=== PATIENT | female | born 1950 | race Caucasian/White ===

== ENCOUNTER 2019-03-23 12:49 | Inpatient (IN) | payer MEDICARE, MEDICAID, SELFPAY ==
[2019-03-23] VITALS (9 sets, daily range): BP systolic 131–179; BP diastolic 74–89; PULSE 67–97; RESP 15–26; TEMP 36.2–36.4; O2SAT 74–98
--- NOTE | 2019-03-23 12:54 | ED_ITS ---
Entered by Devika Marroquin, acting as scribe for Luis Fernando Root DO HPI - Altered Mental Status General: Chief Complaint: Altered Mental Status Stated Complaint: AMS Time Seen by Provider: 03/23/19 13:05 Mode of arrival: EMS History of Present Illness: HPI narrative: 69 yo female presents with altered mental status. EMS states that pt was talking when they brought her in. Pt doesn't answer any questions. Pt is very lethagic. Patient in severe respiratory distress with pending respiratory failure she is tachypneic with shallow rapid respirations at 50/min. She is nonresponsive to painful stimuli. Larue Coma Scale on admission is 4 MD complaint: altered mental status Severity: moderate Context: drug abuse Review of Systems General: Reports: ROS unobtainable due to endotracheal tube and ROS unobtainable due to mental status PFSH ED PFSH: Statuses (acute, chronic, etc) shown below reflect problem list status as previously entered and may not be historically accurate Medical History Gout (Acute) Head injury (Acute) Peptic ulcer (Acute) Sleep apnea (Acute) Thyroid disease (Acute) Surgical History H/O bilateral salpingo-oophorectomy (Acute) H/O knee surgery (Acute) H/O: hysterectomy (Acute) History of appendectomy (Acute) History of cholecystectomy (Acute) History of hip surgery (Acute) Family History Other Family history unobtainable due to patient's condition Social History Smoking and tobacco status: unknown if ever smoked Alcohol intake: unknown Substance/Drug Use: current Physical Exam Const: EXAM LIMITATIONS: altered mental status NUTRITIONAL APPEARANCE: obese Resp: EFFORT & INSPECTION: Yes grunting Cardio: COMMON NORMALS: regular rhythm RATE: tachycardic RHYTHM: regular rhythm GI: COMMON NORMALS: soft to palpation AUSCULTATION: Yes normoactive bowel sounds PALPATION: Yes soft, No tender, No guarding and Yes hepatosplenomegaly Extremity: GENERAL: Yes edema (Moderate lower extremity 1+ pitting) Neuro: HIMA COMA SCALE: document GCS findings Larue coma scale eye opening: None Larue coma scale verbal response: Sounds Hima coma scale motor response: None Hima coma scale total score: 4 Procedures Intubation sedative: Etomidate paralytic: Succinylcholine ET Tube Size: 8 Tube Secured Depth (cm): 22 Tube Secured Location: teeth Tube Placement Confirmation: visualized tube passing through cords, equal breath sounds bilaterally, no breath sounds over epigastrium and confirmation by capnometry Course ED course: Patient sedated on IV propofol. Is doing well labs reviewed discussed with Dr. Lucero he will admit the patient reviewing old records patient previously had severe hypothyroidism want to check a TSH. Dr. Lucero has been down to the ER and has seen the patient emergency room and written orders. Vital Signs: Vital signs: Vital Signs Temperature 98.8 F 03/24/19 05:38 Pulse Rate 78 03/24/19 07:59 Respiratory Rate 15 03/24/19 07:52 Blood Pressure 137/79 03/24/19 07:45 Pulse Oximetry 92 03/24/19 07:49 MDM - Altered Mental Status Lab Data: Labs: Lab Results 03/23/19 03/23/19 03/23/19 Range/Units 13:14 13:14 14:15 WBC (4.0-10.0) 10^3/ uL RBC (4.1-5.3) 10^6/u L Hgb (11.5-15.3) g/dL Hct (37.0-47.0) % MCV (81-99) fL MCH (28.0-34.0) pg MCHC (30.0-36.0) g/dL RDW (12.1-15.1) % Plt Count (130-400) 10^3/c mm MPV (7.4-10.4) fL Neut % (Auto) % Lymph % (Auto) % Routt % (Auto) % Eos % (Auto) % Baso % (Auto) % Neut # (Auto) (1.8-7.7) 10^3/u L Lymph # (Auto) (0.8-4.8) 10^3/u L Routt # (Auto) (0.2-0.9) 10^3/u L Eos # (Auto) (0.0-0.8) 10^3/u L Baso # (Auto) (0.0-0.1) 10^3/u L Nucleated RBC % (a uto) % Nucleated RBCs # /100WBC PT (10.5-13.3) SECO NDS INR (0.8-1.2) APTT (23.9-36.7) SECO NDS Specimen Type Sample Site ABG pH (7.35-7.45) ABG pCO2 (35-45) mmHg ABG pO2 (80.0-100.0) mmH g ABG HCO3 (22-26) mmol/L ABG O2 Saturation ABG Base Excess (-2.0-2.0) mmol/ L Mike Test A-a O2 Gradient (5-10) mmHg Hematocrit (37-47) % Hgb O2 Saturation (95-100) % Carboxyhemoglobin (0.4-20.1) %THgb Methemoglobin (0.4-1.5) % Total Hemoglobin (12-16) g/dL Ionized Calcium (1.1-1.4) mmol/L Respiration Rate % FiO2 % Tidal Volume PEEP cmH20 Homeopathic Doctor ID Sodium (136-145) mmol/L Potassium (3.5-5.1) mmol/L Chloride (98-107) mmol/L Carbon Dioxide (22-29) mmol/L Anion Gap (5-19) BUN (8-23) mg/dL Creatinine (0.5-0.9) mg/dL GFR Calculation (90-130) mL/min Glucose (74-106) mg/dL Calcium (8.8-10.2) mg/Dl Total Bilirubin (0.15-1.2) mg/dL AST (0-32) U/L ALT (0-33) U/L Alkaline Phosphata se (35-105) IU/L Troponin T Baselin e (0-10) ng/mL Total Protein (6.6-8.7) g/dL Albumin (3.5-5.2) g/dL Globulin (1.3-4.6) g/dL TSH (0.27-4.20) uIU/ mL Urine Color Yellow (Yellow) Urine Appearance Sl hazy (CLEAR) Urine pH 5 (5-7) Ur Specific Gravit y 1.020 (1.005-1.030) Urine Protein Neg (Negative) Urine Glucose (UA) Norm (Normal) Urine Ketones Negative (Negative) Urine Occult Blood Neg (Negative) Urine Nitrate Negative (Negative) Urine Bilirubin Neg (NEGATIVE) Urine Urobilinogen 1 H (Negative) mg/dL Ur Leukocyte Britt ase Negative (Negative) Urine RBC None (0-2) /hpf Urine WBC None (0-5) /hpf Ur Squamous Epith Cells 0-4 H (0-5) Urine Bacteria Trace (NONE) Hyaline Casts 0-4 H Urine Mucus 1+ Salicylates (3-10) mg/dL Urine Opiates Scre en Negative (Negative) ng/mL Acetaminophen (10-30) ug/mL Ur Barbiturates Sc reen Negative (Negative) ng/mL Ur Phencyclidine S crn Negative (Negative) ng/mL Ur Amphetamines Sc reen Positive H (Negative) ng/mL U Benzodiazepines Scrn Negative (Negative) ng/mL Urine Cocaine Scre en Negative (Negative) ng/mL U Marijuana (THC) Screen Negative (Negative) ng/mL Influenza Type A A g Negative (Negative) POC Influenza B Ag Negative (Negative) 03/23/19 03/23/19 03/23/19 Range/Units 14:16 14:16 14:16 WBC 9.5 (4.0-10.0) 10^3/ uL RBC 4.06 L (4.1-5.3) 10^6/u L Hgb 12.3 (11.5-15.3) g/dL Hct 41.6 (37.0-47.0) % MCV 102.5 H (81-99) fL MCH 30.3 (28.0-34.0) pg MCHC 29.6 L (30.0-36.0) g/dL RDW 16.0 H (12.1-15.1) % Plt Count 371 (130-400) 10^3/c mm MPV 9.4 (7.4-10.4) fL Neut % (Auto) 61.6 % Lymph % (Auto) 19.7 % Routt % (Auto) 12.8 % Eos % (Auto) 0.7 % Baso % (Auto) 0.9 % Neut # (Auto) 5.9 (1.8-7.7) 10^3/u L Lymph # (Auto) 1.9 (0.8-4.8) 10^3/u L Routt # (Auto) 1.2 H (0.2-0.9) 10^3/u L Eos # (Auto) 0.1 (0.0-0.8) 10^3/u L Baso # (Auto) 0.1 (0.0-0.1) 10^3/u L Nucleated RBC % (a uto) 0.4 % Nucleated RBCs # 0.0 /100WBC PT 13.80 H (10.5-13.3) SECO NDS INR 1.03 (0.8-1.2) APTT 29.7 (23.9-36.7) SECO NDS Specimen Type Sample Site ABG pH (7.35-7.45) ABG pCO2 (35-45) mmHg ABG pO2 (80.0-100.0) mmH g ABG HCO3 (22-26) mmol/L ABG O2 Saturation ABG Base Excess (-2.0-2.0) mmol/ L Mike Test A-a O2 Gradient (5-10) mmHg Hematocrit (37-47) % Hgb O2 Saturation (95-100) % Carboxyhemoglobin (0.4-20.1) %THgb Methemoglobin (0.4-1.5) % Total Hemoglobin (12-16) g/dL Ionized Calcium (1.1-1.4) mmol/L Respiration Rate % FiO2 % Tidal Volume PEEP cmH20 Homeopathic Doctor ID Sodium 138 (136-145) mmol/L Potassium 4.3 (3.5-5.1) mmol/L Chloride 90 L (98-107) mmol/L Carbon Dioxide 34 H (22-29) mmol/L Anion Gap 18.3 (5-19) BUN 13 (8-23) mg/dL Creatinine 0.7 (0.5-0.9) mg/dL GFR Calculation 82.7 L (90-130) mL/min Glucose 112 H (74-106) mg/dL Calcium 8.9 (8.8-10.2) mg/Dl Total Bilirubin 0.5 (0.15-1.2) mg/dL AST 25 (0-32) U/L ALT 16 (0-33) U/L Alkaline Phosphata se 74 (35-105) IU/L Troponin T Baselin e (0-10) ng/mL Total Protein 7.0 (6.6-8.7) g/dL Albumin 4.0 (3.5-5.2) g/dL Globulin 3.0 (1.3-4.6) g/dL TSH (0.27-4.20) uIU/ mL Urine Color (Yellow) Urine Appearance (CLEAR) Urine pH (5-7) Ur Specific Gravit y (1.005-1.030) Urine Protein (Negative) Urine Glucose (UA) (Normal) Urine Ketones (Negative) Urine Occult Blood (Negative) Urine Nitrate (Negative) Urine Bilirubin (NEGATIVE) Urine Urobilinogen (Negative) mg/dL Ur Leukocyte Britt ase (Negative) Urine RBC (0-2) /hpf Urine WBC (0-5) /hpf Ur Squamous Epith Cells (0-5) Urine Bacteria (NONE) Hyaline Casts Urine Mucus Salicylates (3-10) mg/dL Urine Opiates Scre en (Negative) ng/mL Acetaminophen (10-30) ug/mL Ur Barbiturates Sc reen (Negative) ng/mL Ur Phencyclidine S crn (Negative) ng/mL Ur Amphetamines Sc reen (Negative) ng/mL U Benzodiazepines Scrn (Negative) ng/mL Urine Cocaine Scre en (Negative) ng/mL U Marijuana (THC) Screen (Negative) ng/mL Influenza Type A A g (Negative) POC Influenza B Ag (Negative) 03/23/19 03/23/19 03/23/19 Range/Units 14:16 14:36 14:37 WBC (4.0-10.0) 10^3/ uL RBC (4.1-5.3) 10^6/u L Hgb (11.5-15.3) g/dL Hct (37.0-47.0) % MCV (81-99) fL MCH (28.0-34.0) pg MCHC (30.0-36.0) g/dL RDW (12.1-15.1) % Plt Count (130-400) 10^3/c mm MPV (7.4-10.4) fL Neut % (Auto) % Lymph % (Auto) % Routt % (Auto) % Eos % (Auto) % Baso % (Auto) % Neut # (Auto) (1.8-7.7) 10^3/u L Lymph # (Auto) (0.8-4.8) 10^3/u L Routt # (Auto) (0.2-0.9) 10^3/u L Eos # (Auto) (0.0-0.8) 10^3/u L Baso # (Auto) (0.0-0.1) 10^3/u L Nucleated RBC % (a uto) % Nucleated RBCs # /100WBC PT (10.5-13.3) SECO NDS INR (0.8-1.2) APTT (23.9-36.7) SECO NDS Specimen Type Arterial Sample Site Radial, left ABG pH 7.44 (7.35-7.45) ABG pCO2 60.6 H* (35-45) mmHg ABG pO2 139.0 H (80.0-100.0) mmH g ABG HCO3 41.1 H (22-26) mmol/L ABG O2 Saturation 99.8 ABG Base Excess 14.0 H (-2.0-2.0) mmol/ L Mike Test Pos A-a O2 Gradient 209.8 H (5-10) mmHg Hematocrit 41.9 (37-47) % Hgb O2 Saturation 96.6 (95-100) % Carboxyhemoglobin 2.5 (0.4-20.1) %THgb Methemoglobin 0.8 (0.4-1.5) % Total Hemoglobin 13.7 (12-16) g/dL Ionized Calcium 1.1 (1.1-1.4) mmol/L Respiration Rate 16.0 % FiO2 60.0 % Tidal Volume 0.4 PEEP 10.0 cmH20 Homeopathic Doctor ID amh Sodium 140.0 (136-145) mmol/L Potassium 3.7 (3.5-5.1) mmol/L Chloride (98-107) mmol/L Carbon Dioxide (22-29) mmol/L Anion Gap (5-19) BUN (8-23) mg/dL Creatinine (0.5-0.9) mg/dL GFR Calculation (90-130) mL/min Glucose 92.0 (74-106) mg/dL Calcium (8.8-10.2) mg/Dl Total Bilirubin (0.15-1.2) mg/dL AST (0-32) U/L ALT (0-33) U/L Alkaline Phosphata se (35-105) IU/L Troponin T Baselin e 62 H (0-10) ng/mL Total Protein (6.6-8.7) g/dL Albumin (3.5-5.2) g/dL Globulin (1.3-4.6) g/dL TSH 27.51 H (0.27-4.20) uIU/ mL Urine Color (Yellow) Urine Appearance (CLEAR) Urine pH (5-7) Ur Specific Gravit y (1.005-1.030) Urine Protein (Negative) Urine Glucose (UA) (Normal) Urine Ketones (Negative) Urine Occult Blood (Negative) Urine Nitrate (Negative) Urine Bilirubin (NEGATIVE) Urine Urobilinogen (Negative) mg/dL Ur Leukocyte Britt ase (Negative) Urine RBC (0-2) /hpf Urine WBC (0-5) /hpf Ur Squamous Epith Cells (0-5) Urine Bacteria (NONE) Hyaline Casts Urine Mucus Salicylates < 0.3 L (3-10) mg/dL Urine Opiates Scre en (Negative) ng/mL Acetaminophen < 5.0 L (10-30) ug/mL Ur Barbiturates Sc reen (Negative) ng/mL Ur Phencyclidine S crn (Negative) ng/mL Ur Amphetamines Sc reen (Negative) ng/mL U Benzodiazepines Scrn (Negative) ng/mL Urine Cocaine Scre en (Negative) ng/mL U Marijuana (THC) Screen (Negative) ng/mL Influenza Type A A g (Negative) POC Influenza B Ag (Negative) Imaging Data^: CT Head: Radiologist's impression: Patient: Wendy Ozuna Unit #: [id number] : 1950 Age/Sex: 69 / F ADM Date: 03/23/19 Loc: ER Room/Bed: Attending Dr: Ordering Provider/Ordering MD: Luis Fernando Root DO Date of Service: 03/23/19 Procedure(s): CT head wo con* [id number] Accession Number(s): [id number] Report Number: [id number] PROCEDURE INFORMATION: Exam: CT Head Without Contrast Exam date and time: 03/23/2019 1:19 PM Age: 69 years old Clinical indication: Altered mental status/memory loss; Patient HX: AMS. Intubated. No history. TECHNIQUE: Imaging protocol: Computed tomography of the head without contrast. Total DLP: 795.36 mGy-cm Radiation optimization: All CT scans at this facility use at least one of these dose optimization techniques: automated exposure control; mA and/or kV adjustment per patient size (includes targeted exams where dose is matched to clinical indication); or iterative reconstruction. COMPARISON: CT head wo con* [id number] 06/27/2015 1:23 PM FINDINGS: Brain: Normal. No hemorrhage. Unremarkable white matter. No mass effect. Ventricles: Normal. No ventriculomegaly. Bones/joints: Unremarkable. No acute fracture. Sinuses: There is mild ethmoid mucosal thickening. Mastoid air cells: Visualized mastoid air cells are well aerated. Soft tissues: Unremarkable. CT/CT head wo con* [id number] IMPRESSION: No acute intracranial abnormality. Radiation Dose CTDIVOL = (mGy): DLP = 795.36 (mGy-cm) Dictated By: Erica Roldan MD Signed By: Erica Roldan MD Signed Date/Time: 03/23/191411 DD/ 11 Discharge Plan Discharge Patient Disposition: Admitted As Inpatient Admit Provider: Dm Lucero Clinical Impression: Respiratory failure, Thyroid disease, COPD (chronic obstructive pulmonary disease), Drug use, Elevated troponin, COPD exacerbation Condition: Stable Interventions: ED Discharge Assessment Last Done: 03/23/19 18:45 Discharge Date/Time: 03/23/19 19:31 Coding Level of Care Code ED Group Home Supervisor for Chg Fwd The documentation recorded by the Lopez bobby Kialy, accurately reflects the service I personally performed and the decisions made by Dk batista Curtis L, DO Mar 23, 2019 12:49
--- NOTE | 2019-03-23 13:04 | CTR_ITS ---
PROCEDURE INFORMATION: Exam: CT Head Without Contrast Exam date and time: 03/23/2019 1:19 PM Age: 69 years old Clinical indication: Altered mental status/memory loss; Patient HX: AMS. Intubated. No history. TECHNIQUE: Imaging protocol: Computed tomography of the head without contrast. Total DLP: 795.36 mGy-cm Radiation optimization: All CT scans at this facility use at least one of these dose optimization techniques: automated exposure control; mA and/or kV adjustment per patient size (includes targeted exams where dose is matched to clinical indication); or iterative reconstruction. COMPARISON: CT head wo con* [id number] 06/27/2015 1:23 PM FINDINGS: Brain: Normal. No hemorrhage. Unremarkable white matter. No mass effect. Ventricles: Normal. No ventriculomegaly. Bones/joints: Unremarkable. No acute fracture. Sinuses: There is mild ethmoid mucosal thickening. Mastoid air cells: Visualized mastoid air cells are well aerated. Soft tissues: Unremarkable. CT/CT head wo con* [id number] IMPRESSION: No acute intracranial abnormality. Radiation Dose CTDIVOL = (mGy): DLP = 795.36 (mGy-cm)
--- NOTE | 2019-03-23 13:13 | ECG_ITS ---
Measurements Intervals [place] Rate: 80 P: 61 GA: 208 QRS: -67 QRSD: 142 T: 80 QT: 396 QTc: 457 SINUS RHYTHM LEFT AXIS DEVIATION [QRS AXIS < -30] LEFT BUNDLE BRANCH BLOCK [120+ ms QRS DURATION, 80+ ms Q/S IN V1/V2, 85+ ms R IN I/aVL/V5/V6] Compared to ECG 06/27/2015 16:23:50 Left-axis deviation now present Left bundle-branch block now present Sinus bradycardia no longer present First degree AV block no longer present Intraventricular conduction delay no longer present Myocardial infarct finding no longer present Electronically Signed On 03-23-2019 20:12:39 SAMPLE HAND by dArián Freeman M.D. [id number]
[2019-03-23] MEDS: succinylcholine 20 mg/mL SDV 10mL 120 MG IVP (13:15)
[2019-03-23] MEDS: vecuronium 10 mg SDV IV (13:32)
[2019-03-23] MEDS: propofol 1,000 MG/100 ML INJ 3.3 MG IV (13:33)
[2019-03-23 13:48] LABS: Urine Appearance SL Hazy (CLEAR); Urine Color Yellow (Yellow)
[2019-03-23 13:49] LABS: Add Urine Microscopic? YES; Bilirubin Urine Neg (NEGATIVE); Blood Urine Neg (Negative); Glucose Urine UA Norm (Normal); Ketones Urine Negative (Negative); Leukocyte Esterase Urine Negative (Negative); Nitrate Urine Negative (Negative); Protein Urine Neg (Negative); Urobilinogen Urine 1 mg/dL (Negative); pH Urine 5 (5-7)
[2019-03-23 13:50] LABS: Barbiturates Screen Urine Negative (Negative); Benzodiazepines Screen Urine Negative (Negative); Cocaine Screen Urine Negative (Negative); Opiate Screen Urine Negative (Negative); PCP Screen Urine Negative (Negative); THC Screen Urine Negative (Negative)
[2019-03-23 13:51] LABS: Bacteria Urine TRACE; Hyaline Casts Urine 0-4; Mucus Urine 1+; Squamous Epithelial Cell Urine 0-4 (0-5)
--- NOTE | 2019-03-23 14:25 | XRR_ITS ---
PROCEDURE INFORMATION: Exam: XR Chest, 1 View Exam date and time: 03/23/2019 2:48 PM Age: 69 years old Clinical indication: Condition or disease; Other: Post et tube placement; Additional info: Intubated TECHNIQUE: Imaging protocol: XR of the chest Views: 1 view. COMPARISON: CR Chest 1 [place] [id number] 06/27/2015 12:54 PM FINDINGS: Lungs: Unremarkable. No consolidation. Pleural space: Unremarkable. No pleural effusion. No pneumothorax. Heart/Mediastinum: Unremarkable. No cardiomegaly. Bones/joints: Unremarkable. NG tube is in the stomach. Endotracheal tube is 4.8 cm above the vira XR/XR chest 1V portable [id number] IMPRESSION: No acute findings. Endotracheal tube is in place as described. A NG tube is in the stomach
[2019-03-23 14:29] LABS: Basophils # 0.1 10^3/uL (0.0-0.1); Basophils % 0.9 %; Eosinophils # 0.1 10^3/uL (0.0-0.8); Eosinophils % 0.7 %; Hematocrit 41.6 % (37.0-47.0); Hemoglobin 12.3 g/dL (11.5-15.3); Lymphocytes # 1.9 10^3/uL (0.8-4.8); Lymphocytes % 19.7 %; Mean Corpuscular HGB Conc 29.6 g/dL (30.0-36.0); Mean Corpuscular Hemoglobin 30.3 pg (28.0-34.0); Mean Corpuscular Volume 102.5 fL (81-99); Mean Platelet Volume 9.4 fL (7.4-10.4); Monocytes # 1.2 10^3/uL (0.2-0.9); Monocytes % 12.8 %; Neutrophils # 5.9 10^3/uL (1.8-7.7); Neutrophils % 61.6 %; Nucleated Red Blood Cells % 0.4 %; Platelet Count 371 10^3/cmm (130-400); Red Blood Count 4.06 10^6/uL (4.1-5.3); White Blood Count 9.5 10^3/uL (4.0-10.0)
[2019-03-23 14:44] LABS: Amphetamines Screen Urine Positive (Negative)
[2019-03-23 14:48] LABS: ABG PCO2 60.6 mmHg (35-45); ABG PH Result 7.44 (7.35-7.45); Alveolar-Arterial Oxygen Gradi 209.8 mmHg (5-10); Arterial Blood Gas Hematocrit 41.9 % (37-47); Blood Gas Allen Test Pos; Blood Gas Operator Identificat amh; Blood Gas Sample Site Radial, left; Blood Gas Sample Type Arterial; Blood Gas Tidal Volume 0.4; Carboxyhemoglobin 2.5 %THgb (0.4-20.1); HCO3 ABG 41.1 mmol/L (22-26); HGB O2 Sat 96.6 % (95-100); Ionized Calcium Level - ABG 1.1 mmol/L (1.1-1.4); Methemoglobin 0.8 % (0.4-1.5); Oxygen Saturation ABG 99.8; Potassium Level - ABG 3.7 mmol/L (3.5-5.0); Total Hemoglobin 13.7 g/dL (12-16)
[2019-03-23 14:57] LABS: INR 1.03 (0.8-1.2); Partial Thromboplastin Time 29.7 SECONDS (23.9-36.7)
[2019-03-23 15:14] LABS: Slide Review Slide Review Perform
[2019-03-23 15:21] LABS: Troponin(5th) Baseline 62 ng/mL (0-10)
[2019-03-23] MEDS: FUROsemide 10 mg/mL SDV 10mL 60 MG IVP (15:21)
[2019-03-23 15:29] LABS: Alanine Aminotransferase 16 U/L (0-33); Alkaline Phosphatase 74 IU/L (35-105); Anion Gap 18.3 (5-19); Blood Urea Nitrogen 13 mg/dL (8-23); Calcium 8.9 mg/Dl (8.8-10.2); Carbon Dioxide 34 mmol/L (22-29); Chloride 90 mmol/L (98-107); Glomerular Filtration Rate 82.7 mL/min (90-130); Glucose 112 mg/dL (74-106); Potassium 4.3 mmol/L (3.5-5.1); Sodium 138 mmol/L (136-145); Total Bilirubin 0.5 mg/dL (0.15-1.2)
[2019-03-23 15:30] LABS: Influenza A by IFA Negative (Negative); Influenza B by IFA Negative (Negative)
[2019-03-23 15:30] LABS: Aspartate Amino Transferase 25 U/L (0-32)
[2019-03-23 15:48] LABS: Acetaminophen < 5.0 ug/mL (10-30); Salicylate < 0.3 mg/dL (3-10)
--- NOTE | 2019-03-23 15:58 | PM.HP ---
Providers/Chief Complaint Primary Care Provider: Varinder Delgado Chief Complaint: AMS History of Present Illness Wendy Ozuna is a 69 year old female who presented to the emergency department after calling EMS. According to the emergency department personnel here she voiced that she had taken too much methamphetamine. They noticed hypoxia in route, and upon arrival to the emergency department she was somnolent, requiring intubation. From my understanding she was able to talk, when EMS arrived. Review of Systems General: Reports: ROS unobtainable due to endotracheal tube Medications/Allergies Home Medications Medication Instructions Recorded Confirmed Last Taken Type allopurinol 300 mg PO DAILY 03/23/19 03/23/19 Unknown History estradiol 1 mg PO DAILY 03/23/19 03/23/19 Unknown History furosemide [Lasix] 20 mg PO DAILY 03/23/19 03/23/19 Unknown History levothyroxine 200 mcg PO DAILY 03/23/19 03/23/19 Unknown History nitroglycerin [Nitrostat] 0.4 mg SUBLINGUAL Q5M PRN 03/23/19 03/23/19 Unknown History nystatin 5 ml PO QID 03/23/19 03/23/19 Unknown History potassium chloride 10 meq PO DAILY 03/23/19 03/23/19 Unknown History pramipexole 3 mg PO BID 03/23/19 03/23/19 Unknown History Allergies Allergy/AdvReac Type Severity Reaction Status Date / Time gabapentin Allergy Unknown Unknown Verified 03/23/19 13:24 PFSH Acute PFSH: Statuses (acute, chronic, etc) shown below reflect problem list status as previously entered and may not be historically accurate Medical History (Updated 03/23/19 @ 17:13 by Dm Lucero MD) Gout (Acute) Head injury (Acute) Peptic ulcer (Acute) Sleep apnea (Acute) Thyroid disease (Acute) Surgical History H/O bilateral salpingo-oophorectomy (Acute) H/O knee surgery (Acute) H/O: hysterectomy (Acute) History of appendectomy (Acute) History of cholecystectomy (Acute) History of hip surgery (Acute) Family History (Updated 03/23/19 @ 17:04 by Dm Lucero MD) Other Family history unobtainable due to patient's condition Social History (Updated 03/23/19 @ 17:04 by Dm Lucero MD) Smoking and tobacco status: unknown if ever smoked Alcohol intake: unknown Substance/Drug Use: current Vitals/I&O/Wt Last Vital Signs Temp 97.4 F L 03/23/19 12:50 Pulse 79 03/23/19 12:50 Resp 16 03/23/19 13:37 Pulse Ox 74 L 03/23/19 12:50 03/23/19 03/23/19 03/23/19 06:59 14:59 22:59 Intake Total 6.910 / 6.910 Balance 6.910 / 6.910 Physical Exam Narrative: EXAM NARRATIVE: General exam is an intubated and sedated obese white female HEENT: Pupils are equally round. Oropharynx demonstrates endotracheal tube and orogastric tube Neck is supple, no obvious lymphadenopathy or thyromegaly Cardiovascular regular rate and rhythm without murmur. No S3 or S4 Lungs diminished breath sounds bilaterally. No wheezes. Abdomen is soft, obese, positive bowel sounds. No obvious organomegaly demonstrates Pete Extremities no cyanosis clubbing or edema Neurologic: Difficult exam. Recently paralyzed. From my understanding there were no focal deficits prior to this. Urinary Catheter Management^: Pete: Cath Placed During This Visit: no Data : 03/23/19 14:16 03/23/19 14:16 Micro: Microbiology 03/23/19 14:36 Blood Culture - Preliminary Blood SPECIMEN COLLECTED 03/23/19 14:26 Blood Culture - Preliminary Blood SPECIMEN COLLECTED Other data: EKG demonstrated sinus rhythm, left axis deviation, intraventricular conduction delay with left bundle branch block. Flipped T waves are noted in aVL and 1 Chest x-ray demonstrated vascular crowding, poor film A&P Assessment and plan (1) Respiratory failure: Hypercarbic. Likely related to drug use or COPD exacerbation Status: Acute Code(s): J96.90 - Respiratory failure, unspecified, unspecified whether with hypoxia or hypercapnia (2) Drug use: Methamphetamine positive. From ER doctor she self reported methamphetamine use Status: Acute Code(s): F19.90 - Other psychoactive substance use, unspecified, uncomplicated (3) Elevated troponin: Likely type II Status: Acute Code(s): R79.89 - Other specified abnormal findings of blood chemistry (4) COPD exacerbation: IV steroids, pulmonary toilet, IV Levaquin Status: Acute Code(s): J44.1 - Chronic obstructive pulmonary disease with (acute) exacerbation Additional A&P Information History of gout Hypothyroidism with history of myxedema Probable restless leg syndrome on review of her medications Tobacco dependency Past history of [place] which is in question on her last hospital stay Past history of CVA which was in question on her last hospital stay Obesity 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
[2019-03-23 16:25] LABS: Thyroid Stimulating Hormone 27.51 uIU/mL (0.27-4.20)
--- NOTE | 2019-03-23 19:13 | ECG_ITS ---
Measurements Intervals [place] Rate: 71 P: 38 HI: 190 QRS: -64 QRSD: 138 T: 56 QT: 411 QTc: 448 SINUS RHYTHM INTRAVENTRICULAR CONDUCTION DELAY [130+ ms QRS DURATION] POSSIBLE ANTERIOR MYOCARDIAL INFARCTION [30 ms Q WAVE IN V3/V4, OR R < 0.2 mV IN V4], OF INDETERMINATE AGE Compared to ECG 06/27/2015 16:23:50 Sinus bradycardia no longer present First degree AV block no longer present Myocardial infarct finding still present Electronically Signed On 03-23-2019 20:13:47 RESTAURANT BUSSER by Adrián Freeman M.D. [id number]
[2019-03-23] MEDS: ipratropium-albuterol 3 mL Neb INHALATION ×2 (20:11→23:44)
[2019-03-23] MEDS: levofloxacin-dextrose 5 % 750 MG/150 ML PREMIX 150 MG IV (20:30)
[2019-03-23 20:55] LABS: Troponin 5 6HR 74.23 ng/L (0-10)
[2019-03-23 20:57] LABS: Troponin 5 6HR Delta 12.23 ng/L (0-12)
[2019-03-23] MEDS: famotidine 20 mg/2 mL INJ 40 MG IVP (21:31)
[2019-03-23] MEDS: enoxaparin 40 mg/0.4 mL Syringe SUBCUT (21:32)
[2019-03-23] MEDS: propofol 1,000 MG/100 ML INJ 43.2 MG IV (21:33)
[2019-03-23] MEDS: fentaNYL 50 mcg/mL INJ 2mL 25 MCG IVP (23:26)
[2019-03-24] VITALS (49 sets, daily range): BP systolic 86–172; BP diastolic 37–88; PULSE 0–88; RESP 10–72; TEMP 36.8–37.3; O2SAT 83–97; BMI 43.4
[2019-03-24] MEDS: propofol 1,000 MG/100 ML INJ 43.2 MG IV ×4 (00:06→10:44)
[2019-03-24] MEDS: ipratropium-albuterol 3 mL Neb INHALATION ×6 (03:51→23:39)
[2019-03-24 05:01] LABS: Arterial Blood Gas Hematocrit 42.2 % (37-47)
[2019-03-24 05:05] LABS: ABG PCO2 53.3 mmHg (35-45); ABG PH Result 7.55 (7.35-7.45); Base Excess ABG 20.4 mmol/L (-2.0-2.0); HCO3 ABG 46.1 mmol/L (22-26); PO2 ABG 55.1 mmHg (80.0-100.0)
[2019-03-24 05:06] LABS: Oxygen Device VENT
[2019-03-24 05:55] LABS: Basophils # 0.1 10^3/uL (0.0-0.1); Basophils % 0.7 %; Hemoglobin 13.2 g/dL (11.5-15.3); Lymphocytes # 1.4 10^3/uL (0.8-4.8); Lymphocytes % 10.7 %; Mean Corpuscular HGB Conc 30.7 g/dL (30.0-36.0); Mean Corpuscular Hemoglobin 29.2 pg (28.0-34.0); Mean Corpuscular Volume 95.1 fL (81-99); Mean Platelet Volume 9.5 fL (7.4-10.4); Monocytes # 0.3 10^3/uL (0.2-0.9); Monocytes % 2.6 %; Neutrophils # 11.1 10^3/uL (1.8-7.7); Neutrophils % 82.9 %; Nucleated Red Blood Cells % 0.3 %; Platelet Count 412 10^3/cmm (130-400); Red Blood Count 4.52 10^6/uL (4.1-5.3); Red Cell Distribution Width 15.4 % (12.1-15.1); White Blood Count 13.3 10^3/uL (4.0-10.0)
[2019-03-24 06:22] LABS: Alanine Aminotransferase 16 U/L (0-33); Albumin Level 3.9 g/dL (3.5-5.2); Alkaline Phosphatase 82 IU/L (35-105); Anion Gap 14.8 (5-19); Aspartate Amino Transferase 27 U/L (0-32); Blood Urea Nitrogen 15 mg/dL (8-23); Calcium 9.3 mg/Dl (8.8-10.2); Chloride 85 mmol/L (98-107); Globulin 4.1 g/dL (1.3-4.6); Glomerular Filtration Rate 61.9 mL/min (90-130); Glucose 131 mg/dL (74-106); Magnesium 1.2 mg/dL (1.7-2.3); Potassium 3.8 mmol/L (3.5-5.1); Sodium 137 mmol/L (136-145); Total Bilirubin 0.5 mg/dL (0.15-1.2)
[2019-03-24 06:28] LABS: Carbon Dioxide 41 mmol/L (22-29)
--- NOTE | 2019-03-24 07:52 | XR_ITS ---
WS: [id number] Portable AP upright chest, 03/24/2019 Clinical Data: resp failure Comparison: Portable chest 03/23/2019 Findings: The endotracheal tube and nasogastric tube remain in good position. The heart is enlarged. Vascularity is minimally increased. There is opacification in the left lung base which may represent effusion, atelectasis and/or minimal pneumonia.. No nodules, masses or effusions are seen. Monitor le ads are on the chest wall. XR/XR chest 1V portable [id number] Impression: 1. Minimal opacification in left lung base which could represent atelectasis, e ffusion and/or minimal pneumonia. 2. Pulmonary vascular congestion. 3. Satisfactory position of nasogastric and endotracheal tube.
[2019-03-24] MEDS: magnesium sulfate premix 2 GM/50 ML PIGGYBACK IV (08:45)
[2019-03-24] MEDS: FUROsemide 10 mg/mL SDV 4mL 40 MG IVP ×2 (08:45→21:23)
[2019-03-24] MEDS: famotidine 20 mg/2 mL INJ 40 MG IVP ×2 (08:49→21:17)
[2019-03-24] MEDS: levothyroxine 100 mcg Tablet 200 MCG OG-TUBE (09:03)
--- NOTE | 2019-03-24 09:07 | CT_ITS ---
WS: [id number] CT CHEST ANGIOGRAPHY WITH REFORMATS HISTORY: hypoxia, respiratory failure TECHNIQUE: Contiguous axial images are obtained through the chest during arterial injection of intrav enous contrast. Images are reconstructed to evaluate the pulmonary arteries. MIP imaging also reviewe d. All CT scans at [facility] use at least one of these dose optimization techniques: aut omated exposure control; mA and/or kV adjustment per patient size (includes targeted exams where dose is matched to clinical indication); or iterative reconstruction. CONTRAST: Omnipaque 350; 95 mL IV. DLP: 1042.86 mGy.cm COMPARISON: 06/27/2015 Very good opacification of the pulmonary arteries. No filling defect or pulmonary emboli are identifi ed. Mild atherosclerosis aorta. No aneurysm or dissection. Pulmonary artery size is slightly greater then the aorta. Mild enlargement of the cardiac chambers. No pericardial effusion. No significant pleural effusion. Compressive atelectasis at the lung bases, LEFT greater than RIGHT. No pulmonary mass. No mediastinal or hilar adenopathy. Endotracheal tube is in good position and ends just above the vira. Nasogastric tube is also placed with tip extending into the stomach. Prior cholecystectomy. Spleen and liver are normal size. Thoracolumbar scoliosis. CT/CT angio chest PE protcl [id number] IMPRESSION: 1. No pulmonary embolism. 2. Subsegmental atelectasis bilateral lower lobes, LEFT greater than RIGHT. 3. Nasogastric and endotracheal tubes in good position. 4. Mild cardiomegaly.
--- NOTE | 2019-03-24 13:10 | PC.RESP ---
pt. self extubated wants to watch and see how she does
--- NOTE | 2019-03-24 13:18 | PC.NURSE ---
1310 pt self extubated. left ac iv infiltrated with propofol and precedex. pt crying some what hysterical. placed on 15 l hi-mask
--- NOTE | 2019-03-24 14:19 | PM.PN ---
Subjective Subjective: Interval history: Patient was seen earlier this morning and was sedated on the ventilator. Since that time, she self extubated. She was complaining of some left arm pain, and infiltration of propofol n was noted. She has since become calmer, conversant. She denies being short of breath but is requiring a fair amount of oxygen. Medications: Reviewed: Yes Vitals/I&O/Wt Last Vital Signs Temp 99.1 F 03/24/19 09:20 Pulse 70 03/24/19 11:53 Resp 14 03/24/19 11:50 BP 156/69 03/24/19 11:00 Pulse Ox 90 03/24/19 11:50 03/23/19 03/24/19 03/24/19 22:59 06:59 14:59 Intake Total 239.08 / 245.990 300 / 545.990 254 / 254 Output Total 2400 / 2400 600 / 3000 Balance -2160.92 / -2154.010 -300 / -2454.010 254 / 254 Weight last 48 hrs Weight 129.416 kg Physical Exam Narrative: EXAM NARRATIVE: General exam is a white female, mild respiratory distress, currently on Precedex and has self extubated. Cardiovascular regular rate and rhythm without murmur Lungs coarse breath sounds bilaterally but no wheezes Abdomen is soft obese nontender Extremities no cyanosis clubbing or edema Urinary Catheter Management^: Pete: Cath Placed During This Visit: no Data Micro: Micro: Microbiology 03/23/19 13:15 Gram Stain - Final Sputum - Endotrac heal Tube Aspirate 03/23/19 14:36 Blood Culture - Pr eliminary Blood [place] [place] 03/23/19 14:26 Blood Culture - Pr eliminary Blood [place] [place] A&P Assessment and plan (1) Respiratory failure: Hypercarbic. Likely related to drug use or COPD exacerbation. She has self extubated. Currently doing relatively well. We will continue to monitor. May require BiPAP. Status: Acute Qualifiers: Chronicity: acute Respiratory failure complication: hypoxia and hypercapnia Qualified Code(s): J96.01 - Acute respiratory failure with hypoxia; J96.02 - Acute respiratory failure with hypercapnia Code(s): J96.90 - Respiratory failure, unspecified, unspecified whether with hypoxia or hypercapnia (2) Drug use: Methamphetamine positive. From ER doctor she self reported methamphetamine use. At this point patient will only say that somebody gave her something bad. Status: Acute Code(s): F19.90 - Other psychoactive substance use, unspecified, uncomplicated (3) Elevated troponin: Likely type II Status: Acute Code(s): R79.89 - Other specified abnormal findings of blood chemistry (4) COPD exacerbation: Continue IV steroids, pulmonary toilet and IV Levaquin. Decrease IV steroids slightly. Status: Acute Code(s): J44.1 - Chronic obstructive pulmonary disease with (acute) exacerbation Additional A&P Information History of gout Hypothyroidism with history of myxedema. 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 Recently self extubated. Critical Care Time: 39 minutes spent in critical care time reviewing ventilator settings, IV antibiotics, O2 requirements with respiratory failure Coding Level of Care Code Acute Hospice Spiritual Care Coordinator for [facility] Diagnoses Respiratory failure J96.01; J96.02 Chronicity: acute Respiratory failure complication: hypoxia and hypercapnia Drug use F19.90 Elevated troponin R79.89 COPD exacerbation J44.1
--- NOTE | 2019-03-24 14:26 | USCV_ITS ---
Wendy Ozuna Age: 69 Gender: F : 1950 Exam Date: 03/24/2019 15:44 Ordering Phys: Dm Lucero MD Technologist: Katarzyna Matta Exam Location: [facility] – [place] Indication: Elevated troponin BP: 129 / 58 HR: 73 Rhythm: Sinus Technical Quality: Technically difficult study MEASUREMENTS (Male / Female) Normal Values 2D ECHO LV Diastolic Diameter PLAX 3.3 cm 4.2 - 5.9 / 3.9 - 5.3 cm LV Systolic Diameter PLAX 1.9 cm LV Chamber Size 5.1 cm IVS Diastolic Thickness 1.7 cm 0.6 - 1.0 / 0.6 - 0.9 cm IVS Systolic Thickness 1.6 cm LVPW Diastolic Thickness 1.6 cm 0.6 - 1.0 / 0.6 - 0.9 cm LVPW Systolic Thickness 1.6 cm RV Chamber Size 3.0 cm LVOT Diameter 2.0 cm LV Ejection Fraction 2D Teich 73.5 % LA Diameter 3.0 cm LA Width 3.5 cm LA Height 5.6 cm RA Width 2.9 cm RA Height 5.1 cm Aorta at Sinotubular Diameter 2.1 cm M-MODE LV Diastolic Diameter MM 4.8 cm 4.2 - 5.9 / 3.9 - 5.3 cm LV Systolic Diameter MM 3.2 cm LV Ejection Fraction MM Teich 62.4 % IVS Diastolic Thickness MM 1.7 cm 0.6 - 1.0 / 0.6 - 0.9 cm IVS Systolic Thickness MM 2.1 cm LVPW Diastolic Thickness MM 1.3 cm 0.6 - 1.0 / 0.6 - 0.9 cm LVPW Systolic Thickness MM 1.9 cm RV Diastolic Diameter MM 1.3 cm Aortic Annulus Diameter 3.4 cm LA Ao Ratio MM 0.9 MV E Point Septal Separation 0.7 cm DOPPLER AV Peak Velocity 141.0 cm/s LVOT Peak Velocity 94.0 cm/s AV Area Cont Eq vti 2.0 cm squared AV Area Cont Eq pk 2.0 cm squared MV Area PHT 4.0 cm squared Mitral E to A Ratio 1.3 MV E' Velocity 9.0 cm/s Mitral E to MV E' Ratio 8.9 Mitral E to LV E' Lateral Ratio 8.6 Mitral E to LV E' Septal Ratio 9.3 TR Peak Velocity 247.0 cm/s TR Peak Gradient 24.4 mmHg TR Mean Velocity 203.8 cm/s TR Mean Gradient 17.0 mmHg TR Velocity Time Integral 79.8 cm TV Peak E Velocity 77.0 cm/s Right Atrial Pressure 3.0 mmHg Pulmonary Artery Systolic Pressu 27.4 mmHg PV Peak Velocity 116.0 cm/s RV Acceleration Time 0.1 s RV Ejection Time 0.3 s RV AcT/ET 0.2 FINDINGS Left Ventricle Normal left ventricular cavity size. Normal left ventricular systolic function. Left ventricular ejection fraction is estimated at 60 %. This study is inadequate for estimation of regional wall motion abnormality. Abnormal septal motion consistent with conduction abnormality. Normal diastolic function. Right Ventricle Normal right ventricular size and systolic function. Right ventricular systolic pressure 27.4 mmHg. Right Atrium Right atrial pressure estimated at 3 mmHg. Left Atrium Left atrium not well visualized. Mitral Valve Moderate mitral annular calcification. Thickened mitral valve. Mild mitral valve regurgitation. Aortic Valve Mildly thickened probably trileaflet aortic valve. No aortic valve stenosis. Trace to mild aortic valve regurgitation. Tricuspid Valve Tricuspid valve not well visualized. Trace tricuspid valve regurgitation. Pulmonic Valve Pulmonic valve not well visualized. No pulmonary valve stenosis. Pericardium No pericardial effusion. Echo free space anterior to the right ventricle likely represents a fat pad. Aorta Normal size aortic root and proximal ascending aorta. CONCLUSIONS 1. This is a technically very difficult study. 2. Normal left ventricular cavity size and systolic function. Left ventricular ejection fraction is estimated at 60 %. This study is inadequate for estimation of regional wall motion abnormality. Normal diastolic function. 3. Mild mitral valve regurgitation. 4. Trace to mild aortic valve regurgitation. 5. Direct comparison to previous echocardiogram dated 06/30/2015, is not possible given technical differences in study Nyla Tinajero MD (Electronically Signed) Final Date: 24 March 2019 18:47 S
--- NOTE | 2019-03-24 14:28 | PC.CHAP ---
Pastoral Care Encounter/Spiritual Assessment Type of Contact [] Declined clerical car checker visit [] Patient/Family/Request visit [] Outpatient visit [x] Follow-up visit [] Physician referral [] Code/Alert [x] Routine visit [] Staff referral [] Actively dying [x] Patient sleeping [] Family support [] [] Out of room [] Palliative care [] [] Receiving care in room [] Pre-surgical visit [] Trauma [] Long length of stay [x] ICU visit [] Other: Relational/Emotional Strength [] Patient feels connected with others/family/visitors/staff [] Distress [] Loneliness/isolation [] Abandonment Spirituality of Patient [] Person of Mahi [] Attends Gnosticist of their Mahi [] Believes in Prayer [] Reads Bible or Caodaism materials [] There are Spiritual issues to be addressed Maple Products Supervisor Interventions [] Prayer [] Active listening [] Non-anxious presence [] Spiritual/emotional support [] Crisis/trauma care [] Spiritual counseling [] Bereavement support [] Provided bereavement packet [] Provided Bible/devotional materials [] Provided toy/stuffed animal, coloring book to patient or family member [] Completed spiritual assessment [] Provided Communion [] Anointing/[place] [] Salvation [] Other: Impact on Illness or Injury [] Angry [] Fearful [] Anxious [] Often cries [] Exhaustion [] Unable to work [] Unable to attend hinduism [] Unable to walk/stand [] Unable to read [] Unable to drive [] Unable to eat/drink [] Unable to sleep [] Unable to be with family [] Other: Summary Unable to visit, patient sleeping. Time spent with patient 2 min
--- NOTE | 2019-03-24 15:16 | PC.NURSE ---
more calm wanting to eat.
[2019-03-24 18:50] LABS: Blood Gas Allen Test Pos; Blood Gas Sample Site Radial, right; Blood Gas Sample Type Arterial; Blood Gas Tidal Volume 0.4
[2019-03-24] MEDS: enoxaparin 40 mg/0.4 mL Syringe SUBCUT (21:16)
[2019-03-24] MEDS: levofloxacin-dextrose 5 % 750 MG/150 ML PREMIX 150 MG IV (21:16)
[2019-03-25] VITALS (20 sets, daily range): BP systolic 95–151; BP diastolic 55–82; PULSE 70–100; RESP 12–22; TEMP 36.6–37.4; O2SAT 88–94
--- NOTE | 2019-03-25 02:25 | PC.NURSE ---
Patient states she has back pain 10/16; Dr Salgado notified and no new orders received.
[2019-03-25] MEDS: nicotine 21 mg Patch 1 PATCH TRANSDERMA ×2 (03:06→10:52)
[2019-03-25] MEDS: famotidine 20 mg/2 mL INJ 40 MG IVP (06:41)
[2019-03-25 06:45] LABS: Basophils # 0.1 10^3/uL (0.0-0.1); Basophils % 0.4 %; Hematocrit 40.5 % (37.0-47.0); Hemoglobin 12.5 g/dL (11.5-15.3); Lymphocytes # 1.2 10^3/uL (0.8-4.8); Lymphocytes % 7.8 %; Mean Corpuscular HGB Conc 30.9 g/dL (30.0-36.0); Mean Corpuscular Hemoglobin 30.6 pg (28.0-34.0); Mean Corpuscular Volume 99.3 fL (81-99); Mean Platelet Volume 9.4 fL (7.4-10.4); Monocytes # 0.4 10^3/uL (0.2-0.9); Monocytes % 2.2 %; Neutrophils # 13.6 10^3/uL (1.8-7.7); Neutrophils % 87.4 %; Nucleated Red Blood Cells % 0 %; Platelet Count 432 10^3/cmm (130-400); Red Blood Count 4.08 10^6/uL (4.1-5.3); Red Cell Distribution Width 15.6 % (12.1-15.1); White Blood Count 15.6 10^3/uL (4.0-10.0)
[2019-03-25 06:52] LABS: Anion Gap 17.4 (5-19); Blood Urea Nitrogen 23 mg/dL (8-23); Calcium 8.6 mg/Dl (8.8-10.2); Chloride 83 mmol/L (98-107); Glomerular Filtration Rate 61.9 mL/min (90-130); Glucose 179 mg/dL (74-106); Potassium 3.4 mmol/L (3.5-5.1); Sodium 138 mmol/L (136-145)
[2019-03-25 06:55] LABS: Carbon Dioxide 41 mmol/L (22-29)
--- NOTE | 2019-03-25 07:25 | PM.PN ---
Subjective Subjective: Interval history: Wendy reports she feels better. Not short of breath on the oxygen. Relates that she will want to go home, and that she will be safe there. Events of yesterday with concern of someone making her take a drug were addressed by discharge planning/social science teacher. Medications: Reviewed: Yes Vitals/I&O/Wt Last Vital Signs Temp 99.3 F 03/25/19 06:00 Pulse 92 03/25/19 06:00 Resp 22 H 03/25/19 06:00 BP 102/55 03/25/19 06:00 Pulse Ox 90 03/25/19 06:00 03/24/19 03/25/19 03/25/19 22:59 06:59 14:59 Intake Total 150 / 644 Output Total 1000 / 1000 2100 / 3100 Balance -850 / -356 -2100 / -2456 Weight last 48 hrs Weight 123.179 kg Weight 129.416 kg Physical Exam Narrative: EXAM NARRATIVE: General exam no apparent distress Cardiovascular regular rate and rhythm without murmur Lungs diminished breath sounds bilaterally. A few rhonchi at the bases Abdomen is soft with positive bowel sounds Extremities no cyanosis clubbing or edema Urinary Catheter Management^: Pete: Cath Placed During This Visit: no Data : 03/25/19 04:45 03/25/19 04:45 Micro: Microbiology 03/23/19 14:26 Blood Culture - Preliminary Blood NEGATIVE TO DATE 03/23/19 14:36 Blood Culture - Preliminary Blood NEGATIVE TO DATE A&P Assessment and plan (1) Respiratory failure: Hypercarbic. Likely related to drug use or COPD exacerbation. She has self extubated. Currently doing relatively well. Did well overnight. Oxygen weaning. Status: Acute Qualifiers: Chronicity: acute Respiratory failure complication: hypoxia and hypercapnia Qualified Code(s): J96.01 - Acute respiratory failure with hypoxia; J96.02 - Acute respiratory failure with hypercapnia Code(s): J96.90 - Respiratory failure, unspecified, unspecified whether with hypoxia or hypercapnia (2) Drug use: Methamphetamine positive. From ER doctor she self reported methamphetamine use. At this point patient will only say that somebody gave her something bad. auto specialty services manager has addressed, and hotlined Status: Acute Code(s): F19.90 - Other psychoactive substance use, unspecified, uncomplicated (3) Elevated troponin: Likely type II Status: Acute Code(s): R79.89 - Other specified abnormal findings of blood chemistry (4) COPD exacerbation: Continue Levaquin. Discontinue Solu-Medrol. Change to prednisone. Continue pulmonary toilet. Discussed smoking cessation. Discontinue IV Lasix, changed to p.o. Status: Acute Code(s): J44.1 - Chronic obstructive pulmonary disease with (acute) exacerbation Additional A&P Information Mild hypokalemia, supplement history of gout Hypothyroidism with history of myxedema. 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
[2019-03-25] MEDS: ipratropium-albuterol 3 mL Neb INHALATION ×3 (07:45→20:17)
[2019-03-25] MEDS: levothyroxine 100 mcg Tablet 200 MCG OG-TUBE (10:51)
[2019-03-25] MEDS: FUROsemide 40 mg Tablet PO (10:51)
[2019-03-25] MEDS: predniSONE 20 mg Tablet 40 MG PO (10:51)
[2019-03-25] MEDS: enoxaparin 40 mg/0.4 mL Syringe SUBCUT (18:41)
[2019-03-25] MEDS: levofloxacin-dextrose 5 % 750 MG/150 ML PREMIX 150 MG IV (20:41)
[2019-03-25 21:33] LABS: Glucose Point of Care 240 mg/dL (70-110)
[2019-03-26] VITALS (15 sets, daily range): BP systolic 108–130; BP diastolic 54–80; PULSE 72–80; RESP 18–24; TEMP 36.7–37.3; O2SAT 86–94; BMI 41.8
[2019-03-26] MEDS: ipratropium-albuterol 3 mL Neb INHALATION ×5 (00:14→15:32)
[2019-03-26 06:28] LABS: Anion Gap 13.3 (5-19); Blood Urea Nitrogen 27 mg/dL (8-23); Calcium 8.1 mg/Dl (8.8-10.2); Chloride 86 mmol/L (98-107); Glomerular Filtration Rate 61.9 mL/min (90-130); Glucose 134 mg/dL (74-106); Potassium 3.3 mmol/L (3.5-5.1); Sodium 137 mmol/L (136-145)
[2019-03-26 06:31] LABS: Carbon Dioxide 41 mmol/L (22-29)
[2019-03-26 06:46] LABS: Glucose Point of Care 158 mg/dL (70-110)
[2019-03-26] MEDS: levothyroxine 100 mcg Tablet 200 MCG OG-TUBE (08:36)
[2019-03-26] MEDS: predniSONE 20 mg Tablet 40 MG PO (08:36)
[2019-03-26] MEDS: FUROsemide 40 mg Tablet PO (08:36)
[2019-03-26] MEDS: nicotine 21 mg Patch 1 PATCH TRANSDERMA (08:38)
--- NOTE | 2019-03-26 10:06 | PM.DCS ---
Discharge Providers Date of Admission: 03/23/19 15:56 Date of Discharge: 03/26/19 Attending Provider at Admission: Dm Lucero MD Attending Provider at Discharge: Dm Lucero MD Primary Care Provider: Varinder Delgado Diagnoses at Discharge Discharge Diagnosis (1) Respiratory failure: Status: Acute Problem details: Improved significantly Qualifiers: Chronicity: acute Respiratory failure complication: hypoxia and hypercapnia Qualified Code(s): J96.01 - Acute respiratory failure with hypoxia; J96.02 - Acute respiratory failure with hypercapnia (2) Drug use: Status: Acute Problem details: Patient reports she is going home. She refuses to do a police report. She was hotlined. (3) Elevated troponin: Status: Acute Problem details: Type II (4) COPD exacerbation: Status: Acute Problem details: Improving Reason for Visit Reason for Visit: Reason For Visit: AMS Hospital Course Hospital Course: Wendy presented to the hospital agitated, and then lethargic. She required intubation in the emergency department. She had reported she had been given a drug. She was placed in the ICU and treated for COPD exacerbation and given supportive care. She was given IV antibiotics as well. While in the ICU she self extubated the following day, and did quite well. Treatment for COPD exacerbation continued with antibiotics, pulmonary toilet, oxygen. Oxygen was weaned. Discharge planning visited with the patient more regarding drug use, and she reported someone made her take the medicine. This was hotlines. She refused to file a police report. She reported she would be safe when she went home and was not going anywhere else. On March 26 she had improved further and it was thought she could be discharged home. I went over everything as above again, and she had the same wishes. She agreed to home health. She also had an echocardiogram done while in the hospital that was largely normal. CTA demonstrated no pulmonary embolism. Troponin was slightly elevated on admission thought to be's type II secondary to respiratory failure and supply demand mismatch. She will also need a repeat TSH in 6 weeks. Physical Exam Narrative: EXAM NARRATIVE: General exam no apparent distress Cardiovascular regular in rhythm without murmur Lungs a few expiratory wheezes Abdomen is soft positive bowel sounds, obese Extremities no cyanosis clubbing or edema Urinary Catheter Management^: Pete: Cath Placed During This Visit: no Discharge Data Data Completed and Pending: Completed Studies During Hospitalization Category Date Time Status CT head wo con* 7 0450 Urgent Cat Scan 03/23/19 13:04 Completed CTA chest [CT ang io chest PE protcl [id number]] Routine Cat Scan 03/24/19 09:07 Completed XR chest 1V [place] [id number] Routine Exams 03/24/19 07:52 Completed XR chest 1V [place] ble [id number] Stat Exams 03/23/19 14:25 Completed CV echo complete* [id number] Routine Ultrasound 03/24/19 14:26 Completed Pending at discharge Category Date Time Status Blood Culture Sta t Lab 03/23/19 14:26 Results Labs from last 24 hours 03/26/19 03/26/19 03/25/19 06:32 05:46 21:27 Sodium 137 Potassium 3.3 L Chloride 86 L Carbon Dioxide 41 H Anion Gap 13.3 BUN 27 H Creatinine 0.9 GFR Calculation 61.9 L Glucose 134 H POC Glucose 158 240 Calcium 8.1 L Vitals: Last Vital Signs Temp 98.7 F 03/26/19 08:00 Pulse 72 03/26/19 08:00 Resp 18 03/26/19 08:00 BP 116/54 03/26/19 08:00 Pulse Ox 94 03/26/19 08:00 Discharge Plan Discharge Patient Disposition: Home Health Service Condition: Stable Prescriptions: New fluticasone propion-salmeterol [Advair Diskus] 250-50 mcg/dose blister with device 1 inh INHALATION BID Qty: 60 RF: 0 furosemide 40 mg Tablet 40 mg PO DAILY@0800 Qty: 30 RF: 0 prednisone 20 mg Tablet 40 mg PO DAILY Qty: 6 RF: 0 ipratropium-albuterol 0.5 mg-3 mg(2.5 mg base)/3 mL solution for nebulization 3 ml INHALATION QID PRN (Reason: shortness of breath or wheezing) Qty: 180 RF: 0 levofloxacin [Levaquin] 750 mg tablet 750 mg PO DAILY 7 Days Qty: 7 RF: 0 Continued potassium chloride 10 mEq Capsule, Extended Release 10 meq PO DAILY RF: 0 Nitrostat 0.4 mg Tablet, Sublingual 0.4 mg SUBLINGUAL Q5M PRN (Reason: Chest Pain) RF: 0 allopurinol 300 mg Tablet 300 mg PO DAILY RF: 0 levothyroxine 200 mcg Tablet 200 mcg PO DAILY RF: 0 pramipexole 1.5 mg Tablet 3 mg PO BID RF: 0 Discontinued nystatin 100,000 unit/mL Suspension 5 ml PO QID RF: 0 estradiol 1 mg Tablet 1 mg PO DAILY RF: 0 Lasix 20 mg Tablet 20 mg PO DAILY RF: 0 Discharge Orders: Discharge Order (Routine); Ordered 03/26/19 Ordered By: Dm Lucero Referrals: Nicki Romero MD [Physician] - 03/30/19 9:00 am (You have an appointment to establish care with Dr. Nicki Romero at the [facility]. Please bring your medications with you in their original bottles as well as your insurance cards. Please arrive early to your appointment to complete your new patient paperwork.) Discharge Diet: Cardiac Discharge Activity: Resume usual activity Activity Restrictions/Additional Instructions: Home oxygen evaluation prior to discharge Avoid all drugs Stop smoking Take all medicine as prescribed Discharge Attestations Time Spent in Discharge Care*: greater than 30 min Quality Metrics Clinical Quality Measures During this hospital stay, did patient experience: None Coding Level of Care Code Acute Fruit Room Hand for Jarred Russell Diagnoses Respiratory failure J96.01; J96.02 Chronicity: acute Respiratory failure complication: hypoxia and hypercapnia Drug use F19.90 Elevated troponin R79.89 COPD exacerbation J44.1
--- NOTE | 2019-03-26 11:14 | PC.SOCIAL ---
IMM Page 2 of IMM explained to and signed by patient. Initialed, dated, and timed and placed in chart. Copy provided to patient.
== END 2019-03-26 15:51 | disposition home health service (06) | DRG 208 ==
LOC: ER 14:09 → ICU 17:38 → MEDSURG 03-25 12:23
PROVIDERS: Admitting Provider Internal Medicine; Emergency Provider Family Medicine; Family Provider Family Medicine; PCP Family Medicine; Visit Provider Internal Medicine
DX: J96.01 Acute respiratory failure with hypoxia (principal); J44.1 Chronic obstructive pulmonary disease with (acute) exacerbation; J96.02 Acute respiratory failure with hypercapnia; M10.9 Gout, unspecified; G47.30 Sleep apnea, unspecified; Z87.11 Personal history of peptic ulcer disease; R79.89 Other specified abnormal findings of blood chemistry; E66.9 Obesity, unspecified; G25.81 Restless legs syndrome; E03.9 Hypothyroidism, unspecified; Z88.8 Allergy status to other drugs, medicaments and biological substances; Z79.899 Other long term (current) drug therapy
CPT/HCPCS: 12345; 36415; 36416; 36600; 51702; 70450; 71045; 71275; 80048; 80051; 80053; 80307; 81003; 82803; 82810; 82962; 83735; 83986; 84443; 84484; 85025; 85610; 85730; 87040; 87070; 87205; 87804; 93005; 93306; 94002; 94003; 94640; 94799; 96372; 96374; 96375; 99283; A4570; J0330; J1650; J1940; J1956; J2704; J2930; J3010; J3475; J3490; J7512

== ENCOUNTER 2019-08-30 15:40 | Inpatient (IN) | payer MEDICARE, MEDICAID, SELFPAY ==
[2019-08-30] VITALS (58 sets, daily range): BP systolic 61–187; BP diastolic 32–99; PULSE 59–76; RESP 11–22; TEMP 37.1; O2SAT 90–100; BMI 53.1
--- NOTE | 2019-08-30 15:45 | ECG_ITS ---
[facility] Test Date: 2019-08-30 Pat Name: Wendy Ozuna Department: Room: ICU02 Gender: Female Slip Cover Operator: : 1950 Requested By: Jany Marques Order Number: [id number] Zelda MD: Nyla Tinajero M.D. Measurements Intervals Oliver Rate: 68 P: 49 NV: 196 QRS: -78 QRSD: 150 T: 81 QT: 461 QTc: 491 Interpretive Statements SINUS RHYTHM RIGHT BUNDLE BRANCH BLOCK LEFT ANTERIOR FASCICULAR BLOCK MINIMAL VOLTAGE CRITERIA FOR LVH, CONSIDER NORMAL VARIANT POSSIBLE ANTERIOR MYOCARDIAL INFARCTION , PROBABLY OLD Compared to ECG 03/23/2019 16:10:17 Right bundle-branch block now present Left anterior fascicular block now present Intraventricular conduction delay no longer present Myocardial infarct finding still present Electronically Signed On 08-31-2019 17:10:10 CDT by Nyla Tinajero M.D. [email or web address]
--- NOTE | 2019-08-30 15:45 | XRR_ITS ---
PROCEDURE INFORMATION: Exam: XR Chest, 1 View Exam date and time: 08/30/2019 3:46 PM Age: 69 years old Clinical indication: Dyspnea TECHNIQUE: Imaging protocol: XR of the chest Views: 1 view. COMPARISON: No relevant prior studies available. FINDINGS: Lungs: Right hilar vascular congestion is present. No consolidation. Pleural space: Unremarkable. No pleural effusion. No pneumothorax. Heart/Mediastinum: Unremarkable. No cardiomegaly. Bones/joints: Unremarkable. Endotracheal tube is in place the tip is 4.2 cm above the vira. NG tube extends into the subdiaphragmatic tissues and is not visible extending off the exam. XR/XR chest 1V portable [id number] IMPRESSION: No acute findings. Endotracheal tube is in place as described. NG tube extends into the subdiaphragmatic tissues the tip is not visible
--- NOTE | 2019-08-30 15:57 | W.ED.SOB ---
HPI - SOB/Dyspnea General: Chief Complaint: Shortness of Breath/Dyspnea Stated Complaint: SOB Time Seen by Provider: 08/30/19 15:40 Source: EMS Mode of arrival: EMS Limitations: altered mental status History of Present Illness: HPI Narrative: Ms. Ozuna is a 69-year-old female who apparently came from my clinic where she was found to have a pulse ox in the 50s. EMS was called and the patient's pulse ox improved to the 70s and she was given Solu-Medrol and breathing treatments and with 2 supplemental oxygen sources her pulse ox came up to the low 90s. Apparently she was markedly tachypneic and this improved. Upon arrival here the patient is not moving much air, is extremely labored and her mentation is very poor. All further history is taken from old charts. Review of Systems General: Reports: ROS unobtainable due to medical condition and ROS unobtainable due to mental status [facility] ED PFSH: Medical History (Updated 08/30/19 @ 22:38 by Jany Francois) CKD (chronic kidney disease) stage 2, GFR 60-89 ml/min Gout Head injury Heart failure with preserved ejection fraction Methamphetamine abuse Morbid obesity Peptic ulcer Sleep apnea Thyroid disease Surgical History H/O bilateral salpingo-oophorectomy H/O knee surgery H/O: hysterectomy History of appendectomy History of cholecystectomy History of hip surgery Family History Other Family history unobtainable due to patient's condition Social History Smoking and tobacco status: unknown if ever smoked Quit status (tobacco): not considering quitting Alcohol intake: unknown History of recent travel: No Current gender identity: Female Physical Exam Const: EXAM LIMITATIONS: altered mental status GENERAL APPEARANCE: in distress and lethargic NUTRITIONAL APPEARANCE: obese ORIENTATION/CONSCIOUSNESS: Yes lethargic HENMT: COMMON NORMALS: normocephalic, atraumatic, EAC's normal, Normal external nose present and Normal nasal mucous membranes and turbinates present HEAD & SCALP: normocephalic and atraumatic NOSE: Normal external nose present and Normal nasal mucous membranes and turbinates present EXTERNAL AUDITORY CANAL: EAC's normal Eye: COMMON NORMALS: Equal, round and reactive pupils present, EOMs intact bilaterally, conjunctivae normal and no scleral icterus CONJUNCTIVA: Yes conjunctivae normal PUPIL: Yes Equal, round and reactive pupils present Neck/C-Spine: COMMON NORMALS: full ROM, no lymphadenopathy, supple and no meningeal signs Resp: EFFORT & INSPECTION: Yes respiratory distress, Yes labored, Yes grunting, Yes Actively coughing, Yes paradoxical thoraco-abdominal movements and Yes audible wheezes Cardio: COMMON NORMALS: S1 normal heart sound present, S2 normal heart sound present, No gallops present (Cardio), No clicks present (Cardio), No murmurs present (Cardio) and No rub (Cardio) HEART SOUNDS: S1 normal heart sound present and S2 normal heart sound present GI: COMMON NORMALS: Soft to palpation PALPATION: Yes Soft to palpation Neuro: HIMA COMA SCALE: document GCS findings [place] coma scale eye opening: Spontaneous [place] coma scale verbal response: None [place] coma scale motor response: Localising [place] coma scale total score: 10 SENSORIUM/ORIENTATION: Yes lethargic MENINGEAL SIGNS: Yes no meningeal signs Procedures Intubation Time out performed: Yes sedative: Etomidate Mg Given: 40 paralytic: Succinylcholine Mg Given: 200 Laryngoscope: Hardeep ET Tube Size: 8 ET Tube Uncuffed: Yes Tube Secured Depth (cm): 22 Tube Secured Location: lips Tube Placement Confirmation: visualized tube passing through cords Patient Tolerated Procedure: well Intubation Complications: none Course ED course: 1644 -Case and events up to this point reviewed with Dr. Salgado. She would like a CT of the head along with the chest with abdomen and pelvis follow-through. She agrees admit the patient and will come to see the patient in the ER but would like these test done in the interim. Ms. Landis is a 69-year-old female who arrived in severe respiratory distress near respiratory arrest. She would localize pain but would not speak and her eyes would only spontaneously, occasionally open. BiPAP was placed primarily to oxygenate as it was felt she would not overcome this due to her weak respiratory effort. Patient was successfully intubated. And therapies for treatment of respiratory failure were initiated. Causes such as stroke and other etiologies as a cause for the patient's symptoms were examined. The complete work-up now will continue on the hospitalist service under Dr. Salgado's care. Vital Signs: Vital signs: Vital Signs Pulse Rate 59 L 08/30/19 20:18 Respiratory Rate 12 08/30/19 22:19 Blood Pressure 121/73 08/30/19 20:18 Pulse Oximetry 99 08/30/19 20:18 MDM - SOB/Dyspnea Lab Data: Labs: Lab Results 08/30/19 08/30/19 08/30/19 Range/Units 15:45 16:00 16:00 WBC 28.1 H (4.0-10.0) 10^3/ uL RBC 4.18 (4.1-5.3) 10^6/u L Hgb 12.2 (11.5-15.3) g/dL Hct 41.4 (37.0-47.0) % MCV 99.0 (81-99) fL MCH 29.2 (28.0-34.0) pg MCHC 29.5 L (30.0-36.0) g/dL RDW 18.0 H (12.1-15.1) % Plt Count 372 (130-400) 10^3/c mm MPV 8.7 (7.4-10.4) fL Nucleated RBC % (a uto) 0.2 % Total Counted 100 (0-100) Absolute Neutrophi ls 14.6 H (1.4-6.5) 10^3/c mm Segmented Neutroph ils 51 % Abs Segm Neuts (Ma n) 14.3 H (1.6-7.1) 10/cmm Band Neutrophils 1.0 % Abs Band Neuts (Ma n) 0.3 (0.0-1.2) 10^3/c mm Lymphocytes (Manua l) 22 % Monocytes (Manual) 7.0 % Absolute Monocytes 2.0 H (0.1-0.6) 10^3/c mm Eosinophils (Manua l) 2 % Absolute Eosinophi ls 0.5 (0.0-0.7) 10^3/c mm Metamyelocytes 6.0 % Myelocytes 11.0 % Nucleated RBCs # 0.1 /100WBC Pathologist Review Yes Platelet Estimate Normal (Normal) Polychromasia Trace Anisocytosis 1+ H PT 11.80 (10.5-13.3) SECO NDS INR 0.84 (0.8-1.2) Specimen Type Arterial Sample Site Radial, left ABG pH 7.32 L (7.35-7.45) ABG pCO2 84.0 H* (35-45) mmHg ABG pO2 46.9 L (80.0-100.0) mmH g ABG HCO3 43.5 H (22-26) mmol/L ABG O2 Saturation 80.1 ABG Base Excess 14.0 H (-2.0-2.0) mmol/ L Mike Test Pos A-a O2 Gradient 2.2 L (5-10) mmHg Hematocrit 36.7 L (37-47) % Hgb O2 Saturation 77.7 L (95-100) % Carboxyhemoglobin 3.7 (0.4-20.1) %THgb Methemoglobin (0.4-1.5) % Total Hemoglobin 12.0 (12-16) g/dL Sodium 132.0 (131-143) mmol/L Potassium 3.6 (3.5-5.0) mmol/L Glucose 118.0 H (70-115) mg/dL Ionized Calcium 1.1 (1.1-1.4) mmol/L Respiration Rate % O2 Delivery Device Nc FiO2 % Tidal Volume PEEP cmH20 Demurrage Man ID amh Chloride (98-107) mmol/L Carbon Dioxide (22-29) mmol/L Anion Gap (5-19) BUN (8-23) mg/dL Creatinine (0.5-0.9) mg/dL GFR Calculation (90-130) mL/min Calculated Osmolal ity (285-295) mOsm/k g Lactic Acid (0.5-2.2) mmol/L Calcium (8.5-10.5) mg/dL Magnesium (1.7-2.3) mg/dL Total Bilirubin (0.15-1.2) mg/dL AST (0-32) U/L ALT (0-33) U/L Alkaline Phosphata se (35-105) IU/L Ammonia (11-51) umol/L Troponin T Baselin e (0-10) ng/L Troponin T 120 Min t[place]ora (0-10) ng/L Delta Troponin T (0-10) ABS# NT-Pro-B Natriuret Pep (0-125) pg/mL Total Protein (6.6-8.7) g/dL Albumin (3.5-5.2) g/dL Globulin (1.3-4.6) g/dL Urine Color (Yellow) Urine Appearance (CLEAR) Urine pH (5-7) Ur Specific Gravit y (1.005-1.030) Urine Protein (Negative) Urine Glucose (UA) (Normal) Urine Ketones (Negative) Urine Blood (Negative) Urine Nitrate (Negative) Urine Bilirubin (NEGATIVE) Urine Urobilinogen (Negative) mg/dL Ur Leukocyte Britt ase (Negative) Urine RBC (0-2) /hpf Urine WBC (0-5) /hpf Ur Squamous Epith Cells (0-5) Urine Bacteria (NONE) Urine Opiates Scre en (Negative) ng/mL Ur Barbiturates Sc reen (Negative) ng/mL Ur Phencyclidine S crn (Negative) ng/mL Ur Amphetamines Sc reen (Negative) ng/mL U Benzodiazepines Scrn (Negative) ng/mL Urine Cocaine Scre en (Negative) ng/mL U Marijuana (THC) Screen (Negative) ng/mL Ethyl Alcohol (0-10) mg/dL 08/30/19 08/30/19 08/30/19 Range/Units 16:00 16:00 16:00 WBC (4.0-10.0) 10^3/ uL RBC (4.1-5.3) 10^6/u L Hgb (11.5-15.3) g/dL Hct (37.0-47.0) % MCV (81-99) fL MCH (28.0-34.0) pg MCHC (30.0-36.0) g/dL RDW (12.1-15.1) % Plt Count (130-400) 10^3/c mm MPV (7.4-10.4) fL Nucleated RBC % (a uto) % Total Counted (0-100) Absolute Neutrophi ls (1.4-6.5) 10^3/c mm Segmented Neutroph ils % Abs Segm Neuts (Ma n) (1.6-7.1) 10/cmm Band Neutrophils % Abs Band Neuts (Ma n) (0.0-1.2) 10^3/c mm Lymphocytes (Manua l) % Monocytes (Manual) % Absolute Monocytes (0.1-0.6) 10^3/c mm Eosinophils (Manua l) % Absolute Eosinophi ls (0.0-0.7) 10^3/c mm Metamyelocytes % Myelocytes % Nucleated RBCs # /100WBC Pathologist Review Platelet Estimate (Normal) Polychromasia Anisocytosis PT (10.5-13.3) SECO NDS INR (0.8-1.2) Specimen Type Sample Site ABG pH (7.35-7.45) ABG pCO2 (35-45) mmHg ABG pO2 (80.0-100.0) mmH g ABG HCO3 (22-26) mmol/L ABG O2 Saturation ABG Base Excess (-2.0-2.0) mmol/ L Mike Test A-a O2 Gradient (5-10) mmHg Hematocrit (37-47) % Hgb O2 Saturation (95-100) % Carboxyhemoglobin (0.4-20.1) %THgb Methemoglobin (0.4-1.5) % Total Hemoglobin (12-16) g/dL Sodium 134 L (131-143) mmol/L Potassium 3.8 (3.5-5.0) mmol/L Glucose 132 H (70-115) mg/dL Ionized Calcium (1.1-1.4) mmol/L Respiration Rate % O2 Delivery Device FiO2 % Tidal Volume PEEP cmH20 Demurrage Man ID Chloride 85 L (98-107) mmol/L Carbon Dioxide 41 H (22-29) mmol/L Anion Gap 11.8 (5-19) BUN 9 (8-23) mg/dL Creatinine 0.6 (0.5-0.9) mg/dL GFR Calculation 98.8 (90-130) mL/min Calculated Osmolal ity 276 L (285-295) mOsm/k g Lactic Acid 1.1 (0.5-2.2) mmol/L Calcium 9.0 (8.5-10.5) mg/dL Magnesium 1.6 L (1.7-2.3) mg/dL Total Bilirubin 0.2 (0.15-1.2) mg/dL AST 78 H (0-32) U/L ALT 34 H (0-33) U/L Alkaline Phosphata se 57 (35-105) IU/L Ammonia 45 (11-51) umol/L Troponin T Baselin e (0-10) ng/L Troponin T 120 Min [place] (0-10) ng/L Delta Troponin T (0-10) ABS# NT-Pro-B Natriuret Pep 221 H (0-125) pg/mL Total Protein 7.7 (6.6-8.7) g/dL Albumin 4.6 (3.5-5.2) g/dL Globulin 3.1 (1.3-4.6) g/dL Urine Color (Yellow) Urine Appearance (CLEAR) Urine pH (5-7) Ur Specific Gravit y (1.005-1.030) Urine Protein (Negative) Urine Glucose (UA) (Normal) Urine Ketones (Negative) Urine Blood (Negative) Urine Nitrate (Negative) Urine Bilirubin (NEGATIVE) Urine Urobilinogen (Negative) mg/dL Ur Leukocyte Britt ase (Negative) Urine RBC (0-2) /hpf Urine WBC (0-5) /hpf Ur Squamous Epith Cells (0-5) Urine Bacteria (NONE) Urine Opiates Scre en (Negative) ng/mL Ur Barbiturates Sc reen (Negative) ng/mL Ur Phencyclidine S crn (Negative) ng/mL Ur Amphetamines Sc reen (Negative) ng/mL U Benzodiazepines Scrn (Negative) ng/mL Urine Cocaine Scre en (Negative) ng/mL U Marijuana (THC) Screen (Negative) ng/mL Ethyl Alcohol < 10 (0-10) mg/dL 08/30/19 08/30/19 08/30/19 Range/Units 16:00 16:44 16:44 WBC (4.0-10.0) 10^3/ uL RBC (4.1-5.3) 10^6/u L Hgb (11.5-15.3) g/dL Hct (37.0-47.0) % MCV (81-99) fL MCH (28.0-34.0) pg MCHC (30.0-36.0) g/dL RDW (12.1-15.1) % Plt Count (130-400) 10^3/c mm MPV (7.4-10.4) fL Nucleated RBC % (a uto) % Total Counted (0-100) Absolute Neutrophi ls (1.4-6.5) 10^3/c mm Segmented Neutroph ils % Abs Segm Neuts (Ma n) (1.6-7.1) 10/cmm Band Neutrophils % Abs Band Neuts (Ma n) (0.0-1.2) 10^3/c mm Lymphocytes (Manua l) % Monocytes (Manual) % Absolute Monocytes (0.1-0.6) 10^3/c mm Eosinophils (Manua l) % Absolute Eosinophi ls (0.0-0.7) 10^3/c mm Metamyelocytes % Myelocytes % Nucleated RBCs # /100WBC Pathologist Review Platelet Estimate (Normal) Polychromasia Anisocytosis PT (10.5-13.3) SECO NDS INR (0.8-1.2) Specimen Type Sample Site ABG pH (7.35-7.45) ABG pCO2 (35-45) mmHg ABG pO2 (80.0-100.0) mmH g ABG HCO3 (22-26) mmol/L ABG O2 Saturation ABG Base Excess (-2.0-2.0) mmol/ L Mike Test A-a O2 Gradient (5-10) mmHg Hematocrit (37-47) % Hgb O2 Saturation (95-100) % Carboxyhemoglobin (0.4-20.1) %THgb Methemoglobin (0.4-1.5) % Total Hemoglobin (12-16) g/dL Sodium (131-143) mmol/L Potassium (3.5-5.0) mmol/L Glucose (70-115) mg/dL Ionized Calcium (1.1-1.4) mmol/L Respiration Rate % O2 Delivery Device FiO2 % Tidal Volume PEEP cmH20 Demurrage Man ID Chloride (98-107) mmol/L Carbon Dioxide (22-29) mmol/L Anion Gap (5-19) BUN (8-23) mg/dL Creatinine (0.5-0.9) mg/dL GFR Calculation (90-130) mL/min Calculated Osmolal ity (285-295) mOsm/k g Lactic Acid (0.5-2.2) mmol/L Calcium (8.5-10.5) mg/dL Magnesium (1.7-2.3) mg/dL Total Bilirubin (0.15-1.2) mg/dL AST (0-32) U/L ALT (0-33) U/L Alkaline Phosphata se (35-105) IU/L Ammonia (11-51) umol/L Troponin T Baselin e 120 H* (0-10) ng/L Troponin T 120 Min [place] (0-10) ng/L Delta Troponin T (0-10) ABS# NT-Pro-B Natriuret Pep (0-125) pg/mL Total Protein (6.6-8.7) g/dL Albumin (3.5-5.2) g/dL Globulin (1.3-4.6) g/dL Urine Color Yellow (Yellow) Urine Appearance Clear (CLEAR) Urine pH 6 (5-7) Ur Specific Gravit y 1.020 (1.005-1.030) Urine Protein 1+ H (Negative) Urine Glucose (UA) Norm (Normal) Urine Ketones Negative (Negative) Urine Blood 2+ H (Negative) Urine Nitrate Negative (Negative) Urine Bilirubin Neg (NEGATIVE) Urine Urobilinogen Norm (Negative) mg/dL Ur Leukocyte Britt ase Negative (Negative) Urine RBC 40-50 H (0-2) /hpf Urine WBC None (0-5) /hpf Ur Squamous Epith Cells 0-4 H (0-5) Urine Bacteria 1+ H (NONE) Urine Opiates Scre en Negative (Negative) ng/mL Ur Barbiturates Sc reen Negative (Negative) ng/mL Ur Phencyclidine S crn Negative (Negative) ng/mL Ur Amphetamines Sc reen Positive H (Negative) ng/mL U Benzodiazepines Scrn Negative (Negative) ng/mL Urine Cocaine Scre en Negative (Negative) ng/mL U Marijuana (THC) Screen Negative (Negative) ng/mL Ethyl Alcohol (0-10) mg/dL 08/30/19 08/30/19 Range/Units 17:35 18:10 WBC (4.0-10.0) 10^3/ uL RBC (4.1-5.3) 10^6/u L Hgb (11.5-15.3) g/dL Hct (37.0-47.0) % MCV (81-99) fL MCH (28.0-34.0) pg MCHC (30.0-36.0) g/dL RDW (12.1-15.1) % Plt Count (130-400) 10^3/c mm MPV (7.4-10.4) fL Nucleated RBC % (a uto) % Total Counted (0-100) Absolute Neutrophi ls (1.4-6.5) 10^3/c mm Segmented Neutroph ils % Abs Segm Neuts (Ma n) (1.6-7.1) 10/cmm Band Neutrophils % Abs Band Neuts (Ma n) (0.0-1.2) 10^3/c mm Lymphocytes (Manua l) % Monocytes (Manual) % Absolute Monocytes (0.1-0.6) 10^3/c mm Eosinophils (Manua l) % Absolute Eosinophi ls (0.0-0.7) 10^3/c mm Metamyelocytes % Myelocytes % Nucleated RBCs # /100WBC Pathologist Review Platelet Estimate (Normal) Polychromasia Anisocytosis PT (10.5-13.3) SECO NDS INR (0.8-1.2) Specimen Type Arterial Sample Site Brachial, right ABG pH 7.36 (7.35-7.45) ABG pCO2 66.4 H* (35-45) mmHg ABG pO2 63.7 L (80.0-100.0) mmH g ABG HCO3 37.7 H (22-26) mmol/L ABG O2 Saturation 93.9 ABG Base Excess 10.0 H (-2.0-2.0) mmol/ L Mike Test Pos A-a O2 Gradient 136.7 H (5-10) mmHg Hematocrit 36.7 L (37-47) % Hgb O2 Saturation 91.0 L (95-100) % Carboxyhemoglobin 2.8 (0.4-20.1) %THgb Methemoglobin 0.2 L (0.4-1.5) % Total Hemoglobin 12.0 (12-16) g/dL Sodium 133.0 (131-143) mmol/L Potassium 3.7 (3.5-5.0) mmol/L Glucose 118.0 H (70-115) mg/dL Ionized Calcium 1.1 (1.1-1.4) mmol/L Respiration Rate 14.0 % O2 Delivery Device Vent FiO2 40.0 % Tidal Volume 0.45 PEEP 10.0 cmH20 Demurrage Man ID jmn Chloride (98-107) mmol/L Carbon Dioxide (22-29) mmol/L Anion Gap (5-19) BUN (8-23) mg/dL Creatinine (0.5-0.9) mg/dL GFR Calculation (90-130) mL/min Calculated Osmolal ity (285-295) mOsm/k g Lactic Acid (0.5-2.2) mmol/L Calcium (8.5-10.5) mg/dL Magnesium (1.7-2.3) mg/dL Total Bilirubin (0.15-1.2) mg/dL AST (0-32) U/L ALT (0-33) U/L Alkaline Phosphata se (35-105) IU/L Ammonia (11-51) umol/L Troponin T Baselin e (0-10) ng/L Troponin T 120 Min t[place]ora 115.6 H (0-10) ng/L Delta Troponin T -4.4 L (0-10) ABS# NT-Pro-B Natriuret Pep (0-125) pg/mL Total Protein (6.6-8.7) g/dL Albumin (3.5-5.2) g/dL Globulin (1.3-4.6) g/dL Urine Color (Yellow) Urine Appearance (CLEAR) Urine pH (5-7) Ur Specific Gravit y (1.005-1.030) Urine Protein (Negative) Urine Glucose (UA) (Normal) Urine Ketones (Negative) Urine Blood (Negative) Urine Nitrate (Negative) Urine Bilirubin (NEGATIVE) Urine Urobilinogen (Negative) mg/dL Ur Leukocyte Britt ase (Negative) Urine RBC (0-2) /hpf Urine WBC (0-5) /hpf Ur Squamous Epith Cells (0-5) Urine Bacteria (NONE) Urine Opiates Scre en (Negative) ng/mL Ur Barbiturates Sc reen (Negative) ng/mL Ur Phencyclidine S crn (Negative) ng/mL Ur Amphetamines Sc reen (Negative) ng/mL U Benzodiazepines Scrn (Negative) ng/mL Urine Cocaine Scre en (Negative) ng/mL U Marijuana (THC) Screen (Negative) ng/mL Ethyl Alcohol (0-10) mg/dL Imaging Data^: CXR: My impression: Cardiomegaly with moderate pulmonary vascular congestion versus aspiration. ET tube and NG tube with good placement. CT Head: Radiologist's impression: [address] [place] [address] CT Scan Report Signed Patient: Wendy Ozuna Unit #: [id number] : 1950 Age/Sex: 69 / F ADM Date: 08/30/19 [facility]: [facility] Dr: Diann Salgado MD Ordering Provider/Ordering MD: Jany Francois DO Date of Service: 08/30/19 Procedure(s): CT head wo con* [id number] Accession Number(s): [id number] Report Number: [id number] PROCEDURE INFORMATION: Exam: CT Head Without Contrast Exam date and time: 08/30/2019 6:28 PM Age: 69 years old Clinical indication: Altered mental status/memory loss; Patient HX: PT intubated; Additional info: AMS TECHNIQUE: Imaging protocol: Computed tomography of the head without contrast. Radiation optimization: All CT scans at this facility use at least one of these dose optimization techniques: automated exposure control; mA and/or kV adjustment per patient size (includes targeted exams where dose is matched to clinical indication); or iterative reconstruction. COMPARISON: No relevant prior studies available. RADIATION DOSE METRICS: Total DLP (mGy-cm): 731.82 FINDINGS: Brain: Mild small vessel ischemic disease. Currently no visible evidence of acute intracranial pathologic process. No visible intracranial hemorrhage. Ventricles: Normal. No ventriculomegaly. Bones/joints: Unremarkable. No acute fracture. Sinuses: Chronic ethmoid and mild chronic maxillary sinusitis. Mastoid air cells: Visualized mastoid air cells are well aerated. Soft tissues: Unremarkable. CT/CT head wo con* [id number] IMPRESSION: No visible active or acute intracranial pathologic process. Radiation Dose CTDIVOL = (mGy): DLP = 731.82 (mGy-cm) Dictated By: Chau Roach Signed By: Chau Roach Signed Date/Time: 08/30/191902 DD/ 01 CTA Chest with Abdomen Pelvis: Radiologist's impression: [address] [address] [address] Scan Report Signed Patient: Wendy Ozuna Unit #: [id number] : 1950 Age/Sex: 69 / F ADM Date: 08/30/19 Loc: ICU Room/Bed: [place] [address]: Diann Salgado MD Ordering Provider/Ordering MD: Jany Francois DO Date of Service: 08/30/19 Procedure(s): CT angio chest w abd pel w con Accession Number(s): [id number] Report Number: [id number] PROCEDURE INFORMATION: Exam: CT Angiography Chest With Contrast Exam date and time: 08/30/2019 6:28 PM Age: 69 years old Clinical indication: Abdominal tenderness; Abdominal pain; Shortness of breath; Chest pain; Prior surgery; Surgery type: Appy, gb, hyst, bilat hip TECHNIQUE: Imaging protocol: Computed tomographic angiography of the chest with intravenous contrast. 3D rendering: MIP and/or 3D reconstructed images were created by the technologist. Radiation optimization: All CT scans at this facility use at least one of these dose optimization techniques: automated exposure control; mA and/or kV adjustment per patient size (includes targeted exams where dose is matched to clinical indication); or iterative reconstruction. Contrast material: OMNI 350; Contrast volume: 95 ml; Contrast route: INTRAVENOUS (IV); COMPARISON: CR XR chest 1V portable [id number] 08/30/2019 4:15 PM RADIATION DOSE METRICS: Total DLP (mGy-cm): 2382.14 FINDINGS: Tubes, catheters and devices: ET tube tip 1 cm proximal to the vira. Pulmonary arteries: No pulmonary embolus or aortic dissection. Great vessels off aortic arch: Calcification of the thoracic aorta and/or great vessels consistent with atherosclerotic vessel disease. Aorta: Unremarkable. No aortic aneurysm. No aortic dissection. Lungs: Mild bibasilar atelectasis and/or pneumonia. Pleural space: Unremarkable. No pneumothorax. No pleural effusion. Heart: Unremarkable. No cardiomegaly. No pericardial effusion. Lymph nodes: Unremarkable. No enlarged lymph nodes. Bones/joints: Unremarkable. No acute fracture. Soft tissues: Unremarkable. Other findings: Probable morbid obesity. Examination is limited by artifact from one or both arms by the patient's side. IMPRESSION: 1. Probable morbid obesity. 2. No pulmonary embolus or aortic dissection. 3. Mild bibasilar atelectasis and/or pneumonia. PROCEDURE INFORMATION: Exam: CT Abdomen And Pelvis With Contrast Exam date and time: 08/30/2019 6:28 PM Age: 69 years old Clinical indication: Abdominal tenderness; Abdominal pain; Shortness of breath; Chest pain; Prior surgery; Surgery type: Appy, gb, hyst, bilat hip TECHNIQUE: Imaging protocol: Computed tomography of the abdomen and pelvis with intravenous contrast. Radiation optimization: All CT scans at this facility use at least one of these dose optimization techniques: automated exposure control; mA and/or kV adjustment per patient size (includes targeted exams where dose is matched to clinical indication); or iterative reconstruction. Contrast material: OMNI 350; Contrast volume: 95 ml; Contrast route: INTRAVENOUS (IV); COMPARISON: CR XR chest 1V portable [id number] 08/30/2019 4:15 PM RADIATION DOSE METRICS: Total DLP (mGy-cm): 2382.14 FINDINGS: Tubes, catheters and devices: Enteric tube tip is over the body of the stomach (mid stomach). Liver: Normal. No mass. Gallbladder and bile ducts: Surgical clips in the gallbladder fossa consistent with cholecystectomy. Pancreas: Normal. No ductal dilation. Spleen: Normal. No splenomegaly. Adrenals: Normal. No mass. Kidneys and ureters: Normal. No hydronephrosis. Stomach and bowel: Severe colonic diverticulosis. Appendix: No evidence of appendicitis. Intraperitoneal space: Unremarkable. No free air. No significant fluid collection. Vasculature: Calcification of the abdominal aorta and/or iliac arteries consistent with atherosclerotic vessel disease. One or more calcified pelvic phleboliths. Lymph nodes: Unremarkable. No enlarged lymph nodes. Bladder: Unremarkable as visualized. Reproductive: Status post hysterectomy. Bones/joints: Bilateral total hip replacement with metallic artifact partially obscuring the pelvic anatomy. Soft tissues: Possible morbid obesity. Other findings: Levoscoliosis. Examination is limited by artifact from one or both arms by the patient's side. CT/CT angio chest w abd pel w con IMPRESSION: 1. Bilateral total hip replacement with metallic artifact partially obscuring the pelvic anatomy. 2. Severe colonic diverticulosis. Radiation Dose CTDIVOL = (mGy): DLP = 2382.14 2382.14 (mGy-cm) Dictated By: George Mckeon MD Signed By: George Mckeon MD Signed Date/Time: 08/30/191914 DD/ 14 EKG Data^: EKG 1: Attestation: I personally reviewed and interpreted this EKG as follows: EKG Interpretation Date: 08/30/19 EKG interpretation time: 16:23 Interpretation: Sinus rhythm at 68 beats a minute, right bundle branch block, nonspecific ST and T wave changes. Unchanged from previous. Critical Care Time Critical Care Time: Critical Care Time: Yes Total Critical Care Time: 30 Attestation: Critical care time was exclusive of billable procedures. Critical care time consisted of complete evaluation of the patient, reevaluation to see how she responded to interventions performed. Critical care time consisted of ventilator set up and management. Critical care time consisted of reviewing charts, documenting history, consultation with hospitalist and reviewing of labs and radiological findings. Discharge Plan Discharge Patient Disposition: Admitted As Inpatient Admit Provider: Diann Salgado Clinical Impression: Acute hypercapnic respiratory failure Condition: Stable Interventions: ED Discharge Assessment Last Done: 08/30/19 20:18 ED Charges Last Done: 08/30/19 19:05 Discharge Date/Time: 08/30/19 20:19 Coding Level of Care Code ED Apprentice Lineman Third Step for Chg Fwd Exam Comprehensive
[2019-08-30] MEDS: succinylcholine 20 mg/mL SDV 10mL 200 MG IVP (16:09)
[2019-08-30] MEDS: water for injection-sterile 10 ML (16:10)
[2019-08-30] MEDS: vecuronium 10 mg SDV 15 MG IVP (16:10)
[2019-08-30] MEDS: fentaNYL 50 mcg/mL INJ 2mL 100 MCG IVP (16:11)
[2019-08-30] MEDS: sodium chloride 0.9% 1,000 ML 999 ML IV (16:13)
[2019-08-30 16:15] LABS: Hematocrit 41.4 % (37.0-47.0); Hemoglobin 12.2 g/dL (11.5-15.3); Mean Corpuscular HGB Conc 29.5 g/dL (30.0-36.0); Mean Corpuscular Hemoglobin 29.2 pg (28.0-34.0); Mean Platelet Volume 8.7 fL (7.4-10.4); Nucleated Red Blood Cells # 0.1 /100WBC; Nucleated Red Blood Cells % 0.2 %; Platelet Count 372 10^3/cmm (130-400); Red Blood Count 4.18 10^6/uL (4.1-5.3); White Blood Count 28.1 10^3/uL (4.0-10.0)
[2019-08-30] MEDS: fentaNYL 50 mcg/mL INJ 2mL 200 MCG IVP (16:28)
[2019-08-30 16:29] LABS: Ammonia 45 umol/L (11-51); Lactic Sepsis W/Reflex 1.1 mmol/L (0.5-2.2)
[2019-08-30] MEDS: propofol 1,000 MG/100 ML INJ 19.1 MG (16:29)
[2019-08-30 16:39] LABS: Troponin(5th) Baseline 120 ng/L (0-10)
[2019-08-30 16:40] LABS: ABG PH Result 7.32 (7.35-7.45); Alveolar-Arterial Oxygen Gradi 2.2 mmHg (5-10); Arterial Blood Gas Hematocrit 36.7 % (37-47); Blood Gas Allen Test Pos; Blood Gas Operator Identificat amh; Blood Gas Sample Site Radial, left; Blood Gas Sample Type Arterial; Carboxyhemoglobin 3.7 %THgb (0.4-20.1); HCO3 ABG 43.5 mmol/L (22-26); HGB O2 Sat 77.7 % (95-100); Ionized Calcium Level - ABG 1.1 mmol/L (1.1-1.4); Oxygen Device NC; Oxygen Saturation ABG 80.1; PO2 ABG 46.9 mmHg (80.0-100.0); Potassium Level - ABG 3.6 mmol/L (3.5-5.0)
[2019-08-30 16:41] LABS: Alanine Aminotransferase 34 U/L (0-33); Albumin Level 4.6 g/dL (3.5-5.2); Alkaline Phosphatase 57 IU/L (35-105); Anion Gap 11.8 (5-19); Aspartate Amino Transferase 78 U/L (0-32); Blood Urea Nitrogen 9 mg/dL (8-23); Chloride 85 mmol/L (98-107); Globulin 3.1 g/dL (1.3-4.6); Glomerular Filtration Rate 98.8 mL/min (90-130); Glucose 132 mg/dL (65-115); Magnesium 1.6 mg/dL (1.7-2.3); NT Pro B Type Natriuretic Pept 221 pg/mL (0-125); Osmolality Calculated 276 mOsm/kg (285-295); Potassium 3.8 mmol/L (3.5-5.1); Sodium 134 mmol/L (136-145); Total Bilirubin 0.2 mg/dL (0.15-1.2); Total Protein 7.7 g/dL (6.6-8.7)
[2019-08-30 16:42] LABS: Alcohol Level < 10 mg/dL (0-10)
[2019-08-30 16:43] LABS: Carbon Dioxide 41 mmol/L (22-29)
--- NOTE | 2019-08-30 16:47 | CTR_ITS ---
PROCEDURE INFORMATION: Exam: CT Angiography Chest With Contrast Exam date and time: 08/30/2019 6:28 PM Age: 69 years old Clinical indication: Abdominal tenderness; Abdominal pain; Shortness of breath; Chest pain; Prior surgery; Surgery type: Appy, gb, hyst, bilat hip TECHNIQUE: Imaging protocol: Computed tomographic angiography of the chest with intravenous contrast. 3D rendering: MIP and/or 3D reconstructed images were created by the technologist. Radiation optimization: All CT scans at this facility use at least one of these dose optimization techniques: automated exposure control; mA and/or kV adjustment per patient size (includes targeted exams where dose is matched to clinical indication); or iterative reconstruction. Contrast material: OMNI 350; Contrast volume: 95 ml; Contrast route: INTRAVENOUS (IV); COMPARISON: CR XR chest 1V portable [id number] 08/30/2019 4:15 PM RADIATION DOSE METRICS: Total DLP (mGy-cm): 2382.14 FINDINGS: Tubes, catheters and devices: ET tube tip 1 cm proximal to the vira. Pulmonary arteries: No pulmonary embolus or aortic dissection. Great vessels off aortic arch: Calcification of the thoracic aorta and/or great vessels consistent with atherosclerotic vessel disease. Aorta: Unremarkable. No aortic aneurysm. No aortic dissection. Lungs: Mild bibasilar atelectasis and/or pneumonia. Pleural space: Unremarkable. No pneumothorax. No pleural effusion. Heart: Unremarkable. No cardiomegaly. No pericardial effusion. Lymph nodes: Unremarkable. No enlarged lymph nodes. Bones/joints: Unremarkable. No acute fracture. Soft tissues: Unremarkable. Other findings: Probable morbid obesity. Examination is limited by artifact from one or both arms by the patient's side. IMPRESSION: 1. Probable morbid obesity. 2. No pulmonary embolus or aortic dissection. 3. Mild bibasilar atelectasis and/or pneumonia. PROCEDURE INFORMATION: Exam: CT Abdomen And Pelvis With Contrast Exam date and time: 08/30/2019 6:28 PM Age: 69 years old Clinical indication: Abdominal tenderness; Abdominal pain; Shortness of breath; Chest pain; Prior surgery; Surgery type: Appy, gb, hyst, bilat hip TECHNIQUE: Imaging protocol: Computed tomography of the abdomen and pelvis with intravenous contrast. Radiation optimization: All CT scans at this facility use at least one of these dose optimization techniques: automated exposure control; mA and/or kV adjustment per patient size (includes targeted exams where dose is matched to clinical indication); or iterative reconstruction. Contrast material: OMNI 350; Contrast volume: 95 ml; Contrast route: INTRAVENOUS (IV); COMPARISON: CR XR chest 1V portable [id number] 08/30/2019 4:15 PM RADIATION DOSE METRICS: Total DLP (mGy-cm): 2382.14 FINDINGS: Tubes, catheters and devices: Enteric tube tip is over the body of the stomach (mid stomach). Liver: Normal. No mass. Gallbladder and bile ducts: Surgical clips in the gallbladder fossa consistent with cholecystectomy. Pancreas: Normal. No ductal dilation. Spleen: Normal. No splenomegaly. Adrenals: Normal. No mass. Kidneys and ureters: Normal. No hydronephrosis. Stomach and bowel: Severe colonic diverticulosis. Appendix: No evidence of appendicitis. Intraperitoneal space: Unremarkable. No free air. No significant fluid collection. Vasculature: Calcification of the abdominal aorta and/or iliac arteries consistent with atherosclerotic vessel disease. One or more calcified pelvic phleboliths. Lymph nodes: Unremarkable. No enlarged lymph nodes. Bladder: Unremarkable as visualized. Reproductive: Status post hysterectomy. Bones/joints: Bilateral total hip replacement with metallic artifact partially obscuring the pelvic anatomy. Soft tissues: Possible morbid obesity. Other findings: Levoscoliosis. Examination is limited by artifact from one or both arms by the patient's side. CT/CT angio chest w abd pel w con IMPRESSION: 1. Bilateral total hip replacement with metallic artifact partially obscuring the pelvic anatomy. 2. Severe colonic diverticulosis. Radiation Dose CTDIVOL = (mGy): DLP = 2382.14~2382.14 (mGy-cm)
--- NOTE | 2019-08-30 16:47 | CTR_ITS ---
PROCEDURE INFORMATION: Exam: CT Head Without Contrast Exam date and time: 08/30/2019 6:28 PM Age: 69 years old Clinical indication: Altered mental status/memory loss; Patient HX: PT intubated; Additional info: AMS TECHNIQUE: Imaging protocol: Computed tomography of the head without contrast. Radiation optimization: All CT scans at this facility use at least one of these dose optimization techniques: automated exposure control; mA and/or kV adjustment per patient size (includes targeted exams where dose is matched to clinical indication); or iterative reconstruction. COMPARISON: No relevant prior studies available. RADIATION DOSE METRICS: Total DLP (mGy-cm): 731.82 FINDINGS: Brain: Mild small vessel ischemic disease. Currently no visible evidence of acute intracranial pathologic process. No visible intracranial hemorrhage. Ventricles: Normal. No ventriculomegaly. Bones/joints: Unremarkable. No acute fracture. Sinuses: Chronic ethmoid and mild chronic maxillary sinusitis. Mastoid air cells: Visualized mastoid air cells are well aerated. Soft tissues: Unremarkable. CT/CT head wo con* [id number] IMPRESSION: No visible active or acute intracranial pathologic process. Radiation Dose CTDIVOL = (mGy): DLP = 731.82 (mGy-cm)
[2019-08-30 17:02] LABS: Slide Review Slide Review Perform
[2019-08-30 17:09] LABS: Absolute Segmented Neutrophil 14.3 10/cmm (1.6-7.1); Band Neutrophils Absolute 0.3 10^3/cmm (0.0-1.2); Lymphocytes 22 %; Segmented Neutrophils 51 %; Total Cells Counted 100 (0-100)
[2019-08-30 17:10] LABS: Absolute Eosinophils 0.5 10^3/cmm (0.0-0.7); Absolute Neutrophil 14.6 10^3/cmm (1.4-6.5); Anisocytosis 1+; Eosinophils 2 %; Pathology Refferal Yes; Platelet Estimate Normal (Normal); Polychromasia Trace
[2019-08-30 17:17] LABS: Amphetamines Screen Urine Positive (Negative); Barbiturates Screen Urine Negative (Negative); Benzodiazepines Screen Urine Negative (Negative); Cocaine Screen Urine Negative (Negative); Opiate Screen Urine Negative (Negative); PCP Screen Urine Negative (Negative); THC Screen Urine Negative (Negative)
[2019-08-30 17:21] LABS: Protein Urine 1+ (Negative); Urine Appearance Clear (CLEAR); Urine Color Yellow (Yellow); pH Urine 6 (5-7)
[2019-08-30 17:22] LABS: Bilirubin Urine Neg (NEGATIVE); Blood Urine 2+ (Negative); Glucose Urine UA Norm (Normal); Ketones Urine Negative (Negative); Leukocyte Esterase Urine Negative (Negative); Nitrate Urine Negative (Negative); Urobilinogen Urine Norm (Negative)
[2019-08-30 17:35] LABS: INR 0.84 (0.8-1.2)
[2019-08-30 17:37] LABS: RBC Urine 40-50 /hpf (0-2)
[2019-08-30 17:38] LABS: Add Urine Culture? Yes; Bacteria Urine 1+; Squamous Epithelial Cell Urine 0-4 (0-5)
[2019-08-30] MEDS: piperacillin-tazobactam 3.375 GM in sodium chloride 0.9% (plus) 50 ML IV (17:38)
--- NOTE | 2019-08-30 17:45 | ECG_ITS ---
[facility] Test Date: 2019-08-30 Pat Name: Wendy Ozuna Department: Room: ICU02 Gender: Female Lopper: : 1950 Requested By: Jany Marques Order Number: [id number] Zelda MD: Nyla Tinajero M.D. Measurements Intervals [place] Rate: 60 P: 34 KS: 198 QRS: -74 QRSD: 147 T: 63 QT: 494 QTc: 496 Interpretive Statements SINUS RHYTHM RIGHT BUNDLE BRANCH BLOCK LEFT ANTERIOR FASCICULAR BLOCK POSSIBLE ANTERIOR MYOCARDIAL INFARCTION , PROBABLY OLD Compared to ECG 08/30/2019 16:23:14 No significant changes Electronically Signed On 08-31-2019 17:13:02 CDT by Nyla Tinajero M.D. [id number]
[2019-08-30 17:48] LABS: ABG PH Result 7.36 (7.35-7.45); Alveolar-Arterial Oxygen Gradi 136.7 mmHg (5-10); Arterial Blood Gas Hematocrit 36.7 % (37-47); Blood Gas Allen Test Pos; Blood Gas Sample Site Brachial, right; Blood Gas Sample Type Arterial; Blood Gas Tidal Volume 0.45; Carboxyhemoglobin 2.8 %THgb (0.4-20.1); HCO3 ABG 37.7 mmol/L (22-26); Ionized Calcium Level - ABG 1.1 mmol/L (1.1-1.4); Methemoglobin 0.2 % (0.4-1.5); Oxygen Device VENT; Oxygen Saturation ABG 93.9; PO2 ABG 63.7 mmHg (80.0-100.0); Potassium Level - ABG 3.7 mmol/L (3.5-5.0)
[2019-08-30 17:50] LABS: ABG PCO2 66.4 mmHg (35-45)
--- NOTE | 2019-08-30 18:43 | P.HP_ITS ---
Providers/Chief Complaint Admitting Physician: Diann Salgado MD Primary Care Provider: Varinder Delgado Chief Complaint: SOB History of Present Illness Wendy Ozuna is a 69 year old female with PMHx of HFpEF, CKD stage 2, Morbid obesity, COPD, had initially presented to her primary care physician's office for evaluation of progressive and worsening shortness of breath, was noted to be hypoxic and was referred to the ER for further evaluation. She reportedly was quite confused and in quite a bit of distress, trialed on BiPAP with continued decompensation and was subsequently intubated. She is sedated on propofol currently. She reportedly required some pressor support with levophed due to noted hypotension but this has since been discontinued and she is hemodynamically stable. She has received 500 mL normal saline bolus as well. Work-up so far indicates significant leukocytosis with a white count of 28.1, normal hemoglobin and platelet count, mild hyponatremia with a sodium of 134, glucose of 132, magnesium of 1.6, AST of 78, ALT of 34, initial troponin of 120, BNP of 221. I suspect that the BNP is an underestimate given patient's body habitus and evidence of peripheral edema. She has been admitted to our facility before, last in March during which time she required intubation due to similar presentation. She self extubated and it seems that she is oxygen dependent at baseline though I am unclear about her requirement. During her previous admission, urine drug screen was noted to be positive for amphetamines which patient attributed to someone sleeping something into her drink. She is positive again this time for amphetamines. She is pending imaging studies including CT head, CTA of the chest abdomen and pelvis. Chest x-ray per my review seems to indicate some element of possible aspiration as well as some pulmonary vascular congestion. Patient will be admitted to ICU for further management of acute respiratory failure. Given her symptom presentation and minimal history, she will be tested for COVID-19. Review of Systems General: Reports: ROS unobtainable due to mental status Resp: Reports: dyspnea Medications/Allergies Home Medications Medication Instructions Recorded Confirmed Last Taken Type levothyroxine 200 mcg PO DAILY 03/23/19 08/30/19 Unknown History nitroglycerin [Nitrostat] 0.4 mg SUBLINGUAL Q5M PRN 03/23/19 08/30/19 Unknown History potassium chloride 10 meq PO DAILY 03/23/19 08/30/19 Unknown History pramipexole 3 mg PO BID 03/23/19 08/30/19 Unknown History fluticasone propion-salmeterol 1 inh INHALATION BID #60 each 03/26/19 08/30/19 Unknown Rx [Advair Diskus] ipratropium-albuterol 3 ml INHALATION QID PRN #180 ml 03/26/19 08/30/19 Unknown Rx Allergies Allergy/AdvReac Type Severity Reaction Status Date / Time eszopiclone [From Lunesta] Allergy Unknown unknown Verified 08/30/19 14:03 gabapentin Allergy Unknown Unknown Verified 08/30/19 14:03 PFSH Acute PFSH: Medical History Gout Head injury Heart failure with preserved ejection fraction Methamphetamine abuse Morbid obesity Peptic ulcer Sleep apnea Thyroid disease Surgical History H/O bilateral salpingo-oophorectomy H/O knee surgery H/O: hysterectomy History of appendectomy History of cholecystectomy History of hip surgery Family History Other Family history unobtainable due to patient's condition Social History Smoking and tobacco status: unknown if ever smoked Quit status (tobacco): not considering quitting Alcohol intake: unknown History of recent travel: No Current gender identity: Female Vitals/I&O/Wt Last Vital Signs Pulse 61 08/30/19 17:45 Resp 16 08/30/19 17:15 BP 133/84 08/30/19 17:45 Pulse Ox 94 08/30/19 17:45 08/30/19 08/30/19 08/30/19 06:59 14:59 22:59 Intake Total 592.013 / 592.013 Balance 592.013 / 592.013 Weight last 48 hrs Weight 158.757 kg Physical Exam Const: GENERAL APPEARANCE: patient mechanically ventilated NUTRITIONAL APPEARANCE: obese morbidly obese OTHER: -sedated with propofol @ 25 mcg/kg/min HENMT: COMMON NORMALS: normocephalic and atraumatic Eye: COMMON NORMALS: conjunctivae normal Neck/C-Spine: OTHER: -short, thick neck Chest: CHEST: Yes Symmetrical chest wall rise Resp: AUSCULTATION: crackles (bilateral bases) and diminished lung sounds bilateral OTHER: -on vent support (50%/450/10) Cardio: COMMON NORMALS: No murmurs present (Cardio) RATE: regular rate RHYTHM: regular rhythm HEART SOUNDS: S1 normal heart sound present and S2 normal heart sound present GI: COMMON NORMALS: Soft to palpation INSPECTION: Yes central obesity : BLADDER/KIDNEY EXAM: Yes catheter in place Catheter type (Female): urethral Extremity: NARRATIVE EXTREMITY EXAM: -noted 1-2 + pitting edema including pedal Neuro: OTHER: -unable to assess as sedated Psych: OTHER: -sedated Urinary Catheter Management^: Pete: Cath Placed During This Visit: yes Urethral Indwelling: Yes Reason for Continuing Indwelling Catheter: Accurate Measurement of Urinary Output in Critically Ill Patients Urinary Catheter Date of Insertion: 08/30/19 Urinary Catheter Time of Insertion: 16:20 Data : 08/30/19 16:00 08/30/19 16:00 Micro: Microbiology 08/30/19 16:00 Blood Culture - Preliminary Blood SPECIMEN COLLECTED 08/30/19 15:55 Blood Culture - Preliminary Blood SPECIMEN COLLECTED A&P Assessment and plan (1) Acute respiratory failure: -Sent from PCP office due to noted hypoxia and complaints of progressive and worsening shortness of breath. Failed BiPAP and was subsequently intubated in the ER. -Noted hypercapnia and hypoxia on ABG (pH does not match degree of hypercapnia) -likely multifactorial given acute infection and fluid overload -CXR reported as unremarkable but per my review shows some haziness potentially concerning for aspiration particularly in light of noted positive urine drug screen and reported altered mental status -Daily CXR, ABG while on vent support -Wean when appropriate -Currently on sedation with propofol -We will cover with empiric Zosyn for possible aspiration -No active wheezing so would avoid steroid use at this time -blood cx drawn -order sputum cx and gram stain -noted peripheral edema, BNP-221 though likely underestimate given body habitus; may be element of fluid overload on imaging, so will give trial of diuresis -had previously required intubation during prior admission in 03/2019 following similar presentation -with limited hx at this time and respiratory status, will test for COVID-19; place on isolation precautions -close monitoring of respiratory status -monitor vital signs -noted leukocytosis part of which I suspect is reactive; trend WBC -lactic acid-1.1; does not currently meet sepsis criteria -CTA ordered to r/o PE Status: Acute Qualifiers: Respiratory failure complication: hypoxia and hypercapnia Qualified Code(s): J96.01 - Acute respiratory failure with hypoxia; J96.02 - Acute respi ratory failure with hypercapnia (2) Methamphetamine abuse: -prior noted + UDS with amphetamines -suspect that this is playing a role in her respiratory failure Status: Acute (3) Elevated troponin: -likely type II secondary to demand ischemia from respiratory distress -Echo noted below -trend troponins Status: Acute (4) Heart failure with preserved ejection fraction: -mild acute exacerbation -noted peripheral edema, BNP-221 though likely underestimate given body habitus; may be element of fluid overload on imaging, so will give trial of diuresis -Echo (03/2019): EF=60%, mild MR, trace TR -has Pete catheter, monitor Is & Os, daily weights -telemetry monitoring Status: Acute Qualifiers: Heart failure chronicity: acute on chronic Qualified Code(s): I50.33 - Acute on chronic diastolic (congestive) heart failure (5) Acute encephalopathy: -was noted to be altered on arrival, currently sedated -suspect that this is secondary to hypercapnia and hypoxia as well as substance induced given methamphetamines -CT head pending -ammonia-45 Status: Acute (6) Abdominal distention: -has central obesity but abdomen appears to be somewhat distended to me -CT A/P pending -has OGT for meds, decompression; monitor output -noted mild transaminitis; trend LFTs Status: Acute (7) CKD (chronic kidney disease) stage 2, GFR 60-89 ml/min: -baseline Cr is around 0.9 so currently at baseline -avoid nephrotoxins, renally dose meds Status: Chronic (8) Thyroid disease: -has hx of hypothyroidism -high TSH in 03/2019; repeat this -resume levothyroxine Status: Chronic (9) Morbid obesity: -BMI-54 kg/m2 Status: Chronic Additional A&P Information -Hypomagnesemia, replace as needed -NPO as on vent -GI ppx with PPI -DVT ppx with Lovenox -Dispo: home -Code status: FULL code -ICU admission due to vent support, isolation precautions Attestations Medical Necessity Statement*: Wendy Ozuna's hospital stay will require greater than 2 midnights for management of acute respiratory failure currently on ventilator support. Time Spent in Patient Care: Greater than 35 minutes (>than 50% of time spent in counselling and/or direct pt care on unit) . Critical Care Time: The high probability of a clinically significant, sudden or life threatening deterioration of the patient's [respiratory] system(s) required my full and direct attention, intervention and personal management. The critical care time is as shown. This time is in addition to time spent performing any reported procedures but includes the following: [x] Data and vital sign review and interpretation [x] Patient assessment, examination and intervention [x] Documentation [x] Medication orders and management Critical Care Time (min): 15 Coding Level of Care Code Acute Instrument/Control Technician for Jarred Fwd Diagnoses Acute respiratory failure J96.01; J96.02 Respiratory failure complication: hypoxia and hypercapnia Methamphetamine abuse F15.10 Elevated troponin R79.89 Heart failure with preserved ejection fraction I50.33 Heart failure chronicity: acute on chronic Acute encephalopathy G93.40 Abdominal distention R14.0 CKD (chronic kidney disease) stage 2, GFR 60-89 ml/min N18.2 Thyroid disease E07.9 Morbid obesity E66.01
[2019-08-30] MEDS: iohexol 350 mg/mL 100 mL Btl IV (18:56)
--- NOTE | 2019-08-30 19:32 | PC.NURSE ---
Report given to Britta STONER in ICU. Waiting for room to be cleaned.
[2019-08-30 19:40] LABS: Troponin 5 2HR 115.6 ng/L (0-10); Troponin 5 2HR Delta -4.4 ABS# (0-10)
[2019-08-30] MEDS: bumetanide 0.25 mg/mL SDV 10 mL 1 MG IV (22:37)
[2019-08-30] MEDS: enoxaparin 40 mg/0.4 mL Syringe SUBCUT (22:37)
[2019-08-30] MEDS: propofol 1,000 MG/100 ML INJ 28.6 MG (22:38)
[2019-08-30 22:57] LABS: Troponin 5 6HR 90.85 ng/L (0-10)
[2019-08-30] MEDS: magnesium sulfate premix 2 GM/50 ML PIGGYBACK IV (23:45)
[2019-08-30] MEDS: propofol 1,000 MG/100 ML INJ 28.6 MG IV (23:45)
[2019-08-30] MEDS: sodium chloride 0.9% 1,000 ML 100 ML IV (23:46)
[2019-08-31] VITALS (229 sets, daily range): BP systolic 87–178; BP diastolic 53–104; PULSE 57–79; RESP 12–15; TEMP 36.9–37.7; O2SAT 83–100
[2019-08-31] MEDS: piperacillin-tazobactam 3.375 GM in sodium chloride 0.9% (plus) 50 ML IV ×3 (01:30→17:35)
[2019-08-31] MEDS: propofol 1,000 MG/100 ML INJ 38.1 MG IV (03:18)
[2019-08-31 04:59] LABS: Basophils # 0.3 10^3/uL (0.0-0.1); Basophils % 0.9 %; Eosinophils % 0.1 %; Hematocrit 39.8 % (37.0-47.0); Hemoglobin 12.2 g/dL (11.5-15.3); Lymphocytes # 2.7 10^3/uL (0.8-4.8); Lymphocytes % 9.6 %; Mean Corpuscular HGB Conc 30.7 g/dL (30.0-36.0); Mean Corpuscular Hemoglobin 29.6 pg (28.0-34.0); Mean Corpuscular Volume 96.6 fL (81-99); Mean Platelet Volume 9.4 fL (7.4-10.4); Monocytes # 0.8 10^3/uL (0.2-0.9); Monocytes % 2.8 %; Neutrophils % 63.2 %; Nucleated Red Blood Cells % 0 %; Platelet Count 372 10^3/cmm (130-400); Positive C 1; Positive M 1; Red Blood Count 4.12 10^6/uL (4.1-5.3); White Blood Count 28.4 10^3/uL (4.0-10.0)
[2019-08-31 05:27] LABS: Alanine Aminotransferase 29 U/L (0-33); Albumin Level 3.6 g/dL (3.5-5.2); Alkaline Phosphatase 46 IU/L (35-105); Anion Gap 19.3 (5-19); Aspartate Amino Transferase 65 U/L (0-32); Blood Urea Nitrogen 9 mg/dL (8-23); Calcium 8.5 mg/dL (8.5-10.5); Carbon Dioxide 35 mmol/L (22-29); Chloride 84 mmol/L (98-107); Globulin 3.6 g/dL (1.3-4.6); Glomerular Filtration Rate 82.7 mL/min (90-130); Glucose 144 mg/dL (65-115); Osmolality Calculated 277 mOsm/kg (285-295); Potassium 4.3 mmol/L (3.5-5.1); Sodium 134 mmol/L (136-145); Total Bilirubin 0.2 mg/dL (0.15-1.2); Total Protein 7.2 g/dL (6.6-8.7)
[2019-08-31 05:35] LABS: Magnesium 1.8 mg/dL (1.7-2.3)
[2019-08-31 05:51] LABS: ABG PCO2 55.7 mmHg (35-45); ABG PH Result 7.47 (7.35-7.45); Arterial Blood Gas Hematocrit 39.6 % (37-47); Base Excess ABG 14.5 mmol/L (-2.0-2.0); Blood Gas Sample Site Brachial, left; Blood Gas Sample Type Arterial; HCO3 ABG 40.6 mmol/L (22-26); Oxygen Device VENT; PO2 ABG 41.7 mmHg (80.0-100.0)
--- NOTE | 2019-08-31 06:00 | XRR_ITS ---
PROCEDURE INFORMATION: Exam: XR Chest, 1 View Exam date and time: 08/31/2019 5:19 AM Age: 69 years old Clinical indication: Device placement; Ett placement (vent status); Additional info: On vent support TECHNIQUE: Imaging protocol: XR of the chest Views: 1 view. COMPARISON: CR XR chest 1V portable [id number] 08/30/2019 4:15 PM FINDINGS: Tubes, catheters and devices: The endotracheal tube is above the level of the vira. nasogastric tube extends below the diaphragm although the location of the tip not identified as it is outside of the [id number]. Lungs: Subtle airspace disease left lung base. Pleural space: Unremarkable. No pleural effusion. No pneumothorax. Heart/Mediastinum: Cardiac silhouette is enlarged. Bones/joints: Unremarkable. XR/XR chest 1V portable [id number] IMPRESSION: Subtle airspace disease left lung base. Cardiomegaly
--- NOTE | 2019-08-31 06:07 | PC.NURSE ---
patient desating patient oxygen level dropped to 84% with good wave form. patient has audible lung sound changes from previous in shift. patient is more diminished in the left lung. notified of findings and this morning chest xray. verbal order for fluids to be shut off.
[2019-08-31] MEDS: propofol 1,000 MG/100 ML INJ 47.6 MG IV ×3 (06:14→10:03)
[2019-08-31] MEDS: bumetanide 0.25 mg/mL SDV 10 mL 1 MG IV ×2 (06:38→17:36)
[2019-08-31 06:40] LABS: Slide Review Slide Review Perform
--- NOTE | 2019-08-31 06:55 | PM.PN ---
Subjective Subjective: Interval history: Overnight had 1050 mL urine output, progressively has required more and more oxygen and is currently on FiO2 of 100%, saturating in the mid 90s. Stable leukocytosis noted on a.m. labs, ABG reviewed with noted improvement in hypercapnia but worsening hypoxia. Will give additional diuretics, IVF has ready been discontinued. Chest x-ray done, reviewed, pending official report. He is on sedation with propofol at 50 mcg/kg/min. Noted increased OGT output as well. Remains on isolation precautions pending COVID-19 test results. Medications: Reviewed: Yes Medication Review Details: Active Medications Generic Name Dose Route Start Last Admin Trade Name Freq PRN Reason Stop Dose Admin Acetaminophen 650 mg 08/30/19 22:00 Tylenol SD Q6H PRN Fever or mild ant n Bumetanide 1 mg 08/31/19 06:30 08/31/19 06:38 Bumex IV 1 mg Q12H DOREEN Administration Enoxaparin Sodium 40 mg 08/30/19 22:00 08/30/19 22:37 Lovenox SUBCUT 40 mg Q24H DOREEN Administration Propofol 1,000 mg in 100 m ls @ 0 mls/hr 08/30/19 22:00 08/31/19 06:14 Diprivan IV 50 mcg/kg/min .Q0M DOREEN 47.6 mls/hr Administration Protocol Per Protocol Piperacillin Sod/T azobactam 50 mls @ 12.5 mls /hr 08/31/19 01:00 08/31/19 01:30 Sod 3.375 gm/ So dium Chloride IV 12.5 mls/hr Q8H DOREEN Administration Protocol As Directed Norepinephrine Bit artrate 4 mg 254 mls @ 0 mls/h r 08/30/19 23:30 / Dextrose IV .Q0M DOREEN Protocol Per Protocol Levothyroxine Sodi um 200 mcg 08/31/19 09:00 Synthroid PO DAILY DOREEN Methylprednisolone Sodium Succinate 60 mg 08/31/19 09:00 Solu-Medrol IVP Q6H DOREEN Ondansetron HCl 4 mg 08/30/19 22:00 Zofran IVP Q6H PRN NAUSEA AND VOMITI NG Pantoprazole Sodiu m 40 mg 08/31/19 09:00 Protonix IVP DAILY DOREEN eszopiclone [From Lunesta] Allergy (Unknown, Verified 08/30/19 14:03) unknown gabapentin Allergy (Unknown, Verified 08/30/19 14:03) Unknown Vitals/I&O/Wt Last Vital Signs Temp 98.5 F 08/31/19 06:10 Pulse 66 08/31/19 06:10 Resp 14 08/31/19 04:32 BP 138/85 08/31/19 06:10 Pulse Ox 96 08/31/19 06:10 08/30/19 08/30/19 08/31/19 14:59 22:59 06:59 Intake Total 604.361 / 604.361 823.333 / 1427.694 Output Total 700 / 700 350 / 1050 Balance -95.639 / -95.639 473.333 / 377.694 Weight last 48 hrs Weight 136.531 kg Weight 158.757 kg Physical Exam Const: GENERAL APPEARANCE: patient mechanically ventilated NUTRITIONAL APPEARANCE: obese morbidly obese OTHER: -sedated with propofol @ 50 mcg/kg/min HENMT: COMMON NORMALS: normocephalic and atraumatic HEAD & SCALP: normocephalic and atraumatic OTHER: -ETT: 24 cm @ lip Eye: COMMON NORMALS: conjunctivae normal CONJUNCTIVA: Yes conjunctivae normal Neck/C-Spine: OTHER: -short, thick neck Chest: CHEST: Yes Symmetrical chest wall rise Resp: AUSCULTATION: crackles (bilateral bases) and diminished lung sounds bilateral OTHER: -on vent support (100%/450/15) Cardio: COMMON NORMALS: regular rate, regular rhythm, S1 normal heart sound present, S2 normal heart sound present and No murmurs present (Cardio) RATE: regular rate RHYTHM: regular rhythm HEART SOUNDS: S1 normal heart sound present and S2 normal heart sound present GI: COMMON NORMALS: Soft to palpation INSPECTION: Yes central obesity PALPATION: Yes Soft to palpation : BLADDER/KIDNEY EXAM: Yes catheter in place Catheter type (Female): urethral Extremity: NARRATIVE EXTREMITY EXAM: -noted 1-2 + pitting edema including pedal Neuro: OTHER: -unable to assess as sedated Psych: OTHER: -sedated Urinary Catheter Management^: Pete: Cath Placed During This Visit: yes Urethral Indwelling: Yes Reason for Continuing Indwelling Catheter: Accurate Measurement of Urinary Output in Critically Ill Patients Urinary Catheter Date of Insertion: 08/30/19 Urinary Catheter Time of Insertion: 16:20 Data : 08/31/19 04:30 08/31/19 04:30 Micro: Microbiology 08/30/19 16:00 Blood Culture - Preliminary Blood SPECIMEN COLLECTED 08/30/19 15:55 Blood Culture - Preliminary Blood SPECIMEN COLLECTED A&P Assessment and plan (1) Acute respiratory failure: -Sent from PCP office due to noted hypoxia and complaints of progressive and worsening shortness of breath. Failed BiPAP and was subsequently intubated in the ER (08/29). -Noted improved hypercapnia and worsening hypoxia on ABG -likely multifactorial given acute infection and fluid overload -CXR reported as unremarkable but per my review shows some haziness potentially concerning for aspiration particularly in light of noted positive urine drug screen and reported altered mental status -Daily CXR, ABG while on vent support -Wean when appropriate -Currently on sedation with propofol -continue Zosyn for possible aspiration -Noted diminished breath sounds particularly on the L so will add steroids -blood cx drawn -order sputum cx and gram stain -noted peripheral edema, BNP-221 though likely underestimate given body habitus; continue to suspect fluid overload particularly with increased FiO2 this AM, so will continue diuresis. IVF already discontinued -had previously required intubation during prior admission in 03/2019 following similar presentation -with limited hx at this time and respiratory status, tested for COVID-19; on isolation precautions -close monitoring of respiratory status -continue to monitor vital signs; stable -noted leukocytosis part of which I suspect is reactive; trend WBC -lactic acid-1.1; does not currently meet sepsis criteria -CTA ordered to r/o PE; negative, noted mild bibasilar atelectasis/pneumonia -check bacterial antigens, Legionella, MRSA, influenza -add Vancomycin to broaden antibiotic spectrum coverage Status: Acute Qualifiers: Respiratory failure complication: hypoxia and hypercapnia Qualified Code(s): J96.01 - Acute respiratory failure with hypoxia; J96.02 - Acute respiratory failure with hypercapnia (2) Methamphetamine abuse: -prior noted + UDS with amphetamines -suspect that this is playing a role in her respiratory failure Status: Acute (3) Elevated troponin: -likely type II secondary to demand ischemia from respiratory distress -Echo noted below -troponins trended with noted delta of 27 Status: Acute (4) Heart failure with preserved ejection fraction: -mild acute exacerbation -noted peripheral edema, BNP-221 though likely underestimate given body habitus; continue diuresis -Echo (03/2019): EF=60%, mild MR, trace TR, normal diastolic function -has Pete catheter, monitor Is & Os, daily weights -telemetry monitoring Status: Acute Qualifiers: Heart failure chronicity: acute on chronic Qualified Code(s): I50.33 - Acute on chronic diastolic (congestive) heart failure (5) Acute encephalopathy: -was noted to be altered on arrival, currently sedated -suspect that this is secondary to hypercapnia and hypoxia as well as substance induced given methamphetamines -CT head negative -ammonia-45 Status: Acute (6) Abdominal distention: -has central obesity but abdomen appears to be somewhat distended to me -CT A/P with noted severe colonic diverticulosis, s/p bilateral hip replacements -has OGT for meds, decompression; monitor output -noted mild transaminitis; trend LFTs; improved today Status: Acute (7) CKD (chronic kidney disease) stage 2, GFR 60-89 ml/min: -baseline Cr is around 0.9 so currently at baseline -avoid nephrotoxins, renally dose meds Status: Chronic (8) Thyroid disease: -has hx of hypothyroidism -high TSH in 03/2019; repeat this -on levothyroxine Status: Chronic (9) Morbid obesity: -BMI-46 kg/m2 Status: Chronic Additional A&P Information -Hypomagnesemia, replace as needed -NPO as on vent -GI ppx with PPI -DVT ppx with Lovenox -Dispo: home -Code status: FULL code -ICU care due to vent support, isolation precautions Attestations Medical Necessity Statement*: Patient requires hospitalization for continued hypercapnic and hypoxic respiratory failure, remains on ventilator support with increased oxygen requirement, needs increased diuresis, IV steroids and broad-spectrum IV antibiotic coverage. Time Spent in Patient Care: 16 - 35 minutes (>than 50% of time spent in counselling and/or direct pt care on unit). Critical Care Time: The high probability of a clinically significant, sudden or life threatening deterioration of the patient's [cardiovascular, respiratory] system(s) required my full and direct attention, intervention and personal management. The critical care time is as shown. This time is in addition to time spent performing any reported procedures but includes the following: [x] Data and vital sign review and interpretation [x] Patient assessment, examination and intervention [x] Documentation [x] Medication orders and management Critical Care Time (min): 20 Coding Level of Care Code Acute Network Security Engineer for Chg Fwd Diagnoses Acute respiratory failure J96.01; J96.02 Respiratory failure complication: hypoxia and hypercapnia Methamphetamine abuse F15.10 Elevated troponin R79.89 Heart failure with preserved ejection fraction I50.33 Heart failure chronicity: acute on chronic Acute encephalopathy G93.40 Abdominal distention R14.0 CKD (chronic kidney disease) stage 2, GFR 60-89 ml/min N18.2 Thyroid disease E07.9 Morbid obesity E66.01
[2019-08-31] MEDS: levothyroxine 100 mcg Tablet 200 MCG PO (08:35)
[2019-08-31] MEDS: pantoprazole 40 mg SDV IVP (08:36)
[2019-08-31 08:50] LABS: Influenza A by IFA Negative (Negative); Influenza B by IFA Negative (Negative)
[2019-08-31 10:52] LABS: Blood Gas CCRB Time 1830
[2019-08-31] MEDS: propofol 1,000 MG/100 ML INJ 57.2 MG IV ×6 (14:22→23:30)
--- NOTE | 2019-08-31 15:17 | PC.RESP ---
Pulmonary Rehab information sent to patient.
[2019-08-31] MEDS: enoxaparin 40 mg/0.4 mL Syringe SUBCUT (21:39)
[2019-09-01] VITALS (34 sets, daily range): BP systolic 113–161; BP diastolic 57–84; PULSE 67–78; RESP 14–25; TEMP 37.1–37.4; O2SAT 72–97; BMI 45.8
[2019-09-01] MEDS: piperacillin-tazobactam 3.375 GM in sodium chloride 0.9% (plus) 50 ML IV ×3 (01:14→17:58)
[2019-09-01] MEDS: propofol 1,000 MG/100 ML INJ 57.2 MG IV ×14 (01:20→23:37)
[2019-09-01 04:53] LABS: Basophils # 0.1 10^3/uL (0.0-0.1); Basophils % 0.5 %; Eosinophils % 0.1 %; Hematocrit 37.4 % (37.0-47.0); Hemoglobin 11.9 g/dL (11.5-15.3); Lymphocytes # 2.2 10^3/uL (0.8-4.8); Lymphocytes % 8.3 %; Mean Corpuscular HGB Conc 31.8 g/dL (30.0-36.0); Mean Corpuscular Volume 91.2 fL (81-99); Mean Platelet Volume 9.3 fL (7.4-10.4); Monocytes # 0.9 10^3/uL (0.2-0.9); Monocytes % 3.5 %; Neutrophils # 18.2 10^3/uL (1.8-7.7); Nucleated Red Blood Cells % 0.1 %; Platelet Count 422 10^3/cmm (130-400); Red Cell Distribution Width 17.7 % (12.1-15.1); White Blood Count 26.3 10^3/uL (4.0-10.0)
[2019-09-01 05:24] LABS: Alanine Aminotransferase 26 U/L (0-33); Albumin Level 3.6 g/dL (3.5-5.2); Alkaline Phosphatase 43 IU/L (35-105); Anion Gap 20.7 (5-19); Aspartate Amino Transferase 55 U/L (0-32); Blood Urea Nitrogen 15 mg/dL (8-23); Carbon Dioxide 35 mmol/L (22-29); Chloride 82 mmol/L (98-107); Creatinine Clr Calc Pharmacy 76.8148; Glomerular Filtration Rate 54.8 mL/min (90-130); Glucose 161 mg/dL (65-115); Osmolality Calculated 278 mOsm/kg (285-295); Potassium 3.7 mmol/L (3.5-5.1); Sodium 134 mmol/L (136-145); Total Bilirubin 0.3 mg/dL (0.15-1.2); Total Protein 6.6 g/dL (6.6-8.7)
[2019-09-01 05:28] LABS: Thyroid Stimulating Hormone 28.71 uIU/mL (0.27-4.20)
[2019-09-01 05:43] LABS: ABG PCO2 49.7 mmHg (35-45); ABG PH Result 7.52 (7.35-7.45); Arterial Blood Gas Hematocrit 36.8 % (37-47); Base Excess ABG 15.3 mmol/L (-2.0-2.0); Blood Gas Sample Site Brachial, right; Blood Gas Sample Type Arterial; HCO3 ABG 40.3 mmol/L (22-26); Oxygen Device VENT; PO2 ABG 61.2 mmHg (80.0-100.0)
[2019-09-01] MEDS: bumetanide 0.25 mg/mL SDV 10 mL 1 MG IV ×2 (05:56→17:58)
--- NOTE | 2019-09-01 06:00 | XRR_ITS ---
PROCEDURE INFORMATION: Exam: XR Chest, 1 View Exam date and time: 09/01/2019 4:41 AM Age: 69 years old Clinical indication: Device placement; Other: Et, og; Additional info: On vent support TECHNIQUE: Imaging protocol: XR of the chest Views: 1 view. COMPARISON: CR XR chest 1V portable [id number] 08/31/2019 5:05 AM FINDINGS: Tubes, catheters and devices: Endotracheal and feeding tubes again demonstrated. The endotracheal tube terminates 3.9 cm above the vira. Lungs: Interstitial prominence, without significant airspace disease. Pleural space: No pleural effusion. Heart/Mediastinum: Borderline cardiomegaly and mediastinal widening. Bones/joints: Osteopenia and degenerative change. Soft tissues: Rightward rotation of the chest. When correlating with the previous study, no significant interval changes are present. XR/XR chest 1V portable [id number] IMPRESSION: Stable appearance of the chest, not significantly changed from 08/31/2019 .
[2019-09-01 06:13] LABS: Slide Review Slide Review Perform
[2019-09-01] MEDS: ipratropium-albuterol 3 mL Neb INHALATION ×2 (08:56→14:48)
[2019-09-01 09:17] LABS: Coronavirus Lab Test PTC NOT DETECTED
[2019-09-01] MEDS: pantoprazole 40 mg SDV IVP (09:33)
[2019-09-01] MEDS: levothyroxine 100 mcg Tablet 200 MCG PO (09:33)
--- NOTE | 2019-09-01 10:15 | PM.PN ---
Subjective Subjective: Interval history: Noted increased FiO2 to 100% since last night, reportedly has been saturating in the mid to high 80s even with increased oxygenation. Labs this morning show improved leukocytosis, decreased hypercapnia, improved hypoxia. Remains on sedation with propofol, increased from 50->60 mcg/kg/min. Despite suctioning, repositioning, remains on FiO2-100% and highest saturation is 90%. Air entry is better compared to yesterday though still diminished which appears to be her baseline. Had 1200 mL urine output overnight and an additional 850 mL so far today. Medications: Reviewed: Yes Medication Review Details: Active Medications Generic Name Dose Route Start Last Admin Trade Name Freq PRN Reason Stop Dose Admin Acetaminophen 650 mg 08/30/19 22:00 Tylenol VA Q6H PRN Fever or mild ant n Albuterol/Ipratrop ium 3 ml 09/01/19 08:54 09/01/19 08:56 Duoneb INHALATION 3 ml Q4H PRN Administration SHORTNESS OF ED TH Bumetanide 1 mg 08/31/19 06:30 09/01/19 05:56 Bumex IV 1 mg Q12H DOREEN Administration Enoxaparin Sodium 40 mg 08/30/19 22:00 08/31/19 21:39 Lovenox SUBCUT 40 mg Q24H DOREEN Administration Propofol 1,000 mg in 100 m ls @ 0 mls/hr 08/30/19 22:00 09/01/19 08:46 Diprivan IV 60 mcg/kg/min .Q0M DOREEN 57.2 mls/hr Administration Protocol Per Protocol Piperacillin Sod/T azobactam 50 mls @ 12.5 mls /hr 08/31/19 01:00 09/01/19 09:34 Sod 3.375 gm/ So dium Chloride IV 12.5 mls/hr Q8H DOREEN Administration Protocol As Directed Norepinephrine Bit artrate 4 mg 254 mls @ 0 mls/h r 08/30/19 23:30 / Dextrose IV .Q0M DOREEN Protocol Per Protocol Vancomycin HCl 2,0 00 mg/ 500 mls @ 250 mls /hr 08/31/19 09:00 09/01/19 09:47 Sodium Chloride IV 250 mls/hr Q24H DOREEN Administration Levothyroxine Sodi um 200 mcg 08/31/19 09:00 09/01/19 09:33 Synthroid PO 200 mcg DAILY DOREEN Administration Methylprednisolone Sodium Succinate 60 mg 08/31/19 09:00 09/01/19 09:33 Solu-Medrol IVP 60 mg Q6H DOREEN Administration Ondansetron HCl 4 mg 08/30/19 22:00 Zofran IVP Q6H PRN NAUSEA AND VOMITI NG Pantoprazole Sodiu m 40 mg 08/31/19 09:00 09/01/19 09:33 Protonix IVP 40 mg DAILY DOREEN Administration eszopiclone [From Lunesta] Allergy (Unknown, Verified 08/30/19 14:03) unknown gabapentin Allergy (Unknown, Verified 08/30/19 14:03) Unknown Vitals/I&O/Wt Last Vital Signs Temp 99.3 F 09/01/19 10:00 Pulse 73 09/01/19 10:00 Resp 15 09/01/19 10:00 BP 136/69 09/01/19 10:00 Pulse Ox 91 09/01/19 10:00 08/31/19 09/01/19 09/01/19 22:59 06:59 14:59 Intake Total 1029.327 / 1361.001 592.574 / 1953.575 100 / 100 Output Total 650 / 1100 550 / 1650 850 / 850 Balance 379.327 / 261.001 42.574 / 303.575 -750 / -750 Weight last 48 hrs Weight 136.713 kg Weight 136.531 kg Weight 158.757 kg Physical Exam Const: GENERAL APPEARANCE: patient mechanically ventilated NUTRITIONAL APPEARANCE: obese morbidly obese OTHER: -sedated with propofol @ 60 mcg/kg/min HENMT: COMMON NORMALS: normocephalic and atraumatic HEAD & SCALP: normocephalic and atraumatic OTHER: -ETT: 24 cm @ lip Eye: COMMON NORMALS: conjunctivae normal CONJUNCTIVA: Yes conjunctivae normal Neck/C-Spine: OTHER: -short, thick neck Chest: CHEST: Yes Symmetrical chest wall rise Resp: AUSCULTATION: crackles (bilateral bases) and diminished lung sounds (air entry has improved some today) bilateral OTHER: -on vent support, pressure support setting (100%/15); low tidal volume, saturation in the 88-90% range Cardio: COMMON NORMALS: regular rate, regular rhythm, S1 normal heart sound present, S2 normal heart sound present and No murmurs present (Cardio) RATE: regular rate RHYTHM: regular rhythm HEART SOUNDS: S1 normal heart sound present and S2 normal heart sound present GI: COMMON NORMALS: Soft to palpation INSPECTION: Yes central obesity PALPATION: Yes Soft to palpation : BLADDER/KIDNEY EXAM: Yes catheter in place Catheter type (Female): urethral Extremity: NARRATIVE EXTREMITY EXAM: -noted 1+ pitting edema including pedal Neuro: OTHER: -unable to assess as sedated Psych: OTHER: -sedated Urinary Catheter Management^: Pete: Cath Placed During This Visit: yes Urethral Indwelling: Yes Reason for Continuing Indwelling Catheter: Accurate Measurement of Urinary Output in Critically Ill Patients Urinary Catheter Date of Insertion: 08/30/19 Urinary Catheter Time of Insertion: 16:20 Data : 09/01/19 04:24 09/01/19 04:24 Micro: Microbiology 08/30/19 16:44 Urine Culture - Preliminary Urine,Clean Catch 08/30/19 18:05 Gram Stain - Final Sputum - Endotracheal Wash 08/30/19 16:00 Blood Culture - Preliminary Blood NEGATIVE TO DATE 08/30/19 15:55 Blood Culture - Preliminary Blood NEGATIVE TO DATE 08/31/19 07:30 MRSA Culture - Final Nose 08/31/19 07:35 Bacterial Antigens - Final Urine Kidney 08/31/19 07:35 Legionella Urinary Antigen - Final Urine Catheterized A&P Assessment and plan (1) Acute respiratory failure: -Sent from PCP office due to noted hypoxia and complaints of progressive and worsening shortness of breath. Failed BiPAP and was subsequently intubated in the ER (08/29). -Noted improved hypercapnia and hypoxia on ABG -likely multifactorial given acute infection and fluid overload -CXR reported as unremarkable but per my review shows some haziness potentially concerning for aspiration particularly in light of noted positive urine drug screen and reported altered mental status -Daily CXR, ABG while on vent support -Wean when appropriate; hold today due to increased FiO2 -Currently on sedation with propofol -continue Zosyn for possible aspiration; also on Vancomycin -Noted diminished breath sounds particularly on the L so on steroids with some improvement in air entry noted today -blood cx: prelim negative -sputum cx pending; gram stain negative -noted peripheral edema, BNP-221 though likely underestimate given body habitus; continue to suspect fluid overload particularly with increased FiO2, so will continue diuresis. IVF already discontinued -had previously required intubation during prior admission in 03/2019 following similar presentation -with limited hx at this time and respiratory status, tested for COVID-19; on isolation precautions -close monitoring of respiratory status -continue to monitor vital signs; stable -noted leukocytosis part of which I suspect is reactive; trend WBC -lactic acid-1.1; does not currently meet sepsis criteria -CTA ordered to r/o PE; negative, noted mild bibasilar atelectasis/pneumonia -negative bacterial antigens, Legionella, MRSA, influenza Status: Acute Qualifiers: Respiratory failure complication: hypoxia and hypercapnia Qualified Code(s): J96.01 - Acute respiratory failure with hypoxia; J96.02 - Acute respiratory failure with hypercapnia (2) COPD (chronic obstructive pulmonary disease): -has oxygen-dependent COPD, now with acute exacerbation as noted above -baseline oxygen requirement is 4 L NC, seems to saturate in the high 80s-90 at baseline Status: Acute Qualifiers: COPD type: COPD with acute exacerbation Qualified Code(s): J44.1 - Chronic obstructive pulmonary disease with (acute) exacerbation (3) Methamphetamine abuse: -prior noted + UDS with amphetamines -suspect that this is playing a role in her respiratory failure Status: Acute (4) Elevated troponin: -likely type II secondary to demand ischemia from respiratory distress -Echo noted below -troponins trended with noted delta of 27 Status: Acute (5) Heart failure with preserved ejection fraction: -mild acute exacerbation -noted peripheral edema, BNP-221 though likely underestimate given body habitus; continue diuresis -Echo (03/2019): EF=60%, mild MR, trace TR, normal diastolic function -has Pete catheter, monitor Is & Os, daily weights -telemetry monitoring Status: Acute Qualifiers: Heart failure chronicity: acute on chronic Qualified Code(s): I50.33 - Acute on chronic diastolic (congestive) heart failure (6) Acute encephalopathy: -was noted to be altered on arrival, currently sedated -suspect that this is secondary to hypercapnia and hypoxia as well as substance induced given methamphetamines -CT head negative -ammonia-45 Status: Acute (7) Abdominal distention: -has central obesity but abdomen appears to be somewhat distended to me -CT A/P with noted severe colonic diverticulosis, s/p bilateral hip replacements -has OGT for meds, decompression; continue to monitor output -noted mild transaminitis; trend LFTs; improved Status: Acute (8) CKD (chronic kidney disease) stage 2, GFR 60-89 ml/min: -baseline Cr is around 0.9 so currently at baseline -avoid nephrotoxins, renally dose meds Status: Chronic (9) Thyroid disease: -has hx of hypothyroidism -high TSH in 03/2019; remains high-27.51 -on levothyroxine Status: Chronic (10) Morbid obesity: -BMI-46 kg/m2 Status: Chronic Additional A&P Information -Hypomagnesemia, replace as needed -NPO as on vent -GI ppx with PPI -DVT ppx with Lovenox -Dispo: home -Code status: FULL code -ICU care due to vent support, isolation precautions Attestations Medical Necessity Statement*: Patient requires hospitalization for continued management of acute on chronic hypoxic and hypercapnic respiratory failure, remains on vent support, high oxygen requirement, IV diuresis, antibiotics and IV steroids. Time Spent in Patient Care: Greater than 35 minutes (>than 50% of time spent in counselling and/or direct pt care on unit). Critical Care Time: The high probability of a clinically significant, sudden or life threatening deterioration of the patient's [cardiovascular, respiratory] system(s) required my full and direct attention, intervention and personal management. The critical care time is as shown. This time is in addition to time spent performing any reported procedures but includes the following: [x] Data and vital sign review and interpretation [x] Patient assessment, examination and intervention [x] Documentation [x] Medication orders and management Critical Care Time (min): 30 Coding Level of Care Code Acute Day Haul Youth Supervisor for g Fwd Diagnoses Acute respiratory failure J96.01; J96.02 Respiratory failure complication: hypoxia and hypercapnia COPD (chronic obstructive pulmonary disease) J44.1 COPD type: COPD with acute exacerbation Methamphetamine abuse F15.10 Elevated troponin R79.89 Heart failure with preserved ejection fraction I50.33 Heart failure chronicity: acute on chronic Acute encephalopathy G93.40 Abdominal distention R14.0 CKD (chronic kidney disease) stage 2, GFR 60-89 ml/min N18.2 Thyroid disease E07.9 Morbid obesity E66.01
[2019-09-01 12:11] LABS: ABG PCO2 53.7 mmHg (35-45); ABG PH Result 7.49 (7.35-7.45); Arterial Blood Gas Hematocrit 37.7 % (37-47); Base Excess ABG 15.5 mmol/L (-2.0-2.0); Blood Gas Allen Test Pos; Blood Gas Sample Site Radial, right; Blood Gas Sample Type Arterial; HCO3 ABG 41.1 mmol/L (22-26); Oxygen Device VENT; PO2 ABG 61.6 mmHg (80.0-100.0)
[2019-09-01] MEDS: enoxaparin 40 mg/0.4 mL Syringe SUBCUT (21:04)
[2019-09-02] VITALS (45 sets, daily range): BP systolic 113–149; BP diastolic 53–80; PULSE 68–87; RESP 12–24; TEMP 37.1–37.4; O2SAT 90–93; BMI 44.8
[2019-09-02] MEDS: piperacillin-tazobactam 3.375 GM in sodium chloride 0.9% (plus) 50 ML IV ×3 (00:54→17:51)
[2019-09-02] MEDS: propofol 1,000 MG/100 ML INJ 57.2 MG IV ×10 (01:30→22:49)
[2019-09-02] MEDS: ipratropium-albuterol 3 mL Neb INHALATION ×6 (03:34→23:29)
[2019-09-02 04:29] LABS: ABG PCO2 42.8 mmHg (35-45); Base Excess ABG 15.5 mmol/L (-2.0-2.0); Blood Gas Allen Test Pos; Blood Gas Sample Site Radial, right; Blood Gas Sample Type Arterial; HCO3 ABG 39.2 mmol/L (22-26); Oxygen Device VENT; PO2 ABG 65.5 mmHg (80.0-100.0)
[2019-09-02 04:32] LABS: ABG PH Result 7.57 (7.35-7.45)
[2019-09-02 05:30] LABS: Hematocrit 37.8 % (37.0-47.0); Mean Corpuscular HGB Conc 31.7 g/dL (30.0-36.0); Mean Corpuscular Hemoglobin 29.4 pg (28.0-34.0); Mean Corpuscular Volume 92.6 fL (81-99); Mean Platelet Volume 9.4 fL (7.4-10.4); Nucleated Red Blood Cells # 0.1 /100WBC; Nucleated Red Blood Cells % 0.2 %; Platelet Count 410 10^3/cmm (130-400); Red Blood Count 4.08 10^6/uL (4.1-5.3); White Blood Count 29.9 10^3/uL (4.0-10.0)
[2019-09-02] MEDS: bumetanide 0.25 mg/mL SDV 10 mL 1 MG IV ×2 (05:30→17:51)
[2019-09-02 05:48] LABS: Anion Gap 20.3 (5-19); Blood Urea Nitrogen 18 mg/dL (8-23); Calcium 7.6 mg/dL (8.5-10.5); Carbon Dioxide 34 mmol/L (22-29); Chloride 83 mmol/L (98-107); Glomerular Filtration Rate 61.9 mL/min (90-130); Glucose 172 mg/dL (65-115); Osmolality Calculated 279 mOsm/kg (285-295); Potassium 3.3 mmol/L (3.5-5.1); Sodium 134 mmol/L (136-145)
--- NOTE | 2019-09-02 06:00 | XRR_ITS ---
PROCEDURE INFORMATION: Exam: XR Chest, 1 View Exam date and time: 09/02/2019 5:02 AM Age: 69 years old Clinical indication: Device placement; Patient HX: Et, og f/u; Additional info: On vent support, high oxygen requirement TECHNIQUE: Imaging protocol: XR of the chest Views: 1 view. COMPARISON: CR XR chest 1V portable [id number] 09/01/2019 4:28 AM FINDINGS: Tubes, catheters and devices: The endotracheal tube is above the level of the vira. nasogastric tube extends below the diaphragm although the location of the tip not identified as it is outside of the [id number]. Lungs: Mild airspace disease within the left lung base. Pleural space: Unremarkable. No pleural effusion. No pneumothorax. Heart/Mediastinum: Cardiomegaly. Bones/joints: Unremarkable. XR/XR chest 1V portable [id number] IMPRESSION: . Cardiomegaly. Mild vascular congestion. Mild airspace disease within the left lung base. Small pleural effusion.
[2019-09-02 06:11] LABS: Slide Review Slide Review Perform
[2019-09-02 06:14] LABS: Lymphocytes 11 %; Monocytes Absolute 0.6 10^3/cmm (0.1-0.6); Segmented Neutrophils 67 %; Total Cells Counted 100 (0-100)
[2019-09-02 06:16] LABS: Anisocytosis 1+; Platelet Estimate Normal (Normal); Poikilocytosis 1+
--- NOTE | 2019-09-02 06:44 | PM.PN ---
Subjective Subjective: Interval history: Patient seen and examined, remains on vent support with FiO2 of 100%, diuresed very well with a total urine output of 2000 mL overnight for negative fluid balance of about 1 L. Noted increased leukocytosis which could be steroid-induced, otherwise stable hemoglobin and platelet count, stable renal function, mild hyponatremia and hypokalemia. ABG noted with continued hypoxia though some improvement and improved hypercapnia as well. Will check a d-dimer given continued high oxygen requirement and intermittent hypoxia. Medications: Reviewed: Yes Medication Review Details: Active Medications Generic Name Dose Route Start Last Admin Trade Name Freq PRN Reason Stop Dose Admin Acetaminophen 650 mg 08/30/19 22:00 Tylenol VA Q6H PRN Fever or mild ant n Albuterol/Ipratrop ium 3 ml 09/01/19 08:54 09/02/19 03:34 Duoneb INHALATION 3 ml Q4H PRN Administration SHORTNESS OF ED TH Bumetanide 1 mg 08/31/19 06:30 09/02/19 05:30 Bumex IV 1 mg Q12H DOREEN Administration Enoxaparin Sodium 40 mg 08/30/19 22:00 09/01/19 21:04 Lovenox SUBCUT 40 mg Q24H DOREEN Administration Propofol 1,000 mg in 100 m ls @ 0 mls/hr 08/30/19 22:00 09/02/19 05:02 Diprivan IV 60 mcg/kg/min .Q0M DOREEN 57.2 mls/hr Administration Protocol Per Protocol Piperacillin Sod/T azobactam 50 mls @ 12.5 mls /hr 08/31/19 01:00 09/02/19 05:30 Sod 3.375 gm/ So dium Chloride IV Infused Q8H DOREEN Infusion Protocol As Directed Norepinephrine Bit artrate 4 mg 254 mls @ 0 mls/h r 08/30/19 23:30 / Dextrose IV .Q0M DOREEN Protocol Per Protocol Vancomycin HCl 2,0 00 mg/ 500 mls @ 250 mls /hr 08/31/19 09:00 09/01/19 12:30 Sodium Chloride IV Infused Q24H DOREEN Infusion Levothyroxine Sodi um 200 mcg 08/31/19 09:00 09/01/19 09:33 Synthroid PO 200 mcg DAILY DOREEN Administration Methylprednisolone Sodium Succinate 60 mg 08/31/19 09:00 09/02/19 02:26 Solu-Medrol IVP 60 mg Q6H DOREEN Administration Ondansetron HCl 4 mg 08/30/19 22:00 Zofran IVP Q6H PRN NAUSEA AND VOMITI NG Pantoprazole Sodiu m 40 mg 08/31/19 09:00 09/01/19 09:33 Protonix IVP 40 mg DAILY DOREEN Administration Potassium Chloride 40 meq 09/02/19 09:00 Potassium Chlori de Oral Liquid OG-TUBE DAILY DOREEN eszopiclone [From Lunesta] Allergy (Unknown, Verified 08/30/19 14:03) unknown gabapentin Allergy (Unknown, Verified 08/30/19 14:03) Unknown Vitals/I&O/Wt Last Vital Signs Temp 99.3 F 09/02/19 06:00 Pulse 70 09/02/19 06:00 Resp 15 09/02/19 06:17 BP 141/75 09/02/19 06:00 Pulse Ox 91 09/02/19 06:00 09/01/19 09/01/19 09/02/19 14:59 22:59 06:59 Intake Total 950 / 950 442.473 / 1392.473 450 / 1842.473 Output Total 850 / 850 2025 / 2875 650 / 3525 Balance 100 / 100 -1582.527 / -1482.527 -200 / -1682.527 Weight last 48 hrs Weight 133.81 kg Weight 136.713 kg Physical Exam Const: GENERAL APPEARANCE: Edematous (Improving) and patient mechanically ventilated NUTRITIONAL APPEARANCE: obese morbidly obese OTHER: -sedated with propofol @ 60 mcg/kg/min HENMT: COMMON NORMALS: normocephalic and atraumatic HEAD & SCALP: normocephalic and atraumatic OTHER: -ETT: 24 cm @ lip Eye: COMMON NORMALS: conjunctivae normal EYELID: eyelid abnormality (Bilateral eyelid swelling) CONJUNCTIVA: Yes conjunctivae normal Neck/C-Spine: OTHER: -short, thick neck Chest: CHEST: Yes Symmetrical chest wall rise Resp: AUSCULTATION: crackles (bilateral bases) and diminished lung sounds (air entry improving) bilateral OTHER: -on vent support, pressure support setting (100%/15); low tidal volume, saturation in the 88-90% range Cardio: COMMON NORMALS: regular rate, regular rhythm, S1 normal heart sound present, S2 normal heart sound present and No murmurs present (Cardio) RATE: regular rate RHYTHM: regular rhythm HEART SOUNDS: S1 normal heart sound present and S2 normal heart sound present GI: COMMON NORMALS: Soft to palpation INSPECTION: Yes central obesity PALPATION: Yes Soft to palpation : BLADDER/KIDNEY EXAM: Yes catheter in place Catheter type (Female): urethral Extremity: NARRATIVE EXTREMITY EXAM: -noted 1+ pitting edema including pedal Neuro: OTHER: -unable to assess as sedated; on propofol @ 60 mcg/kg/min Psych: OTHER: -sedated Urinary Catheter Management^: Pete: Cath Placed During This Visit: yes Urethral Indwelling: Yes Reason for Continuing Indwelling Catheter: Accurate Measurement of Urinary Output in Critically Ill Patients Urinary Catheter Date of Insertion: 08/30/19 Urinary Catheter Time of Insertion: 16:20 Data : 09/02/19 04:28 09/02/19 04:28 Micro: Microbiology 08/30/19 16:44 Urine Culture - Preliminary Urine,Clean Catch A&P Assessment and plan (1) Acute respiratory failure: -Sent from PCP office due to noted hypoxia and complaints of progressive and worsening shortness of breath. Failed BiPAP and was subsequently intubated in the ER (08/29). -Noted improved hypercapnia and hypoxia on ABG today -likely multifactorial given acute infection and fluid overload -CXR reported as unremarkable but per my review shows some haziness potentially concerning for aspiration particularly in light of noted positive urine drug screen and reported altered mental status. Repeat today looks improved but official report pending -Daily CXR, ABG while on vent support -Wean when appropriate; continue to hold due to increased FiO2 requirement -Currently on sedation with propofol -continue Zosyn for coverage of possible aspiration; also on Vancomycin -Noted diminished breath sounds particularly on the L so on steroids with some improvement in air entry noted today -blood cx: prelim negative -sputum cx pending; gram stain negative -noted peripheral edema, BNP-221 though likely underestimate given body habitus; continue to suspect fluid overload particularly with increased FiO2, so will continue diuresis. IVF already discontinued -had previously required intubation during prior admission in 03/2019 following similar presentation -with limited hx on admission and respiratory status, tested for COVID-19 which is negative; off isolation precautions -close monitoring of respiratory status -continue to monitor vital signs; stable -noted leukocytosis part of which I suspect is reactive and steroid induced; continue to trend WBC -lactic acid-1.1; does not currently meet sepsis criteria -CTA ordered to r/o PE; negative, noted mild bibasilar atelectasis/pneumonia. Will check D-dimer and with continued high oxygen requirement, PE is still within differential; and consider repeat CT chest -negative bacterial antigens, Legionella, MRSA, influenza Status: Acute Qualifiers: Respiratory failure complication: hypoxia and hypercapnia Qualified Code(s): J96.01 - Acute respiratory failure with hypoxia; J96.02 - Acute respiratory failure with hypercapnia (2) COPD (chronic obstructive pulmonary disease): -has oxygen-dependent COPD, now with acute exacerbation as noted above -baseline oxygen requirement is 4 L NC, seems to saturate in the high 80s-90 at baseline Status: Acute Qualifiers: COPD type: COPD with acute exacerbation Qualified Code(s): J44.1 - Chronic obstructive pulmonary disease with (acute) exacerbation (3) Methamphetamine abuse: -prior noted + UDS with amphetamines -suspect that this is playing a role in her respiratory failure Status: Acute (4) Elevated troponin: -likely type II secondary to demand ischemia from respiratory distress -Echo noted below -troponins trended with noted delta of 27 Status: Acute (5) Heart failure with preserved ejection fraction: -mild acute exacerbation -noted peripheral edema, BNP-221 though likely underestimate given body habitus; continue diuresis -Echo (03/2019): EF=60%, mild MR, trace TR, normal diastolic function -has Pete catheter, monitor Is & Os, daily weights -telemetry monitoring Status: Acute Qualifiers: Heart failure chronicity: acute on chronic Qualified Code(s): I50.33 - Acute on chronic diastolic (congestive) heart failure (6) Acute encephalopathy: -was noted to be altered on arrival, currently sedated -suspect that this is secondary to hypercapnia and hypoxia as well as substance induced given methamphetamines -CT head negative -ammonia-45 Status: Acute (7) Abdominal distention: -has central obesity but abdomen appears to be somewhat distended to me and part of this is due to anasarca -CT A/P with noted severe colonic diverticulosis, s/p bilateral hip replacements -has OGT for meds, decompression; continue to monitor output -noted mild transaminitis; trend LFTs; improved -will start on tube feeds today as is still vent dependent Status: Acute (8) CKD (chronic kidney disease) stage 2, GFR 60-89 ml/min: -baseline Cr is around 0.9 so currently at baseline -avoid nephrotoxins, renally dose meds Status: Chronic (9) Thyroid disease: -has hx of hypothyroidism -high TSH in 03/2019; remains high-27.51 -on levothyroxine Status: Chronic (10) Morbid obesity: -BMI-46 kg/m2 Status: Chronic Additional A&P Information -Hypomagnesemia, replace as needed -NPO as on vent; start on tube feeds -GI ppx with PPI -DVT ppx with Lovenox -Dispo: home -Code status: FULL code -ICU care due to vent support, isolation precautions Attestations Medical Necessity Statement*: Patient requires hospitalization for continued management of acute on chronic hypercapnic and hypoxic respiratory failure, remains on ventilator support with high oxygen requirement, IV steroids, IV diuresis, IV antibiotics. Time Spent in Patient Care: Greater than 35 minutes (>than 50% of time spent in counselling and/or direct pt care on unit). Critical Care Time: The high probability of a clinically significant, sudden or life threatening deterioration of the patient's [cardiovascular, respiratory] system(s) required my full and direct attention, intervention and personal management. The critical care time is as shown. This time is in addition to time spent performing any reported procedures but includes the following: [x] Data and vital sign review and interpretation [x] Patient assessment, examination and intervention [x] Documentation [x] Medication orders and management Critical Care Time (min): 20 Coding Level of Care Code Acute [employer] for g Fwd Diagnoses Acute respiratory failure J96.01; J96.02 Respiratory failure complication: hypoxia and hypercapnia COPD (chronic obstructive pulmonary disease) J44.1 COPD type: COPD with acute exacerbation Methamphetamine abuse F15.10 Elevated troponin R79.89 Heart failure with preserved ejection fraction I50.33 Heart failure chronicity: acute on chronic Acute encephalopathy G93.40 Abdominal distention R14.0 CKD (chronic kidney disease) stage 2, GFR 60-89 ml/min N18.2 Thyroid disease E07.9 Morbid obesity E66.01
[2019-09-02 06:50] LABS: D Dimer 1.02 ug/mIFEU (0-0.59)
[2019-09-02] MEDS: enoxaparin 100 mg/mL Syringe SUBCUT ×2 (07:15→20:53)
[2019-09-02] MEDS: enoxaparin 30 mg/0.3 mL Syringe SUBCUT ×2 (07:16→20:53)
--- NOTE | 2019-09-02 07:25 | PC.NURSE ---
repostioned at this time oral care done
--- NOTE | 2019-09-02 08:51 | PC.SOCIAL ---
IMM Not updated. Patient remains intubated and we are unable to contact any family/friends. Will update once patient is extubated and able to talk to us.
[2019-09-02] MEDS: levothyroxine 100 mcg Tablet 200 MCG PO (09:01)
[2019-09-02] MEDS: pantoprazole 40 mg SDV IVP (09:02)
[2019-09-02] MEDS: potassium chloride oral liq 20 mEq/15 mL UDC 40 MEQ OG-TUBE (09:03)
[2019-09-02 09:12] LABS: Vancomycin Trough 14.5 ug/mL (10-15)
[2019-09-02] MEDS: fentaNYL 50 mcg/mL INJ 2mL IVP ×2 (12:21→20:59)
[2019-09-03] VITALS (39 sets, daily range): BP systolic 94–160; BP diastolic 48–82; PULSE 61–82; RESP 12–19; TEMP 37.1–37.4; O2SAT 90–95
[2019-09-03] MEDS: fentaNYL 50 mcg/mL INJ 2mL IVP ×4 (00:50→11:25)
[2019-09-03] MEDS: propofol 1,000 MG/100 ML INJ 57.2 MG IV ×7 (00:50→20:14)
[2019-09-03] MEDS: piperacillin-tazobactam 3.375 GM in sodium chloride 0.9% (plus) 50 ML IV ×3 (00:50→17:13)
[2019-09-03] MEDS: ipratropium-albuterol 3 mL Neb INHALATION ×5 (03:19→20:31)
[2019-09-03 03:56] LABS: ABG PH Result 7.53 (7.35-7.45); Arterial Blood Gas Hematocrit 37.1 % (37-47); Blood Gas Allen Test Pos; Blood Gas Sample Site Radial, left; Blood Gas Sample Type Arterial; HCO3 ABG 40.9 mmol/L (22-26); Oxygen Device VENT; PO2 ABG 66.4 mmHg (80.0-100.0)
[2019-09-03 05:40] LABS: Basophils # 0.1 10^3/uL (0.0-0.1); Basophils % 0.2 %; Eosinophils % 0.1 %; Hematocrit 36.7 % (37.0-47.0); Hemoglobin 11.7 g/dL (11.5-15.3); Lymphocytes # 2.2 10^3/uL (0.8-4.8); Lymphocytes % 7.4 %; Mean Corpuscular HGB Conc 31.9 g/dL (30.0-36.0); Mean Corpuscular Hemoglobin 30.3 pg (28.0-34.0); Mean Corpuscular Volume 95.1 fL (81-99); Mean Platelet Volume 9.7 fL (7.4-10.4); Monocytes # 1.9 10^3/uL (0.2-0.9); Monocytes % 6.6 %; Nucleated Red Blood Cells % 0.1 %; Platelet Count 359 10^3/cmm (130-400); Red Blood Count 3.86 10^6/uL (4.1-5.3); Red Cell Distribution Width 18.4 % (12.1-15.1); White Blood Count 29.4 10^3/uL (4.0-10.0)
--- NOTE | 2019-09-03 06:00 | XRR_ITS ---
PROCEDURE INFORMATION: Exam: XR Chest, 1 View Exam date and time: 09/03/2019 5:28 AM Age: 69 years old Clinical indication: Device placement; Ett placement (vent status); Patient HX: Et, og; Additional info: On vent support, anasarca TECHNIQUE: Imaging protocol: XR of the chest Views: 1 view. COMPARISON: CR XR chest 1V portable [id number] 09/02/2019 4:48 AM FINDINGS: Tubes, catheters and devices: An endotracheal tube is placed with its tip approximately 4.9 cm from the vira. An orogastric tube is placed with its tip at least in the proximal stomach. EKG leads overlie the chest. Lungs: There are some patchy and strandy opacity seen in the lung bases bilaterally, left more prominent than right, findings compatible with atelectasis although bilateral basilar infiltrates and pneumonia cannot be excluded. Pleural space: Unremarkable. No pleural effusion. No pneumothorax. Heart/Mediastinum: Unremarkable. No cardiomegaly. Bones/joints: Unremarkable. XR/XR chest 1V portable [id number] IMPRESSION: 1. Endotracheal tube tip approximately 4.9 cm from the vira. Orogastric tube tip at least in proximal stomach. 2. Patchy and strandy opacities in the lung bases bilaterally, left more prominent than right likely represents atelectasis although infiltrates and pneumonia cannot be entirely excluded.
[2019-09-03 06:10] LABS: Anion Gap 22.6 (5-19); Blood Urea Nitrogen 20 mg/dL (8-23); Calcium 7.5 mg/dL (8.5-10.5); Carbon Dioxide 31 mmol/L (22-29); Chloride 87 mmol/L (98-107); Glomerular Filtration Rate 70.9 mL/min (90-130); Glucose 173 mg/dL (65-115); Osmolality Calculated 285 mOsm/kg (285-295); Potassium 3.6 mmol/L (3.5-5.1); Sodium 137 mmol/L (136-145)
[2019-09-03] MEDS: bumetanide 0.25 mg/mL SDV 10 mL 1 MG IV ×2 (06:23→17:14)
[2019-09-03 06:28] LABS: Slide Review Slide Review Perform
[2019-09-03] MEDS: enoxaparin 30 mg/0.3 mL Syringe SUBCUT ×2 (07:36→20:10)
[2019-09-03] MEDS: enoxaparin 100 mg/mL Syringe SUBCUT ×2 (07:36→20:10)
[2019-09-03] MEDS: levothyroxine 100 mcg Tablet 200 MCG PO (08:54)
[2019-09-03] MEDS: potassium chloride oral liq 20 mEq/15 mL UDC 40 MEQ OG-TUBE (08:54)
[2019-09-03] MEDS: pantoprazole 40 mg SDV IVP (09:29)
--- NOTE | 2019-09-03 09:45 | PC.NURSE ---
restless at this time increased propofol up 50 responds well to fentynl
--- NOTE | 2019-09-03 12:23 | PM.PN ---
Subjective Subjective: Interval history: Had 1300 mL urine output overnight, remains on vent support though able to decrease FiO2 to 75% this morning. Stable leukocytosis, hemoglobin and renal function. Hemodynamically stable, afebrile, seems to do better with fentanyl pushes so may need to add fentanyl drip and decrease propofol for sedation. ABG noted. Chest x-ray essentially unchanged. Will start on tube feeds today as this was not started yesterday despite being ordered. Medications: Reviewed: Yes Medication Review Details: Active Medications Generic Name Dose Route Start Last Admin Trade Name Freq PRN Reason Stop Dose Admin Acetaminophen 650 mg 08/30/19 22:00 Tylenol MI Q6H PRN Fever or mild ant n Albuterol/Ipratrop ium 3 ml 09/01/19 08:54 09/03/19 11:19 Duoneb INHALATION 3 ml Q4H PRN Administration SHORTNESS OF ED TH Bumetanide 1 mg 08/31/19 06:30 09/03/19 06:23 Bumex IV 1 mg Q12H DOREEN Administration Enoxaparin Sodium 100 mg 09/02/19 08:00 09/03/19 07:36 Lovenox SUBCUT 100 mg Q12H DOREEN Administration Enoxaparin Sodium 30 mg 09/02/19 08:00 09/03/19 07:36 Lovenox SUBCUT 30 mg Q12H DOREEN Administration Fentanyl 50 mcg 09/02/19 11:59 09/03/19 11:25 Sublimaze IVP 50 mcg Q4H PRN Administration SEVERE PAIN Propofol 1,000 mg in 100 m ls @ 0 mls/hr 08/30/19 22:00 09/03/19 11:18 Diprivan IV 60 mcg/kg/min .Q0M DOREEN 57.2 mls/hr Administration Protocol Per Protocol Piperacillin Sod/T azobactam 50 mls @ 12.5 mls /hr 08/31/19 01:00 09/03/19 11:22 Sod 3.375 gm/ So dium Chloride IV 12.5 mls/hr Q8H DOREEN Administration Protocol As Directed Norepinephrine Bit artrate 4 mg 254 mls @ 0 mls/h r 08/30/19 23:30 / Dextrose IV .Q0M DOREEN Protocol Per Protocol Vancomycin HCl 2,0 00 mg/ 500 mls @ 250 mls /hr 08/31/19 09:00 09/03/19 08:54 Sodium Chloride IV 500 mls/hr Q24H DOREEN Administration Fentanyl 1,000 mcg / Sodium 100 mls @ 0 mls/h r 09/03/19 12:30 Chloride IV .Q0M DOREEN Protocol Per Protocol Levothyroxine Sodi um 200 mcg 08/31/19 09:00 09/03/19 08:54 Synthroid PO 200 mcg DAILY DOREEN Administration Methylprednisolone Sodium Succinate 60 mg 08/31/19 09:00 09/03/19 08:53 Solu-Medrol IVP 60 mg Q6H DOREEN Administration Ondansetron HCl 4 mg 08/30/19 22:00 Zofran IVP Q6H PRN NAUSEA AND VOMITI NG Pantoprazole Sodiu m 40 mg 08/31/19 09:00 09/03/19 09:29 Protonix IVP 40 mg DAILY DOREEN Administration Potassium Chloride 40 meq 09/02/19 09:00 09/03/19 08:54 Potassium Chlori de Oral Liquid OG-TUBE 40 meq DAILY DOREEN Administration eszopiclone [From Lunesta] Allergy (Unknown, Verified 08/30/19 14:03) unknown gabapentin Allergy (Unknown, Verified 08/30/19 14:03) Unknown Vitals/I&O/Wt Last Vital Signs Temp 99.3 F 09/03/19 02:00 Pulse 67 09/03/19 12:00 Resp 12 09/03/19 11:21 BP 94/48 09/03/19 12:00 Pulse Ox 92 09/03/19 12:00 09/02/19 09/03/19 09/03/19 22:59 06:59 14:59 Intake Total 400 / 1200 350 / 1550 400 / 400 Output Total 1950 / 2950 350 / 3300 1000 / 1000 Balance -1550 / -1750 0 / -1750 -600 / -600 Weight last 48 hrs Weight 130.635 kg Weight 133.81 kg Physical Exam Const: GENERAL APPEARANCE: Edematous (Improving) and patient mechanically ventilated NUTRITIONAL APPEARANCE: obese morbidly obese OTHER: -sedated with propofol @ 60 mcg/kg/min HENMT: COMMON NORMALS: normocephalic and atraumatic HEAD & SCALP: normocephalic and atraumatic OTHER: -ETT: 24 cm @ lip Eye: COMMON NORMALS: conjunctivae normal EYELID: eyelid abnormality (Bilateral eyelid swelling) CONJUNCTIVA: Yes conjunctivae normal Neck/C-Spine: OTHER: -short, thick neck Chest: CHEST: Yes Symmetrical chest wall rise Resp: AUSCULTATION: crackles (bilateral bases) and diminished lung sounds (air entry improving) bilateral OTHER: -on vent support, pressure support setting (75%/15); tidal volume improved, saturation in the mid 90% range Cardio: COMMON NORMALS: regular rate, regular rhythm, S1 normal heart sound present, S2 normal heart sound present and No murmurs present (Cardio) RATE: regular rate RHYTHM: regular rhythm HEART SOUNDS: S1 normal heart sound present and S2 normal heart sound present GI: COMMON NORMALS: Soft to palpation INSPECTION: Yes central obesity PALPATION: Yes Soft to palpation : BLADDER/KIDNEY EXAM: Yes catheter in place Catheter type (Female): urethral Extremity: NARRATIVE EXTREMITY EXAM: -noted 1+ pitting edema including pedal Neuro: OTHER: -unable to assess as sedated; on propofol @ 60 mcg/kg/min Psych: OTHER: -sedated Urinary Catheter Management^: Pete: Cath Placed During This Visit: yes Urethral Indwelling: Yes Reason for Continuing Indwelling Catheter: Accurate Measurement of Urinary Output in Critically Ill Patients Urinary Catheter Date of Insertion: 08/30/19 Urinary Catheter Time of Insertion: 16:20 Data : 09/03/19 04:20 09/03/19 04:20 Micro: Microbiology 08/30/19 18:05 Gram Stain - Final Sputum - Endotracheal Wash Sputum Culture - Final 08/30/19 16:44 Urine Culture - Final Urine,Clean Catch A&P Assessment and plan (1) Acute respiratory failure: -Sent from PCP office due to noted hypoxia and complaints of progressive and worsening shortness of breath. Failed BiPAP and was subsequently intubated in the ER (08/29). -Noted improved hypercapnia and hypoxia on ABG -likely multifactorial given acute infection and fluid overload -CXR reported as unremarkable but per my review shows some haziness potentially concerning for aspiration particularly in light of noted positive urine drug screen and reported altered mental status. Repeat today unchanged -Daily CXR, ABG while on vent support -Wean when appropriate; continue to hold due to increased FiO2 requirement -Currently on sedation with propofol -continue Zosyn for coverage of possible aspiration; also on Vancomycin -Noted diminished breath sounds particularly on the L so on steroids with continued improvement in air entry noted -blood cx: prelim negative -sputum cx prelim negative; gram stain negative -noted peripheral edema, BNP-221 though likely underestimate given body habitus; continue to suspect fluid overload particularly with increased FiO2, so will continue diuresis. IVF already discontinued -had previously required intubation during prior admission in 03/2019 following similar presentation -with limited hx on admission and respiratory status, tested for COVID-19 which is negative; off isolation precautions -close monitoring of respiratory status -continue to monitor vital signs; stable -noted leukocytosis part of which I suspect is reactive and steroid induced; continue to trend WBC -lactic acid-1.1; does not currently meet sepsis criteria -CTA ordered to r/o PE; negative, noted mild bibasilar atelectasis/pneumonia. D-dimer noted (1.02) and with continued high oxygen requirement, PE is still within differential -negative bacterial antigens, Legionella, MRSA, influenza -start tube feeds Status: Acute Qualifiers: Respiratory failure complication: hypoxia and hypercapnia Qualified Code(s): J96.01 - Acute respiratory failure with hypoxia; J96.02 - Acute respiratory failure with hypercapnia (2) COPD (chronic obstructive pulmonary disease): -has oxygen-dependent COPD, now with acute exacerbation as noted above -baseline oxygen requirement is 4 L NC, seems to saturate in the high 80s-90 at baseline Status: Acute Qualifiers: COPD type: COPD with acute exacerbation Qualified Code(s): J44.1 - Chronic obstructive pulmonary disease with (acute) exacerbation (3) Methamphetamine abuse: -prior noted + UDS with amphetamines -suspect that this is playing a role in her respiratory failure Status: Acute (4) Elevated troponin: -likely type II secondary to demand ischemia from respiratory distress -Echo noted below -troponins trended with noted delta of 27 Status: Acute (5) Heart failure with preserved ejection fraction: -mild acute exacerbation -noted peripheral edema, BNP-221 though likely underestimate given body habitus; continue diuresis -Echo (03/2019): EF=60%, mild MR, trace TR, normal diastolic function -has Pete catheter, monitor Is & Os, daily weights; total negative fluid balance of 3.2 L -telemetry monitoring Status: Acute Qualifiers: Heart failure chronicity: acute on chronic Qualified Code(s): I50.33 - Acute on chronic diastolic (congestive) heart failure (6) Acute encephalopathy: -was noted to be altered on arrival, currently sedated -suspect that this is secondary to hypercapnia and hypoxia as well as substance induced given methamphetamines -CT head negative -ammonia-45 Status: Acute (7) Abdominal distention: -has central obesity but abdomen appears to be somewhat distended to me and part of this is due to anasarca -CT A/P with noted severe colonic diverticulosis, s/p bilateral hip replacements -has OGT for meds, decompression; continue to monitor output -noted mild transaminitis; trend LFTs; improved -will start on tube feeds today as is still vent dependent Status: Acute (8) CKD (chronic kidney disease) stage 2, GFR 60-89 ml/min: -baseline Cr is around 0.9 so currently at baseline -avoid nephrotoxins, renally dose meds Status: Chronic (9) Thyroid disease: -has hx of hypothyroidism -high TSH in 03/2019; remains high-27.51 -on levothyroxine Status: Chronic (10) Morbid obesity: -BMI-46 kg/m2 Status: Chronic Additional A&P Information -Hypomagnesemia, replace as needed -NPO as on vent; start on tube feeds -GI ppx with PPI -DVT ppx with Lovenox -Dispo: home -Code status: FULL code -ICU care due to vent support Attestations Medical Necessity Statement*: Patient requires hospitalization for continued management of acute on chronic hypoxic and hypercapnic respiratory failure, remains on vent support, broad-spectrum IV antibiotics, IV steroids, IV diuresis, decreasing oxygen requirement. Time Spent in Patient Care: 16 - 35 minutes (>than 50% of time spent in counselling and/or direct pt care on unit). Coding Level of Care Code Acute [employer] for [employer] Diagnoses Acute respiratory failure J96.01; J96.02 Respiratory failure complication: hypoxia and hypercapnia COPD (chronic obstructive pulmonary disease) J44.1 COPD type: COPD with acute exacerbation Methamphetamine abuse F15.10 Elevated troponin R79.89 Heart failure with preserved ejection fraction I50.33 Heart failure chronicity: acute on chronic Acute encephalopathy G93.40 Abdominal distention R14.0 CKD (chronic kidney disease) stage 2, GFR 60-89 ml/min N18.2 Thyroid disease E07.9 Morbid obesity E66.01
--- NOTE | 2019-09-03 13:37 | PC.NURSE ---
tube feeding started at this time with flush q6hrs. started fentynl gtt at this time to weak down propfol
[2019-09-03] MEDS: propofol 1,000 MG/100 ML INJ 47.6 MG IV (23:36)
[2019-09-04] VITALS (42 sets, daily range): BP systolic 83–148; BP diastolic 45–70; PULSE 54–72; RESP 11–18; TEMP 36.6–37.2; O2SAT 89–100
[2019-09-04] MEDS: ipratropium-albuterol 3 mL Neb INHALATION ×7 (00:24→23:26)
[2019-09-04] MEDS: piperacillin-tazobactam 3.375 GM in sodium chloride 0.9% (plus) 50 ML IV ×3 (01:08→17:27)
[2019-09-04] MEDS: propofol 1,000 MG/100 ML INJ 47.6 MG IV ×5 (01:58→13:17)
[2019-09-04 04:00] LABS: Basophils % 0.1 %; Eosinophils # 0.3 10^3/uL (0.0-0.8); Eosinophils % 0.9 %; Hematocrit 38.7 % (37.0-47.0); Hemoglobin 11.8 g/dL (11.5-15.3); Lymphocytes # 2.9 10^3/uL (0.8-4.8); Lymphocytes % 8.7 %; Mean Corpuscular HGB Conc 30.5 g/dL (30.0-36.0); Mean Corpuscular Hemoglobin 29.6 pg (28.0-34.0); Mean Platelet Volume 9.4 fL (7.4-10.4); Monocytes # 0.6 10^3/uL (0.2-0.9); Monocytes % 1.7 %; Neutrophils # 23.7 10^3/uL (1.8-7.7); Neutrophils % 70.7 %; Nucleated Red Blood Cells % 0.1 %; Platelet Count 321 10^3/cmm (130-400); Positive C 1; Positive M 1; Red Blood Count 3.99 10^6/uL (4.1-5.3); Red Cell Distribution Width 18.6 % (12.1-15.1)
[2019-09-04 05:12] LABS: White Blood Count 33.5 10^3/uL (4.0-10.0)
[2019-09-04 05:13] LABS: Slide Review Slide Review Perform
[2019-09-04] MEDS: bumetanide 0.25 mg/mL SDV 10 mL 1 MG IV (05:55)
--- NOTE | 2019-09-04 06:00 | XRR_ITS ---
PROCEDURE INFORMATION: Exam: XR Chest, 1 View Exam date and time: 09/04/2019 5:58 AM Age: 69 years old Clinical indication: Shortness of breath; Additional info: On vent support TECHNIQUE: Imaging protocol: XR of the chest Views: Frontal portable supine view of the chest. COMPARISON: CR XR chest 1V portable [id number] 09/03/2019 5:13 AM FINDINGS: Tubes, catheters and devices: The endotracheal tube tip is approximately 4 cm above the vira. EKG leads are present overlying the chest. The feeding tube enters the stomach with the tip off the limits of the image. Respiratory tubing overlies the right upper chest. Lungs: Increased left basilar pulmonary subsegmental atelectasis. Stable right infrahilar pulmonary subsegmental atelectasis. The pulmonary vasculature is normal. Pleural space: No pleural effusion. No pneumothorax. Heart/Mediastinum: The heart is normal in size and contour. Vasculature: Moderate aortic arch atherosclerotic calcification without ectasia. Bones/joints: Stable. Other findings: Mediastinum: Stable. XR/XR chest 1V portable [id number] IMPRESSION: 1. Increased left basilar pulmonary subsegmental atelectasis. 2. Stable right infrahilar pulmonary subsegmental atelectasis.
[2019-09-04 06:12] LABS: Anion Gap 16.4 (5-19); Blood Urea Nitrogen 24 mg/dL (8-23); Calcium 7.4 mg/dL (8.5-10.5); Carbon Dioxide 37 mmol/L (22-29); Chloride 88 mmol/L (98-107); Glomerular Filtration Rate 82.7 mL/min (90-130); Glucose 182 mg/dL (65-115); Osmolality Calculated 287 mOsm/kg (285-295); Potassium 3.4 mmol/L (3.5-5.1); Sodium 138 mmol/L (136-145)
[2019-09-04 06:43] LABS: ABG PH Result 7.45 (7.35-7.45); Arterial Blood Gas Hematocrit 38.1 % (37-47); Base Excess ABG 14.9 mmol/L (-2.0-2.0); Blood Gas Sample Site Brachial, right; Blood Gas Sample Type Arterial; HCO3 ABG 41.7 mmol/L (22-26); Oxygen Device VENT
[2019-09-04] MEDS: enoxaparin 100 mg/mL Syringe SUBCUT ×2 (07:54→20:08)
[2019-09-04] MEDS: enoxaparin 30 mg/0.3 mL Syringe SUBCUT ×2 (07:54→20:09)
[2019-09-04] MEDS: potassium chloride oral liq 20 mEq/15 mL UDC 40 MEQ OG-TUBE (08:58)
[2019-09-04] MEDS: pantoprazole 40 mg SDV IVP (08:58)
[2019-09-04] MEDS: levothyroxine 100 mcg Tablet 200 MCG PO (08:58)
--- NOTE | 2019-09-04 09:08 | PM.PN ---
Subjective Subjective: Interval history: Had 850 mL urine output overnight for a negative fluid balance of 3.7 L. Increasing leukocytosis, Medications: Reviewed: Yes Medication Review Details: Active Medications Generic Name Dose Route Start Last Admin Trade Name Freq PRN Reason Stop Dose Admin Acetaminophen 650 mg 08/30/19 22:00 Tylenol LA Q6H PRN Fever or mild ant n Albuterol/Ipratrop ium 3 ml 09/01/19 08:54 09/04/19 07:52 Duoneb INHALATION 3 ml Q4H PRN Administration SHORTNESS OF ED TH Bumetanide 1 mg 08/31/19 06:30 09/04/19 05:55 Bumex IV 1 mg Q12H DOREEN Administration Enoxaparin Sodium 100 mg 09/02/19 08:00 09/04/19 07:54 Lovenox SUBCUT 100 mg Q12H DOREEN Administration Enoxaparin Sodium 30 mg 09/02/19 08:00 09/04/19 07:54 Lovenox SUBCUT 30 mg Q12H DOREEN Administration Fentanyl 50 mcg 09/02/19 11:59 09/03/19 11:25 Sublimaze IVP 50 mcg Q4H PRN Administration SEVERE PAIN Propofol 1,000 mg in 100 m ls @ 0 mls/hr 08/30/19 22:00 09/04/19 08:59 Diprivan IV 50 mcg/kg/min .Q0M DOREEN 47.6 mls/hr Administration Protocol Per Protocol Piperacillin Sod/T azobactam 50 mls @ 12.5 mls /hr 08/31/19 01:00 09/04/19 01:08 Sod 3.375 gm/ So dium Chloride IV 12.5 mls/hr Q8H DOREEN Administration Protocol As Directed Norepinephrine Bit artrate 4 mg 254 mls @ 0 mls/h r 08/30/19 23:30 / Dextrose IV .Q0M DOREEN Protocol Per Protocol Vancomycin HCl 2,0 00 mg/ 500 mls @ 250 mls /hr 08/31/19 09:00 09/04/19 09:02 Sodium Chloride IV 500 mls/hr Q24H DOREEN Administration Fentanyl 1,000 mcg / Sodium 100 mls @ 0 mls/h r 09/03/19 12:30 09/04/19 01:37 Chloride IV 80 mcg/hr .Q0M DOREEN 8 mls/hr Administration Protocol Per Protocol Levothyroxine Sodi um 200 mcg 08/31/19 09:00 09/04/19 08:58 Synthroid PO 200 mcg DAILY DOREEN Administration Methylprednisolone Sodium Succinate 60 mg 08/31/19 09:00 09/04/19 08:58 Solu-Medrol IVP 60 mg Q6H DOREEN Administration Ondansetron HCl 4 mg 08/30/19 22:00 Zofran IVP Q6H PRN NAUSEA AND VOMITI NG Pantoprazole Sodiu m 40 mg 08/31/19 09:00 09/04/19 08:58 Protonix IVP 40 mg DAILY DOREEN Administration Potassium Chloride 40 meq 09/02/19 09:00 09/04/19 08:58 Potassium Chlori de Oral Liquid OG-TUBE 40 meq DAILY DOREEN Administration [facility] Allergy (Unknown, Verified 08/30/19 14:03) unknown gabapentin Allergy (Unknown, Verified 08/30/19 14:03) Unknown Vitals/I&O/Wt Last Vital Signs Temp 98.3 F 09/04/19 06:00 Pulse 59 L 09/04/19 08:06 Resp 12 09/04/19 07:53 BP 114/54 09/04/19 06:00 Pulse Ox 93 09/04/19 07:53 09/03/19 09/04/19 09/04/19 22:59 06:59 14:59 Intake Total 300 / 1300 324.167 / 1624.167 69.02 / 69.02 Output Total 1000 / 2000 850 / 2850 Balance -700 / -700 -525.833 / -1225.833 69.02 / 69.02 Weight last 48 hrs Weight 130.226 kg Weight 130.635 kg Physical Exam Const: GENERAL APPEARANCE: Edematous (Improving) and patient mechanically ventilated NUTRITIONAL APPEARANCE: obese morbidly obese OTHER: -sedated with propofol @ 50 mcg/kg/min and fentanyl @ 8 mL/hr HENMT: COMMON NORMALS: normocephalic and atraumatic HEAD & SCALP: normocephalic and atraumatic OTHER: -ETT: 25 cm @ lip Eye: COMMON NORMALS: conjunctivae normal EYELID: eyelid abnormality (Bilateral eyelid swelling) CONJUNCTIVA: Yes conjunctivae normal Neck/C-Spine: OTHER: -short, thick neck Chest: CHEST: Yes Symmetrical chest wall rise Resp: AUSCULTATION: crackles (bilateral bases) and diminished lung sounds (air entry improving) bilateral OTHER: -on vent support, pressure support setting (75%/15); tidal volume improved, saturation in the mid 90% range Cardio: COMMON NORMALS: regular rate, regular rhythm, S1 normal heart sound present, S2 normal heart sound present and No murmurs present (Cardio) RATE: regular rate RHYTHM: regular rhythm HEART SOUNDS: S1 normal heart sound present and S2 normal heart sound present GI: COMMON NORMALS: Soft to palpation INSPECTION: Yes central obesity PALPATION: Yes Soft to palpation : BLADDER/KIDNEY EXAM: Yes catheter in place Catheter type (Female): urethral Extremity: NARRATIVE EXTREMITY EXAM: -noted 1+ pitting edema including pedal Neuro: OTHER: -unable to assess as sedated; on propofol @ 50 mcg/kg/min and fentanyl @ 8 mL/hr Psych: OTHER: -sedated Urinary Catheter Management^: Pete: Cath Placed During This Visit: yes Urethral Indwelling: Yes Reason for Continuing Indwelling Catheter: Accurate Measurement of Urinary Output in Critically Ill Patients Urinary Catheter Date of Insertion: 08/30/19 Urinary Catheter Time of Insertion: 16:20 Data : 09/04/19 03:38 09/04/19 05:51 Micro: Microbiology 08/30/19 18:05 Gram Stain - Final Sputum - Endotracheal Wash Sputum Culture - Final A&P Assessment and plan (1) Acute respiratory failure: -Sent from PCP office due to noted hypoxia and complaints of progressive and worsening shortness of breath. Failed BiPAP and was subsequently intubated in the ER (08/29). -Noted improved hypercapnia and hypoxia on ABG -likely multifactorial given acute infection and fluid overload -CXR reported as unremarkable but per my review shows some haziness potentially concerning for aspiration particularly in light of noted positive urine drug screen and reported altered mental status. Repeat today unchanged -Daily CXR, ABG while on vent support -Wean when appropriate; continue to hold due to increased FiO2 requirement -Currently on sedation with propofol and fentanyl -continue Zosyn and Vancomycin -Noted diminished breath sounds particularly on the L so on steroids with continued improvement in air entry noted -blood cx: negative -sputum cx prelim negative; gram stain negative -noted peripheral edema, BNP-221 though likely underestimate given body habitus; continue to suspect fluid overload particularly with increased FiO2, so will continue diuresis. IVF already discontinued. Seems to be developing contraction alkalosis so will hold diuresis for today -had previously required intubation during prior admission in 03/2019 following similar presentation -with limited hx on admission and respiratory status, tested for COVID-19 which is negative; off isolation precautions -close monitoring of respiratory status -continue to monitor vital signs; stable -noted leukocytosis part of which I suspect is reactive and steroid induced; continue to trend WBC; hold steroids today -lactic acid-1.1; does not currently meet sepsis criteria -CTA ordered to r/o PE; negative, noted mild bibasilar atelectasis/pneumonia. D-dimer noted (1.02) and with continued high oxygen requirement, PE is still within differential -negative bacterial antigens, Legionella, MRSA, influenza -on tube feeds -may need repeat CT chest if continued leukocytosis, worsening atelectasis, high oxygen requirement Status: Acute Qualifiers: Respiratory failure complication: hypoxia and hypercapnia Qualified Code(s): J96.01 - Acute respiratory failure with hypoxia; J96.02 - Acute respiratory failure with hypercapnia (2) COPD (chronic obstructive pulmonary disease): -has oxygen-dependent COPD, now with acute exacerbation as noted above -baseline oxygen requirement is 4 L NC, seems to saturate in the high 80s-90 at baseline Status: Acute Qualifiers: COPD type: COPD with acute exacerbation Qualified Code(s): J44.1 - Chronic obstructive pulmonary disease with (acute) exacerbation (3) Methamphetamine abuse: -prior noted + UDS with amphetamines -suspect that this is playing a role in her respiratory failure Status: Acute (4) Elevated troponin: -likely type II secondary to demand ischemia from respiratory distress -Echo noted below -troponins trended with noted delta of 27 Status: Acute (5) Heart failure with preserved ejection fraction: -mild acute exacerbation -noted peripheral edema, BNP-221 though likely underestimate given body habitus; continue diuresis -Echo (03/2019): EF=60%, mild MR, trace TR, normal diastolic function -has Pete catheter, monitor Is & Os, daily weights; total negative fluid balance of 3.8 L -telemetry monitoring Status: Acute Qualifiers: Heart failure chronicity: acute on chronic Qualified Code(s): I50.33 - Acute on chronic diastolic (congestive) heart failure (6) Acute encephalopathy: -was noted to be altered on arrival, currently sedated -suspect that this is secondary to hypercapnia and hypoxia as well as substance induced given methamphetamines -CT head negative -ammonia-45 Status: Acute (7) Abdominal distention: -has central obesity but abdomen appears to be somewhat distended to me and part of this is due to anasarca -CT A/P with noted severe colonic diverticulosis, s/p bilateral hip replacements -has OGT for meds, decompression; continue to monitor output -noted mild transaminitis; trend LFTs; improved -will start on tube feeds today as is still vent dependent Status: Acute (8) CKD (chronic kidney disease) stage 2, GFR 60-89 ml/min: -baseline Cr is around 0.9 so currently at baseline -avoid nephrotoxins, renally dose meds Status: Chronic (9) Thyroid disease: -has hx of hypothyroidism -high TSH in 03/2019; remains high-27.51 -on levothyroxine Status: Chronic (10) Morbid obesity: -BMI-46 kg/m2 Status: Chronic Additional A&P Information -Hypomagnesemia, replace as needed -NPO as on vent; on tube feeds -GI ppx with PPI -DVT ppx with Lovenox -Dispo: home -Code status: FULL code -ICU care due to vent support Attestations Medical Necessity Statement*: Patient requires hospitalization for continued management of acute on chronic hypercapnic and hypoxic respiratory failure, remains on vent support, continue to wean oxygen requirement, on IV antibiotic treatment. Time Spent in Patient Care: 16 - 35 minutes (>than 50% of time spent in counselling and/or direct pt care on unit). Critical Care Time: The high probability of a clinically significant, sudden or life threatening deterioration of the patient's [cardiovascular, respiratory] system(s) required my full and direct attention, intervention and personal management. The critical care time is as shown. This time is in addition to time spent performing any reported procedures but includes the following: [x] Data and vital sign review and interpretation [x] Patient assessment, examination and intervention [x] Documentation [x] Medication orders and management Critical Care Time (min): 15 Coding Level of Care Code Acute Managed Care Coordinator for [facility] Diagnoses Acute respiratory failure J96.01; J96.02 Respiratory failure complication: hypoxia and hypercapnia COPD (chronic obstructive pulmonary disease) J44.1 COPD type: COPD with acute exacerbation Methamphetamine abuse F15.10 Elevated troponin R79.89 Heart failure with preserved ejection fraction I50.33 Heart failure chronicity: acute on chronic Acute encephalopathy G93.40 Abdominal distention R14.0 CKD (chronic kidney disease) stage 2, GFR 60-89 ml/min N18.2 Thyroid disease E07.9 Morbid obesity E66.01
--- NOTE | 2019-09-04 09:44 | DCPLANNER ---
IM not given, No family present, pt not able to communicate.
--- NOTE | 2019-09-04 10:38 | PC.NURSE ---
recieved call from a megan stunk [phone] who stated that ham was cousin and wanted to tell her that her daughter in law last night . Did take information to relate after pt extubated and stable
--- NOTE | 2019-09-04 14:09 | PC.NURSE ---
repositioned at this time o2 weaned at this time ti 50% tube feeding up to 40 cc hr
--- NOTE | 2019-09-04 16:37 | PC.NURSE ---
repositoned in bed linen change done at this time bath done with oral care
[2019-09-04] MEDS: propofol 1,000 MG/100 ML INJ 42.9 MG IV ×3 (17:03→23:15)
[2019-09-04] MEDS: fentaNYL 50 mcg/mL INJ 2mL IVP (23:51)
[2019-09-05] VITALS (39 sets, daily range): BP systolic 93–155; BP diastolic 52–84; PULSE 59–157; RESP 12–17; TEMP 36.4–37.5; O2SAT 88–95; BMI 43.6
[2019-09-05] MEDS: propofol 1,000 MG/100 ML INJ 47.6 MG IV ×8 (01:45→23:30)
[2019-09-05] MEDS: piperacillin-tazobactam 3.375 GM in sodium chloride 0.9% (plus) 50 ML IV ×3 (01:45→17:48)
[2019-09-05] MEDS: ipratropium-albuterol 3 mL Neb INHALATION ×5 (03:24→20:00)
[2019-09-05 04:28] LABS: Basophils % 0.1 %; Eosinophils # 0.1 10^3/uL (0.0-0.8); Eosinophils % 0.3 %; Lymphocytes # 3.1 10^3/uL (0.8-4.8); Lymphocytes % 9.7 %; Mean Corpuscular HGB Conc 30.6 g/dL (30.0-36.0); Mean Corpuscular Hemoglobin 30.1 pg (28.0-34.0); Mean Corpuscular Volume 98.4 fL (81-99); Mean Platelet Volume 9.6 fL (7.4-10.4); Monocytes % 6.2 %; Neutrophils # 19.8 10^3/uL (1.8-7.7); Neutrophils % 62.9 %; Nucleated Red Blood Cells # 0.1 /100WBC; Nucleated Red Blood Cells % 0.2 %; Platelet Count 306 10^3/cmm (130-400); Positive C 1; Positive M 1; Red Blood Count 3.66 10^6/uL (4.1-5.3); Red Cell Distribution Width 18.6 % (12.1-15.1)
[2019-09-05 04:47] LABS: Magnesium 1.9 mg/dL (1.7-2.3)
[2019-09-05 04:50] LABS: Anion Gap 16.4 (5-19); Blood Urea Nitrogen 28 mg/dL (8-23); Calcium 7.3 mg/dL (8.5-10.5); Carbon Dioxide 36 mmol/L (22-29); Chloride 90 mmol/L (98-107); Creatinine Clr Calc Pharmacy 93.4133; Glomerular Filtration Rate 82.7 mL/min (90-130); Glucose 127 mg/dL (65-115); Osmolality Calculated 287 mOsm/kg (285-295); Potassium 3.4 mmol/L (3.5-5.1); Sodium 139 mmol/L (136-145)
[2019-09-05 05:18] LABS: White Blood Count 31.6 10^3/uL (4.0-10.0)
[2019-09-05 05:39] LABS: ABG PCO2 63.8 mmHg (35-45); ABG PH Result 7.41 (7.35-7.45); Arterial Blood Gas Hematocrit 36.1 % (37-47); Base Excess ABG 13.2 mmol/L (-2.0-2.0); Blood Gas Allen Test Pos; Blood Gas Sample Site Radial, right; Blood Gas Sample Type Arterial; HCO3 ABG 40.4 mmol/L (22-26); Oxygen Device VENT
--- NOTE | 2019-09-05 06:00 | XR_ITS ---
WS: [id number] CHEST XRAY TECHNIQUE: Portable chest. CLINICAL INFORMATION: on vent support COMPARISON: September 04, 2019 FINDINGS: Endotracheal tube with tip above the vira measuring 1.9 cm. Enteric tube with tip below t he diaphragm. Heart: Cardiomegaly. Aortic calcification. Lungs: Mild chronic emphysematous changes. Small left pleural effusion with left basilar infiltrate/a telectasis unchanged. Right lung is well aerated. Bones: Normal visualized bony structures. XR/XR chest 1V portable [id number] IMPRESSION: 1. Endotracheal tube with tip 1.9 cm above the vira. Enteric tube with tip b elow the diaphragm. 2. Small left pleural effusion with left basilar infiltrate/atelectasis unchan ged
[2019-09-05] MEDS: potassium chloride oral liq 20 mEq/15 mL UDC 40 MEQ OG-TUBE (08:49)
[2019-09-05] MEDS: pantoprazole 40 mg SDV IVP (08:51)
[2019-09-05] MEDS: levothyroxine 100 mcg Tablet 200 MCG PO (08:53)
[2019-09-05] MEDS: enoxaparin 100 mg/mL Syringe SUBCUT ×2 (08:54→20:09)
[2019-09-05] MEDS: enoxaparin 30 mg/0.3 mL Syringe SUBCUT ×2 (08:54→20:09)
--- NOTE | 2019-09-05 09:10 | P.PN_ITS ---
Subjective Subjective: Interval history: Opens eyes, but confused, getting restless. Appears to be moving all extremities. Vitals/I&O/Wt Last Vital Signs Temp 99.5 F 09/05/19 08:00 Pulse 67 09/05/19 08:00 Resp 14 09/05/19 08:00 BP 155/84 09/05/19 08:00 Pulse Ox 94 09/05/19 08:00 09/04/19 09/05/19 09/05/19 22:59 06:59 14:59 Intake Total 400 / 1162.353 350.000 / 1512.353 Output Total 1800 / 1800 400 / 2200 Balance -1400 / -637.647 -50.000 / -687.647 Weight last 48 hrs Weight 130.226 kg Weight 130.226 kg Physical Exam Const: COMMON NORMALS: no acute distress and patient oriented x3 HENMT: COMMON NORMALS: oropharynx normal Neck/C-Spine: COMMON NORMALS: no JVD Resp: COMMON NORMALS: normal respiratory effort and clear to auscultation bilaterally AUSCULTATION: clear to auscultation bilaterally Cardio: COMMON NORMALS: no JVD, regular rhythm, S1 normal heart sound present, S2 normal heart sound present and No murmurs present (Cardio) RHYTHM: regular rhythm HEART SOUNDS: S1 normal heart sound present and S2 normal heart sound present GI: COMMON NORMALS: Normal to inspection, nondistended, normoactive bowel sounds present, Soft to palpation and non-tender PALPATION: Yes Soft to palpation Extremity: COMMON NORMALS: no joint enlargement and no pedal edema Neuro: COMMON NORMALS: patient oriented x3 and moves all extremities Skin: COMMON NORMALS: no rashes or lesions noted GENERAL SKIN EXAM: no rashes or lesions noted Urinary Catheter Management^: Pete: Cath Placed During This Visit: yes Urethral Indwelling: Yes Reason for Continuing Indwelling Catheter: Accurate Measurement of Urinary Output in Critically Ill Patients Urinary Catheter Date of Insertion: 08/30/19 Urinary Catheter Time of Insertion: 16:20 Data : 09/05/19 03:56 09/05/19 03:56 Micro: Microbiology 08/30/19 16:00 Blood Culture - Final Blood NO GROWTH AFTER 5 DAYS 08/30/19 15:55 Blood Culture - Final Blood NO GROWTH AFTER 5 DAYS A&P Assessment and plan (1) Acute respiratory failure: L basilar PNA. Cont on mechanical ventilatory support. Restless, confused, possibly withdrawal from amphetamines. Reports of past admissions abuse noted. At this time continue sedation. Reassess mental status, respiratory condition in the morning. Concerning for aspiration particularly in light of noted positive urine drug screen and reported altered mental status. Propofol and fentanyl Continue Zosyn and Vancomycin. Very poor IV access. Request PICC line placement. Methylprednisolone Blood cx: negative. Sputum cx prelim negative; gram stain negative Concern for fluid overload earlier. Additional diuretics held for now. COVID-19 which is negative; off isolation precautions CTA negative for PE, noted mild bibasilar atelectasis/pneumonia. D-dimer noted (1.02) and with continued high oxygen requirement, PE is still within differential, although likelihood of significant PE affecting oxygenation is likely low. Continue Lovenox. Negative bacterial antigens, Legionella, MRSA, influenza Tube feeds Consider repeat CT chest if continued leukocytosis, worsening atelectasis, high oxygen requirement. Attempted to reach next of kin, but without answer. Status: Acute Qualifiers: Respiratory failure complication: hypoxia and hypercapnia Qualified Code(s): J96.01 - Acute respiratory failure with hypoxia; J96.02 - Acute respiratory failure with hypercapnia (2) COPD (chronic obstructive pulmonary disease): COPD exacerbation. At this time continue treatment with steroid, antibiotics. Breathing treatment. Baseline oxygen requirement is 4 L NC, seems to saturate in the high 80s-90 at baseline Status: Acute Qualifiers: COPD type: COPD with acute exacerbation Qualified Code(s): J44.1 - Chronic obstructive pulmonary disease with (acute) exacerbation (3) Methamphetamine abuse: High concern for amphetamine abuse, and currently withdrawal. She becomes restless, confused if weaned down on sedation. At this time will continue sedation, reassess mental status. Supportive care. Check CK. Had troponin abnormality on presentation, with gradual decline. May benefit from additional assessment once she is more stable. -prior noted + UDS with amphetamines Status: Acute (4) Elevated troponin: Considered to be type II secondary to demand ischemia from respiratory distress, although with concern for vitamin abuse, may benefit from additional evaluation once she is more stable. Would benefit from abstinence. -Echo noted We will add aspirin. Check CK. Consider statin. A1c. Status: Acute (5) Heart failure with preserved ejection fraction: Was in exacerbation previously. Received diuresis. For now further diuretics on hold. At this time perhaps mild edema, although does not appear in overt exacerbation. Continue to hold diuretics for now. -Echo (03/2019): EF=60%, mild MR, trace TR, normal diastolic function Status: Acute Qualifiers: Heart failure chronicity: acute on chronic Qualified Code(s): I50.33 - Acute on chronic diastolic (congestive) heart failure (6) Acute encephalopathy: With history of drug use, with her reporting her last admission that perhaps someone made her take it. With current restlessness, confusion, drug screen positive for amphetamines, concern is for possible withdrawal. As above. CT head negative Ammonia without significant elevation Status: Acute (7) Abdominal distention: CT abdomen pelvis with contrast on 08/29 with diverticulosis, but otherwise unremarkable. Noted calcification of the abdominal aorta and/or iliac arteries with atherosclerosis. No signs of ischemic bowel. There is abdominal distention, although abdomen is soft. Anion gap is not significantly elevated. Lactic acid was 1.1. No noted diarrhea. We will recheck abdominal series. Recheck lactate. Component thought from anasarca. Tolerating tube feeds. Status: Acute (8) CKD (chronic kidney disease) stage 2, GFR 60-89 ml/min: At baseline. Status: Chronic (9) Thyroid disease: Hypothyroidism. TSH high at 27.51. Not clear if is compliant with medicines. Continue levothyroxine. Recheck TSH. Status: Chronic (10) Morbid obesity: -BMI-46 kg/m2 Status: Chronic Additional A&P Information -Hypomagnesemia, replaced Attestations Medical Necessity Statement*: Continue admission for assessment of management of respiratory failure, pneumonia, acute encephalopathy with suspected drug withdrawal. Critical Care Time: 40 minutes critical care time spent on immediately life- threatening issues, including management of respiratory status, ventilatory support, hemodynamics, mental status and encephalopathy. Antibiotics. Coding Level of Care Code Acute X Ray Physician for [facility] Fwd Diagnoses Acute respiratory failure J96.01; J96.02 Respiratory failure complication: hypoxia and hypercapnia COPD (chronic obstructive pulmonary disease) J44.1 COPD type: COPD with acute exacerbation Methamphetamine abuse F15.10 Elevated troponin R79.89 Heart failure with preserved ejection fraction I50.33 Heart failure chronicity: acute on chronic Acute encephalopathy G93.40 Abdominal distention R14.0 CKD (chronic kidney disease) stage 2, GFR 60-89 ml/min N18.2 Thyroid disease E07.9 Morbid obesity E66.01
--- NOTE | 2019-09-05 09:37 | XR_ITS ---
WS: [id number] ABDOMEN SERIES ACUTE Supine and upright views of the abdomen with AP or PA chest CLINICAL INFORMATION: abdominal distention COMPARISON: None. FINDINGS: Enteric tube with tip in the stomach. Endotracheal tube with tip above the vira. Heart: Cardiomegaly. Lungs: Mild pulmonary vascular congestion. No focal pneumonia. Left basilar atelectasis. Cholecystectomy clips. Bowel gas pattern: Abdominal distention. Limited bowel visualization although appears normal. Free air: None. Abnormal calcifications: None. Bones: Postoperative changes bilateral THAs. XR/XR acute abdomen series [id number] IMPRESSION: 1. Abdominal distention of large bowel visualization. Visualized bowel appears unremarkable. 2. Enteric tube with tip in the stomach.
--- NOTE | 2019-09-05 09:48 | PC.NURSE ---
Attempted to call contacts for PICC placement consent. Leno Marimar: [phone] an excavation /contract business voice ail answered. Feng Saundra: [phone] Message said go ahead and leave a message but I do not check them, if you really want to get ahold of me send a message. Fina Dozier:[phone] Disconnected message So, attempted to call Yaneli Maravilla, who stated she was her niece. [phone]. Consent obtained. Yaneli stated that she thought Ms. Ozuna was .
--- NOTE | 2019-09-05 09:50 | PC.NURSE ---
Addendum entered by Carmen Mckeon RN 09/07/19 13:27: Irvin doty stated he had a brother/ her other son named Nigel Negro Original Note: Received a called from Irvin Preston, he stated he was her son. [facility] # [phone]. He also said that Yaneli was not really blood relative, Marimar Molina was , Fina Dozier was the pt's caregiver, and the [id number] that was in fact his . Irvin resides in [facility]. Updated him on pt's care: on vent, sedation for comfort, tube feeding, and PICC line placement. He verbalized his understanding. He agreed to be placed on her contact list. HIM notified and contact list updated.
--- NOTE | 2019-09-05 11:01 | XR_ITS ---
WS: [id number] CHEST XRAY TECHNIQUE: Portable chest. CLINICAL INFORMATION: PICC placement COMPARISON: September 05, 2019 FINDINGS: Endotracheal tube with tip above the vira. Enteric tube with tip below the diaphragm. Rig ht PICC line with tip in distal SVC. No pneumothorax. Stable cardiomegaly. No other significant aranda es. XR/XR chest 1V portable [id number] IMPRESSION: Right PICC line tip in the distal SVC. No pneumothorax.
[2019-09-05] MEDS: aspirin 81 mg EC Tablet PO (11:38)
[2019-09-05 11:55] LABS: Lactate (Lactic Acid level) 1.4 mmol/L (0.5-2.2)
[2019-09-05 12:16] LABS: Estmated Average Glucose 134; Hemoglobin A1C 6.3 % (4.0-6.0)
[2019-09-05 12:43] LABS: Creatine Phosphokinase 4195 U/L (26-192)
--- NOTE | 2019-09-05 16:40 | CTR_ITS ---
PROCEDURE INFORMATION: Exam: CT Head Without Contrast Exam date and time: 09/05/2019 5:31 PM Age: 69 years old Clinical indication: Altered mental status/memory loss; Patient HX: PT intubated; Additional info: AMS TECHNIQUE: Imaging protocol: Computed tomography of the head without contrast. Radiation optimization: All CT scans at this facility use at least one of these dose optimization techniques: automated exposure control; mA and/or kV adjustment per patient size (includes targeted exams where dose is matched to clinical indication); or iterative reconstruction. COMPARISON: CT head wo con* [id number] 08/30/2019 6:32 PM RADIATION DOSE METRICS: Total DLP (mGy-cm): 863.18 FINDINGS: Brain: No acute intracranial mass or bleed. Mild chronic small vessel ischemic disease, unchanged. Ventricles: Normal. No ventriculomegaly. Bones/joints: Unremarkable. No acute fracture. Sinuses: New or increasing mucoperiosteal thickening and retained secretions throughout all paranasal sinuses consistent with worsening pansinusitis. Mastoid air cells: New fluid within bilateral mastoid air cells consistent with acute mastoiditis. Fluid within right middle ear cavity suggesting otitis media. Soft tissues: Unremarkable. CT/CT head wo con* [id number] IMPRESSION: 1.) Mild cerebral hemisphere white matter senescent changes, chronic. 2.) Acute bilateral mastoiditis and right otitis media. 3.) Worsening pansinusitis. Radiation Dose CTDIVOL = (mGy): DLP = 863.18 (mGy-cm)
[2019-09-05] MEDS: bisacodyl 10 mg Supp PR (18:46)
--- NOTE | 2019-09-05 19:00 | PC.NURSE ---
Pt to CT and back. Tolerated well. Suppository admin as ordered.
--- NOTE | 2019-09-05 19:30 | PC.NURSE ---
Shift summary: Pt remains intubated. FIO2 now at 45%. She is on Fentanyl at 100mcg and Propofl at 50mcg/kg/min for sedation. She did not respond to commands whle sedation off. She has sclera edema. PICC line inserted today, right arm. All IV lines changes and now to PICC. right neck and right AC IV removed due to IV time protocol. Pt tolerating Jevity 1.2 tube feedings well. Pt had abdominal xray and a head CT today. Urine output 550ml of green tinted clear urine.
[2019-09-05 19:43] LABS: Creatine Phosphokinase 3348 U/L (26-192)
[2019-09-06] VITALS (47 sets, daily range): BP systolic 93–152; BP diastolic 53–83; PULSE 57–74; RESP 12–17; TEMP 36.4–37.2; O2SAT 89–996; BMI 43.6
[2019-09-06] MEDS: piperacillin-tazobactam 3.375 GM in sodium chloride 0.9% (plus) 50 ML IV ×3 (00:58→17:59)
[2019-09-06] MEDS: propofol 1,000 MG/100 ML INJ 47.6 MG IV ×4 (02:51→10:18)
[2019-09-06] MEDS: ipratropium-albuterol 3 mL Neb INHALATION ×3 (02:52→14:09)
[2019-09-06 03:59] LABS: Hematocrit 33.5 % (37.0-47.0); Hemoglobin 10.7 g/dL (11.5-15.3); Mean Corpuscular HGB Conc 31.9 g/dL (30.0-36.0); Mean Corpuscular Hemoglobin 31.8 pg (28.0-34.0); Mean Corpuscular Volume 99.4 fL (81-99); Mean Platelet Volume 10.1 fL (7.4-10.4); Nucleated Red Blood Cells % 0.1 %; Platelet Count 236 10^3/cmm (130-400); Red Blood Count 3.37 10^6/uL (4.1-5.3); Red Cell Distribution Width 18.9 % (12.1-15.1); White Blood Count 22.3 10^3/uL (4.0-10.0)
[2019-09-06 04:21] LABS: Albumin Level 3.1 g/dL (3.5-5.2); Alkaline Phosphatase 29 IU/L (35-105); Blood Urea Nitrogen 22 mg/dL (8-23); Carbon Dioxide 34 mmol/L (22-29); Creatinine Clr Calc Pharmacy 93.4133; Glomerular Filtration Rate 98.8 mL/min (90-130); Glucose 103 mg/dL (65-115); Osmolality Calculated 271 mOsm/kg (285-295); Total Bilirubin 0.3 mg/dL (0.15-1.2); Total Protein 6.1 g/dL (6.6-8.7)
[2019-09-06 04:32] LABS: Alanine Aminotransferase 60 U/L (0-33); Aspartate Amino Transferase 76 U/L (0-32)
[2019-09-06 04:36] LABS: Thyroid Stimulating Hormone 42.86 uIU/mL (0.27-4.20)
[2019-09-06 05:13] LABS: Anion Gap 15.9 (5-19); Chloride 86 mmol/L (98-107); Potassium 3.9 mmol/L (3.5-5.1); Sodium 132 mmol/L (136-145)
[2019-09-06 05:17] LABS: ABG PCO2 67.5 mmHg (35-45); ABG PH Result 7.38 (7.35-7.45); Arterial Blood Gas Hematocrit 33.2 % (37-47); Blood Gas Allen Test Pos; Blood Gas Sample Site Radial, right; Blood Gas Sample Type Arterial; Fractionated Inspired Oxygen 0.4 %; HCO3 ABG 39.5 mmol/L (22-26); Oxygen Device VENT; PO2 ABG 63.7 mmHg (80.0-100.0)
[2019-09-06 05:18] LABS: Creatine Phosphokinase 2615 U/L (26-192); Triglycerides 1998 mg/dL (0-150)
[2019-09-06 05:32] LABS: LDL Cholesterol Direct 244 mg/dL (0-100)
--- NOTE | 2019-09-06 06:00 | XR_ITS ---
WS: [id number] CHEST XRAY TECHNIQUE: Portable chest. CLINICAL INFORMATION: Hypoxia COMPARISON: September 05, 2019 FINDINGS: Endotracheal tube with tip above the vira. Enteric tube with tip below the diaphragm. Rig ht PICC line with tip in right atrium. Heart: Cardiomegaly. Mild pulmonary vascular congestion. Lungs: Subsegmental atelectasis left lower lobe. No focal pneumonia. Mild pulmonary vascular congesti on. Bones: Normal visualized bony structures. XR/XR chest 1V portable [id number] IMPRESSION: Improvement in the pulmonary vascular congestion since yesterday. Otherwise no significant interval changes.
[2019-09-06 06:21] LABS: Slide Review Slide Review Perform
[2019-09-06 06:25] LABS: Absolute Neutrophil 13.6 10^3/cmm (1.4-6.5); Absolute Segmented Neutrophil 10.5 10/cmm (1.6-7.1); Anisocytosis 1+; Band Neutrophils Absolute 3.1 10^3/cmm (0.0-1.2); Lymphocytes 8 %; Platelet Estimate Normal (Normal); Segmented Neutrophils 47 %; Total Cells Counted 100 (0-100)
[2019-09-06] MEDS: enoxaparin 30 mg/0.3 mL Syringe SUBCUT ×2 (07:30→20:22)
[2019-09-06] MEDS: enoxaparin 100 mg/mL Syringe SUBCUT ×2 (07:30→20:22)
[2019-09-06 08:20] LABS: Free T4 Free Thyroxine 0.55 ng/dL (0.82-1.77); T3 Free 0.7 PG/ML (2.0-4.4)
--- NOTE | 2019-09-06 10:05 | PC.NURSE ---
Yaneli Renita called [facility] today to check on pt. Discussed with Ms. Maravilla the fact that pt had a son and yesterday she was asked about other close family. Informed MS Maravilla that any further information about pt's health were to be directed towards the son.
[2019-09-06] MEDS: potassium chloride oral liq 20 mEq/15 mL UDC 40 MEQ OG-TUBE (10:09)
[2019-09-06] MEDS: aspirin 81 mg EC Tablet PO (10:10)
[2019-09-06] MEDS: levothyroxine 25 mcg Tablet PO (10:10)
[2019-09-06] MEDS: levothyroxine 100 mcg Tablet 200 MCG PO (10:10)
[2019-09-06] MEDS: pantoprazole 40 mg SDV IVP (10:12)
--- NOTE | 2019-09-06 10:18 | P.PN_ITS ---
Subjective Subjective: Interval history: Intubated, sedated. Vitals/I&O/Wt Last Vital Signs Temp 98.1 F 09/06/19 07:43 Pulse 63 09/06/19 07:48 Resp 15 09/06/19 09:06 BP 116/64 09/06/19 07:43 Pulse Ox 93 09/06/19 07:46 09/05/19 09/06/19 09/06/19 22:59 06:59 14:59 Intake Total 808 / 1758 500 / 2258 50 / 50 Output Total 550 / 550 400 / 950 Balance 258 / 1208 100 / 1308 50 / 50 Weight last 48 hrs Weight 130.226 kg Weight 130.226 kg Physical Exam Const: COMMON NORMALS: no acute distress NUTRITIONAL APPEARANCE: obese OTHER: Sedated HENMT: COMMON NORMALS: oropharynx normal Neck/C-Spine: COMMON NORMALS: no JVD Resp: COMMON NORMALS: normal respiratory effort and clear to auscultation bilaterally AUSCULTATION: clear to auscultation bilaterally Cardio: COMMON NORMALS: no JVD, regular rhythm, S1 normal heart sound present, S2 normal heart sound present and No murmurs present (Cardio) RHYTHM: regular rhythm HEART SOUNDS: S1 normal heart sound present and S2 normal heart sound present GI: COMMON NORMALS: Normal to inspection, nondistended, normoactive bowel sounds present, Soft to palpation and non-tender PALPATION: Yes Soft to pal pation Extremity: COMMON NORMALS: no joint enlargement and no pedal edema OTHER: 1+ hand edema Neuro: OTHER: No seizure-like activity Skin: COMMON NORMALS: no rashes or lesions noted GENERAL SKIN EXAM: no rashes or lesions noted Urinary Catheter Management^: Pete: Cath Placed During This Visit: yes Urethral Indwelling: Yes Reason for Continuing Indwelling Catheter: Accurate Measurement of Urinary Output in Critically Ill Patients Urinary Catheter Date of Insertion: 08/30/19 Urinary Catheter Time of Insertion: 16:20 Data : 09/06/19 03:20 09/06/19 03:20 A&P Assessment and plan (1) Acute respiratory failure: Down to 40% FiO2, but still on PEEP of 15. Yesterday was getting restless on weaning sedation. Today we will try to wean and reassess. Mental status may be a fawn to overcome prior to activation. Propofol needs to be discontinued as triglycerides are elevated. Continue fentanyl at this time. If needed add Versed. Chest x-ray to me appears somewhat better than yesterday. She sounds better. L basilar PNA appears to be improving. Cont on mechanical ventilatory support. Weaning trial today if mental status allows. Concerning for aspiration particularly in light of noted positive urine drug screen and reported altered mental status. Fentanyl Continue Zosyn and Vancomycin. Very poor IV access. Had PICC line placed 6?29. Methylprednisolone Blood cx: negative. Sputum cx prelim negative; gram stain negative Concern for fluid overload earlier. Additional diuretics held for now. COVID-19 which is negative; off isolation precautions CTA negative for PE, noted mild bibasilar atelectasis/pneumonia. D-dimer noted (1.02) and with continued high oxygen requirement, PE is within differential, although likelihood of significant PE affecting oxygenation is likely low. Continue Lovenox for now. Negative bacterial antigens, Legionella, MRSA, influenza Tube feeds Leukocytosis is down today to 20,000. Consider repeat CT chest if worsening. Status: Acute Qualifiers: Respiratory failure complication: hypoxia and hypercapnia Qualified Code(s): J96.01 - Acute respiratory failure with hypoxia; J96.02 - Acute respiratory failure with hypercapnia (2) COPD (chronic obstructive pulmonary disease): COPD exacerbation. At this time continue treatment with steroid, an tibiotics. Breathing treatment. Baseline oxygen requirement is 4 L NC, seems to saturate in the high 80s-90 at baseline Status: Acute Qualifiers: COPD type: COPD with acute exacerbation Qualified Code(s): J44.1 - Chronic obstructive pulmonary disease with (acute) exacerbation (3) Methamphetamine abuse: Was restless yesterday when trying to wean down sedation, will reassess today. Concern is for methamphetamine withdrawal. Rhabdomyolysis, CK 4200, improving. Had troponin abnormality on presentation, with gradual decline. May benefit from additional assessment once she is more stable. -prior noted + UDS with amphetamines Status: Acute (4) Elevated troponin: Considered to be type II secondary to demand ischemia from respiratory distress, although with concern for vitamin abuse, may benefit from additional evaluation once she is more stable. Would benefit from abstinence. -Echo noted Aspirin. Consider statin. A1c 6.3. Status: Acute (5) Heart failure with preserved ejection fraction: Was in exacerbation previously. Received diuresis. For now further diuretics on hold. At this time perhaps mild edema, although does not appear in overt exacerbation. Continue to hold diuretics for now. -Echo (03/2019): EF=60%, mild MR, trace TR, normal diastolic function Status: Acute Qualifiers: Heart failure chronicity: acute on chronic Qualified Code(s): I50.33 - Acute on chronic diastolic (congestive) heart failure (6) Acute encephalopathy: With history of drug use, with her reporting her last admission that perhaps someone made her take it. With current restlessness, confusion, drug screen positive for amphetamines, concern is for possible withdrawal. As above. TSH is higher still. Will increase levothyroxine dose. CT head with mild cerebral white matter senescent changes Ammonia without significant elevation Status: Acute (7) Otitis media: Worsening pansinusitis, otitis media noted in the right, as well as mastoid fluid. At this time continue antibiotics. Does not appear to have complicated mastoiditis, although difficult to assess symptoms. Does not have redness, swelling normal warmth over mastoid processes. Status: Acute (8) Abdominal distention: Had several bowel movements after suppositories today. CT abdomen pelvis with contrast on 08/29 with diverticulosis, but otherwise unremarkable. Noted calcification of the abdominal aorta and/or iliac arteries with atherosclerosis. No signs of ischemic bowel. There is abdominal distention, although abdomen is soft. Anion gap is not significantly elevated. Lactic acid was 1.1. No noted diarrhea. We will recheck abdominal series. Recheck lactate. Component thought from anasarca. Tolerating tube feeds. Status: Acute (9) CKD (chronic kidney disease) stage 2, GFR 60-89 ml/min: At baseline. Status: Chronic (10) Thyroid disease: TSH is higher. Will increase levothyroxine to 225 mcg. Check T3, T4. Not clear if is compliant with medicines at home. Status: Chronic (11) Morbid obesity: -BMI-46 kg/m2 Status: Chronic Additional A&P Information -Hypomagnesemia, replaced Attestations Medical Necessity Statement*: Continue admission for assessment management of respiratory failure, encephalopathy. Critical Care Time: 40 minutes critical care time spent on assessment management of respiratory failure, pneumonia, severe sedation, ventilator dependence, weaning off ventilator, acute encephalopathy and underlying causes, suspected amphetamine withdrawal, hypothyroidism. Coding Level of Care Code Acute Geospatial Applications Developer for [facility] Diagnoses Acute respiratory failure J96.01; J96.02 Respiratory failure complication: hypoxia and hypercapnia COPD (chronic obstructive pulmonary disease) J44.1 COPD type: COPD with acute exacerbation Methamphetamine abuse F15.10 Elevated troponin R79.89 Heart failure with preserved ejection fraction I50.33 Heart failure chronicity: acute on chronic Acute encephalopathy G93.40 Otitis media H66.90 Abdominal distention R14.0 CKD (chronic kidney disease) stage 2, GFR 60-89 ml/min N18.2 Thyroid disease E07.9 Morbid obesity E66.01
--- NOTE | 2019-09-06 11:18 | PC.NURSE ---
Pt 0900 meds given at 1015. Delay due to other pt care being completed.
--- NOTE | 2019-09-06 11:49 | PC.SOCIAL ---
Pg 2 IMM Pt is intubated & on the vent. Unable to explain IMM to pt. All of pt's contacts will not answer the phone. Provided a copy to pt & placed it on her bedside table.
--- NOTE | 2019-09-06 14:54 | CTR_ITS ---
PROCEDURE INFORMATION: Exam: CT Temporal Bones Without Contrast. Exam date and time: 09/06/2019 3:46 AM Age: 69 years old Clinical indication: Condition or disease; Other: Mastioditis; Additional info: Mastoiditis? TECHNIQUE: Imaging protocol: Computed tomography images of the temporal bones without contrast. Radiation optimization: All CT scans at this facility use at least one of these dose optimization techniques: automated exposure control; mA and/or kV adjustment per patient size (includes targeted exams where dose is matched to clinical indication); or iterative reconstruction. COMPARISON: CT head wo con* [id number] 09/05/2019 6:27 PM RADIATION DOSE METRICS: Total DLP (mGy-cm): 1641.57 FINDINGS: Right inner ear: Normal. Right ossicles and middle ear: Right middle ear effusion. Normal ossicles. Right external auditory canal: Mildly narrowed peripherally. Right facial nerve canal: Normal. Right jugular foramen: No jugular dehiscence. Right carotid canal: No aberrent carotid canal. Right mastoid air cells: Diffuse right mastoid effusion. Left inner ear: Normal. Left ossicles and middle ear: The left middle ear is clear. Normal ossicles. Left external auditory canal: Normal. Left facial nerve canal: Normal. Left jugular foramen: No jugular dehiscence. Left carotid canal: No aberrent carotid canal. Left mastoid air cells: Diffuse left mastoid effusion. Sinuses: There is diffuse mucosal thickening and partial fluid filling of the paranasal sinuses. Soft tissues: Unremarkable. CT/CT temporal bone wo con* [id number] IMPRESSION: 1. Bilateral mastoid effusion. 2. Right middle ear effusion. 3. Pansinusitis. Radiation Dose CTDIVOL = (mGy): DLP = 1641.57 (mGy-cm)
--- NOTE | 2019-09-06 19:36 | PC.NURSE ---
Shift summary: pt remains intubated, FIO2 at 40%. Her triglycerides were elevated so Propofol was discontinued. While sedation lessened pt was able to follow commands once but then just flailed around so much this nurse thought she was going to scoot out of the bed. Versed gtt started at 2mg/hour, after 30 minutes pt still wild, gtt increased to 5mg/hr. Pt still tolerating tube feedings well with next to no residuals. Pt did have 2 large BM on shift production supervisor per shift production supervisor nurse, smeared during the day. She received a complete bath and linen change. SCDs remain on. CT of head ordered again today, still needing to go, postponed until she settled down.
[2019-09-07] VITALS (40 sets, daily range): BP systolic 103–119; BP diastolic 54–66; PULSE 60–75; RESP 12–129; TEMP 36.4–36.8; O2SAT 90–97; BMI 46.3
[2019-09-07] MEDS: piperacillin-tazobactam 3.375 GM in sodium chloride 0.9% (plus) 50 ML IV ×3 (01:42→17:32)
[2019-09-07] MEDS: ipratropium-albuterol 3 mL Neb INHALATION ×6 (02:46→23:49)
[2019-09-07 04:48] LABS: Basophils % 0.2 %; Eosinophils # 0.6 10^3/uL (0.0-0.8); Hematocrit 36.5 % (37.0-47.0); Hemoglobin 10.7 g/dL (11.5-15.3); Lymphocytes # 2.8 10^3/uL (0.8-4.8); Mean Corpuscular HGB Conc 29.3 g/dL (30.0-36.0); Mean Corpuscular Hemoglobin 30.2 pg (28.0-34.0); Mean Corpuscular Volume 103.1 fL (81-99); Mean Platelet Volume 9.9 fL (7.4-10.4); Monocytes # 1.3 10^3/uL (0.2-0.9); Monocytes % 6.5 %; Neutrophils # 9.4 10^3/uL (1.8-7.7); Neutrophils % 47.6 %; Nucleated Red Blood Cells # 0.1 /100WBC; Nucleated Red Blood Cells % 0.3 %; Platelet Count 256 10^3/cmm (130-400); Red Blood Count 3.54 10^6/uL (4.1-5.3); Red Cell Distribution Width 19.3 % (12.1-15.1); White Blood Count 19.8 10^3/uL (4.0-10.0)
[2019-09-07 05:22] LABS: Alanine Aminotransferase 49 U/L (0-33); Albumin Level 3.6 g/dL (3.5-5.2); Alkaline Phosphatase 35 IU/L (35-105); Anion Gap 17.3 (5-19); Blood Urea Nitrogen 20 mg/dL (8-23); Calcium 7.4 mg/dL (8.5-10.5); Carbon Dioxide 30 mmol/L (22-29); Chloride 94 mmol/L (98-107); Creatinine Clr Calc Pharmacy 93.4133; Globulin 2.3 g/dL (1.3-4.6); Glucose 139 mg/dL (65-115); Osmolality Calculated 283 mOsm/kg (285-295); Potassium 4.3 mmol/L (3.5-5.1); Sodium 137 mmol/L (136-145); Total Bilirubin 0.3 mg/dL (0.15-1.2); Total Protein 5.9 g/dL (6.6-8.7)
--- NOTE | 2019-09-07 06:00 | XR_ITS ---
WS: [id number] CHEST XRAY TECHNIQUE: Portable chest. CLINICAL INFORMATION: Hypoxia COMPARISON: September 06, 2019 FINDINGS: Endotracheal tube with tip 3.7 cm above the vira. Enteric tube with tip below the diaphra gm. Heart: Cardiomegaly. Lungs: Moderate chronic emphysematous changes. No acute pulmonary infiltrates. Bones: Normal visualized bony structures. XR/XR chest 1V portable [id number] IMPRESSION: 1. Endotracheal tube with tip 3.7 cm above the vira. 2. Enteric tube tip below the diaphragm. 3. Stable cardiomegaly.
[2019-09-07 06:10] LABS: Aspartate Amino Transferase 46 U/L (0-32)
[2019-09-07 06:27] LABS: Slide Review Slide Review Perform
[2019-09-07] MEDS: enoxaparin 100 mg/mL Syringe SUBCUT (08:39)
[2019-09-07] MEDS: pantoprazole 40 mg SDV IVP (08:40)
[2019-09-07] MEDS: enoxaparin 30 mg/0.3 mL Syringe SUBCUT (08:40)
[2019-09-07] MEDS: potassium chloride oral liq 20 mEq/15 mL UDC 40 MEQ OG-TUBE (08:40)
[2019-09-07] MEDS: aspirin 81 mg EC Tablet PO (08:40)
[2019-09-07] MEDS: levothyroxine 100 mcg Tablet 200 MCG PO (08:41)
[2019-09-07] MEDS: levothyroxine 25 mcg Tablet PO (08:41)
[2019-09-07] MEDS: bisacodyl 10 mg Supp PR (08:42)
[2019-09-07 09:00] LABS: Vancomycin Trough 11.1 ug/mL (10-15)
--- NOTE | 2019-09-07 09:36 | PM.PN ---
Subjective Subjective: Interval history: Sedated, intubated. Nursing staff will attempt to wean sedation. Vitals/I&O/Wt Last Vital Signs Temp 98.2 F 09/07/19 07:00 Pulse 66 09/07/19 07:55 Resp 12 09/07/19 09:26 BP 119/62 09/07/19 07:00 Pulse Ox 94 09/07/19 07:51 09/06/19 09/07/19 09/07/19 22:59 06:59 14:59 Intake Total 446 / 1344.447 150 / 1494.447 Output Total 250 / 900 275 / 1175 Balance 196 / 444.447 -125 / 319.447 Weight last 48 hrs Weight 138.346 kg Weight 130.226 kg Physical Exam Const: COMMON NORMALS: no acute distress NUTRITIONAL APPEARANCE: obese OTHER: Sedated HENMT: COMMON NORMALS: oropharynx normal OTHER: Very thick neck. Neck/C-Spine: COMMON NORMALS: no JVD Resp: COMMON NORMALS: normal respiratory effort and clear to auscultation bilaterally AUSCULTATION: clear to auscultation bilaterally Cardio: COMMON NORMALS: no JVD, regular rhythm, S1 normal heart sound present, S2 normal heart sound present and No murmurs present (Cardio) RHYTHM: regular rhythm HEART SOUNDS: S1 normal heart sound present and S2 normal heart sound present GI: COMMON NORMALS: Normal to inspection, nondistended, normoactive bowel sounds present, Soft to palpation and non-tender PALPATION: Yes Soft to palpation Extremity: COMMON NORMALS: no joint enlargement and no pedal edema OTHER: 1+ hand edema Neuro: COMMON NORMALS: moves all extremities OTHER: No seizure-like activity Skin: COMMON NORMALS: no rashes or lesions noted GENERAL SKIN EXAM: no rashes or lesions noted Urinary Catheter Management^: Pete: Cath Placed During This Visit: yes Urethral Indwelling: Yes Reason for Continuing Indwelling Catheter: Accurate Measurement of Urinary Output in Critically Ill Patients Urinary Catheter Date of Insertion: 08/30/19 Urinary Catheter Time of Insertion: 16:20 Data : 09/07/19 04:20 09/07/19 04:20 A&P Assessment and plan (1) Acute respiratory failure: Down to 40% FiO2, PEEP down to 12. Persistent swelling in arms, face. Trace edema LE. Resume Bumex for now. Yesterday was getting restless on weaning sedation. Try to wean sedation again today. Reassessment mental status. Mental status may be a fawn to overcome prior to activation. Propofol stopped. Continue fentanyl at this time and required additional Versed. L basilar PNA appears to be improving. Cont on mechanical ventilatory support. Continue reassessing mental status. Concerning for aspiration particularly in light of noted positive urine drug screen and reported altered mental status. Fentanyl Continue Zosyn and Vancomycin. Very poor IV access. Had PICC line placed 6?29. Methylprednisolone Blood cx: negative. Sputum cx prelim negative; gram stain negative Concern for fluid overload earlier. Additional diuretics held for now. COVID-19 which is negative; off isolation precautions CTA negative for PE, noted mild bibasilar atelectasis/pneumonia. D-dimer noted (1.02) and with continued high oxygen requirement, PE is within differential, although likelihood of significant PE affecting oxygenation is likely low. Continue Lovenox for now. Negative bacterial antigens, Legionella, MRSA, influenza Tube feeds Leukocytosis is down today to 20,000. Consider repeat CT chest if worsening. Status: Acute Qualifiers: Respiratory failure complication: hypoxia and hypercapnia Qualified Code(s): J96.01 - Acute respiratory failure with hypoxia; J96.02 - Acute respiratory failure with hypercapnia (2) Methamphetamine abuse: Acute encephalopathy with methamphetamine withdrawal. Reassess mental status. Supportive care. Rhabdomyolysis improving. Had troponin abnormality on presentation, with gradual decline. May benefit from additional assessment once she is more stable. -prior noted + UDS with amphetamines. Unfortunately confirmed to be smoking methamphetamine by her son. Status: Acute (3) COPD (chronic obstructive pulmonary disease): COPD exacerbation. No wheezing on exam. Decrease Solu-Medrol to every 12 dosing. At this time continue treatment with steroid, antibiotics. Breathing treatment. Baseline oxygen requirement is 4 L NC, seems to saturate in the high 80s-90 at baseline Status: Acute Qualifiers: COPD type: COPD with acute exacerbation Qualified Code(s): J44.1 - Chronic obstructive pulmonary disease with (acute) exacerbation (4) Elevated troponin: Considered to be type II secondary to demand ischemia from respiratory distress, although with concern for vitamin abuse, may benefit from additional evaluation once she is more stable. Would benefit from abstinence. -Echo noted Aspirin. Consider statin. A1c 6.3. Status: Acute (5) Heart failure with preserved ejection fraction: Was in exacerbation previously. Some peripheral edema is persistent. PEEP requirement is still high at 12. Will resume Bumex. -Echo (03/2019): EF=60%, mild MR, trace TR, normal diastolic function Status: Acute Qualifiers: Heart failure chronicity: acute on chronic Qualified Code(s): I50.33 - Acute on chronic diastolic (congestive) heart failure (6) Acute encephalopathy: As above. With history of drug use, with her reporting her last admission that perhaps someone made her take it. With current restlessness, confusion, drug screen positive for amphetamines, concern is for possible withdrawal. TSH is higher still. Increased levothyroxine dose. Decrease steroid dosing. CT head with mild cerebral white matter senescent changes Ammonia without significant elevation. Additional assessment for otitis media, mastoiditis by ENT. Status: Acute (7) Otitis media: CT of the temporal bones obtained and pending ENT assessment. Worsening pansinusitis, otitis media noted in the right, as well as mastoid fluid. At this time continue antibiotics. Does not appear to have complicated mastoiditis, although difficult to assess symptoms. Does not have redness, swelling normal warmth over mastoid processes. Status: Acute (8) Abdominal distention: With some improvement after multiple bowel movements. CT abdomen pelvis with contrast on 08/29 with diverticulosis, but otherwise unremarkable. Noted calcification of the abdominal aorta and/or iliac arteries with atherosclerosis. No signs of ischemic bowel. There is abdominal distention, although abdomen is soft. Anion gap is not significantly elevated. Lactic acid was 1.1. No noted diarrhea. We will recheck abdominal series. Recheck lactate. Component thought from anasarca. Tolerating tube feeds. Status: Acute (9) CKD (chronic kidney disease) stage 2, GFR 60-89 ml/min: At baseline. Status: Chronic (10) Thyroid disease: TSH is higher. Low T3 and T4. Increased levothyroxine to 225 mcg. Not clear if is compliant with medicines at home. Status: Chronic (11) Morbid obesity: -BMI-46 kg/m2 Status: Chronic Additional A&P Information -Hypomagnesemia, replaced Attestations Medical Necessity Statement*: Continue admission for assessment of management of respiratory failure, encephalopathy, methamphetamine withdrawal, hypothyroidism, otitis media and mastoiditis. Critical Care Time: 40 minutes critical care time spent on assessment management of immediately life-threatening issues including respiratory failure, ventilatory support, encephalopathy with suspected methamphetamine withdrawal. Coding Level of Care Code Acute Feed Management Advisor for [facility] Diagnoses Acute respiratory failure J96.01; J96.02 Respiratory failure complication: hypoxia and hypercapnia Methamphetamine abuse F15.10 COPD (chronic obstructive pulmonary disease) J44.1 COPD type: COPD with acute exacerbation Elevated troponin R79.89 Heart failure with preserved ejection fraction I50.33 Heart failure chronicity: acute on chronic Acute encephalopathy G93.40 Otitis media H66.90 Abdominal distention R14.0 CKD (chronic kidney disease) stage 2, GFR 60-89 ml/min N18.2 Thyroid disease E07.9 Morbid obesity E66.01
--- NOTE | 2019-09-07 09:40 | PC.NURSE ---
Covid sample collected and sent to lab, for snf placement.
--- NOTE | 2019-09-07 10:30 | PC.NURSE ---
Dr Berry notified pt not following commands or responding appropriately after waking trial/ sedation vacation. Versed gtt restarted.
--- NOTE | 2019-09-07 16:06 | PC.NURSE ---
Addendum entered by Carmen Mckeon RN 09/07/19 16:16: This nurse contacted legal department for guidance on next of kin contact as both sons are not legally her sons anymore. And most of the contact numbers supplied previous are no longer viable. Advised to contact home health agency and see if contact list can be obtained. Original Note: Nigel Negro called to check on pt. He stated he is her biological son. His phone number: [phone]. He lives in [place]. He stated that Wendy is and has 2 biological children, Irvin and himself, both of them were released for adoption as very young children. He continues that he has been estranged from her for about 15 years. He would prefer to not make any decisions, Irvin lives closer in [facility]. [place], he should be contacted.
--- NOTE | 2019-09-07 16:12 | PC.NURSE ---
Fina Dozier, called to check on pt. Her phone number: [phone]. She has been caring for pt's dog and home while pt hospitalized. She states she is her adult care provider , she works for [employer]. She supplied # for [place] office, consumer coordinator, Wandy Barnes. [phone]. This nurse called that number, a Patricia answered, identified as [place]. To fax next of kin/conatct list after she gets out of a meeting.
--- NOTE | 2019-09-07 17:27 | PM.CONSULT ---
Providers/Reason For Consult Consulting Physican/Specialty*: Dr. Chino French MD Otolaryngology, Head and Neck Surgery Reason for Consult*: Mastoiditis Requesting Physcian: Dr. Steven Lee MD Attending Physician: Steven Lee Primary Care Provider: Varinder Delgado History of Present Illness History of Present Illness Wendy Ozuna is a 69 year old female who was admitted with mental status changes who was noted on a head CT to have bilateral mastoiditis and sinusitis. She has had an elevated WBC count during this admission as well. I was consulted to evaluate her ears and mastoids as a potential source of infection/MS changes. The patient is intubated and sedated and was unresponsive. Review of Systems General: Reports: ROS unobtainable due to endotracheal tube, ROS unobtainable due to medical condition and ROS unobtainable due to mental status Meds/Allergies Home Medications and Allergies Home Medications Medication Instructions Recorded Confirmed Last Taken Type levothyroxine 200 mcg PO DAILY 03/23/19 08/30/19 Unknown History nitroglycerin [Nitrostat] 0.4 mg SUBLINGUAL Q5M PRN 03/23/19 08/30/19 Unknown History potassium chloride 10 meq PO DAILY 03/23/19 08/30/19 Unknown History pramipexole 3 mg PO BID 03/23/19 08/30/19 Unknown History fluticasone propion-salmeterol 1 inh INHALATION BID #60 each 03/26/19 08/30/19 Unknown Rx [Advair Diskus] ipratropium-albuterol 3 ml INHALATION QID PRN #180 ml 03/26/19 08/30/19 Unknown Rx Allergies Allergy/AdvReac Type Severity Reaction Status Date / Time eszopiclone [From Lunesta] Allergy Unknown unknown Verified 08/30/19 14:03 gabapentin Allergy Unknown Unknown Verified 08/30/19 14:03 Current Medications Current Medications Generic Name Dose Route Start Last Admin Trade Name Freq PRN Reason Stop Dose Admin Albuterol/Ipratropium 3 ml 09/01/19 08:54 09/07/19 15:27 Duoneb INHALATION 3 ml Q4H PRN Administration SHORTNESS OF BREATH Aspirin 81 mg 09/05/19 09:30 09/07/19 08:40 Aspirin Ec PO 81 mg DAILY DOREEN Administration Bisacodyl 10 mg 09/05/19 18:10 09/07/19 08:42 Bisac-Evac KS 10 mg DAILY DOREEN Administration Bumetanide 1 mg 08/31/19 06:30 09/04/19 05:55 Bumex IV 1 mg Q12H DOREEN Administration Fentanyl 50 mcg 09/02/19 11:59 09/04/19 23:51 Sublimaze IVP 50 mcg Q4H PRN Administration SEVERE PAIN Piperacillin Sod/Tazobactam 50 mls @ 12.5 mls/hr 08/31/19 01:00 09/07/19 12:45 Sod 3.375 gm/ Sodium Chloride IV Infused Q8H DOREEN Infusion Protocol As Directed Vancomycin HCl 2,000 mg/ 500 mls @ 250 mls/hr 08/31/19 09:00 09/07/19 11:50 Sodium Chloride IV Infused Q24H DOREEN Infusion Midazolam HCl 100 mg/ Sodium 100 mls @ 0 mls/hr 09/06/19 13:30 09/07/19 10:30 Chloride IV 5 mg/hr .Q0M DOREEN 5 mls/hr Administration Protocol Per Protocol Levothyroxine Sodium 200 mcg 08/31/19 09:00 09/07/19 08:41 Synthroid PO 200 mcg DAILY DOREEN Administration Levothyroxine Sodium 25 mcg 09/06/19 09:00 09/07/19 08:41 Synthroid PO 25 mcg DAILY DOREEN Administration Potassium Chloride 40 meq 09/02/19 09:00 09/07/19 08:40 Potassium Chloride Oral Liquid OG-TUBE 40 meq DAILY DOREEN Administration PFSH Acute PFSH: Medical History CKD (chronic kidney disease) stage 2, GFR 60-89 ml/min Gout Head injury Heart failure with preserved ejection fraction Methamphetamine abuse Morbid obesity Peptic ulcer Sleep apnea Thyroid disease Surgical History H/O bilateral salpingo-oophorectomy H/O knee surgery H/O: hysterectomy History of appendectomy History of cholecystectomy History of hip surgery Family History Other Family history unobtainable due to patient's condition Social History Smoking and tobacco status: unknown if ever smoked Quit status (tobacco): not considering quitting Alcohol intake: unknown History of recent travel: No Current gender identity: Female Vitals/I&O/Wt Last Vital Signs Temp 98.2 F 09/07/19 07:00 Pulse 65 09/07/19 15:33 Resp 12 09/07/19 15:28 BP 119/62 09/07/19 12:00 Pulse Ox 95 09/07/19 15:28 09/07/19 09/07/19 09/07/19 06:59 14:59 22:59 Intake Total 150 / 1494.447 649.133 / 649.133 Output Total 275 / 1175 Balance -125 / 319.447 649.133 / 649.133 Weight last 48 hrs Weight 138.346 kg Weight 130.226 kg Physical Exam Const: EXAM LIMITATIONS: altered mental status GENERAL APPEARANCE: patient mechanically ventilated NUTRITIONAL APPEARANCE: obese ORIENTATION/CONSCIOUSNESS: Yes patient obtunded HENMT: COMMON NORMALS: normocephalic, external ears normal, EAC's normal (Cerumen is obstructing the medial external auditory canals bilaterally) and Normal external nose present HEAD & SCALP: normocephalic NOSE: Normal external nose present EXTERNAL EAR: Yes external ears normal EXTERNAL AUDITORY CANAL: EAC's normal (Cerumen is obstructing the medial external auditory canals bilaterally) Eye: COMMON NORMALS: conjunctivae normal CONJUNCTIVA: Yes conjunctivae normal Neck/C-Spine: COMMON NORMALS: no lymphadenopathy Urinary Catheter Management^: Pete: Cath Placed During This Visit: yes Urethral Indwelling: Yes Reason for Continuing Indwelling Catheter: Accurate Measurement of Urinary Output in Critically Ill Patients Urinary Catheter Date of Insertion: 08/30/19 Urinary Catheter Time of Insertion: 16:20 A&P Additional A&P Information Impression: 69 yo wf with Mental Status changes and chronic, non surgical appearing bilateteral and masoititis seen on temporal bone CT. The ears and sinuses are a possible, but unlikely cause of the patient's symptoms. Plan: With blood cultures negative to date, I recommend that consideration of a lumbar puncture to C&S. If there are ear or sinus pathogens identified on CSF C&S, would consider bilateral ear exam under anesthesia with possible myringotomy and culture of the patient's middle ear effusion and evaluation with possible EESS of the sinuses under anesthesia for treatment and culture of sinus contents. Please reconsult me if an LP is done and the cultures are suspicious for ear pathogens. Coding Level of Care Code Acute Fighting Vehicle Systems Maintainer for Jarred Russell
[2019-09-07] MEDS: bumetanide 0.25 mg/mL SDV 10 mL 1 MG IV (17:33)
[2019-09-07] MEDS: famotidine 20 mg/2 mL INJ IVP (17:33)
[2019-09-07] MEDS: heparin 5,000 unit/mL INJ 1 mL 5000 UNIT INJECTION (21:32)
[2019-09-07] MEDS: cefepime 2,000 MG in sodium chloride 0.9% (plus) 50 ML 100 MG IV (21:36)
[2019-09-08] VITALS (33 sets, daily range): BP systolic 94–124; BP diastolic 54–71; PULSE 62–88; RESP 12–15; TEMP 36.5–36.9; O2SAT 90–98
--- NOTE | 2019-09-08 01:08 | PC.NURSE ---
Abscess During bed bath found firm deep abscess to left armpit with dark green drainage. Area expressed, wiped clean and expressed more drainage and culture obtained.
[2019-09-08] MEDS: cefepime 2,000 MG in sodium chloride 0.9% (plus) 50 ML 100 MG IV ×3 (04:38→20:27)
[2019-09-08 05:12] LABS: Basophils # 0.1 10^3/uL (0.0-0.1); Basophils % 0.6 %; Eosinophils # 0.7 10^3/uL (0.0-0.8); Eosinophils % 3.3 %; Hematocrit 33.9 % (37.0-47.0); Hemoglobin 10.2 g/dL (11.5-15.3); Lymphocytes % 9.5 %; Mean Corpuscular HGB Conc 30.1 g/dL (30.0-36.0); Mean Corpuscular Hemoglobin 30.2 pg (28.0-34.0); Mean Corpuscular Volume 100.3 fL (81-99); Mean Platelet Volume 9.9 fL (7.4-10.4); Monocytes # 1.3 10^3/uL (0.2-0.9); Monocytes % 6.1 %; Neutrophils # 11.3 10^3/uL (1.8-7.7); Neutrophils % 54.2 %; Nucleated Red Blood Cells % 0 %; Platelet Count 247 10^3/cmm (130-400); Red Blood Count 3.38 10^6/uL (4.1-5.3); Red Cell Distribution Width 19.2 % (12.1-15.1); White Blood Count 20.8 10^3/uL (4.0-10.0)
[2019-09-08] MEDS: ipratropium-albuterol 3 mL Neb INHALATION ×4 (05:19→19:56)
--- NOTE | 2019-09-08 06:00 | XR_ITS ---
WS: [id number] CHEST XRAY TECHNIQUE: Portable chest. CLINICAL INFORMATION: Hypoxia COMPARISON: September 07, 2019 FINDINGS: Endotracheal tube with tip above the vira. Enteric tube with tip below the diaphragm. Sha llow inspiration. Heart: Cardiomegaly. Lungs: Small bilateral pleural effusions. Slight bibasilar atelectasis. Right PICC line with tip in t he right atrium. Bones: Normal visualized bony structures. XR/XR chest 1V portable [id number] IMPRESSION: No significant changes since September 07, 2019
[2019-09-08 06:03] LABS: Alanine Aminotransferase 39 U/L (0-33); Albumin Level 3.4 g/dL (3.5-5.2); Alkaline Phosphatase 35 IU/L (35-105); Anion Gap 14.7 (5-19); Aspartate Amino Transferase 32 U/L (0-32); Blood Urea Nitrogen 17 mg/dL (8-23); Calcium 7.9 mg/dL (8.5-10.5); Carbon Dioxide 32 mmol/L (22-29); Chloride 95 mmol/L (98-107); Globulin 2.5 g/dL (1.3-4.6); Glucose 113 mg/dL (65-115); Osmolality Calculated 283 mOsm/kg (285-295); Potassium 3.7 mmol/L (3.5-5.1); Sodium 138 mmol/L (136-145); Total Bilirubin 0.3 mg/dL (0.15-1.2); Total Protein 5.9 g/dL (6.6-8.7)
[2019-09-08 06:03] LABS: ABG PH Result 7.38 (7.35-7.45); Arterial Blood Gas Hematocrit 32.3 % (37-47); Base Excess ABG 10.3 mmol/L (-2.0-2.0); Blood Gas Sample Site Brachial, right; Blood Gas Sample Type Arterial; HCO3 ABG 37.3 mmol/L (22-26); Oxygen Device VENT; PO2 ABG 55.9 mmHg (80.0-100.0)
[2019-09-08 06:04] LABS: ABG PCO2 63.1 mmHg (35-45)
[2019-09-08] MEDS: bumetanide 0.25 mg/mL SDV 10 mL 1 MG IV (06:08)
[2019-09-08] MEDS: famotidine 20 mg/2 mL INJ IVP ×2 (06:08→18:35)
[2019-09-08] MEDS: heparin 5,000 unit/mL INJ 1 mL 5000 UNIT INJECTION (06:09)
[2019-09-08 06:38] LABS: Slide Review Slide Review Perform
--- NOTE | 2019-09-08 08:11 | US_ITS ---
WS: [id number] INDICATION: Right arm PICC line site TECHNIQUE: Ultrasound soft tissue FINDINGS: Ultrasound soft tissue right arm area of concern. Hypoechoic collection in the area of conc mini right arm PICC line site. Hypoechoic area appears solid and likely represents hematoma. No draina ble free fluid. US/US soft tissue/extremity [id number] IMPRESSION: Hypoechoic collection measuring 1.3 x 1.4 cm in the area of concern appears solid and likely represents hematoma. No drainable fluid collection.
--- NOTE | 2019-09-08 08:12 | USCV_ITS ---
Wendy Ozuna Age: 69 Gender: F : 1950 Exam Date: 09/08/2019 09:49 Ordering Phys: Steven Lee MD Technologist: Romulo Dias [place] [facility] [place]: RT ARM SWELLING AT PIC LINE SITE HISTORY: Upper extremity edema. PROCEDURES: Venous duplex imaging was performed in only the right upper extremity. The following venous structures were evaluated: internal jugular vein, subclavian vein, axillary vein, and brachial veins. In addition, the basilic vein, cephalic vein, radial vein, and ulnar vein. FINDINGS: THERE IS NON OCCLUSIVE THROMBUS IN THE BASILC VEIN AROUND THE PIC LINE IN RT ARM The basilic vein appears to be partially compressible CONCLUSIONS Features of thrombosis in the right basilic vein causing partial occlusion, around the PICC line. Dr Vanessa Chavez MD [facility] (Electronically Signed) Final Date: 08 September 2019 19:43 S
--- NOTE | 2019-09-08 08:12 | US_ITS ---
WS: [id number] INDICATION: Left axilla abscess TECHNIQUE: Ultrasound soft tissue FINDINGS: Ultrasound soft tissue area of concern. In the area of concern, left axilla, normal underly ing subcutaneous tissue. No evidence of pathologic mass or lesion. No drainable fluid collections. US/US soft tissue/extremity [id number] IMPRESSION: No abscess or drainable fluid collection left axilla
--- NOTE | 2019-09-08 08:12 | USCV_ITS ---
Wendy Ozuna Age: 69 Gender: F : 1950 Exam Date: 09/08/2019 09:41 Ordering Phys: Steven Lee MD Technologist: Romulo Dias Exam Location: [facility] – [place], [place] Indication: RT ARM COLD Risk Factors: None Previous Vascular Surgery: Right BP: 105.00 / 70.00 Left BP: 105.00 / 70.00 RIGHT LEFT PSV PSV (cm/s) (cm/s) Waveform Waveform Triphasic 102.0 Subclavian Proximal Triphasic 84.0 Axillary Biphasic 94.0 Brachial Mid Biphasic 35.0 Radial Mid Triphasic 48.0 Ulnar Mid 1.0 Radial/Brachial Index 1.09 Ulnar/Brachial Index FINDINGS Normal/near normal arterial Doppler waveforms. Normal RBI and UBI on the right side Normal Doppler flow velocities CONCLUSIONS No significant arterial obstruction in the right upper extremity arteries Dr Vanessa Chavez MD [facility] (Electronically Signed) Final Date: 08 September 2019 19:33 S
--- NOTE | 2019-09-08 08:24 | PM.PN ---
Subjective Subjective: Interval history: Intubated, on sedation with fentanyl and Versed, today opens her eyes to loud voice, tries to look around, but is confused. Not following commands. Shortly after gets restless, starts wiggling her legs around. Vitals/I&O/Wt Last Vital Signs Temp 98.5 F 09/08/19 04:00 Pulse 76 09/08/19 06:00 Resp 12 09/08/19 07:42 BP 94/54 09/08/19 06:00 Pulse Ox 90 09/08/19 06:00 09/07/19 09/08/19 09/08/19 22:59 06:59 14:59 Intake Total 300 / 1449.133 646 / 2095.133 Output Total 1100 / 1100 250 / 1350 Balance -800 / 349.133 396 / 745.133 Weight last 48 hrs Weight 138.482 kg Weight 138.346 kg Physical Exam Const: COMMON NORMALS: no acute distress NUTRITIONAL APPEARANCE: obese OTHER: Sedated HENMT: COMMON NORMALS: oropharynx normal OTHER: Very thick neck. Some redness in the base of the neck skin fold. Neck/C-Spine: COMMON NORMALS: no JVD Resp: COMMON NORMALS: normal respiratory effort and clear to auscultation bilaterally AUSCULTATION: clear to auscultation bilaterally Cardio: COMMON NORMALS: no JVD, regular rhythm, S1 normal heart sound present, S2 normal heart sound present and No murmurs present (Cardio) RHYTHM: regular rhythm HEART SOUNDS: S1 normal heart sound present and S2 normal heart sound present GI: COMMON NORMALS: Normal to inspection, nondistended, normoactive bowel sounds present, Soft to palpation and non-tender PALPATION: Yes Soft to palpation Extremity: COMMON NORMALS: no joint enlargement and no pedal edema OTHER: 1+ hand edema Neuro: COMMON NORMALS: moves all extremities OTHER: No seizure-like activity Skin: RASHES: rashes noted (Papular rash noted on morning of 09/06, initially on the right shoulder, proximal thighs, but with some spread over the back and lower extremities. Not on mucosal surfaces. Today do not appreciate papules on the back, does have some heat rash on the back with mild confluent erythema, no bullae or open lesions. Somewhat persistent papular rash on legs. Faint on the chest.) Urinary Catheter Management^: Pete: Cath Placed During This Visit: yes Urethral Indwelling: Yes Reason for Continuing Indwelling Catheter: Accurate Measurement of Urinary Output in Critically Ill Patients Urinary Catheter Date of Insertion: 08/30/19 Urinary Catheter Time of Insertion: 16:20 Data : 09/08/19 04:10 09/08/19 04:10 A&P Assessment and plan (1) Acute encephalopathy: Suspected withdrawal from methamphetamine. 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 Unfortunately due to body habitus unable to perform this with fluoroscopy guidance per discussion with x-ray. Appreciate assistance of our neurologist to attempt a lumbar puncture. There is a question as to whether her biological sons are able to provide consent on her behalf as they reportedly have been previously adopted out. Need for LP, as well as possible need for bedside procedure if could not be performed under fluoroscopic guidance was discussed with her son this morning, and he is in favor of performing a procedure, however, as issue of consent is being looked into with risk management and case management, so as not to delay the procedure this may need to be done as a medical necessity. With history of drug use, with her reporting her last admission that perhaps someone made her take it. With current restlessness, confusion, drug screen positive for amphetamines, concern is for possible withdrawal. TSH is higher still. Increased levothyroxine dose. Decrease steroid dosing. CT head with mild cerebral white matter senescent changes Ammonia without significant elevation. Additional assessment for otitis media, mastoiditis by ENT. Status: Acute (2) Rash: Faint papular rash noted on the morning of 08/07, initially starting on the right shoulder, right side of her back, few noted on the upper chest, and through the day also on proximal thighs, subsequently spreading to the legs. No bullae or open lesions. A number of medications were changed, including switching of Protonix to famotidine, Lovenox to heparin. Aspirin was held. Zosyn was changed to cefepime. She had received a bath the day prior, however, the soap usually should be hypoallergenic. The cause is not entirely clear. She had received Bumex later in the day, however and did receive some earlier in the admission, and this is a new medication for her. No mucosal lesions are noted, however, to be on the safe side we will discontinue Bumex, switch to Lasix. Versed is a new medication as well started in the last few days, and so will try to switch over to Precedex, although she does require quite significant sedation due to episodes of restlessness. Etiology is not entirely clear at this time, drug reaction is suspected, but may be viral exanthem, or other cause. She is due to get an LP today. Otherwise monitor condition, further medication changes and evaluation depending on evolution. Status: Acute (3) Acute respiratory failure: Down to 40% FiO2, PEEP down to 12. Persistent swelling in arms, face. Trace edema LE. Change to Lasix. Yesterday was getting restless on weaning sedation. Try to wean sedation again today. Reassessment mental status. Mental status may be a fawn to overcome prior to extubation. Propofol stopped. Continue fentanyl. Versed will be changed to Precedex. L basilar PNA appears to be improving. Cont on mechanical ventilatory support. Continue reassessing mental status. Concerning for aspiration particularly in light of noted positive urine drug screen and reported altered mental status. Continue cefepime and Vancomycin. Very poor IV access. Had PICC line placed 6?29. This will need to be replaced due to hematoma at access site. Unfortunately no other good site as her neck is very thick, as well as with some rash noted in the skin fold, and would prefer to avoid groin as the site of access. Subclavian access in her case would be extremely difficult. Methylprednisolone on hold Blood cx: negative. Sputum cx negative Negative bacterial antigens, Legionella, MRSA, influenza COVID-19 which is negative; off isolation precautions CTA negative for PE, noted mild bibasilar atelectasis/pneumonia. D-dimer noted (1.02) and with continued high oxygen requirement, PE is within differential, although likelihood of significant PE affecting oxygenation is likely low. Continue prophylactic heparin. Tube feeds Leukocytosis is down to 20,000. Status: Acute Qualifiers: Respiratory failure complication: hypoxia and hypercapnia Qualified Code(s): J96.01 - Acute respiratory failure with hypoxia; J96.02 - Acute respiratory failure with hypercapnia (4) Methamphetamine abuse: Acute encephalopathy with methamphetamine withdrawal. Reassess mental status. Supportive care. Rhabdomyolysis improving. Had troponin abnormality on presentation, with gradual decline. May benefit from additional assessment once she is more stable. -prior noted + UDS with amphetamines. Unfortunately confirmed to be smoking methamphetamine by her son. Status: Acute (5) COPD (chronic obstructive pulmonary disease): COPD exacerbation. No wheezing on exam. Decrease Solu-Medrol to every 12 dosing. At this time continue treatment with steroid, antibiotics. Breathing treatment. Baseline oxygen requirement is 4 L NC, seems to saturate in the high 80s-90 at baseline Status: Acute Qualifiers: COPD type: COPD with acute exacerbation Qualified Code(s): J44.1 - Chronic obstructive pulmonary disease with (acute) exacerbation (6) Elevated troponin: Considered to be type II secondary to demand ischemia from respiratory distress, although with concern for vitamin abuse, may benefit from additional evaluation once she is more stable. Would benefit from abstinence. -Echo noted Aspirin. Consider statin. A1c 6.3. Status: Acute (7) Heart failure with preserved ejection fraction: Was in exacerbation previously. Some peripheral edema is persistent. PEEP requirement is still high at 12. Diuresis has been resumed. -Echo (03/2019): EF=60%, mild MR, trace TR, normal diastolic function Status: Acute Qualifiers: Heart failure chronicity: acute on chronic Qualified Code(s): I50.33 - Acute on chronic diastolic (congestive) heart failure (8) Otitis media: Appreciate ENT assessment. Worsening pansinusitis, otitis media noted in the right, as well as mastoid fluid. At this time continue antibiotics. Does not appear to have complicated mastoiditis, although difficult to assess symptoms. Does not have redness, swelling normal warmth over mastoid processes. Status: Acute (9) Abdominal distention: With improvement after multiple bowel movements. CT abdomen pelvis with contrast on 08/29 with diverticulosis, but otherwise unremarkable. Noted calcification of the abdominal aorta and/or iliac arteries with atherosclerosis. No signs of ischemic bowel. There is abdominal distention, although abdomen is soft. Anion gap is not significantly elevated. Lactic acid was 1.1. No noted diarrhea. Component thought from anasarca. Tolerating tube feeds. Status: Acute (10) CKD (chronic kidney disease) stage 2, GFR 60-89 ml/min: At baseline. Status: Chronic (11) Thyroid disease: TSH is higher. Low T3 and T4. Increased levothyroxine to 225 mcg. Not clear if is compliant with medicines at home. Status: Chronic (12) Morbid obesity: -BMI-46 kg/m2 Status: Chronic Additional A&P Information -Hypomagnesemia, replaced Abscess: small abscess noted in the L axilla with noted drained out greenish fluid overnight which was sent for culture. Assessed by ultrasound for any fluid pocket that may require additional drainage. Hematoma right arm: Following PICC line placement at the access site, with swelling, bruising, mild/faint erythema at the site, continue antibiotics at this time in case of possible infection, PICC line will need to come out, however, access is very difficult in her, and so we will need to secure additional access to allow to continue antibiotics. Truly does not have an ideal access site, but probably the least risky is going with a PICC line in the opposite arm. See above for details. Will assess by ultrasonography soft tissue, as well as venous and arterial Dopplers. Attestations Medical Necessity Statement*: Continue admission for assessment management of acute encephalopathy, suspected methamphetamine withdrawal, respiratory failure, COPD as per patient, papular rash, otitis media in the setting of other medical comorbidities and morbid obesity. 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 infection, assessment and management of suspected drug reaction, ventilator support, Coding Level of Care Code Acute Comic Book Designer for g Fwd Diagnoses Acute encephalopathy G93.40 Rash R21 Acute respiratory failure J96.01; J96.02 Respiratory failure complication: hypoxia and hypercapnia Methamphetamine abuse F15.10 COPD (chronic obstructive pulmonary disease) J44.1 COPD type: COPD with acute exacerbation Elevated troponin R79.89 Heart failure with preserved ejection fraction I50.33 Heart failure chronicity: acute on chronic Otitis media H66.90 Abdominal distention R14.0 CKD (chronic kidney disease) stage 2, GFR 60-89 ml/min N18.2 Thyroid disease E07.9 Morbid obesity E66.01
--- NOTE | 2019-09-08 09:00 | PC.NURSE ---
Called [facility] , . Spoke with Ching Barnes again today . Asked about meregency contacts for pt. Abhinav stated that per [facility] Medicaid requirements they have to keep their emergency contacts update. Wendy updated her this July (2019). She has a friend listed: Lovely Jiménez, her phone number. [phone]. Requested that copy of that form to be faxed to this ICU (Second request for copy).
--- NOTE | 2019-09-08 10:15 | PC.NURSE ---
Morning medications admin late due to frequent interruptions of other care for this pt.
[2019-09-08] MEDS: levothyroxine 25 mcg Tablet PO (10:23)
[2019-09-08] MEDS: levothyroxine 100 mcg Tablet 200 MCG PO (10:23)
[2019-09-08] MEDS: potassium chloride oral liq 20 mEq/15 mL UDC 40 MEQ OG-TUBE (10:24)
[2019-09-08] MEDS: bisacodyl 10 mg Supp PR (10:24)
--- NOTE | 2019-09-08 11:14 | PC.SOCIAL ---
IMM completed on @ [id number]
--- NOTE | 2019-09-08 13:00 | PC.NURSE ---
Dr Yeager attempting LP.
--- NOTE | 2019-09-08 13:36 | PC.NURSE ---
PICC nurse in with pt. Cefepime and heparin will be administered after.
--- NOTE | 2019-09-08 14:30 | PC.NURSE ---
PICC placement was unsuccessful by HERBIE Finn. Multiple attempts in left arm ( 4-5), Catheter and guide wire become kinked and unable to advance. Blood clots pulled out on catheter tip twice. Dr Lee notified of persistent PICC insertion compilations and no PICC. Discussed the possibility of subclavian central line Also discussed sedation medications, Fentanyl and Versed, incompatibility with cefepime, so sedation meds have to be stopped during administration of cefepime. with only 1 poor peripheral IV access. NO that PICC attempt finished. Cefepime and heparin will be administered.
[2019-09-08] MEDS: heparin 5,000 unit/mL INJ 1 mL 5000 UNIT SUBCUT (14:36)
[2019-09-08] MEDS: dexmedetomidine 400 MCG in sodium chloride 0.9% (100 ml) 100 ML 10.8 MCG IV (15:07)
--- NOTE | 2019-09-08 15:38 | PM.OP ---
Operative Report Date of procedure: September 08, 2019 Pre-op Diagnosis: Respiratory failure, poor peripheral venous access. Post-op diagnosis: same Procedure Done: Right femoral vein central lumen catheter placement. Pathology: none sent Surgeon: Delfino Malik Anesthesia: Other (Sedation with fentanyl and Versed in the intensive care unit.) Estimated blood loss (mL): 5 Complications: None. Condition: stable Procedure: The patient was encountered in her room in the intensive care unit already on a ventilator. She is an obese white female in respiratory failure on subcutaneous heparin every 8 hours. The nurses have been able to establish a single small peripheral vein in the left upper extremity, but could only give 1 medication at a time. The patient had previously been on some sedation with fentanyl and Versed which was restarted. On examination, the clavicles were very deep. The patient's neck was very short and fat. Given the fact that she was also on heparin and was in need of urgent IV access, a femoral venous catheter placement was elected on. The right femoral region was prepped and draped in a sterile fashion. 1% lidocaine was used for local anesthetic. The right femoral vein was accessed with a needle and syringe as evidenced by the return of dark, nonpulsatile blood. The wire was passed down the needle and the needle was withdrawn. The opening at the skin was enlarged with a scalpel and then a dilator was passed over the guidewire. The dilator was removed and a triple-lumen catheter was passed over the guidewire which was subsequently removed. Venous blood aspirated well from all 3 ports and they were subsequently flushed with saline. The catheter was sewn in place at the skin with some interrupted sutures of 3-0 silk. A sterile dressing was applied. The patient seemed to tolerate the procedure in the ICU well.
--- NOTE | 2019-09-08 17:45 | PM.TDS ---
Transfer Summary Providers Date of Admission: 08/30/19 18:12 Date of Discharge: 09/08/19 Attending Provider at Admission: Diann Salgado MD Attending Provider at Transfer: Steven Lee Primary Care Provider: Varinder Delgado Anticipated Date of Transfer: Anticipated date of transfer: 09/08/19 Receiving Facility & Provider: Receiving Provider: [] Receiving facility: [] Diagnoses at Discharge Discharge Diagnosis (1) Acute encephalopathy: Status: Acute (2) Rash: Status: Acute (3) Acute respiratory failure: Status: Acute Qualifiers: Respiratory failure complication: hypoxia and hypercapnia Qualified Code(s): J96.01 - Acute respiratory failure with hypoxia; J96.02 - Acute respiratory failure with hypercapnia (4) Methamphetamine abuse: Status: Acute (5) COPD (chronic obstructive pulmonary disease): Status: Acute Qualifiers: COPD type: COPD with acute exacerbation Qualified Code(s): J44.1 - Chronic obstructive pulmonary disease with (acute) exacerbation (6) Elevated troponin: Status: Acute Problem details: Type II (7) Heart failure with preserved ejection fraction: Status: Acute Qualifiers: Heart failure chronicity: acute on chronic Qualified Code(s): I50.33 - Acute on chronic diastolic (congestive) heart failure (8) Otitis media: Status: Acute (9) Abdominal distention: Status: Acute (10) CKD (chronic kidney disease) stage 2, GFR 60-89 ml/min: Status: Chronic (11) Thyroid disease: Status: Chronic (12) Morbid obesity: Status: Chronic Reason for Visit Reason for Visit: SOB Hospital Course Hospital Course: 69-year-old lady with history of HFpEF, CKD stage II, morbid obesity, oxygen dependent with 4 L nasal cannula COPD, history of amphetamine abuse, was referred from primary care provider's office due to worsening shortness of breath, and reportedly was quite confused. On admission failed a trial of BiPAP, and required intubation with noted hypoxic and hypercapnic respiratory failure. With noted peripheral edema, with BNP thought to be falsely low due to morbid obesity, with noted pneumonia suspected secondary to aspiration, as well as COPD exacerbation. On admission also noted positive urine drug screen for amphetamines. She was treated with Zosyn, vancomycin for suspected aspiration pneumonia, assessed with rapid flu testing, and COVID-19 testing, both negative. CHF exacerbation treated with Bumex. IV steroids related are that for COPD exacerbation. Troponin noted with elevation, although not abdominal distention noted on presentation with gradual decline with left bundle branch block which is old. Elevation was thought to be secondary to demand ischemia, although may benefit from additional assessment for coronary disease on nonemergent basis. Echocardiogram back in March 2019 with normal ejection fraction, without significant valvular abnormality. CT chest on presentation without finding of PE or aortic dissection, mild bibasilar atelectasis versus pneumonia. CT abdomen with contrast with severe colonic diverticulosis noted incidentally, as well as bilateral total hip replacement with metallic artifact obscuring pelvic anatomy. Plain CT head without acute intracranial process. So far all the cultures including blood, urine and sputum from 08/29 have been negative, with also negative urine bacterial antigens including Legionella and negative MRSA PCR. Her levothyroxine was continued for hypothyroidism, although of note TSH has been high initially 27.51, and subsequently up to 42.86. Due to this levothyroxine dose was increased to 225 mcg. With mild liver parameter abnormality, but with normal platelet levels, and remained afebrile during the hospitalization. Also noted rhabdomyolysis with creatine kinase improving from 4195 down to 2615. Renal function has remained stable with normal creatinine. Abdominal distention initially noted thought to be secondary edema, without signs of obstruction, and subsequently improving with urine output, as well as bowel movements. She has been tolerating tube feeding. Although her oxygenation has been improving, and she is now down to 40% FiO2, PEEP of 12, saturating in the low 90s, however, her mental status is been a significant barrier to attempts at extubation. She becomes restless and is persistently confused anytime sedation and is attempted to be weaned. Initially sedated with propofol and Fentanyl, propofol subsequently discontinued due to hypertriglyceridemia. Switched over to Versed. CT of the head was repeated due to persistent encephalopathy, with finding of otitis media on the right, as well as bilateral mastoid effusions. He was assessed by ENT. The same time on 09/06 in the morning developed also a rash, faint papular, starting on the right shoulder, and right side of back, he noticed also on upper chest, as well as proximal thighs, however, through the day spread over the legs as well, without any bullae, or open ulcerations. Number of medications were changed, including she was switched from Protonix to famotidine, from Lovenox to subcutaneous heparin, antibiotic was changed from Zosyn to cefepime, as well as aspirin was held. With some progression of the rash over the legs, however, rash appears to have disappeared on the back, but does have some faint diffuse erythema, which is difficult to discern from a heat rash and at the points of pressure on the back. Faint reddish rash at lower skin fold of the neck. Additional medication changes were made, including discontinuation of Bumex switching to Lasix, although it was held since , and only received a dose after already developed a rash, however, this is new medication, without prior known administration at home. Versed is also discontinued as this is a newer medication, and switched over to Precedex. Due to lack of peripheral access PICC line was placed in the right arm on 09/05. Noted hematoma formation during placement, however, with some progression of induration, as well as in addition to bruising some faint erythema over the surface, PICC line had to be removed due to concern for possible infection. Overnight also noted with small open papule in the left axilla with some greenish drainage. This was collected for culture. Both sides were assessed with soft tissue ultrasound, with left axilla without finding of any drainable abscess, and with right arm PIC insertion site with finding of 1.3 x 1.4 cm solid collection secondary to organized hematoma, without any drainable fluid. PICC line insertion was then attempted in the left arm instead, however, unsuccessful after multiple attempts, and instead right femoral central line was placed by surgery as on assessment was not found to be a safe candidate for placement in the neck or subclavian vein. Per assessment by ENT clinically is not presenting like malignant mastoiditis, however, given persistent encephalopathy lumbar puncture is recommended to exclude extension of infection to FACER OPERATOR. This was requested, however, could not be performed under fluoroscopy due to by me habitus, and subsequently attempted at bedside as well, however, without success. With confirmed history of methamphetamine abuse per discussion with her son, which she smokes, withdrawal is deemed likely cause of her encephalopathy, however, given additional findings, she would benefit from additional work-up to exclude other ongoing infection, and unfortunately these cannot be performed at our facility, including possibly reattempted lumbar puncture under fluoroscopy if facilities available to accommodate her BMI, versus additional attempt at bedside LP, or possibly imaging with MRI under monitoring which is not possible here either. Given suspicion of possible underlying infection, of bacterial cause, or other cause, possibly also responsible for the rash, she would also benefit from assessment by infectious disease. Tick panel is requested as well. Would benefit from continued follow-up by lace finisher. Given need for higher level of care arrangements were made for additional assessment management at [facility] where she was kindly accepted after discussion with lace finisher Dr. Rooney. Given the medical need as above, transfer is arranged as a medical necessity. Attempts have been made by case management to locate a health proxy which may be helpful going forward. Please see full diagnostic imaging and reports, laboratory results, and progress notes for details of the hospitalization. Please feel free to reach out with any questions. Physical Exam Const: COMMON NORMALS: no acute distress NUTRITIONAL APPEARANCE: obese OTHER: Sedated HENMT: COMMON NORMALS: oropharynx normal OTHER: Very thick neck. Some redness in the base of the neck skin fold. Neck/C-Spine: COMMON NORMALS: no JVD Resp: COMMON NORMALS: normal respiratory effort and clear to auscultation bilaterally AUSCULTATION: clear to auscultation bilaterally Cardio: COMMON NORMALS: no JVD, regular rhythm, S1 normal heart sound present, S2 normal heart sound present and No murmurs present (Cardio) RHYTHM: regular rhythm HEART SOUNDS: S1 normal heart sound present and S2 normal heart sound present GI: COMMON NORMALS: Normal to inspection, nondistended, normoactive bowel sounds present, Soft to palpation and non-tender PALPATION: Yes Soft to palpation Extremity: COMMON NORMALS: no joint enlargement and no pedal edema NARRATIVE EXTREMITY EXAM: Swelling of R arm at PICC insertion site 10x10 cm. With ecchymosis, very faint erythema superficially. OTHER: 1+ hand edema Neuro: COMMON NORMALS: moves all extremities OTHER: No seizure-like activity Skin: COMMON NORMALS: no rashes or lesions noted GENERAL SKIN EXAM: no rashes or lesions noted RASHES: rashes noted (Papular rash noted on morning of 09/06, initially on the right shoulder, proximal thighs, but with some spread over the back and lower extremities. Not on mucosal surfaces. Today do not appreciate papules on the back, does have some heat rash on the back with mild confluent erythema, no bullae or open lesions. Somewhat persistent papular rash on legs. Faint on the chest.) Urinary Catheter Management^: Pete: Cath Placed During This Visit: yes Urethral Indwelling: Yes Reason for Continuing Indwelling Catheter: Accurate Measurement of Urinary Output in Critically Ill Patients Urinary Catheter Date of Insertion: 08/30/19 Urinary Catheter Time of Insertion: 16:20 TS Data Data Completed and Pending: Completed Studies During Hospitalization Category Date Time Status CT angio chest w abd pel w con Stat Cat Scan 08/30/19 16:[address] head wo con* 7 0450 Routine Cat Scan 09/05/19 16:[address] head wo con* 7 0450 Stat Cat Scan 08/30/19 16:[address] temporal bone wo con* [id number] Rout ine Cat Scan 09/06/19 14:54 Completed CXRP [XR chest 1V portable [id number]] S tat Exams 09/05/19 11:01 Completed XR acute abdomen series [id number] Routi ne Exams 09/05/19 09:37 Completed XR chest 1V [place] ble 10423 Routine Exams 08/31/19 06:00 Completed XR chest 1V [place] [id number] Routine Exams 09/01/19 06:00 Completed XR chest 1V [place] 09481 Routine Exams 09/02/19 06:00 Completed XR chest 1V [place] ble 59720 Routine Exams 09/03/19 06:00 Completed XR chest 1V [place] ble 26220 Routine Exams 09/04/19 06:00 Completed XR chest 1V [place] ble 35205 Routine Exams 09/05/19 06:00 Completed XR chest 1V [place] ble 10140 Routine Exams 09/06/19 06:00 Completed XR chest 1V [place] ble 56326 Routine Exams 09/07/19 06:00 Completed XR chest 1V [place] ble 68248 Routine Exams 09/08/19 06:00 Completed XR chest 1V [place] ble 65540 Stat Exams 08/30/19 15:45 Completed US soft tissue/ex tremity 44748 Rout ine Ultrasound 09/08/19 08:11 Completed US soft tissue/ex tremity 80417 Rout ine Ultrasound 09/08/19 08:12 Completed Pending at discharge Category Date Time Status Abscess Culture R outine Lab 09/08/19 00:30 Received Arterial Blood Ga s W/O Coox AM LABS Lab 09/04/19 06:39 Results CSF Analysis + Ce ll Count Routine Lab 09/08/19 07:40 Uncollected CSF Culture & Gra m Stain Routine Lab 09/08/19 07:40 Uncollected Glucose CSF Routi ne Lab 09/08/19 07:40 Uncollected Lactate Dehydroge nase CSF Routine Lab 09/08/19 07:40 Uncollected Tick Panel Routin e Lab 09/08/19 04:10 Received Total Protein CSF Routine Lab 09/08/19 07:40 [place] [id number] Rout ine Ultrasound 09/08/19 08:12 [place] [id number] Routin e Ultrasound 09/08/19 08:12 Taken Labs from last 24 hours 09/08/19 09/08/19 09/08/19 05:50 04:10 04:10 WBC 20.8 H RBC 3.38 L Hgb 10.2 L Hct 33.9 L MCV 100.3 H MCH 30.2 MCHC 30.1 RDW 19.2 H Plt Count 247 MPV 9.9 Neut % (Auto) 54.2 Lymph % (Auto) 9.5 [place] % (Auto) 6.1 Eos % (Auto) 3.3 Baso % (Auto) 0.6 Neut # (Auto) 11.3 H Lymph # (Auto) 2.0 [place] # (Auto) 1.3 H Eos # (Auto) 0.7 Baso # (Auto) 0.1 Nucleated RBC % (a uto) 0 Nucleated RBCs # 0.0 Specimen Type Arterial Sample Site Brachial, right ABG pH 7.38 ABG pCO2 63.1 H* ABG pO2 55.9 L ABG HCO3 37.3 H ABG Base Excess 10.3 H Mike Test N/a Hematocrit 32.3 L Respiration Rate 12.0 O2 Delivery Device Vent FiO2 40.0 PEEP 12.0 Pressure Support 15.0 Striker Off ID vossa Sodium 138 Potassium 3.7 Chloride 95 L Carbon Dioxide 32 H Anion Gap 14.7 BUN 17 Creatinine 0.5 GFR Calculation 122.0 Glucose 113 Calculated Osmolal ity 283 L Calcium 7.9 L Total Bilirubin 0.3 AST 32 ALT 39 H Alkaline Phosphata se 35 Total Protein 5.9 L Albumin 3.4 L Globulin 2.5 Vitals: Last Vital Signs Temp 97.7 F 09/08/19 08:00 Pulse 70 09/08/19 16:00 Resp 12 07/02/20 17:22 BP 103/56 09/08/19 16:00 Pulse Ox 90 09/08/19 16:00 TS Medications Medications Home Medications levothyroxine 200 mcg PO DAILY 03/23/19 [History Confirmed 08/30/19] nitroglycerin [Nitrostat] 0.4 mg SUBLINGUAL Q5M PRN 03/23/19 [History Confirmed 08/30/19] potassium chloride 10 meq PO DAILY 03/23/19 [History Confirmed 08/30/19] pramipexole 3 mg PO BID 03/23/19 [History Confirmed 08/30/19] fluticasone propion-salmeterol [Advair Diskus] 1 inh INHALATION BID #60 each 03/26/19 [Rx Confirmed 08/30/19] ipratropium-albuterol 3 ml INHALATION QID PRN #180 ml 03/26/19 [Rx Confirmed 08/30/19] Active Medications Acetaminophen (Tylenol) 650 mg IL Q6H PRN PRN Reason: Fever or mild pain Albuterol/Ipratropium (Duoneb) 3 ml INHALATION Q4H PRN PRN Reason: SHORTNESS OF BREATH Last Admin: 09/08/19 13:10 Dose: 3 ml Documented by: Aspirin (Aspirin Ec) 81 mg PO DAILY [facility] Last Admin: 09/07/19 08:40 Dose: 81 mg Documented by: Bisacodyl (Bisac-Evac) 10 mg IL DAILY [facility] Last Admin: 09/08/19 10:24 Dose: 10 mg Documented by: Famotidine (Pepcid Inj) 20 mg IVP Q12H [facility] Last Admin: 09/08/19 06:08 Dose: 20 mg Documented by: Furosemide (Lasix) 40 mg IVP Q12H [facility] Heparin Sodium (Beef Lung) (Heparin) 5,000 unit SUBCUT Q8H [facility] Last Admin: 09/08/19 15:08 Dose: Not Given Documented by: Vancomycin HCl 2,000 mg/ (Sodium Chloride) 500 mls @ 250 mls/hr IV Q24H [facility] Last Infusion: 09/08/19 13:15 Dose: Infused Documented by: Midazolam HCl 100 mg/ Sodium (Chloride) 100 mls @ 0 mls/hr IV .Q0M [facility]; Protocol Last Titration: 09/08/19 07:30 Dose: Infused Documented by: Fentanyl 1,000 mcg/ Sodium (Chloride) 100 mls @ 0 mls/hr IV .Q0M [facility]; Protocol Last Admin: 09/08/19 15:59 Dose: 100 mcg/hr, 10 mls/hr Documented by: Cefepime HCl 2,000 mg/ Sodium (Chloride) 50 mls @ 100 mls/hr IV Q8H [facility]; Protocol Last Infusion: 09/08/19 15:15 Dose: Infused Documented by: Dexmedetomidine HCl 400 mcg/ (Sodium Chloride) 104 mls @ 0 mls/hr IV .Q0M [facility]; Protocol Last Admin: 09/08/19 15:07 Dose: 0.3 mcg/kg/hr, 10.8 mls/hr Documented by: Levothyroxine Sodium (Synthroid) 200 mcg PO DAILY [facility] Last Admin: 09/08/19 10:23 Dose: 200 mcg Documented by: Levothyroxine Sodium (Synthroid) 25 mcg PO DAILY [facility] Last Admin: 09/08/19 10:23 Dose: 25 mcg Documented by: Methylprednisolone Sodium Succinate (Solu-Medrol) 60 mg IVP Q12H [facility] Ondansetron HCl (Zofran) 4 mg IVP Q6H PRN PRN Reason: NAUSEA AND VOMITING Potassium Chloride (Potassium Chloride Oral Liquid) 40 meq OG-TUBE DAILY [facility] Last Admin: 09/08/19 10:24 Dose: 40 meq Documented by: Discharge Plan Discharge Patient Disposition: Xfer Short-Term Hosp Condition: Stable Prescriptions: No Action potassium chloride 10 mEq Capsule, Extended Release 10 meq PO DAILY RF: 0 nitroglycerin [Nitrostat] 0.4 mg Tablet, Sublingual 0.4 mg SUBLINGUAL Q5M PRN (Reason: Chest Pain) RF: 0 levothyroxine 200 mcg Tablet 200 mcg PO DAILY RF: 0 pramipexole 1.5 mg Tablet 3 mg PO BID RF: 0 ipratropium-albuterol 0.5 mg-3 mg(2.5 mg base)/3 mL solution for nebulization 3 ml INHALATION QID PRN (Reason: shortness of breath or wheezing) Qty: 180 RF: 0 fluticasone propion-salmeterol [Advair Diskus] 250-50 mcg/dose blister with device 1 inh INHALATION BID Qty: 60 RF: 0 Transfer Attestations Time Spent in Transfer Care*: greater than 30 min Quality Metrics Clinical Quality Measures: During this hospital stay, did patient experience: None Coding Level of Care Code Acute Pump Tender for Chg Fwd Exam Comprehensive Diagnoses Acute encephalopathy G93.40 Rash R21 Acute respiratory failure J96.01; J96.02 Respiratory failure complication: hypoxia and hypercapnia Methamphetamine abuse F15.10 COPD (chronic obstructive pulmonary disease) J44.1 COPD type: COPD with acute exacerbation Elevated troponin R79.89 Heart failure with preserved ejection fraction I50.33 Heart failure chronicity: acute on chronic Otitis media H66.90 Abdominal distention R14.0 CKD (chronic kidney disease) stage 2, GFR 60-89 ml/min N18.2 Thyroid disease E07.9 Morbid obesity E66.01
[2019-09-08] MEDS: FUROsemide 10 mg/mL SDV 4mL 40 MG IVP (18:35)
--- NOTE | 2019-09-08 19:02 | PC.NURSE ---
Report called to [facility] for bed & on ICU stepdown. Verbal report given to Lovely Street RN All questions answered.
--- NOTE | 2019-09-08 19:16 | PC.NURSE ---
Shift sumary: Pt remains intubated. FIO2 increased, now at 100%. LP attempted but unsuccessful. PICC on right has large hematoma underneath, per US no arteries or veins involved just soft tissue. RIght PICC removed as it look significantly worse today. Attempts for PICC on left unsuccessful. Pt now has femoral central line on the right. She has Fentanyl , Versed and Precedex was started for sedation. Peripheral IV in right arm removed. Tube feeeding stopped a couple hours prior to LP attempt, has not been restarted due to other procedures and pt n ow transferring out to [facility]. Urine output improved today 900 ml..
[2019-09-08] MEDS: dexmedetomidine 400 MCG in sodium chloride 0.9% (100 ml) 100 ML 25.2 MCG IV (21:07)
--- NOTE | 2019-09-08 21:08 | PC.NURSE ---
Transfer Patient transported to [facility] via [facility] at this time. Pt left on EMS ventilator with fentanyl drip at 100mcg and precedex drip at 0.7mcg/kg.
--- NOTE | 2019-09-12 10:05 | PC.SOCIAL ---
Per Maritza in Micro patient abscess culture has grown out MRSA and has ECOLI. Called [facility] and spoke with Erin. She said to send results to [phone] to her attention. This was faxed with confirmation that successful fax transmission occurred. This was also reviewed verbally with Erin.
[2019-09-12 13:30] LABS: Lyme AB Screen <0.90 index
[2019-09-12 17:45] LABS: E. Chaffeensis AB IGG <1:64; E. Chaffeensis AB IGM <1:20
[2019-09-13 17:24] LABS: RMSF IGG NOT DETECTED; RMSF IGM NOT DETECTED
--- NOTE | 2019-09-15 08:17 | PC.SOCIAL ---
Updated Ching Haile regarding transfer to [facility]. She is with [facility].
== END 2019-09-08 21:08 | disposition short-term general hospital (02) | DRG 207 ==
LOC: ER 17:52 → ICU 18:39
PROVIDERS: Admitting Provider Family Medicine; Emergency Provider Emergency Medicine; Family Provider Family Medicine; PCP Family Medicine; Visit Provider Internal Medicine
DX: J96.01 Acute respiratory failure with hypoxia (principal); I50.33 Acute on chronic diastolic (congestive) heart failure; I21.A1 Myocardial infarction type 2; J18.9 Pneumonia, unspecified organism; G92 Toxic encephalopathy; Z68.42 Body mass index [BMI] 45.0-49.9, adult; J44.1 Chronic obstructive pulmonary disease with (acute) exacerbation; M62.82 Rhabdomyolysis; F15.23 Other stimulant dependence with withdrawal; L02.412 Cutaneous abscess of left axilla; E87.1 Hypo-osmolality and hyponatremia; J44.0 Chronic obstructive pulmonary disease with (acute) lower respiratory infection; J96.02 Acute respiratory failure with hypercapnia; E66.01 Morbid (severe) obesity due to excess calories; H66.90 Otitis media, unspecified, unspecified ear; N18.2 Chronic kidney disease, stage 2 (mild); Z11.59 Encounter for screening for other viral diseases; I34.0 Nonrheumatic mitral (valve) insufficiency; E83.42 Hypomagnesemia; Z87.11 Personal history of peptic ulcer disease; G47.30 Sleep apnea, unspecified; E03.9 Hypothyroidism, unspecified; Z79.82 Long term (current) use of aspirin
CPT/HCPCS: 12345; 36415; 36569; 36592; 36600; 51702; 70450; 70480; 71045; 71275; 74022; 74177; 76882; 80048; 80051; 80053; 80202; 80306; 80307; 80500; 81001; 82140; 82550; 82803; 82810; 83036; 83605; 83721; 83735; 83880; 83986; 84439; 84443; 84478; 84481; 84484; 85007; 85025; 85378; 85610; 86403; 86618; 86666; 86757; 87040; 87070; 87075; 87077; 87086; 87186; 87205; 87449; 87635; 87641; 87804; 93005; 93931; 93971; 94003; 94640; 94660; 94799; 96372; 96375; 99284; A4570; C1751; C9113; J0171; J0330; J0692; J1644; J1650; J1940; J2250; J2543; J2704; J2930; J3010; J3370; J3475; J3490; J7030; J7040; Q9967

== ENCOUNTER 2019-11-27 13:40 | Inpatient (IN) | payer MEDICARE, MEDICAID, SELFPAY ==
[2019-11-27] VITALS (56 sets, daily range): BP systolic 70–169; BP diastolic 42–128; PULSE 66–118; RESP 12–30; TEMP 36.4–36.9; O2SAT 75–100; BMI 41.0
--- NOTE | 2019-11-27 13:47 | CTR_ITS ---
PROCEDURE INFORMATION: Exam: CT Head Without Contrast Exam date and time: 11/27/2019 4:11 PM Age: 69 years old Clinical indication: Altered mental status/memory loss TECHNIQUE: Imaging protocol: Computed tomography of the head without contrast. Radiation optimization: All CT scans at this facility use at least one of these dose optimization techniques: automated exposure control; mA and/or kV adjustment per patient size (includes targeted exams where dose is matched to clinical indication); or iterative reconstruction. COMPARISON: CT head wo con* [id number] 09/05/2019 6:27 PM RADIATION DOSE METRICS: Total DLP (mGy-cm): 772.34 FINDINGS: Brain: Periventricular and subcortical white matter low densities are present which at this age likely represent microvascular ischemic change. No evidence for large acute ischemic infarction. Please note acute ischemia can be occult by head CT. Ventricles: No ventriculomegaly. Bones/joints: Unremarkable. No acute fracture. Paranasal sinuses: Paranasal sinusitis. Mastoid air cells: Visualized mastoid air cells are well aerated. Vasculature: Calcified plaque is present within the carotid siphons. Soft tissues: Unremarkable. CT/CT head wo con* [id number] IMPRESSION: There are senescent changes of the brain as described above. No evidence for large acute ischemic infarction or acute intracranial injury. Radiation Dose CTDIVOL = (mGy): DLP = 772.34 (mGy-cm)
--- NOTE | 2019-11-27 13:47 | XRR_ITS ---
PROCEDURE INFORMATION: Exam: XR Chest, 1 View Exam date and time: 11/27/2019 1:50 PM Age: 69 years old Clinical indication: Other: SOB; Additional info: Her mental status TECHNIQUE: Imaging protocol: XR of the chest Views: 1 view. COMPARISON: CR XR chest 1V portable [id number] 09/08/2019 4:36 AM FINDINGS: Lungs: See Heart/Mediastinum finding. Pleural space: Costophrenic angles are not well delineated and small pleural effusions cannot be excluded. Heart/Mediastinum: The heart is enlarged. The pulmonary venous structures are prominent and indistinct. There is interstitial prominence. Findings raise concern for congestive heart failure. Bones/joints: Unremarkable. XR/XR chest 1V portable [id number] IMPRESSION: The heart is enlarged. The pulmonary venous structures are prominent and indistinct. There is interstitial prominence. Findings raise concern for congestive heart failure.
--- NOTE | 2019-11-27 13:49 | ECG_ITS ---
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 Measurements Intervals [place] Rate: 80 P: 46 OK: 216 QRS: -70 QRSD: 155 T: 96 QT: 451 QTc: 521 Interpretive Statements SINUS RHYTHM WITH FIRST DEGREE AV BLOCK WITH OCCASIONAL VENTRICULAR PREMATURE COMPLEXES RIGHT BUNDLE BRANCH BLOCK [120+ ms QRS DURATION, UPRIGHT V1, 40+ ms S IN I/aVL/V4/V5/V6] LEFT ANTERIOR FASCICULAR BLOCK [QRS AXIS <= -45, QR IN I, RS IN II] LEFT VENTRICULAR HYPERTROPHY AND ST-T CHANGE [VOLTAGE CRITERIA PLUS ST/T ABNORMALITY] POSSIBLE ANTERIOR MYOCARDIAL INFARCTION , OF INDETERMINATE AGE [30 ms Q WAVE IN V3/V4, OR R < 0.2 mV IN V4] Compared to ECG 08/30/2019 18:29:18 Left ventricular hypertrophy now present ST (T wave) deviation now present Myocardial infarct finding still present Electronically Signed On 11-28-2019 19:12:38 CDT by Justin Hall M.D. [email or web address]
[2019-11-27 14:14] LABS: Hematocrit 41.1 % (37.0-47.0); Mean Corpuscular Volume 100.5 fL (81-99); Red Blood Count 4.09 10^6/uL (4.1-5.3)
[2019-11-27] MEDS: ondansetron 2 mg/ML SDV 2 mL 4 MG IVP (14:14)
--- NOTE | 2019-11-27 14:14 | PC.NURSE ---
RT AT BEDSIDE FOR ABG
[2019-11-27 14:17] LABS: Hemoglobin 12.2 g/dL (11.5-15.3); Mean Corpuscular HGB Conc 29.7 g/dL (30.0-36.0); Mean Corpuscular Hemoglobin 29.8 pg (28.0-34.0); Mean Platelet Volume 9.3 fL (7.4-10.4); Platelet Count 340 10^3/cmm (130-400); White Blood Count 20.9 10^3/uL (4.0-10.0)
[2019-11-27] MEDS: sodium chloride 0.9% 1,000 ML 999 ML IV (14:30)
[2019-11-27 14:31] LABS: Alveolar-Arterial Oxygen Gradi 10.1 mmHg (5-10); Arterial Blood Gas Hematocrit 36.7 % (37-47); Base Excess ABG 11.7 mmol/L (-2.0-2.0); Blood Gas Allen Test Pos; Blood Gas Operator Identificat AMH; Blood Gas Sample Site Radial, right; Blood Gas Sample Type Arterial; Carboxyhemoglobin 1.7 %THgb (0.4-20.1); HCO3 ABG 43.8 mmol/L (22-26); Ionized Calcium Level - ABG 1.2 mmol/L (1.1-1.4); Methemoglobin 0.8 % (0.4-1.5); Oxygen Device NC; PO2 ABG 50.3 mmHg (80.0-100.0); Potassium Level - ABG 3.8 mmol/L (3.5-5.0)
[2019-11-27 14:34] LABS: Amphetamines Screen Urine Positive (Negative); Barbiturates Screen Urine Negative (Negative); Benzodiazepines Screen Urine Negative (Negative); Cocaine Screen Urine Negative (Negative); Opiate Screen Urine Negative (Negative); PCP Screen Urine Negative (Negative); THC Screen Urine Negative (Negative)
[2019-11-27 14:35] LABS: Bilirubin Urine Neg (Negative); Blood Urine Neg (Negative); Glucose Urine UA Norm (Normal); Ketones Urine Negative (Negative); Leukocyte Esterase Urine Negative (Negative); Nitrate Urine Negative (Negative); Protein Urine Neg (Negative); Urine Appearance Clear (CLEAR); Urine Color Yellow (Yellow); Urobilinogen Urine Norm (Negative); pH Urine 5 (5-7)
[2019-11-27 14:37] LABS: Add Urine Culture? No; RBC Urine RARE /hpf (0-2); Squamous Epithelial Cell Urine RARE /hpf (0-5)
[2019-11-27 14:42] LABS: Slide Review Slide Review Perform
[2019-11-27] MEDS: succinylcholine 20 mg/mL SDV 10mL 200 MG IVP (14:44)
[2019-11-27 14:45] LABS: Absolute Eosinophils 0.2 10^3/cmm (0.0-0.7); Absolute Segmented Neutrophil 9.6 10/cmm (1.6-7.1); Band Neutrophils Absolute 3.3 10^3/cmm (0.0-1.2); Basophils Absolute 0.2 10^3/cmm (0.0-0.2); Eosinophils 1 %; Lymphocytes 18 %; Monocytes Absolute 0.8 10^3/cmm (0.1-0.6); Segmented Neutrophils 46 %; Total Cells Counted 100 (0-100)
[2019-11-27 14:46] LABS: Platelet Estimate Normal (Normal)
[2019-11-27 14:47] LABS: Stomatocytes 1+
[2019-11-27] MEDS: vecuronium 10 mg SDV IVP (14:47)
[2019-11-27 14:48] LABS: Ammonia 33 umol/L (11-51); Lactic Sepsis W/Reflex 2.1 mmol/L (0.5-2.2)
[2019-11-27 14:50] LABS: Influenza A by IFA Negative (Negative); Influenza B by IFA Negative (Negative)
[2019-11-27 14:51] LABS: Ketone (Acetest) Serum Negative (Negative)
--- NOTE | 2019-11-27 14:52 | XRR_ITS ---
PROCEDURE INFORMATION: Exam: XR Chest, 1 View Exam date and time: 11/27/2019 3:17 PM Age: 69 years old Clinical indication: Device placement; Ett placement (vent status); Additional info: Post intubation TECHNIQUE: Imaging protocol: XR of the chest Views: 1 view. COMPARISON: CR (CHEST, ) 11/27/2019 2:04 PM FINDINGS: Tubes, catheters and devices: ET tube tip projects 2.8 cm superior to the vira. Lungs: There are patchy opacities in the mid to lower left lung field which are increased when compared to the prior study. Pleural space: Unremarkable. No pleural effusion. No pneumothorax. Heart/Mediastinum: The heart is enlarged. The pulmonary venous structures are prominent and indistinct. There is interstitial prominence. Bones/joints: Unremarkable. Other findings: The distal aspect of the G-tube is not well seen however appears to terminate near the gastroesophageal junction. XR/XR chest 1V portable [id number] IMPRESSION: 1. Patchy opacities in the left lung have increased when compared to the prior study. Differential includes atelectasis and pneumonia. 2. The heart is enlarged. The pulmonary venous structures are prominent and indistinct. There is interstitial prominence. Findings raise concern for congestive heart failure. 3. Costophrenic angles are not well seen and pleural effusions cannot be excluded. 4. ET tube tip projects 2.8 cm superior to the vira. 5. The distal aspect of the G-tube is not well seen however appears to terminate near the gastroesophageal junction.
[2019-11-27 14:58] LABS: Alanine Aminotransferase 28 U/L (0-33); Albumin Level 4.4 g/dL (3.5-5.2); Alcohol Level < 10 mg/dL (0-10); Alkaline Phosphatase 51 IU/L (35-105); Anion Gap 12.1 (5-19); Aspartate Amino Transferase 44 U/L (0-32); Blood Urea Nitrogen 12 mg/dL (8-23); Calcium 8.7 mg/dL (8.5-10.5); Carbon Dioxide 38 mmol/L (22-29); Chloride 88 mmol/L (98-107); Globulin 3.3 g/dL (1.3-4.6); Glomerular Filtration Rate 82.7 mL/min (90-130); Glucose 95 mg/dL (65-115); Lipase 12 U/L (13-60); Magnesium 1.3 mg/dL (1.7-2.3); NT Pro B Type Natriuretic Pept 114 pg/mL (0-125); Osmolality Calculated 278 mOsm/kg (285-295); Potassium 4.1 mmol/L (3.5-5.1); Sodium 134 mmol/L (136-145); Thyroid Stimulating Hormone 51.45 uIU/mL (0.27-4.20); Total Bilirubin 0.2 mg/dL (0.15-1.2); Total Protein 7.7 g/dL (6.6-8.7); Troponin(5th) Baseline 217 ng/L (0-10)
--- NOTE | 2019-11-27 15:08 | W.ED.SOB ---
HPI - SOB/Dyspnea General: Chief Complaint: Shortness of Breath/Dyspnea Stated Complaint: resp distress, lethargic Time Seen by Provider: 11/27/19 13:45 Source: patient and EMS Mode of arrival: EMS Limitations: altered mental status History of Present Illness: HPI Narrative: Mrs. Ozuna is a 69-year-old female brought in by EMS after her home health nurse called stating the patient was lethargic and had difficulty breathing. Apparently EMS was there yesterday but the patient refused transport. Believe the patient lives at home and does not get out. It is unclear if she is been exposed anyone else sick. Here the patient is unable to give any history. She is markedly lethargic with very minimal respiratory effort. Review of Systems General: Reports: ROS unobtainable due to mental status PFSH ED PFSH: Medical History CKD (chronic kidney disease) stage 2, GFR 60-89 ml/min Gout Head injury Heart failure with preserved ejection fraction Methamphetamine abuse Morbid obesity Peptic ulcer Sleep apnea Thyroid disease Surgical History H/O bilateral salpingo-oophorectomy H/O knee surgery H/O: hysterectomy History of appendectomy History of cholecystectomy History of hip surgery Family History Other Family history unobtainable due to patient's condition Social History Smoking and tobacco status: unknown if ever smoked Quit status (tobacco): not considering quitting Alcohol intake: unknown History of recent travel: No Current gender identity: Female Physical Exam Const: GENERAL APPEARANCE: lethargic NUTRITIONAL APPEARANCE: obese ORIENTATION/CONSCIOUSNESS: Yes lethargic HENMT: COMMON NORMALS: normocephalic, atraumatic, external ears normal and Normal external nose present HEAD & SCALP: normocephalic and atraumatic FACE & SINUS: normal facial exam NOSE: Normal external nose present EXTERNAL EAR: Yes external ears normal MOUTH: Normal oral and palatal mucosa present THROAT: posterior oropharynx normal Eye: COMMON NORMALS: Equal, round and reactive pupils present PUPIL: Yes Equal, round and reactive pupils present Neck/C-Spine: COMMON NORMALS: no lymphadenopathy, supple, no meningeal signs and no JVD Chest: COMMONS NORMALS: normal inspection of the chest and normal palpation of entire chest wall Resp: EFFORT & INSPECTION: Yes decreased respiratory effort AUSCULTATION: rhonchi, wheezes and diminished lung sounds Cardio: COMMON NORMALS: no JVD, regular rate, regular rhythm, S1 normal heart sound present and S2 normal heart sound present RATE: regular rate RHYTHM: regular rhythm HEART SOUNDS: S1 normal heart sound present and S2 normal heart sound present GI: COMMON NORMALS: Soft to palpation and No hepatosplenomegaly present PALPATION: Yes Soft to palpation, No Tenderness to palpation present (GI), No Guarding due to palpation present (GI), No Rigid due to palpation and Yes No hepatosplenomegaly present Extremity: COMMON NORMALS: normal to inspection, capillary refill normal, no joint enlargement and no calf tenderness Neuro: HIMA COMA SCALE: document GCS findings Clayton coma scale eye opening: None Clayton coma scale verbal response: Words Hima coma scale motor response: Localising Clayton coma scale total score: 9 SENSORIUM/ORIENTATION: Yes lethargic MENINGEAL SIGNS: Yes no meningeal signs Course ED course: 1500 -very shortly after arrival we are attempting to check for causes of altered mental status and while the patient was on BiPAP before an ABG result was obtained the patient became hypoxic as well. The decision was made to perform RSI to protect the patient's airway as well as adequately oxygenate her. Vital Signs: Vital signs: Vital Signs Temperature 97.5 F L 11/27/19 13:43 Pulse Rate 104 H 11/27/19 16:00 Respiratory Rate 17 11/27/19 15:35 Blood Pressure 154/86 11/27/19 16:00 Pulse Oximetry 94 11/27/19 16:00 MDM - SOB/Dyspnea MDM Narrative: Medical decision making narrative: Mrs. Zee is a 6-year-old female who comes in altered mental status that appeared to be CO2 narcosis. Is unclear what is oversedated her. Endorsed the case to Dr. Lucero who agrees to go ahead and get a CT scan but he will admit to the ICU as long as there is no intracranial bleeding. Positive d-dimer will necessitate a CTA as well to rule out PE. This was done to check for inflammatory findings of COVID but at this time there is no evidence of this. But because of the positive findings we will go ahead and perform a CTA. Lab Data: Attestation: I reviewed the patient's lab results. Labs: Lab Results 11/27/19 11/27/19 11/27/19 Range/Units 14:07 14:07 14:07 WBC 20.9 H (4.0-10.0) 10^3/ uL RBC 4.09 L (4.1-5.3) 10^6/u L Hgb 12.2 (11.5-15.3) g/dL Hct 41.1 (37.0-47.0) % MCV 100.5 H (81-99) fL MCH 29.8 (28.0-34.0) pg MCHC 29.7 L (30.0-36.0) g/dL RDW 17.0 H (12.1-15.1) % Plt Count 340 (130-400) 10^3/c mm MPV 9.3 (7.4-10.4) fL Lymph % (Auto) Not Reportable [place] % (Auto) Not Reportable Lymph # (Auto) Not Reportable [place] # (Auto) Not Reportable Total Counted 100 (0-100) Absolute Neutrophi ls 13.0 H (1.4-6.5) 10^3/c mm Segmented Neutroph ils 46 % Abs Segm Neuts (Ma n) 9.6 H (1.6-7.1) 10/cmm Band Neutrophils 16.0 % Abs Band Neuts (Ma n) 3.3 H (0.0-1.2) 10^3/c mm Lymphocytes (Manua l) 18 % Monocytes (Manual) 4.0 % Absolute Monocytes 0.8 H (0.1-0.6) 10^3/c mm Eosinophils (Manua l) 1 % Absolute Eosinophi ls 0.2 (0.0-0.7) 10^3/c mm Basophils (Manual) 1.0 % Absolute Basophils 0.2 (0.0-0.2) 10^3/c mm Metamyelocytes 9.0 % Myelocytes 5.0 % Nucleated RBCs 2.0 H (0-1) /100WBC Platelet Estimate Normal (Normal) Stomatocytes 1+ H PT (12.1-14.9) SECO NDS INR (0.8-1.2) Fibrinogen (174-498) mg/dL D-Dimer (0-0.59) ug/mIFE U Specimen Type Sample Site ABG pH (7.35-7.45) ABG pCO2 (35-45) mmHg ABG pO2 (80.0-100.0) mmH g ABG HCO3 (22-26) mmol/L ABG O2 Saturation ABG Base Excess (-2.0-2.0) mmol/ L Mike Test A-a O2 Gradient (5-10) mmHg Hematocrit (37-47) % Hgb O2 Saturation (95-100) % Carboxyhemoglobin (0.4-20.1) %THgb Methemoglobin (0.4-1.5) % Total Hemoglobin (12-16) g/dL Ionized Calcium (1.1-1.4) mmol/L O2 Delivery Device O2 Liters/Min % FiO2 % Transmission And Protection Engineer ID Sodium 134 L (136-145) mmol/L Potassium 4.1 (3.5-5.1) mmol/L Chloride 88 L (98-107) mmol/L Carbon Dioxide 38 H (22-29) mmol/L Anion Gap 12.1 (5-19) BUN 12 (8-23) mg/dL Creatinine 0.7 (0.5-0.9) mg/dL GFR Calculation 82.7 L (90-130) mL/min Glucose 95 (65-115) mg/dL Calculated Osmolal ity 278 L (285-295) mOsm/k g Lactic Acid (0.5-2.2) mmol/L Calcium 8.7 (8.5-10.5) mg/dL Magnesium 1.3 L (1.7-2.3) mg/dL Total Bilirubin 0.2 (0.15-1.2) mg/dL AST 44 H (0-32) U/L ALT 28 (0-33) U/L Alkaline Phosphata se 51 (35-105) IU/L Ammonia 33 (11-51) umol/L Lactate Dehydrogen ase (135-214) U/L Troponin T Baselin e (0-10) ng/L C-Reactive Protein (0.0-4.9) mg/L NT-Pro-B Natriuret Pep 114 (0-125) pg/mL Total Protein 7.7 (6.6-8.7) g/dL Albumin 4.4 (3.5-5.2) g/dL Globulin 3.3 (1.3-4.6) g/dL Lipase 12 L (13-60) U/L TSH 51.45 H (0.27-4.20) uIU/ mL Urine Color (Yellow) Urine Appearance (CLEAR) Urine pH (5-7) Ur Specific Gravit y (1.005-1.030) Urine Protein (Negative) Urine Glucose (UA) (Normal) Urine Ketones (Negative) Urine Blood (Negative) Urine Nitrate (Negative) Urine Bilirubin (Negative) Urine Urobilinogen (Negative) mg/dL Ur Leukocyte Britt ase (Negative) Urine RBC (0-2) /hpf Urine WBC (0-5) /hpf Ur Squamous Epith Cells (0-5) /hpf Amorphous Sediment Urine Bacteria (NONE) /hpf Urine Opiates Scre en (Negative) ng/mL Ur Barbiturates Sc reen (Negative) ng/mL Ur Phencyclidine S crn (Negative) ng/mL Ur Amphetamines Sc reen (Negative) ng/mL U Benzodiazepines Scrn (Negative) ng/mL Urine Cocaine Scre en (Negative) ng/mL U Marijuana (THC) Screen (Negative) ng/mL Ethyl Alcohol < 10 (0-10) mg/dL Serum Ketones Negative (Negative) Influenza Type A A g (Negative) Influenza Type B A g (Negative) SARS-CoV-2 Ag (Rap id) (Negative) 11/27/19 11/27/19 11/27/19 Range/Units 14:07 14:07 14:07 WBC (4.0-10.0) 10^3/ uL RBC (4.1-5.3) 10^6/u L Hgb (11.5-15.3) g/dL Hct (37.0-47.0) % MCV (81-99) fL MCH (28.0-34.0) pg MCHC (30.0-36.0) g/dL RDW (12.1-15.1) % Plt Count (130-400) 10^3/c mm MPV (7.4-10.4) fL Lymph % (Auto) [place] % (Auto) Lymph # (Auto) [place] # (Auto) Total Counted (0-100) Absolute Neutrophi ls (1.4-6.5) 10^3/c mm Segmented Neutroph ils % Abs Segm Neuts (Ma n) (1.6-7.1) 10/cmm Band Neutrophils % Abs Band Neuts (Ma n) (0.0-1.2) 10^3/c mm Lymphocytes (Manua l) % Monocytes (Manual) % Absolute Monocytes (0.1-0.6) 10^3/c mm Eosinophils (Manua l) % Absolute Eosinophi ls (0.0-0.7) 10^3/c mm Basophils (Manual) % Absolute Basophils (0.0-0.2) 10^3/c mm Metamyelocytes % Myelocytes % Nucleated RBCs (0-1) /100WBC Platelet Estimate (Normal) Stomatocytes PT 12.00 L (12.1-14.9) SECO NDS INR 0.86 (0.8-1.2) Fibrinogen (174-498) mg/dL D-Dimer (0-0.59) ug/mIFE U Specimen Type Sample Site ABG pH (7.35-7.45) ABG pCO2 (35-45) mmHg ABG pO2 (80.0-100.0) mmH g ABG HCO3 (22-26) mmol/L ABG O2 Saturation ABG Base Excess (-2.0-2.0) mmol/ L Mike Test A-a O2 Gradient (5-10) mmHg Hematocrit (37-47) % Hgb O2 Saturation (95-100) % Carboxyhemoglobin (0.4-20.1) %THgb Methemoglobin (0.4-1.5) % Total Hemoglobin (12-16) g/dL Ionized Calcium (1.1-1.4) mmol/L O2 Delivery Device O2 Liters/Min % FiO2 % Transmission And Protection Engineer ID Sodium (136-145) mmol/L Potassium (3.5-5.1) mmol/L Chloride (98-107) mmol/L Carbon Dioxide (22-29) mmol/L Anion Gap (5-19) BUN (8-23) mg/dL Creatinine (0.5-0.9) mg/dL GFR Calculation (90-130) mL/min Glucose (65-115) mg/dL Calculated Osmolal ity (285-295) mOsm/k g Lactic Acid 2.1 (0.5-2.2) mmol/L Calcium (8.5-10.5) mg/dL Magnesium (1.7-2.3) mg/dL Total Bilirubin (0.15-1.2) mg/dL AST (0-32) U/L ALT (0-33) U/L Alkaline Phosphata se (35-105) IU/L Ammonia (11-51) umol/L Lactate Dehydrogen ase (135-214) U/L Troponin T Baselin e 217 H* (0-10) ng/L C-Reactive Protein (0.0-4.9) mg/L NT-Pro-B Natriuret Pep (0-125) pg/mL Total Protein (6.6-8.7) g/dL Albumin (3.5-5.2) g/dL Globulin (1.3-4.6) g/dL Lipase (13-60) U/L TSH (0.27-4.20) uIU/ mL Urine Color (Yellow) Urine Appearance (CLEAR) Urine pH (5-7) Ur Specific Gravit y (1.005-1.030) Urine Protein (Negative) Urine Glucose (UA) (Normal) Urine Ketones (Negative) Urine Blood (Negative) Urine Nitrate (Negative) Urine Bilirubin (Negative) Urine Urobilinogen (Negative) mg/dL Ur Leukocyte Britt ase (Negative) Urine RBC (0-2) /hpf Urine WBC (0-5) /hpf Ur Squamous Epith Cells (0-5) /hpf Amorphous Sediment Urine Bacteria (NONE) /hpf Urine Opiates Scre en (Negative) ng/mL Ur Barbiturates Sc reen (Negative) ng/mL Ur Phencyclidine S crn (Negative) ng/mL Ur Amphetamines Sc reen (Negative) ng/mL U Benzodiazepines Scrn (Negative) ng/mL Urine Cocaine Scre en (Negative) ng/mL U Marijuana (THC) Screen (Negative) ng/mL Ethyl Alcohol (0-10) mg/dL Serum Ketones (Negative) Influenza Type A A g (Negative) Influenza Type B A g (Negative) SARS-CoV-2 Ag (Rap id) (Negative) 11/27/19 11/27/19 11/27/19 Range/Units 14:07 14:07 14:09 WBC (4.0-10.0) 10^3/ uL RBC (4.1-5.3) 10^6/u L Hgb (11.5-15.3) g/dL Hct (37.0-47.0) % MCV (81-99) fL MCH (28.0-34.0) pg MCHC (30.0-36.0) g/dL RDW (12.1-15.1) % Plt Count (130-400) 10^3/c mm MPV (7.4-10.4) fL Lymph % (Auto) [place] % (Auto) Lymph # (Auto) [place] # (Auto) Total Counted (0-100) Absolute Neutrophi ls (1.4-6.5) 10^3/c mm Segmented Neutroph ils % Abs Segm Neuts (Ma n) (1.6-7.1) 10/cmm Band Neutrophils % Abs Band Neuts (Ma n) (0.0-1.2) 10^3/c mm Lymphocytes (Manua l) % Monocytes (Manual) % Absolute Monocytes (0.1-0.6) 10^3/c mm Eosinophils (Manua l) % Absolute Eosinophi ls (0.0-0.7) 10^3/c mm Basophils (Manual) % Absolute Basophils (0.0-0.2) 10^3/c mm Metamyelocytes % Myelocytes % Nucleated RBCs (0-1) /100WBC Platelet Estimate (Normal) Stomatocytes PT (12.1-14.9) SECO NDS INR (0.8-1.2) Fibrinogen 483 (174-498) mg/dL D-Dimer 1.92 H (0-0.59) ug/mIFE U Specimen Type Sample Site ABG pH (7.35-7.45) ABG pCO2 (35-45) mmHg ABG pO2 (80.0-100.0) mmH g ABG HCO3 (22-26) mmol/L ABG O2 Saturation ABG Base Excess (-2.0-2.0) mmol/ L Mike Test A-a O2 Gradient (5-10) mmHg Hematocrit (37-47) % Hgb O2 Saturation (95-100) % Carboxyhemoglobin (0.4-20.1) %THgb Methemoglobin (0.4-1.5) % Total Hemoglobin (12-16) g/dL Ionized Calcium (1.1-1.4) mmol/L O2 Delivery Device O2 Liters/Min % FiO2 % Transmission And Protection Engineer ID Sodium (136-145) mmol/L Potassium (3.5-5.1) mmol/L Chloride (98-107) mmol/L Carbon Dioxide (22-29) mmol/L Anion Gap (5-19) BUN (8-23) mg/dL Creatinine (0.5-0.9) mg/dL GFR Calculation (90-130) mL/min Glucose (65-115) mg/dL Calculated Osmolal ity (285-295) mOsm/k g Lactic Acid (0.5-2.2) mmol/L Calcium (8.5-10.5) mg/dL Magnesium (1.7-2.3) mg/dL Total Bilirubin (0.15-1.2) mg/dL AST (0-32) U/L ALT (0-33) U/L Alkaline Phosphata se (35-105) IU/L Ammonia (11-51) umol/L Lactate Dehydrogen ase 530 H (135-214) U/L Troponin T Baselin e (0-10) ng/L C-Reactive Protein 13.5 H (0.0-4.9) mg/L NT-Pro-B Natriuret Pep (0-125) pg/mL Total Protein (6.6-8.7) g/dL Albumin (3.5-5.2) g/dL Globulin (1.3-4.6) g/dL Lipase (13-60) U/L TSH (0.27-4.20) uIU/ mL Urine Color Yellow (Yellow) Urine Appearance Clear (CLEAR) Urine pH 5 (5-7) Ur Specific Gravit y 1.010 (1.005-1.030) Urine Protein Neg (Negative) Urine Glucose (UA) Norm (Normal) Urine Ketones Negative (Negative) Urine Blood Neg (Negative) Urine Nitrate Negative (Negative) Urine Bilirubin Neg (Negative) Urine Urobilinogen Norm (Negative) mg/dL Ur Leukocyte Britt ase Negative (Negative) Urine RBC Rare (0-2) /hpf Urine WBC None (0-5) /hpf Ur Squamous Epith Cells Rare (0-5) /hpf Amorphous Sediment Not Reportable Urine Bacteria None (NONE) /hpf Urine Opiates Scre en (Negative) ng/mL Ur Barbiturates Sc reen (Negative) ng/mL Ur Phencyclidine S crn (Negative) ng/mL Ur Amphetamines Sc reen (Negative) ng/mL U Benzodiazepines Scrn (Negative) ng/mL Urine Cocaine Scre en (Negative) ng/mL U Marijuana (THC) Screen (Negative) ng/mL Ethyl Alcohol (0-10) mg/dL Serum Ketones (Negative) Influenza Type A A g (Negative) Influenza Type B A g (Negative) SARS-CoV-2 Ag (Rap id) (Negative) 11/27/19 11/27/19 11/27/19 Range/Units 14:09 14:15 14:15 WBC (4.0-10.0) 10^3/ uL RBC (4.1-5.3) 10^6/u L Hgb (11.5-15.3) g/dL Hct (37.0-47.0) % MCV (81-99) fL MCH (28.0-34.0) pg MCHC (30.0-36.0) g/dL RDW (12.1-15.1) % Plt Count (130-400) 10^3/c mm MPV (7.4-10.4) fL Lymph % (Auto) [place] % (Auto) Lymph # (Auto) [place] # (Auto) Total Counted (0-100) Absolute Neutrophi ls (1.4-6.5) 10^3/c mm Segmented Neutroph ils % Abs Segm Neuts (Ma n) (1.6-7.1) 10/cmm Band Neutrophils % Abs Band Neuts (Ma n) (0.0-1.2) 10^3/c mm Lymphocytes (Manua l) % Monocytes (Manual) % Absolute Monocytes (0.1-0.6) 10^3/c mm Eosinophils (Manua l) % Absolute Eosinophi ls (0.0-0.7) 10^3/c mm Basophils (Manual) % Absolute Basophils (0.0-0.2) 10^3/c mm Metamyelocytes % Myelocytes % Nucleated RBCs (0-1) /100WBC Platelet Estimate (Normal) Stomatocytes PT (12.1-14.9) SECO NDS INR (0.8-1.2) Fibrinogen (174-498) mg/dL D-Dimer (0-0.59) ug/mIFE U Specimen Type Sample Site ABG pH (7.35-7.45) ABG pCO2 (35-45) mmHg ABG pO2 (80.0-100.0) mmH g ABG HCO3 (22-26) mmol/L ABG O2 Saturation ABG Base Excess (-2.0-2.0) mmol/ L Mike Test A-a O2 Gradient (5-10) mmHg Hematocrit (37-47) % Hgb O2 Saturation (95-100) % Carboxyhemoglobin (0.4-20.1) %THgb Methemoglobin (0.4-1.5) % Total Hemoglobin (12-16) g/dL Ionized Calcium (1.1-1.4) mmol/L O2 Delivery Device O2 Liters/Min % FiO2 % Transmission And Protection Engineer ID Sodium (136-145) mmol/L Potassium (3.5-5.1) mmol/L Chloride (98-107) mmol/L Carbon Dioxide (22-29) mmol/L Anion Gap (5-19) BUN (8-23) mg/dL Creatinine (0.5-0.9) mg/dL GFR Calculation (90-130) mL/min Glucose (65-115) mg/dL Calculated Osmolal ity (285-295) mOsm/k g Lactic Acid (0.5-2.2) mmol/L Calcium (8.5-10.5) mg/dL Magnesium (1.7-2.3) mg/dL Total Bilirubin (0.15-1.2) mg/dL AST (0-32) U/L ALT (0-33) U/L Alkaline Phosphata se (35-105) IU/L Ammonia (11-51) umol/L Lactate Dehydrogen ase (135-214) U/L Troponin T Baselin e (0-10) ng/L C-Reactive Protein (0.0-4.9) mg/L NT-Pro-B Natriuret Pep (0-125) pg/mL Total Protein (6.6-8.7) g/dL Albumin (3.5-5.2) g/dL Globulin (1.3-4.6) g/dL Lipase (13-60) U/L TSH (0.27-4.20) uIU/ mL Urine Color (Yellow) Urine Appearance (CLEAR) Urine pH (5-7) Ur Specific Gravit y (1.005-1.030) Urine Protein (Negative) Urine Glucose (UA) (Normal) Urine Ketones (Negative) Urine Blood (Negative) Urine Nitrate (Negative) Urine Bilirubin (Negative) Urine Urobilinogen (Negative) mg/dL Ur Leukocyte Britt ase (Negative) Urine RBC (0-2) /hpf Urine WBC (0-5) /hpf Ur Squamous Epith Cells (0-5) /hpf Amorphous Sediment Urine Bacteria (NONE) /hpf Urine Opiates Scre en Negative (Negative) ng/mL Ur Barbiturates Sc reen Negative (Negative) ng/mL Ur Phencyclidine S crn Negative (Negative) ng/mL Ur Amphetamines Sc reen Positive H (Negative) ng/mL U Benzodiazepines Scrn Negative (Negative) ng/mL Urine Cocaine Scre en Negative (Negative) ng/mL U Marijuana (THC) Screen Negative (Negative) ng/mL Ethyl Alcohol (0-10) mg/dL Serum Ketones (Negative) Influenza Type A A g Negative (Negative) Influenza Type B A g Negative (Negative) SARS-CoV-2 Ag (Rap id) Negative (Negative) 11/27/19 Range/Units 14:25 WBC (4.0-10.0) 10^3/ uL RBC (4.1-5.3) 10^6/u L Hgb (11.5-15.3) g/dL Hct (37.0-47.0) % MCV (81-99) fL MCH (28.0-34.0) pg MCHC (30.0-36.0) g/dL RDW (12.1-15.1) % Plt Count (130-400) 10^3/c mm MPV (7.4-10.4) fL Lymph % (Auto) [place] % (Auto) Lymph # (Auto) [place] # (Auto) Total Counted (0-100) Absolute Neutrophi ls (1.4-6.5) 10^3/c mm Segmented Neutroph ils % Abs Segm Neuts (Ma n) (1.6-7.1) 10/cmm Band Neutrophils % Abs Band Neuts (Ma n) (0.0-1.2) 10^3/c mm Lymphocytes (Manua l) % Monocytes (Manual) % Absolute Monocytes (0.1-0.6) 10^3/c mm Eosinophils (Manua l) % Absolute Eosinophi ls (0.0-0.7) 10^3/c mm Basophils (Manual) % Absolute Basophils (0.0-0.2) 10^3/c mm Metamyelocytes % Myelocytes % Nucleated RBCs (0-1) /100WBC Platelet Estimate (Normal) Stomatocytes PT (12.1-14.9) SECO NDS INR (0.8-1.2) Fibrinogen (174-498) mg/dL D-Dimer (0-0.59) ug/mIFE U Specimen Type Arterial Sample Site Radial, right ABG pH 7.20 L (7.35-7.45) ABG pCO2 112.0 H* (35-45) mmHg ABG pO2 50.3 L (80.0-100.0) mmH g ABG HCO3 43.8 H (22-26) mmol/L ABG O2 Saturation 80.0 ABG Base Excess 11.7 H (-2.0-2.0) mmol/ L Mike Test Pos A-a O2 Gradient 10.1 H (5-10) mmHg Hematocrit 36.7 L (37-47) % Hgb O2 Saturation 78.0 L (95-100) % Carboxyhemoglobin 1.7 (0.4-20.1) %THgb Methemoglobin 0.8 (0.4-1.5) % Total Hemoglobin 12.0 (12-16) g/dL Ionized Calcium 1.2 (1.1-1.4) mmol/L O2 Delivery Device Nc O2 Liters/Min 4.0 % FiO2 36.0 % Transmission And Protection Engineer ID Amh Sodium 137.0 (136-145) mmol/L Potassium 3.8 (3.5-5.1) mmol/L Chloride (98-107) mmol/L Carbon Dioxide (22-29) mmol/L Anion Gap (5-19) BUN (8-23) mg/dL Creatinine (0.5-0.9) mg/dL GFR Calculation (90-130) mL/min Glucose 98.0 (65-115) mg/dL Calculated Osmolal ity (285-295) mOsm/k g Lactic Acid (0.5-2.2) mmol/L Calcium (8.5-10.5) mg/dL Magnesium (1.7-2.3) mg/dL Total Bilirubin (0.15-1.2) mg/dL AST (0-32) U/L ALT (0-33) U/L Alkaline Phosphata se (35-105) IU/L Ammonia (11-51) umol/L Lactate Dehydrogen ase (135-214) U/L Troponin T Baselin e (0-10) ng/L C-Reactive Protein (0.0-4.9) mg/L NT-Pro-B Natriuret Pep (0-125) pg/mL Total Protein (6.6-8.7) g/dL Albumin (3.5-5.2) g/dL Globulin (1.3-4.6) g/dL Lipase (13-60) U/L TSH (0.27-4.20) uIU/ mL Urine Color (Yellow) Urine Appearance (CLEAR) Urine pH (5-7) Ur Specific Gravit y (1.005-1.030) Urine Protein (Negative) Urine Glucose (UA) (Normal) Urine Ketones (Negative) Urine Blood (Negative) Urine Nitrate (Negative) Urine Bilirubin (Negative) Urine Urobilinogen (Negative) mg/dL Ur Leukocyte Britt ase (Negative) Urine RBC (0-2) /hpf Urine WBC (0-5) /hpf Ur Squamous Epith Cells (0-5) /hpf Amorphous Sediment Urine Bacteria (NONE) /hpf Urine Opiates Scre en (Negative) ng/mL Ur Barbiturates Sc reen (Negative) ng/mL Ur Phencyclidine S crn (Negative) ng/mL Ur Amphetamines Sc reen (Negative) ng/mL U Benzodiazepines Scrn (Negative) ng/mL Urine Cocaine Scre en (Negative) ng/mL U Marijuana (THC) Screen (Negative) ng/mL Ethyl Alcohol (0-10) mg/dL Serum Ketones (Negative) Influenza Type A A g (Negative) Influenza Type B A g (Negative) SARS-CoV-2 Ag (Rap id) (Negative) EKG Data^: EKG 1: Attestation: I personally reviewed and interpreted this EKG as follows: EKG Interpretation Date: 11/27/19 EKG interpretation time: 15:11 Interpretation: Normal sinus rhythm at 90 minutes a minute with first-degree AV block, right bundle branch block, left ventricular hypertrophy, left anterior fascicular block, normal discordance. No acute ST-T wave changes. Discharge Plan Discharge Patient Disposition: Admitted As Inpatient Admit Provider: Dm Lucero Clinical Impression: Acute alteration in mental status, Elevated troponin, Methamphetamine abuse, Acute hypercapnic respiratory failure Condition: Stable Referrals: Ubaldo Delgado MD [Primary Care Provider] - Coding Level of Care Code ED Buckle Gluer for Chg Fwd Exam Comprehensive
[2019-11-27 15:09] LABS: SARS Covid-2 Antigen Negative (Negative)
[2019-11-27 15:12] LABS: INR 0.86 (0.8-1.2)
[2019-11-27 15:17] LABS: C Reactive Protein 13.5 mg/L (0.0-4.9); Lactate Dehydrogenase 530 U/L (135-214)
[2019-11-27 15:21] LABS: Reflex Lactate Order REFLEX LACTIC ORDERD
[2019-11-27 15:27] LABS: Fibrinogen 483 mg/dL (174-498)
--- NOTE | 2019-11-27 15:28 | XRR_ITS ---
PROCEDURE INFORMATION: Exam: XR Chest, 1 View Exam date and time: 11/27/2019 3:51 PM Age: 69 years old Clinical indication: Device placement; Ng tube; Additional info: Post ng tube TECHNIQUE: Imaging protocol: XR of the chest Views: 1 view. COMPARISON: CR XR chest 1V portable [id number] 11/27/2019 2:54 PM FINDINGS: Lungs: Not well seen. There is over penetration of the x-ray beam in this region. Pleural space: Not well seen. There is over penetration of the x-ray beam in this region. Heart/Mediastinum: Not well seen. There is over penetration of the x-ray beam in this region. Bones/joints: Unremarkable. Gastrointestinal tract: There is a G-tube in place which has been progressed since the prior study. Distal fenestrated in of the G-tube is positioned in the left upper quadrant in the expected location of the stomach body. XR/XR chest 1V portable [id number] IMPRESSION: Distal fenestrated in of the G-tube is positioned in the left upper quadrant in the expected location of the stomach body.
[2019-11-27 15:30] LABS: D Dimer 1.92 ug/mIFEU (0-0.59)
--- NOTE | 2019-11-27 15:44 | PM.HP ---
Providers/Chief Complaint Primary Care Provider: Varinder Delgado Chief Complaint: resp distress, lethargic History of Present Illness Wendy Ozuna is a 69 year old female presenting to the emergency department with with confusion, and respiratory failure. From my understanding she was significantly lethargic when she had the emergency department. They were going to try BiPAP when she desaturated, requiring intubation. Prior to that she was saturating on 6 L. No further history is really unobtainable at this time although the emergency department physician reported the ambulance was called to her house the day prior for some shortness of breath and she refused transport. Patient has had several hospital stays here, where she presents with confusion, and then gets intubated. She has had methamphetamine in her system each time. 1 time she self extubated, recovered well and discharged home in March. She was transferred to another facility in September with a similar episode secondary to persistent encephalopathy. Other history currently is unobtainable. I tried to call her son's number but voicemail box has not been set up. Second contact reports she has not seen her in quite some time. Review of Systems General: Reports: ROS unobtainable due to mental status Medications/Allergies Home Medications Medication Instructions Recorded Confirmed Last Taken Type levothyroxine 200 mcg PO DAILY 03/23/19 11/27/19 Unknown History nitroglycerin [Nitrostat] 0.4 mg SUBLINGUAL Q5M PRN 03/23/19 11/27/19 Unknown History potassium chloride 20 meq PO DAILY 03/23/19 11/27/19 Unknown History pramipexole 3 mg PO BID 03/23/19 11/27/19 Unknown History fluticasone propion-salmeterol 1 inh INHALATION BID #60 each 03/26/19 11/27/19 Unknown Rx [Advair Diskus] ipratropium-albuterol 3 ml INHALATION QID PRN #180 ml 03/26/19 11/27/19 Unknown Rx tiotropium bromide [Spiriva with 1 cap INHALATION DAILY 11/27/19 11/27/19 Unknown History HandiHaler] Allergies Allergy/AdvReac Type Severity Reaction Status Date / Time eszopiclone [From Lunesta] Allergy Unknown unknown Verified 08/30/19 14:03 gabapentin Allergy Unknown Unknown Verified 08/30/19 14:03 PFSH Acute PFSH: Medical History CKD (chronic kidney disease) stage 2, GFR 60-89 ml/min Gout Head injury Heart failure with preserved ejection fraction Methamphetamine abuse Morbid obesity Peptic ulcer Sleep apnea Thyroid disease Surgical History H/O bilateral salpingo-oophorectomy H/O knee surgery H/O: hysterectomy History of appendectomy History of cholecystectomy History of hip surgery Family History Other Family history unobtainable due to patient's condition Social History Smoking and tobacco status: unknown if ever smoked Quit status (tobacco): not considering quitting Alcohol intake: unknown History of recent travel: No Current gender identity: Female Vitals/I&O/Wt Last Vital Signs Temp 97.5 F L 11/27/19 13:43 Pulse 87 11/27/19 15:10 Resp 17 11/27/19 15:35 BP 169/103 11/27/19 15:10 Pulse Ox 99 11/27/19 15:10 Weight last 48 hrs Weight 122.47 kg Physical Exam Narrative: EXAM NARRATIVE: General exam is sedated, on ventilator HEENT: Pupils equally round. Neurologic: Currently paralyzed and sedated Oropharynx with endotracheal tube Neck is supple, no obvious mass Cardiovascular regular rate and rhythm, no murmur Lungs bilateral expiratory wheezes Abdomen obese, nontender. demonstrates Pete Extremities no cyanosis clubbing or edema, cap refill brisk Skin no obvious rash. Will need to examine her back when she is transferred. Urinary Catheter Management^: Pete: Cath Placed During This Visit: yes Urinary Catheter Date of Insertion: 11/27/19 Urinary Catheter Time of Insertion: 14:07 Data : 11/27/19 14:07 11/27/19 14:07 Micro: Microbiology 11/27/19 14:07 Blood Culture - Preliminary Blood SPECIMEN COLLECTED Other data: Tray by my read demonstrates some crowding, pulmonary congestion, left lower lobe infiltrate versus atelectasis. Dimer is elevated at 1.92 Initial pH 7.2, PCO2 112, PO2 50, carboxyhemoglobin level of 1.7. Magnesium level 1.3. AST slightly elevated at 44. Troponin at baseline 217. TSH 51.45 Lipase is 12 Urinalysis rare reds, no whites. Urine drug screen positive for methamphetamine. Influenza a and B-. Rapid COVID negative. PTC COVID test sent. A&P Assessment and plan (1) Acute hypercapnic respiratory failure: Intubated in the ER Versed and fentanyl for sedation. There was concern regarding lipids last hospital stay so propofol was discontinued at that time. Wean ventilator as tolerated Secondary to elevated d-dimer, check CTA chest Status: Acute (2) COPD exacerbation: IV steroids Pulmonary toilet Status: Acute (3) Pneumonia: IV antibiotics consisting of vancomycin and Primaxin Sputum culture, blood culture Status: Acute (4) Acute encephalopathy: Check noncontrast CT head Likely secondary to CO2 narcosis and/or methamphetamine use Status: Acute (5) Hypomagnesemia: Supplemented in the ER Recheck tomorrow Status: Acute (6) Elevated troponin: Full dose anticoagulation currently Aspirin 81 mg daily Check echocardiogram Lipid profile in a.m. As EKG nonischemic, and history of elevated troponin in the past will await trend before any further action. This may be secondary to her methamphetamine use or history of heart failure. She does appear somewhat fluid overloaded currently and received a dose of Lasix 60 mg IV in the ER. Will reevaluate tomorrow morning if need for further diuretic is noted. Status: Acute (7) Hypothyroidism: I suspect she may do me noncompliant with her home medicine as elevated TSH is noted Continue her home medicine currently. Status: Acute (8) Methamphetamine abuse: Multiple occasions where she is methamphetamine positive. Monitor for withdrawal Status: Acute (9) Tobacco dependency: Counseling when able Status: Acute Additional A&P Information Past history of chronic kidney disease stage II History of GERD. Protonix will be administered. Full code I attempted to contact family members been unsuccessful currently. Lovenox full dose anticoagulation currently until CTA chest is known and elevated troponin evaluated further. This is as long as CT head does not show any bleeding. Isolation precautions until PTC COVID is returned. Attestations Medical Necessity Statement*: Will need greater than 2 midnight stay for evaluation and treatment of respiratory failure. Critical Care Time: 56 minutes spent in critical care time at bedside reviewing patient's history, exam, and determining best course in this patient with respiratory failure, encephalopathy, CO2 narcosis, COPD exacerbation, pneumonia, methamphetamine use with high risk of morbidity and mortality. 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
--- NOTE | 2019-11-27 15:49 | ECG_ITS ---
[facility] Test Date: 2019-11-27 Pat Name: Wendy Ozuna Department: Room: Gender: Female Key Filer: : 1950 Requested By: Jany Marques Order Number: [id number] Zelda MD: Justin Hall M.D. Measurements Intervals North Rate: 90 P: 85 NE: 210 QRS: -69 QRSD: 149 T: 87 QT: 402 QTc: 494 Interpretive Statements SINUS RHYTHM WITH FIRST DEGREE AV BLOCK RIGHT BUNDLE BRANCH BLOCK [120+ ms QRS DURATION, UPRIGHT V1, 40+ ms S IN I/aVL/V4/V5/V6] LEFT ANTERIOR FASCICULAR BLOCK [QRS AXIS <= -45, QR IN I, RS IN II] LEFT VENTRICULAR HYPERTROPHY AND ST-T CHANGE [VOLTAGE CRITERIA PLUS ST/T ABNORMALITY] POSSIBLE ANTERIOR MYOCARDIAL INFARCTION , OF INDETERMINATE AGE [30 ms Q WAVE IN V3/V4, OR R < 0.2 mV IN V4] Compared to ECG 08/30/2019 18:29:18 First degree AV block now present Left ventricular hypertrophy now present ST (T wave) deviation now present Myocardial infarct finding still present Electronically Signed On 11-28-2019 19:42:14 CDT by Justin Hall M.D. [id number]
--- NOTE | 2019-11-27 15:55 | CTR_ITS ---
PROCEDURE INFORMATION: Exam: CT Angiography Chest With Contrast Exam date and time: 11/27/2019 4:11 PM Age: 69 years old Clinical indication: Other: Low o2; Additional info: Elevated ddimer TECHNIQUE: Imaging protocol: Computed tomographic angiography of the chest with intravenous contrast. 3D rendering (Not supervised by radiologist): MIP and/or 3D reconstructed images were created by the technologist. Radiation optimization: All CT scans at this facility use at least one of these dose optimization techniques: automated exposure control; mA and/or kV adjustment per patient size (includes targeted exams where dose is matched to clinical indication); or iterative reconstruction. Contrast material: OMNI 350; Contrast volume: 95 ml; Contrast route: INTRAVENOUS (IV); COMPARISON: CT angio chest w abd pel w con 08/30/2019 6:37 PM RADIATION DOSE METRICS: Total DLP (mGy-cm): 765.07 FINDINGS: Tubes, catheters and devices: ET tube tip is positioned superior to the vira. There is a G-tube extending into the stomach. Distal tip is not visualized. Pulmonary arteries: Normal. No pulmonary emboli. Aorta: Unremarkable. No aortic aneurysm. No aortic dissection. Lungs: There is consolidation at the posterior aspects of the lungs. Bilateral scattered pulmonary ground-glass opacities. Pleural space: Unremarkable. No pneumothorax. No pleural effusion. Heart: Cardiomegaly. Lymph nodes: Unremarkable. No enlarged lymph nodes. Bones/joints: Unremarkable. No acute fracture. Soft tissues: Unremarkable. CT/CT angio chest PE protcl [id number] IMPRESSION: 1. Cardiomegaly. Bilateral pulmonary ground-glass opacities likely represent pulmonary edema in this patient. Pneumonia is a possibility as well. 2. Consolidation at the posterior aspects of the lungs may represent atelectasis or pneumonia. 3. No evidence for pulmonary embolus. Radiation Dose CTDIVOL = (mGy): DLP = 765.07 (mGy-cm)
[2019-11-27] MEDS: LORazepam 2 mg/mL INJ 1 mL 1 MG IVP (16:07)
[2019-11-27] MEDS: iohexol 350 mg/mL 100 mL Btl IV (17:08)
[2019-11-27 18:07] LABS: ABG PH Result 7.34 (7.35-7.45); Alveolar-Arterial Oxygen Gradi 38.3 mmHg (5-10); Arterial Blood Gas Hematocrit 35.7 % (37-47); Base Excess ABG 8.1 mmol/L (-2.0-2.0); Blood Gas Allen Test Pos; Blood Gas Operator Identificat BD; Blood Gas Sample Site Radial, right; Blood Gas Sample Type Arterial; Blood Gas Tidal Volume 0.45; Carboxyhemoglobin 1.3 %THgb (0.4-20.1); HGB O2 Sat 89.4 % (95-100); Ionized Calcium Level - ABG 1.1 mmol/L (1.1-1.4); Methemoglobin 0.7 % (0.4-1.5); Oxygen Device VENT; Oxygen Saturation ABG 91.1; PO2 ABG 57.3 mmHg (80.0-100.0); Potassium Level - ABG 4.3 mmol/L (3.5-5.0); Total Hemoglobin 11.6 g/dL (12-16)
[2019-11-27 18:08] LABS: ABG PCO2 67.1 mmHg (35-45)
[2019-11-27] MEDS: enoxaparin 100 mg/mL Syringe SUBCUT (19:18)
--- NOTE | 2019-11-27 19:49 | ECG_ITS ---
[facility] Test Date: 2019-11-28 Pat Name: Wendy Ozuna Department: Room: ICU09 Gender: Female Loss Control Manager: KITAMAGNOLIATeodoro : 1950 Requested By: Jany Marques Order Number: [id number] Zelda MD: Justin Hall M.D. Measurements Intervals Joseph Rate: 75 P: 50 IL: 190 QRS: -64 QRSD: 149 T: 76 QT: 464 QTc: 520 Interpretive Statements SINUS RHYTHM WITH OCCASIONAL VENTRICULAR PREMATURE COMPLEXES RIGHT BUNDLE BRANCH BLOCK [120+ ms QRS DURATION, UPRIGHT V1, 40+ ms S IN I/aVL/V4/V5/V6] LEFT ANTERIOR FASCICULAR BLOCK [QRS AXIS <= -45, QR IN I, RS IN II] POSSIBLE ANTERIOR MYOCARDIAL INFARCTION [30 ms Q WAVE IN V3/V4, OR R < 0.2 mV IN V4], PROBABLY OLD Compared to ECG 11/27/2019 15:11:45 Ventricular premature complex(es) now present First degree AV block no longer present Left ventricular hypertrophy no longer present ST (T wave) deviation no longer present Myocardial infarct finding still present Electronically Signed On 11-28-2019 19:39:13 CDT by Justin Hall M.D. [id number]
--- NOTE | 2019-11-27 20:04 | PC.NURSE ---
Pt arrived to ICU bed 9 at about 17:30. Pt transferred from stretcher to bed without incident. Pt connected to battery vent plug inserter; VSS. Current rhythm is normal sinus rhythm with BBB; no ectopy noted. Current infusions upon admission were fentanyl @ 100mcg/hr, propofol @ 7mcg/kg/min, and normal saline @ 150ml/hr. Pt remains adequately sedated; unable to follow commands at this time. Bilateral wrist restraints in place. Bed bath given. Assessment completed at about 17:45, but was charted with a time of 19:47 by mistake. Report received from ED nurse Chandni, who stated she still needed to finish charting on this pt, including uncharted medications.
[2019-11-27 20:23] LABS: Lactic Acid level (Lactate) 2.8 mmol/L (0.5-2.2)
[2019-11-27 20:25] LABS: Troponin 5 6HR 143.1 ng/L (0-10)
[2019-11-27] MEDS: ipratropium-albuterol 3 mL Neb INHALATION (20:38)
--- NOTE | 2019-11-27 20:46 | PC.NURSE ---
Patient received from ER at 1730 per day shift nurse Jocelin Mckeon RN. Per ER nurse Chandni Saleh, HERBIE. Ordered dose of Lasix was not given in ER. Per Dr. Lucero note patient will have q 12 40 mg Lasix IVP. Order was updated to 40 mg IVP first dose now and then q12 as ER dose was never given.
--- NOTE | 2019-11-27 21:04 | PC.NURSE ---
INTIAL OG PLACED OUT OF PLACE VIA X-RAY, REMOVED AND REPLACED WITHOUT COMPLICATIONS
[2019-11-27] MEDS: FUROsemide 10 mg/mL SDV 4mL 40 MG IVP (21:12)
[2019-11-27] MEDS: magnesium sulfate premix 2 GM/50 ML PIGGYBACK IV (21:12)
--- NOTE | 2019-11-27 21:16 | PC.NURSE ---
1717- CT SCANS COMPLETED, PATIENT TRANSFERRED FROM CT TO ICU, CARDIAC MONITORING, VENT AND COVID PRECAUTIONS REMAIN IN USE.
--- NOTE | 2019-11-27 21:32 | PC.PHAR ---
Vancomycin is dosed at 1250mg IVPB every 12 hours to produce a predicted trough level of 12.25 (population based pharmacokinetic analysis). A trough level has been ordered from the lab to be obtained before the third dose to confirm and adjust if needed.
[2019-11-28] VITALS (83 sets, daily range): BP systolic 124–184; BP diastolic 63–108; PULSE 66–81; RESP 12–14; TEMP 36.1–37.7; O2SAT 89–96
[2019-11-28] MEDS: ipratropium-albuterol 3 mL Neb INHALATION ×4 (02:58→20:20)
[2019-11-28 04:43] LABS: Basophils # 0.2 10^3/uL (0.0-0.1); Hematocrit 40.1 % (37.0-47.0); Hemoglobin 12.3 g/dL (11.5-15.3); Lymphocytes # 2.3 10^3/uL (0.8-4.8); Lymphocytes % 10.2 %; Mean Corpuscular HGB Conc 30.7 g/dL (30.0-36.0); Mean Corpuscular Hemoglobin 29.6 pg (28.0-34.0); Mean Corpuscular Volume 96.6 fL (81-99); Mean Platelet Volume 9.8 fL (7.4-10.4); Monocytes # 0.4 10^3/uL (0.2-0.9); Monocytes % 1.9 %; Neutrophils # 13.85 10^3/uL (1.8-7.7); Neutrophils % 62.8 %; Nucleated Red Blood Cells % 0.1 %; Platelet Count 353 10^3/cmm (130-400); Red Blood Count 4.15 10^6/uL (4.1-5.3); Red Cell Distribution Width 16.9 % (12.1-15.1); White Blood Count 22.1 10^3/uL (4.0-10.0)
[2019-11-28 05:06] LABS: Alanine Aminotransferase 24 U/L (0-33); Alkaline Phosphatase 56 IU/L (35-105); Aspartate Amino Transferase 34 U/L (0-32); Blood Urea Nitrogen 10 mg/dL (8-23); Calcium 8.4 mg/dL (8.5-10.5); Carbon Dioxide 32 mmol/L (22-29); Chloride 88 mmol/L (98-107); Globulin 3.4 g/dL (1.3-4.6); Glomerular Filtration Rate 82.7 mL/min (90-130); Glucose 154 mg/dL (65-115); Magnesium 1.5 mg/dL (1.7-2.3); Osmolality Calculated 282 mOsm/kg (285-295); Sodium 135 mmol/L (136-145); Total Bilirubin 0.3 mg/dL (0.15-1.2); Total Protein 7.4 g/dL (6.6-8.7)
[2019-11-28 05:22] LABS: Chol HDL Ratio 7.29 mg/dL (0.0-4.40); Cholesterol 423 mg/dL (0-200); HDL Cholesterol 58 mg/dL (60-100); LDL Cholesterol Calculated 322 mg/dL (50-129); LDL HDL Ratio 5.55 RATIO (0.00-3.22); Triglycerides 213 mg/dL (0-150)
[2019-11-28 06:42] LABS: ABG PCO2 40.7 mmHg (35-45); ABG PH Result 7.56 (7.35-7.45); Arterial Blood Gas Hematocrit 43.8 % (37-47); Blood Gas Sample Site Brachial, right; Blood Gas Sample Type Arterial; HCO3 ABG 36.5 mmol/L (22-26); Oxygen Device VENT; PO2 ABG 53.2 mmHg (80.0-100.0)
--- NOTE | 2019-11-28 07:00 | USCV_ITS ---
Wendy Ozuna Age: 69 Gender: F : 1950 Exam Date: 11/28/2019 06:15 Ordering Phys: Dm Lucero MD Technologist: Romulo Dias Exam Location: [facility] [place] Indication: ELIVATED TROP BP: 142 / 82 HR: 74 Rhythm: Sinus Technical Quality: Poor because of body habitus MEASUREMENTS (Male / Female) Normal Values 2D ECHO LV Diastolic Diameter PLAX 3.5 cm 4.2 - 5.9 / 3.9 - 5.3 cm LV Systolic Diameter PLAX 2.3 cm IVS Diastolic Thickness 0.9 cm 0.6 - 1.0 / 0.6 - 0.9 cm IVS Systolic Thickness 1.1 cm LVPW Diastolic Thickness 0.8 cm 0.6 - 1.0 / 0.6 - 0.9 cm LVPW Systolic Thickness 1.1 cm LVOT Diameter 2.0 cm LV Ejection Fraction 2D Teich 64.6 % LV Ejection Fraction MOD 2C 65.7 % LV Ejection Fraction 2C AL 66.0 % LA Diameter 4.7 cm LA Width 3.6 cm LA Height 4.5 cm RA Width 3.6 cm RA Height 4.3 cm M-MODE LV Diastolic Diameter MM 5.2 cm 4.2 - 5.9 / 3.9 - 5.3 cm LV Systolic Diameter MM 3.5 cm LV Ejection Fraction MM Teich 59.5 % IVS Diastolic Thickness MM 1.2 cm 0.6 - 1.0 / 0.6 - 0.9 cm IVS Systolic Thickness MM 1.6 cm LVPW Diastolic Thickness MM 1.3 cm 0.6 - 1.0 / 0.6 - 0.9 cm LVPW Systolic Thickness MM 1.8 cm RV Diastolic Diameter MM 1.1 cm Aortic Annulus Diameter 3.7 cm LA Ao Ratio MM 1.3 MV E Point Septal Separation 0.9 cm DOPPLER AV Peak Velocity 144.0 cm/s LVOT Peak Velocity 86.0 cm/s AV Area Cont Eq vti 1.7 cm squared AV Area Cont Eq pk 1.8 cm squared MV Area PHT 3.1 cm squared Mitral E to A Ratio 1.1 MV E' Velocity 102.0 cm/s TR Peak Velocity 140.0 cm/s TR Peak Gradient 7.8 mmHg TV Peak E Velocity 92.0 cm/s Right Atrial Pressure 3.0 mmHg Pulmonary Artery Systolic Pressu 10.8 mmHg PV Peak Velocity 103.0 cm/s FINDINGS Left Ventricle Possibly normal LV size and ejection fraction. Segmental wall motion analysis difficult because of poor ultrasonic window Right Ventricle Possibly of normal size Right Atrium Appears to be mildly dilated Left Atrium Appears to be mildly dilated Mitral Valve Moderate mitral annular calcification. Thickened mitral valve. Aortic Valve Thickened aortic valve. Tricuspid Valve Could not be visualized well Pulmonic Valve Pulmonic valve not well visualized. Pericardium No pericardial effusion. Aorta Normal aortic annulus size. CONCLUSIONS Possibly normal LV size and ejection fraction. Segmental wall motion analysis difficult because of poor ultrasonic window. Mild biatrial enlargement Thickened aortic and mitral valves Moderate mitral annular calcification. There is no pericardial effusion. Technically difficult study because of the poor ultrasonic window. Dr Vanessa Chavez MD FACC (Electronically Signed) Final Date: 28 November 2019 13:18 S
[2019-11-28] MEDS: enoxaparin 100 mg/mL Syringe SUBCUT ×2 (07:23→19:37)
--- NOTE | 2019-11-28 08:41 | PM.PN ---
Subjective Subjective: Interval history: Intubated, sedated. Response to pain per discussion with RN. Getting restless, so has not been weaned off sedation much so far. Vitals/I&O/Wt Last Vital Signs Temp 100 F H 11/28/19 07:30 Pulse 73 11/28/19 08:00 Resp 12 11/28/19 06:06 BP 166/85 11/28/19 08:00 Pulse Ox 93 11/28/19 08:00 11/27/19 11/28/19 11/28/19 22:59 06:59 14:59 Intake Total 1102.267 / 1202.267 100 / 1302.267 Output Total 2800 / 2800 Balance 1102.267 / 1202.267 -2700 / -1497.733 Weight last 48 hrs Weight 138.799 kg Weight 122.47 kg Physical Exam Const: COMMON NORMALS: no acute distress NUTRITIONAL APPEARANCE: obese HENMT: COMMON NORMALS: oropharynx normal OTHER: ETT Eye: OTHER: Pupils symmetrical Neck/C-Spine: OTHER: Cannot see JVD, but may not be visible due to thick neck Resp: COMMON NORMALS: normal respiratory effort AUSCULTATION: diminished lung sounds OTHER: difficult to examine due to body habitus, air entry present, but appears possibly diminished bilaterally Cardio: COMMON NORMALS: regular rhythm, S1 normal heart sound present, S2 normal heart sound present and No murmurs present (Cardio) RHYTHM: regular rhythm HEART SOUNDS: S1 normal heart sound present and S2 normal heart sound present GI: COMMON NORMALS: Normal to inspection, nondistended, normoactive bowel sounds present, Soft to palpation and non-tender PALPATION: Yes Soft to palpation Extremity: COMMON NORMALS: no joint enlargement and no pedal edema OTHER: Mild irregularly-shaped patch of erythema over the proximal tibia anterolaterally about 10 x 15 Neuro: COMMON NORMALS: moves all extremities Skin: COMMON NORMALS: no rashes or lesions noted GENERAL SKIN EXAM: no rashes or lesions noted Urinary Catheter Management^: Pete: Cath Placed During This Visit: yes Reason for Continuing Indwelling Catheter: Accurate Measurement of Urinary Output in Critically Ill Patients Urinary Catheter Date of Insertion: 11/27/19 Urinary Catheter Time of Insertion: 14:07 Data : 11/28/19 04:15 11/28/19 04:15 Micro: Microbiology 11/27/19 19:15 Blood Culture - Preliminary Blood SPECIMEN COLLECTED 11/27/19 14:07 Blood Culture - Preliminary Blood SPECIMEN COLLECTED A&P Assessment and plan (1) Acute hypercapnic respiratory failure: Acute respiratory failure with hypoxia and hypercapnia. Continue mechanical ventilator support. Requiring 60% FiO2, PEEP 15. Restless will try to wean sedation. Continue to try to wean to reassess mental status. Chest x-ray appears slightly better than yesterday. Continue Lasix. Replace magnesium. Versed and fentanyl for sedation. There was concern regarding lipids last hospital stay so propofol was discontinued at that time. Wean ventilator as tolerated Secondary to elevated d-dimer, CTA chest was checked. No evidence of PE. Discussed with her son. He would like to try to visit, but understands currently she is being assessed for COVID-19, but after results are back and if is negative should be able to see her. Status: Acute (2) COPD exacerbation: IV steroids Sputum culture Pulmonary toilet Status: Acute (3) Pneumonia: Follow-up COVID-19 PCR Low-grade temp 100 Fahrenheit Continue IV antibiotics consisting of vancomycin and Primaxin Sputum culture, blood culture Status: Acute (4) Acute encephalopathy: Noncontrast CT head with senescent changes no evidence of large acute infarction or acute injury Likely secondary to CO2 narcosis and/or methamphetamine use, hypothyroidism. Discussed with her son. Status: Acute (5) Hypomagnesemia: Supplemented additional 4 g Recheck tomorrow Status: Acute (6) Elevated troponin: Full dose anticoagulation currently Aspirin 81 mg daily Check echocardiogram For now continue Lasix 40 mg every 12 hours Would benefit from moderate to high intensity statin. Given possible methamphetamine use hold off for now. Check CK. As EKG nonischemic, and history of elevated troponin in the past will await trend before any further action. This may be secondary to her methamphetamine use or history of heart failure. Would benefit from additional risk stratification once she is more stable. Status: Acute (7) Hypothyroidism: I suspect she may do me noncompliant with her home medicine as elevated TSH is noted Continue levothyroxine Status: Acute (8) Methamphetamine abuse: Multiple occasions where she is methamphetamine positive. Monitor for withdrawal Status: Acute (9) Tobacco dependency: Counseling when able Status: Acute Additional A&P Information Erythema over proximal right tibia: Irregularly-shaped patch of erythema, cannot exclude cellulitis. Continue IV antibiotics as above. Past history of chronic kidney disease stage II History of GERD. Protonix will be administered. Full code Attestations Medical Necessity Statement*: Continue admission for assessment of management of acute respiratory failure, ventilatory support, treatment of pneumonia, COPD, with underlying methamphetamine use, hypothyroidism. Coding Level of Care Code Acute Vocational Services Specialist for [facility] Fwd Diagnoses Acute hypercapnic respiratory failure J96.02 COPD exacerbation J44.1 Pneumonia J18.9 Acute encephalopathy G93.40 Hypomagnesemia E83.42 Elevated troponin R79.89 Hypothyroidism E03.9 Methamphetamine abuse F15.10 Tobacco dependency F17.200
[2019-11-28] MEDS: magnesium sulfate premix 4 GM/100 ML PREMIX IV (08:59)
[2019-11-28] MEDS: pantoprazole 40 mg SDV IVP (09:00)
[2019-11-28] MEDS: levothyroxine 100 mcg Tablet 200 MCG PO (09:00)
[2019-11-28] MEDS: FUROsemide 10 mg/mL SDV 4mL 40 MG IVP ×2 (09:00→21:11)
[2019-11-28] MEDS: aspirin 81 mg EC Tablet PO (09:00)
[2019-11-28] MEDS: lanolin oint 7 gm 1 APPLIC TOPICAL (11:20)
[2019-11-28 16:03] LABS: Coronavirus Lab Test PTC Negative
[2019-11-28 16:44] LABS: ABG PCO2 48.8 mmHg (35-45); ABG PH Result 7.51 (7.35-7.45); Base Excess ABG 14.3 mmol/L (-2.0-2.0); Blood Gas Allen Test Pos; Blood Gas Operator Identificat CAK; Blood Gas Sample Site Radial, left; Blood Gas Sample Type Arterial; Blood Gas Tidal Volume 0.45; HCO3 ABG 39.2 mmol/L (22-26); Oxygen Device VENT; PO2 ABG 49.7 mmHg (80.0-100.0)
--- NOTE | 2019-11-28 19:00 | XRR_ITS ---
PROCEDURE INFORMATION: Exam: XR Chest, 1 View Exam date and time: 11/28/2019 5:10 AM Age: 69 years old Clinical indication: Respiratory failure TECHNIQUE: Imaging protocol: XR of the chest Views: 1 view. COMPARISON: CR XR chest 1V portable [id number] 11/27/2019 3:25 PM FINDINGS: Tubes, catheters and devices: There is an endotracheal tube present with the tip 3.7 cm above the vira. An enteric tube is present, extending down toward the stomach and off the image. Lungs: Nonspecific bibasilar airspace disease, more so on the left. Pleural space: No right pleural effusion. Cannot exclude a trace left pleural effusion. No pneumothorax. Heart/Mediastinum: The cardiac silhouette is enlarged. The mediastinal contours are normal. Bones/joints: Multilevel mild disc degeneration in the thoracic spine. XR/XR chest 1V portable [id number] IMPRESSION: 1. Endotracheal tube tip 3.7 cm above the vira. 2. Nonspecific asymmetric bibasilar airspace disease.
--- NOTE | 2019-11-28 19:08 | PC.NURSE ---
Spoke with multiple people today regarding this patient. Linhsunikalyn (or Amanda) is a caregiver with [facility]. She states she was the one to call EMS when pt was found in respiratory distress. She states the pt had been falling at home recently, and having difficulty walking. She also stated that the pt does not have a good relationship with her son Irvin Preston and does not want Irvin making any decisions for her. Irvin is her biological son, but apparently when he was very young, the pt allowed him to be adopted by another family. I asked if this pt has any medical power of district attorney paperwork, and she wasn't sure, but gave me contact information for a lady at [facility] to find out (Ching Giovanni, ). Unable to reach Ching, but a voicemail was left. As of now she has not called back. Spoke with Lovely, who claimed to be a daughter. Lovely stated that the pt was probably not wearing her oxygen for a day or so prior to coming to the hospital, and that the pt is pretty stubborn. Spoke with Odalis Bonilla ([phone]), who says she is a close friend and has known the patient for 21 years. -----Per Odalis: pt has two biological sons, one of which is Irvin and the other one is Nigel, who did not survive. This pt does not have any daughters, so the Lovely who called earlier is really just a friend to the patient. Odalsi also states that Irvin and this pt do not speak much and do not have a good relationship. When this pt was transferred from here to [facility] on a ventilator a couple months ago, Irvin went there and requested that she be removed from life support. Pt was upset to find this out, because she wants to be a full code, and she came out of it because she was so angry at her son for making that decision. Odalis also stated that the pt was hospitalized at [facility] at some point in the past few years, and filled out Advance Directive/POA paperwork at that time. Odalis agreed to try to obtain that paperwork and fax it here. She was given [facility]'s number and the fax number to this department. She was informed that unless we have some sort of power of district attorney paperwork, we have to rely on next of kin to make decisions when the pt is unable to make decisions for herself. She verbalized understanding. Odalis was also asked about the other points of contact in this pt's chart. There is a Saundra Cruz and Fina Dozier. Odalis states that Saundra Cruz is a longtime, very close friend of the patient, closer than I am. Fina Dozier is mentioned in past encounter notes as a caregiver. Odalis says Fina is a friend, but she likes to steal from [facility] while she's in the hospital. So she's more like a frenemy. Odalis and Fina do not getting along. Updated Dr. Lee and oncoming warehouse distribution associate nurse.
[2019-11-28] MEDS: enoxaparin 40 mg/0.4 mL Syringe SUBCUT (19:37)
[2019-11-28 20:35] LABS: Vancomycin Trough 14.7 ug/mL (10-15)
[2019-11-29] VITALS (62 sets, daily range): BP systolic 90–162; BP diastolic 57–90; PULSE 49–74; RESP 9–35; TEMP 36.8–37.2; O2SAT 83–96
[2019-11-29 03:38] LABS: Basophils # 0.1 10^3/uL (0.0-0.1); Basophils % 0.6 %; Eosinophils % 0.1 %; Hematocrit 35.7 % (37.0-47.0); Hemoglobin 11.2 g/dL (11.5-15.3); Lymphocytes # 1.8 10^3/uL (0.8-4.8); Lymphocytes % 7.7 %; Mean Corpuscular HGB Conc 31.4 g/dL (30.0-36.0); Mean Corpuscular Hemoglobin 29.6 pg (28.0-34.0); Mean Corpuscular Volume 94.4 fL (81-99); Mean Platelet Volume 9.8 fL (7.4-10.4); Monocytes # 0.8 10^3/uL (0.2-0.9); Monocytes % 3.2 %; Neutrophils # 16.52 10^3/uL (1.8-7.7); Neutrophils % 71.2 %; Nucleated Red Blood Cells % 0.1 %; Platelet Count 375 10^3/cmm (130-400); Red Blood Count 3.78 10^6/uL (4.1-5.3); Red Cell Distribution Width 16.8 % (12.1-15.1); White Blood Count 23.2 10^3/uL (4.0-10.0)
--- NOTE | 2019-11-29 03:46 | PC.NURSE ---
SEDATION Patient continues to fight ventilator and pull at restraints. Attempts made to redirect. Patient sats dropping to 87-88% when fighting the vent.
[2019-11-29 03:57] LABS: Alanine Aminotransferase 18 U/L (0-33); Albumin Level 3.9 g/dL (3.5-5.2); Alkaline Phosphatase 48 IU/L (35-105); Anion Gap 16.6 (5-19); Aspartate Amino Transferase 23 U/L (0-32); Blood Urea Nitrogen 13 mg/dL (8-23); Calcium 7.9 mg/dL (8.5-10.5); Carbon Dioxide 36 mmol/L (22-29); Chloride 86 mmol/L (98-107); Globulin 3.2 g/dL (1.3-4.6); Glomerular Filtration Rate 70.9 mL/min (90-130); Glucose 173 mg/dL (65-115); Osmolality Calculated 284 mOsm/kg (285-295); Potassium 3.6 mmol/L (3.5-5.1); Sodium 135 mmol/L (136-145); Total Bilirubin 0.3 mg/dL (0.15-1.2); Total Protein 7.1 g/dL (6.6-8.7)
[2019-11-29] MEDS: ipratropium-albuterol 3 mL Neb INHALATION ×4 (03:58→19:24)
[2019-11-29 04:13] LABS: Creatine Phosphokinase 541 U/L (26-192)
[2019-11-29 04:16] LABS: ABG PH Result 7.53 (7.35-7.45); Arterial Blood Gas Hematocrit 37.2 % (37-47); Base Excess ABG 15.5 mmol/L (-2.0-2.0); Blood Gas Allen Test Pos; Blood Gas Operator Identificat JB; Blood Gas Sample Site Radial, right; Blood Gas Sample Type Arterial; Blood Gas Tidal Volume 0.45; HCO3 ABG 40.2 mmol/L (22-26); Oxygen Device VENT; PO2 ABG 65.1 mmHg (80.0-100.0)
[2019-11-29 04:38] LABS: Slide Review Slide Review Perform
--- NOTE | 2019-11-29 06:00 | XR_ITS ---
WS: [id number] CHEST XRAY TECHNIQUE: Portable chest. CLINICAL INFORMATION: Hypoxia COMPARISON: None. FINDINGS: Heart: Cardiomegaly. Endotracheal tube with tip 3.20 by the vira. Enteric tube with tip below the d iaphragm. Aortic calcification. Lungs: Mild chronic emphysematous changes with interstitial thickening in the lung bases. Small left pleural effusion. Bones: Normal visualized bony structures. XR/XR chest 1V portable [id number] IMPRESSION: 1. Endotracheal tube with tip 3.2 cm above the vira. Enteric tube with tip b elow the diaphragm. 2. Cardiomegaly. 3. Small left pleural effusion.
[2019-11-29] MEDS: enoxaparin 100 mg/mL Syringe SUBCUT (07:51)
[2019-11-29] MEDS: enoxaparin 40 mg/0.4 mL Syringe SUBCUT ×2 (07:57→20:29)
--- NOTE | 2019-11-29 08:35 | PC.NURSE ---
Pt is becoming increasingly agitated. Attempting to grab at Tube, fighting vent and O2 sat dropping to 80's. reorientation and redirection unsuccessful. Nurse increased versed from 2mg/hr to 3 mg/hr per protocol.
[2019-11-29] MEDS: FUROsemide 10 mg/mL SDV 4mL 40 MG IVP ×2 (08:45→20:30)
[2019-11-29] MEDS: pantoprazole 40 mg SDV IVP (08:48)
--- NOTE | 2019-11-29 09:00 | P.PN_ITS ---
Subjective Subjective: Interval history: She is initially not responding to voice, shoulder squeeze while on sedation, but subsequently opens her eyes, answers some basic questions. Denies any pain. Nauseous to if she is doing okay. Follows commands to move all extremities. Vitals/I&O/Wt Last Vital Signs Temp 99.0 F 11/28/19 20:00 Pulse 63 11/29/19 08:12 Resp 16 11/29/19 08:12 BP 139/77 11/29/19 08:00 Pulse Ox 91 11/29/19 08:12 11/28/19 11/29/19 11/29/19 22:59 06:59 14:59 Intake Total 112.75 / 786.083 186.292 / 972.375 356.233 / 356.233 Output Total 900 / 2075 1650 / 3725 Balance -787.25 / -1288.917 -1463.708 / -2752.625 356.233 / 356.233 Weight last 48 hrs Weight 138.799 kg Weight 138.799 kg Weight 122.47 kg Physical Exam Const: COMMON NORMALS: no acute distress NUTRITIONAL APPEARANCE: obese OTHER: Wakes up HENMT: COMMON NORMALS: oropharynx normal OTHER: ETT Eye: OTHER: Pupils symmetrical Neck/C-Spine: OTHER: Cannot see JVD, but may not be visible due to thick neck Resp: COMMON NORMALS: normal respiratory effort AUSCULTATION: diminished lung sounds OTHER: difficult to examine due to body habitus, air entry present, but appears possibly diminished bilaterally. No wheeze or rhonchi. Cardio: COMMON NORMALS: regular rhythm, S1 normal heart sound present, S2 normal heart sound present and No murmurs present (Cardio) RHYTHM: regular rhythm HEART SOUNDS: S1 normal heart sound present and S2 normal heart sound present GI: COMMON NORMALS: Normal to inspection, nondistended, normoactive bowel sounds present, Soft to palpation and non-tender PALPATION: Yes Soft to palpation Extremity: COMMON NORMALS: no joint enlargement and no pedal edema OTHER: Mild irregularly-shaped patch of erythema over the proximal tibia anterolaterally about 10 x 15 Neuro: COMMON NORMALS: moves all extremities Skin: COMMON NORMALS: no rashes or lesions noted GENERAL SKIN EXAM: no rashes or lesions noted Urinary Catheter Management^: Pete: Cath Placed During This Visit: yes Reason for Continuing Indwelling Catheter: Accurate Measurement of Urinary Output in Critically Ill Patients Urinary Catheter Date of Insertion: 11/27/19 Urinary Catheter Time of Insertion: 14:07 Data : 11/29/19 03:00 11/29/19 03:00 Micro: Microbiology 11/27/19 19:15 Blood Culture - Preliminary Blood NEGATIVE TO DATE 11/27/19 14:07 Blood Culture - Preliminary Blood NEGATIVE TO DATE 11/27/19 19:45 MRSA Culture - Final Nose A&P Assessment and plan (1) Acute hypercapnic respiratory failure: Overnight reported agitated. Is now more alert, following commands this morning. Oxygenation is worse this morning. FiO2 had to be increased to 75%. PEEP of 12. Sats in low 90s. PO2 65. Continue antibiotics at this time. Pulmonary toilet. COVID-19 PCR negative. MRSA PCR negative. For now continue Primaxin and vancomycin. Monitor white count, today 20.2, low-grade fever 100 Fahrenheit. Sputum culture. Acute respiratory failure with hypoxia and hypercapnia. Continue mechanical ventilator support. Continue daily sedation weaning to reassess mental status. Chest x-ray appears slightly better than yesterday. Continue Lasix. Versed and fentanyl for sedation. There was concern regarding lipids last hospital stay so propofol was discontinued at that time. Wean ventilator support as tolerated Secondary to elevated d-dimer, CTA chest was checked. No evidence of PE. Status: Acute (2) COPD exacerbation: IV steroids Sputum culture Pulmonary toilet Status: Acute (3) Pneumonia: Negative COVID-19 PCR Low-grade temp 100 Fahrenheit. Persistent leukocytosis. Continue IV antibiotics consisting of vancomycin and Primaxin Sputum culture, blood culture Status: Acute (4) Acute encephalopathy: Noncontrast CT head with senescent changes no evidence of large acute infarction or acute injury Likely secondary to CO2 narcosis and/or methamphetamine use, hypothyroidism. Discussed with her son. Status: Acute (5) Hypomagnesemia: Supplemented additional 4 g Recheck tomorrow Status: Acute (6) Elevated troponin: Full dose anticoagulation currently Aspirin 81 mg daily Echocardiogram with possibly normal LV size, EF, mild biatrial enlargement, no effusion, technically difficult study. No chest pain. For now continue Lasix 40 mg every 12 hours Would benefit from moderate to high intensity statin. Given possible methamphetamine use hold off for now given rhabdomyolysis. As EKG nonischemic, and history of elevated troponin in the past will await trend before any further action. This may be secondary to her methamphetamine use or history of heart failure. Would benefit from additional risk stratification once she is more stable. Status: Acute (7) Hypothyroidism: I suspect she may do me noncompliant with her home medicine as elevated TSH is noted Continue levothyroxine Status: Acute (8) Methamphetamine abuse: Multiple occasions where she is methamphetamine positive. Monitor for withdrawal Status: Acute (9) Tobacco dependency: Counseling when able Status: Acute Additional A&P Information Rhabdomyolysis: Mild, CK 541. Erythema over proximal right tibia: Irregularly-shaped patch of erythema, cannot exclude cellulitis. Continue IV antibiotics as above. For now continue vancomycin given history of MRSA soft tissue infection. Past history of chronic kidney disease stage II History of GERD. Protonix will be administered. Full code Attestations Medical Necessity Statement*: Continue admission for assessment management of respiratory failure with hypoxia, pneumonia, COPD exacerbation in the setting of smoking, methamphetamine use, morbid obesity. Coding Level of Care Code Acute Physics And Astronomy Professor for [facility] Fwd Exam Comprehensive Diagnoses Acute hypercapnic respiratory failure J96.02 COPD exacerbation J44.1 Pneumonia J18.9 Acute encephalopathy G93.40 Hypomagnesemia E83.42 Elevated troponin R79.89 Hypothyroidism E03.9 Methamphetamine abuse F15.10 Tobacco dependency F17.200
[2019-11-29] MEDS: levothyroxine 100 mcg Tablet 200 MCG PO (09:04)
[2019-11-29] MEDS: aspirin 81 mg EC Tablet PO (09:18)
--- NOTE | 2019-11-29 11:16 | PC.NURSE ---
Received call from [facility]. They do not have and DPOA paperwork on file.
--- NOTE | 2019-11-29 15:25 | P.CONIM_ITS ---
Providers/Reason For Consult Consulting Physican/Specialty*: Pulmonary critical care medicine Reason for Consult*: Cute on chronic hypoxic and hypercapnic respiratory failure Attending Physician: Steven Lee Primary Care Provider: Varinder Delgado History of Present Illness History of Present Illness Wendy Ozuna is a 69 year old female who presented to the hospital on December 04 with altered mental status. The patient was found to have acute on chronic hypercapnic respiratory failure and was intubated when she also developed desaturation. The patient carries a diagnosis of COPD however I could not find a single pulmonary function test from her prior medical records. The patient has super morbid obesity with a BMI of 47. I am unsure about the patient's smoking history however on the CT angiogram performed on November 26 I did not see any evidence of emphysema. The patient most likely has obesity hypoventilation syndrome with chronic hypercapnia or a combination of obesity hypoventilation syndrome and COPD. When the patient presented to the hospital this time her PCO2 level was 111. The patient's baseline PCO2 level is in the 70s. The patient had a CT angiogram performed as described before on December 04 which revealed no evidence of pulmonary embolism, bilateral lower lobe atelectasis, groundglass opacities likely secondary to pulmonary edema. The patient had undergone an echocardiogram on November 27. She had an echocardiogram performed on March of this year. She has very poor echocardiographic windows. It appears that LV ejection function is probably normal. Wall motion abnormalities could not be properly assessed. There is bi atrial enlargement. There is left ventricular hypertrophy on the CT scan. The patient had been receiving vancomycin, imipenem, Solu-Medrol 60 mg every 6 hours since admission. The patient is ventilator dependent. She was on pressure support ventilation however this morning she was switched to volume control when she was found to desaturate and her oxygen requirement went up 100%. Patient was diuresed with Lasix and is more than 2 L negative. All her microbiologic work-up has been negative so far. The chest x-ray obtained yesterday and today revealed significant improvement of pulmonary vascular congestion. There is minimal left-sided pleural effusion. Her urinary tox screen is positive for amphetamine. Her laboratory work-up showed leukocytosis likely secondary to corticosteroid. Mild elevation in the creatinine kinase. Her creatinine level is okay. Electrolytes are consistent with hypercapnic respiratory failure. Interestingly, the patient has become alkalotic secondary to hyperventilation. He has been receiving sedation with Versed and fentanyl. I had seen and evaluated the patient in the ICU today. The patient was intermittently awake and able to follow commands however she did fall asleep fairly quickly. Review of Systems Narrative: Unable to obtain because of the clinical status Meds/Allergies Home Medications and Allergies Home Medications Medication Instructions Recorded Confirmed Last Taken Type levothyroxine 200 mcg PO DAILY 03/23/19 11/27/19 Unknown History nitroglycerin [Nitrostat] 0.4 mg SUBLINGUAL Q5M PRN 03/23/19 11/27/19 Unknown History potassium chloride 20 meq PO DAILY 03/23/19 11/27/19 Unknown History pramipexole 3 mg PO BID 03/23/19 11/27/19 Unknown History fluticasone propion-salmeterol 1 inh INHALATION BID #60 each 03/26/19 11/27/19 Unknown Rx [Advair Diskus] ipratropium-albuterol 3 ml INHALATION QID PRN #180 ml 03/26/19 11/27/19 Unknown Rx tiotropium bromide [Spiriva with 1 cap INHALATION DAILY 11/27/19 11/27/19 Unknown History HandiHaler] Allergies Allergy/AdvReac Type Severity Reaction Status Date / Time eszopiclone [From Lunesta] Allergy Unknown unknown Verified 08/30/19 14:03 gabapentin Allergy Unknown Unknown Verified 08/30/19 14:03 Current Medications Current Medications Generic Name Dose Route Start Last Admin Trade Name Freq PRN Reason Stop Dose Admin Albuterol/Ipratropium 3 ml 11/27/19 18:47 11/29/19 13:18 Duoneb INHALATION 3 ml Q6H DOREEN Administration Aspirin 81 mg 11/28/19 09:00 11/29/19 09:18 Aspirin Ec PO 81 mg DAILY DOREEN Administration Enoxaparin Sodium 40 mg 11/28/19 19:30 11/29/19 07:57 Lovenox SUBCUT 40 mg Q12H DOREEN Administration Furosemide 40 mg 11/27/19 21:00 11/29/19 08:45 Lasix IVP 40 mg Q12H DOREEN Administration Fentanyl 1,000 mcg/ Sodium 100 mls @ 0 mls/hr 11/27/19 15:00 11/29/19 13:50 Chloride IV 50 mcg/hr .Q0M DOREEN 5 mls/hr Administration Protocol Per Protocol Lanolin 1 applic 11/28/19 08:35 11/28/19 11:20 Lanolin Oint TOPICAL 1 applic PRN PRN Administration DRYNESS Levothyroxine Sodium 200 mcg 11/28/19 09:00 11/29/19 09:04 Synthroid PO 200 mcg DAILY DOREEN Administration Pantoprazole Sodium 40 mg 11/28/19 09:00 11/29/19 08:48 Protonix IVP 40 mg DAILY DOREEN Administration PFSH Acute PFSH: Medical History CKD (chronic kidney disease) stage 2, GFR 60-89 ml/min Gout Head injury Heart failure with preserved ejection fraction Methamphetamine abuse Morbid obesity Peptic ulcer Sleep apnea Thyroid disease Surgical History H/O bilateral salpingo-oophorectomy H/O knee surgery H/O: hysterectomy History of appendectomy History of cholecystectomy History of hip surgery Family History Other Family history unobtainable due to patient's condition Social History Smoking and tobacco status: unknown if ever smoked Quit status (tobacco): not considering quitting Alcohol intake: unknown History of recent travel: No Current gender identity: Female Vitals/I&O/Wt Last Vital Signs Temp 98.2 F 11/29/19 14:00 Pulse 64 11/29/19 14:00 Resp 12 11/29/19 14:00 BP 121/63 11/29/19 14:00 Pulse Ox 93 11/29/19 14:00 11/29/19 11/29/19 11/29/19 06:59 14:59 22:59 Intake Total 186.292 / 972.375 735.941 / 735.941 Output Total 1650 / 3725 1300 / 1300 Balance -1463.708 / -2752.625 -564.059 / -564.059 Weight last 48 hrs Weight 306 lb Weight 306 lb Physical Exam Narrative: EXAM NARRATIVE: General: Patient is intubated and sedated Neck: Unable to assess JVD because of body habitus Respiratory: Auscultation: Minimal fine crackles at the posterior lung bases, no wheezing or rhonchi Cardiovascular: Regular rate and rhythm, S1-S2 present, no murmur,no peripheral edema. Abdomen: Soft, morbidly obese, positive bowel sound, tenderness difficult to assess because of the clinical condition Skin: No rash Neuro: Patient is intermittently awake unable to assess overall neurological condition Urinary Catheter Management^: Pete: Cath Placed During This Visit: yes Reason for Continuing Indwelling Catheter: Accurate Measurement of Urinary Output in Critically Ill Patients Urinary Catheter Date of Insertion: 11/27/19 Urinary Catheter Time of Insertion: 14:07 Data Micro: Micro: Microbiology 11/27/19 15:00 Sputum Culture - P reliminary Sputum - Endotrac heal Tube Aspirate 11/27/19 19:15 Blood Culture - Pr eliminary Blood NEGATIVE TO ARPAN E 11/27/19 14:07 Blood Culture - Pr eliminary Blood NEGATIVE TO ARPAN E 11/27/19 19:45 MRSA Culture - Fin al Nose Other Data: Attestation for Other Data: I personally reviewed and interpreted the following: Other data: I have reviewed the patient's laboratory, microbiology, radiology data. Please see the HPI for details. A&P Assessment and plan (1) Acute and chronic respiratory failure, unspecified whether with hypoxia or hypercapnia: The following I believe treating the course of events that took place. The patient has chronic hypercapnic respiratory failure with a baseline PCO2 in the 70s. The patient will likely snorted methamphetamine leading to noncardiogenic pulmonary edema or developed cardiogenic pulmonary edema from heart failure with preserved ejection fraction. Once the patient was in pulmonary edema there was worsening CO2 retention leading to hypercapnia into 100s. The altered mental status could have been secondary to the hypercapnia or secondary to methamphetamine use or a combination of both. On the initial CT angiogram there is no evidence of pulmonary embolism. The patient does not have consolidation with air bronchograms. She has bilateral lower lobe atelectasis. The patient has been afebrile. The leukocytosis is likely secondary from corticosteroid use. The patient is on high-dose of corticosteroids with 60 of Solu-Medrol every 6 hours. The rhabdo could also be explained by either the steroid or the methamphetamine or the combination of both. Once the patient was intubated unfortunately she had been hyperventilated and has developed respiratory alkalosis on top of everything that is going on. Moreover, the patient was sedated with Versed, the Versed being lipophilic will have an increased volume of distribution in this morbidly obese patient and likely to continue to keep the patient sedated for a longer period of time. Once the patient lost her respiratory drive given her profoundly thick chest wall she has developed areas of atelectasis predominantly in bilateral lower lobes which is causing shunt physiology and making the patient require a significant amount of oxygen. The patient is currently on broad-spectrum antibiotics. There is no evidence of an infection currently. The best way to help the patient would be to have her breathing spontaneously. This will prevent lung atelectasis. The patient is to stay in semirecumbent position to unload the heavy abdomen. We will discontinue the Versed. We will continue with fentanyl and add Precedex to maintain optimal analgesia and sedation without affecting the patient's respiratory drive. Going to discontinue the vancomycin and imipenem and start the patient on levofloxacin. I am also going to discontinue steroids completely. The patient will be on Pulmicort nebulization. Once her sedation wears off the patient will be ready to be extubated to BiPAP. Status: Acute (2) Pulmonary edema: Charge of the pulmonary edema is unclear. This could easily have been noncardiogenic pulmonary edema from methamphetamine. Or secondary to heart jd lure with preserved ejection fraction. We have never gotten a proper assessment of her heart function with the echocardiogram because of poor echocardiographic windows. The patient is undergoing diuresis with 40 of Lasix twice a day and is doing well. On bedside ultrasound, the patient does not have any evidence of pulmonary edema. IVC is mildly dilated but that could be secondary to high degree of PEEP that the patient is on. I expect the patient to get better within the next 24 to 36 hours. Thank you for the consultation. Status: Acute Coding Level of Care Code Acute Implementation Manager for [facility] Diagnoses Acute and chronic respiratory failure, unspecified whether with hypoxia or hypercapnia J96.20 Pulmonary edema J81.1
[2019-11-29] MEDS: dexmedetomidine 400 MCG in sodium chloride 0.9% (100 ml) 100 ML 7.2 MCG IV (16:05)
--- NOTE | 2019-11-29 16:27 | PC.NURSE ---
Patient has become more easily arousable throughout the day and was alert enough around 1500 to answer yes or no questions. Patient nods head yes indicating it is okay to discuss information with Rafaela. Was unable to ask about additional people mentioned in record and DPOA information because the patient was becoming increasingly distressed and O2 sturation was dropping.
--- NOTE | 2019-11-29 17:58 | PC.NURSE ---
Per Dr Yeager's orders, nurse discontinued versed at 1605 and started precedex. Patient was tolerating precedex well, with with no signs of distress, was rousable, and able to follow simple commands. At 1545 patient started to become very agitated, unable to redirect or calm, and was reaching for and trying to pull out her breathing tube. Increased precedex by 0.1 to a current rate of 0.3mcg/k/hr per protocol.
[2019-11-29] MEDS: levofloxacin-dextrose 5 % 750 MG/150 ML PREMIX 100 MG IV (18:10)
--- NOTE | 2019-11-29 19:03 | PC.NURSE ---
Self extubation. Patient self extubated. Nurse turned off sedation, applied O2 at 7L via nasal cannula. Patient is currently at 94% saturation. RT is in room and will be placing patient on bipap. Dr irvin notified and advised to place patient on Bi pap. Dr Yeager advised of self extubation, and he also advises to place patient on bipap. no other orders.
[2019-11-29] MEDS: budesonide 0.5 mg/2 mL Neb INHALATION (19:24)
[2019-11-29] MEDS: dexmedetomidine 400 MCG in sodium chloride 0.9% (100 ml) 100 ML 18 MCG IV (20:21)
[2019-11-30] VITALS (52 sets, daily range): BP systolic 70–138; BP diastolic 40–80; PULSE 44–72; RESP 12–27; TEMP 36.4–37; O2SAT 86–95
[2019-11-30] MEDS: dexmedetomidine 400 MCG in sodium chloride 0.9% (100 ml) 100 ML 21.7 MCG IV (00:51)
[2019-11-30] MEDS: ipratropium-albuterol 3 mL Neb INHALATION ×3 (02:17→20:08)
[2019-11-30 04:58] LABS: Basophils # 0.1 10^3/uL (0.0-0.1); Basophils % 0.4 %; Eosinophils % 0.1 %; Hematocrit 35.4 % (37.0-47.0); Hemoglobin 10.9 g/dL (11.5-15.3); Lymphocytes # 1.7 10^3/uL (0.8-4.8); Lymphocytes % 7.9 %; Mean Corpuscular HGB Conc 30.8 g/dL (30.0-36.0); Mean Corpuscular Hemoglobin 29.8 pg (28.0-34.0); Mean Corpuscular Volume 96.7 fL (81-99); Mean Platelet Volume 9.6 fL (7.4-10.4); Monocytes # 1.2 10^3/uL (0.2-0.9); Monocytes % 5.4 %; Neutrophils # 16.16 10^3/uL (1.8-7.7); Neutrophils % 73.9 %; Nucleated Red Blood Cells % 0.1 %; Platelet Count 314 10^3/cmm (130-400); Red Blood Count 3.66 10^6/uL (4.1-5.3); Red Cell Distribution Width 16.7 % (12.1-15.1); White Blood Count 21.9 10^3/uL (4.0-10.0)
[2019-11-30 05:27] LABS: Alanine Aminotransferase 16 U/L (0-33); Albumin Level 4.1 g/dL (3.5-5.2); Alkaline Phosphatase 38 IU/L (35-105); Anion Gap 13.5 (5-19); Aspartate Amino Transferase 18 U/L (0-32); Blood Urea Nitrogen 20 mg/dL (8-23); Calcium 7.2 mg/dL (8.5-10.5); Carbon Dioxide 38 mmol/L (22-29); Chloride 85 mmol/L (98-107); Globulin 3.2 g/dL (1.3-4.6); Glomerular Filtration Rate 82.7 mL/min (90-130); Glucose 164 mg/dL (65-115); Osmolality Calculated 282 mOsm/kg (285-295); Potassium 3.5 mmol/L (3.5-5.1); Sodium 133 mmol/L (136-145); Total Bilirubin 0.2 mg/dL (0.15-1.2); Total Protein 7.3 g/dL (6.6-8.7)
[2019-11-30 06:08] LABS: Slide Review Slide Review Perform
--- NOTE | 2019-11-30 06:15 | PC.NURSE ---
Pt self-extubated right at change of shift. Fentanyl and Precedex gtts turned off. Placed on NC at 6L NC until placed on BiPAP 80% FiO2. Pt very whiny and crying about letting her leave. A & O x4. When explaining that it wasn't safe to let her leave at this time due to resp status and impaired judgment from the fentanyl/versed she was on, pt kicked her legs and punched the bed, much like a toddler having a tantrum. She has does that several times this shift and when that didn't get her way, she became belligerent. Had tried ripping mask off and Precedex turned back on; titrated per protocol. Had charge nurse Agustin talk with her and attempt to explain/educate also but to no avail. Pt ended up calling this nurse an asshole and repeatedly said Fuck you. Get out. In between behavioral issues, have done oral care every 2 hrs. Pt did finally begin to rest well in between care. Precedex currently at 0.3. LS very dim still. No BM. Pete patent and draining yellow urine. Pt was able to turn self while RN repositioned linens under her and was almost prone at one point. No desatting events during this time while on BiPAP. Mostly SB this shift and BP WNL. Call light and remote in reach. Still states she wants to go home. Currently resting in bed with eyes closed and in no acute distress.
--- NOTE | 2019-11-30 07:48 | PC.NURSE ---
Pt on BiPAP, resting comfortably in bed, easily arousable, cooperative at this time but slightly anxious and says, I want to go home. Pt is oriented to person, place, situation. Unable to state current date but correctly named the current president. Reoriented her to date. Informed her of her current condition and high oxygen needs, and that she will not be discharged today for that reason. When asked if she has a medical power of assistant prosecuting attorney, she said she does not, but said she wants everything done possible. Informed her that she is a full code, and there are no plans to change that at this time; pt nodded in agreement. When asked about the possible Advance Directive/POA paperwork she supposedly signed while at [facility], she immediately said, No, I want to change that. At this time she is still on a Precedex infusion, which is being weaned. She was informed that once the sedation is off and enough time has passed for it to clear her system, and she is fully alert and oriented x4, she can complete the paperwork for medical power of assistant prosecuting attorney and advance directives while here at the hospital. Pt verbalized understanding. When asked if she wants her son Irvin Preston informed of her care and involved in decision making, she adamantly said, No. When asked who she would like to make medical decisions for her should she become unable to do so herself, she said Saundra Cruz, who is listed as a point of contact in this chart. Pt asked that I call her right away. No answer; voicemail left. Will update Attending physician.
[2019-11-30] MEDS: budesonide 0.5 mg/2 mL Neb INHALATION ×2 (08:13→20:08)
[2019-11-30] MEDS: enoxaparin 40 mg/0.4 mL Syringe SUBCUT ×2 (08:42→19:54)
[2019-11-30] MEDS: pantoprazole 40 mg SDV IVP (08:42)
[2019-11-30] MEDS: FUROsemide 10 mg/mL SDV 4mL 40 MG IVP ×2 (08:42→19:54)
--- NOTE | 2019-11-30 09:53 | PM.PN ---
Subjective Subjective: Interval history: She self extubated last night at 7 PM, had been on BiPAP overnight. This morning she wakes up, is alert, initially not oriented to year, but during my visit oriented x3. Requests when she may be able to go home. Discussed with her with regards to her respiratory failure, pneumonia, pulmonary edema/CHF. She verbalized understanding. States that she is at home at baseline oxygen 4 L. Says that she smokes, intermittently smokes methamphetamine (not often). Discussed with her that we would like to see that her oxygenation continues to improve before she can safely discharge, as well as would like to see that she is able to function independently as she lives alone. She is agreeable for PT and OT assessment. Vitals/I&O/Wt Last Vital Signs Temp 98.6 F 11/30/19 04:30 Pulse 44 L 11/30/19 08:17 Resp 14 11/30/19 08:13 BP 122/76 11/30/19 06:00 Pulse Ox 93 11/30/19 08:15 11/29/19 11/30/19 11/30/19 22:59 06:59 14:59 Intake Total 202.063 / 938.004 154.263 / 1092.267 5.67 / 5.67 Output Total 1100 / 2400 650 / 3050 Balance -897.937 / -1461.996 -495.737 / -1957.733 5.67 / 5.67 Weight last 48 hrs Weight 134.263 kg Weight 122.47 kg Weight 138.799 kg Physical Exam Const: COMMON NORMALS: no acute distress NUTRITIONAL APPEARANCE: obese OTHER: Wakes up to voice. HENMT: COMMON NORMALS: oropharynx normal OTHER: BiPAP Eye: OTHER: Pupils symmetrical Neck/C-Spine: OTHER: Cannot see JVD, but may not be visible due to thick neck Resp: COMMON NORMALS: normal respiratory effort AUSCULTATION: diminished lung sounds OTHER: difficult to examine due to body habitus, air entry present, but appears possibly diminished bilaterally. No wheeze or rhonchi. Cardio: COMMON NORMALS: regular rhythm, S1 normal heart sound present, S2 normal heart sound present and No murmurs present (Cardio) RHYTHM: regular rhythm HEART SOUNDS: S1 normal heart sound present and S2 normal heart sound present GI: COMMON NORMALS: Normal to inspection, nondistended, normoactive bowel sounds present, Soft to palpation and non-tender PALPATION: Yes Soft to palpation Extremity: COMMON NORMALS: no joint enlargement and no pedal edema OTHER: Mild irregularly-shaped patch of erythema entirely resolved. Neuro: COMMON NORMALS: moves all extremities Skin: COMMON NORMALS: no rashes or lesions noted GENERAL SKIN EXAM: no rashes or lesions noted Urinary Catheter Management^: Pete: Cath Placed During This Visit: yes Reason for Continuing Indwelling Catheter: Accurate Measurement of Urinary Output in Critically Ill Patients Urinary Catheter Date of Insertion: 11/27/19 Urinary Catheter Time of Insertion: 14:07 Data : 11/30/19 03:45 11/30/19 03:45 Micro: Microbiology 11/27/19 15:00 Sputum Culture - Preliminary Sputum - Endotracheal Tube Aspirate A&P Assessment and plan (1) Acute hypercapnic respiratory failure: Self-extubated overnight. Did well on BiPAP. Reportedly was getting a little bit restless, so Precedex was initially maintained, but discontinued this morning. Noted bradycardia on the monitor down to 40s. Continue telemetry monitoring. Continue observation of sedation. Will get PT and OT assessment. She is asking when she may be able to return home. Would like to see that her mentation remains stable, and discussed with her need to make sure oxygenation is improving toward her baseline 4 L nasal cannula, and that she is functional left to be able to return home where she lives alone. Reportedly asked the nurse not to discuss or provide any further information to her son, and is asking to draft Paperwork for new power of workers compensation defense attorney healthcare. May need to hold off just for now until we see that there is no further encephalopathy, But she appears to have pretty good insight at this time. She knows she is in the hospital due to respiratory difficulty. States that if she were to leave hospital prematurely she may be at risk of . Stated to RN she would not want her son to be involved in medical care. Prefers to create paperwork to name Saundra Cruz as her point of contact and medical power of workers compensation defense attorney. COVID-19 PCR negative. MRSA PCR negative. Primaxin and vancomycin discontinued per pulmonology recommendations. Appreciate consultation. White count 20, low-grade fever 100 Fahrenheit 11/28. So far Afebrile. On Levaquin alone. Sputum culture. Acute respiratory failure with hypoxia and hypercapnia. Continue mechanical ventilator support. Continue daily sedation weaning to reassess mental status. Continue Lasix. In -ve balance. Overnight did have episodes of confusion, and so Primaxin was continued. This is stopped this morning. So far she is doing well, alert and oriented, calm, with good insight. Monitor telemetry for any further bradycardia. Secondary to elevated d-dimer, CTA chest was checked. No evidence of PE. Status: Acute (2) COPD exacerbation: IV steroids stopped. Inhaled steroid. Appreciate pulmonology assessment. Levaquin. Sputum culture Pulmonary toilet Status: Acute (3) Pneumonia: Negative COVID-19 PCR Levaquin. Primaxin and vancomycin discontinued. Sputum culture, blood culture without growth. Status: Acute (4) Acute encephalopathy: Appears resolved. Noncontrast CT head with senescent changes no evidence of large acute infarction or acute injury Likely secondary to CO2 narcosis and/or methamphetamine use, hypothyroidism. Status: Acute (5) Hypomagnesemia: Supplemented Status: Acute (6) Elevated troponin: Full dose anticoagulation currently Aspirin 81 mg daily Echocardiogram with possibly normal LV size, EF, mild biatrial enlargement, no effusion, technically difficult study. No chest pain. For now continue Lasix 40 mg every 12 hours Would benefit from moderate to high intensity statin. Given possible methamphetamine use hold off for now given rhabdomyolysis. As EKG nonischemic, and history of elevated troponin in the past will await trend before any further action. This may be secondary to her methamphetamine use or history of heart failure. Would benefit from additional risk stratification once she is more stable. Status: Acute (7) Hypothyroidism: May be noncompliant with her home medicine Continue levothyroxine Status: Acute (8) Methamphetamine abuse: Multiple occasions where she is methamphetamine positive. Admit she smokes cigarettes, on rare occasion smokes methamphetamine. Monitor for withdrawal Counseled her extensively on cessation of methamphetamine use. She verbalized understanding of different potential complications and risks. Status: Acute (9) Tobacco dependency: Counseled for 5 minutes on smoking cessation, especially in setting of multiple intubations in the past, COPD, chronic hypoxia. She verbalized understanding. Status: Acute Additional A&P Information Rhabdomyolysis: Mild, recheck Cellulitis: resolved. Past history of chronic kidney disease stage II History of GERD. Protonix will be administered. Full code Attestations Medical Necessity Statement*: Continue admission for assessment management of respiratory failure, pneumonia, pulmonary edema, COPD distribution, monitor mental status, bradycardia, functional assessment, discharge planning. Coding Level of Care Code Acute Accounting Bookkeeper for g Fwd Exam Comprehensive Diagnoses Acute hypercapnic respiratory failure J96.02 COPD exacerbation J44.1 Pneumonia J18.9 Acute encephalopathy G93.40 Hypomagnesemia E83.42 Elevated troponin R79.89 Hypothyroidism E03.9 Methamphetamine abuse F15.10 Tobacco dependency F17.200
--- NOTE | 2019-11-30 10:35 | PC.SOCIAL ---
IMM Updated Explained to pt Pg 2 IMM. Pt verbally understands. Provided pt a copy. Signed, dated, & time a copy & placed in chart.
[2019-11-30] MEDS: aspirin 81 mg EC Tablet PO (10:59)
[2019-11-30] MEDS: levothyroxine 100 mcg Tablet 200 MCG PO (10:59)
[2019-11-30 11:40] LABS: Creatine Phosphokinase 412 U/L (26-192)
[2019-11-30] MEDS: levofloxacin-dextrose 5 % 750 MG/150 ML PREMIX 100 MG IV (17:31)
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
[2019-12-01] VITALS (34 sets, daily range): BP systolic 93–153; BP diastolic 51–122; PULSE 60–84; RESP 14–26; TEMP 36.5–37.2; O2SAT 85–100
[2019-12-01 04:03] LABS: Basophils # 0.1 10^3/uL (0.0-0.1); Basophils % 0.5 %; Eosinophils % 0.1 %; Hematocrit 36.3 % (37.0-47.0); Hemoglobin 11.2 g/dL (11.5-15.3); Lymphocytes # 3.2 10^3/uL (0.8-4.8); Lymphocytes % 14.2 %; Mean Corpuscular HGB Conc 30.9 g/dL (30.0-36.0); Mean Corpuscular Hemoglobin 29.8 pg (28.0-34.0); Mean Corpuscular Volume 96.5 fL (81-99); Monocytes # 1.4 10^3/uL (0.2-0.9); Monocytes % 6.3 %; Neutrophils # 14.49 10^3/uL (1.8-7.7); Neutrophils % 64.5 %; Nucleated Red Blood Cells # 0.1 /100WBC; Nucleated Red Blood Cells % 0.3 %; Platelet Count 328 10^3/cmm (130-400); Red Blood Count 3.76 10^6/uL (4.1-5.3); Red Cell Distribution Width 16.9 % (12.1-15.1); White Blood Count 22.5 10^3/uL (4.0-10.0)
[2019-12-01 04:23] LABS: Alanine Aminotransferase 17 U/L (0-33); Alkaline Phosphatase 55 IU/L (35-105); Anion Gap 15.9 (5-19); Aspartate Amino Transferase 25 U/L (0-32); Blood Urea Nitrogen 21 mg/dL (8-23); Calcium 7.8 mg/dL (8.5-10.5); Carbon Dioxide 38 mmol/L (22-29); Chloride 84 mmol/L (98-107); Globulin 2.8 g/dL (1.3-4.6); Glomerular Filtration Rate 61.9 mL/min (90-130); Glucose 138 mg/dL (65-115); Osmolality Calculated 285 mOsm/kg (285-295); Sodium 135 mmol/L (136-145); Total Bilirubin 0.2 mg/dL (0.15-1.2); Total Protein 6.8 g/dL (6.6-8.7)
[2019-12-01 04:30] LABS: Potassium 2.9 mmol/L (3.5-5.1)
[2019-12-01] MEDS: potassium chloride premix 40 MEQ/100 ML PREMIX 25 MEQ IV (05:49)
[2019-12-01 06:57] LABS: Slide Review Slide Review Perform
[2019-12-01] MEDS: FUROsemide 10 mg/mL SDV 4mL 40 MG IVP ×2 (08:07→19:51)
[2019-12-01] MEDS: pantoprazole 40 mg SDV IVP (08:07)
[2019-12-01] MEDS: enoxaparin 40 mg/0.4 mL Syringe SUBCUT ×2 (08:08→19:51)
[2019-12-01] MEDS: aspirin 81 mg EC Tablet PO (08:08)
[2019-12-01] MEDS: levothyroxine 100 mcg Tablet 200 MCG PO (08:08)
--- NOTE | 2019-12-01 08:59 | PM.PN ---
Subjective Subjective: Interval history: She really wants to go home. Says that she is feeling much better. Denies dyspnea. Denies chest pain or pressure. Discussed with her her current high oxygen requirement. She is able to name that she is currently on as she states 10 L oxygen, discussed with her she states at home she is on 4 L. She says that her machine at home can go up to 10 L if needed. Discussed with her that with that she would not have any buffer in case she would need any additional oxygen, Bede with exertion, or also if she were to get worse. Discussed with her I do not see that she is yet ready to safely return home unless she continues to improve and her oxygen requirement decreases. She wants to try to wean off oxygen and see how she does. We will try to do that. When asking if she understands what might happen if she goes home prematurely she states if she gets worse I might . She does say that she will have someone coming over to stay with her and provide help if needed. She would like to resume the discussion about going home after attempts to titrate down oxygen. I attempted to reach her designated contact Saundra Cruz as well, left message, so far my call has not been returned. Vitals/I&O/Wt Last Vital Signs Temp 97.7 F 12/01/19 07:02 Pulse 60 12/01/19 07:00 Resp 14 12/01/19 07:00 BP 102/61 12/01/19 07:00 Pulse Ox 98 12/01/19 07:00 11/30/19 12/01/19 12/01/19 22:59 06:59 14:59 Intake Total 1150 / 1875.67 250 / 2125.67 Output Total 975 / 1875 600 / 2475 Balance 175 / 0.67 -350 / -349.33 Weight last 48 hrs Weight 132.313 kg Weight 134.263 kg Weight 122.47 kg Physical Exam Const: COMMON NORMALS: no acute distress NUTRITIONAL APPEARANCE: obese OTHER: Awake, alert, sitting up in chair, working with OT. HENMT: COMMON NORMALS: oropharynx normal OTHER: high flow NC Eye: OTHER: Pupils symmetrical Neck/C-Spine: OTHER: Cannot see JVD, but may not be visible due to thick neck Resp: COMMON NORMALS: normal respiratory effort AUSCULTATION: diminished lung sounds OTHER: Air entry is improving. Cardio: COMMON NORMALS: regular rhythm, S1 normal heart sound present, S2 normal heart sound present and No murmurs present (Cardio) RHYTHM: regular rhythm HEART SOUNDS: S1 normal heart sound present and S2 normal heart sound present GI: COMMON NORMALS: Normal to inspection, nondistended, normoactive bowel sounds present, Soft to palpation and non-tender PALPATION: Yes Soft to palpation Extremity: COMMON NORMALS: no joint enlargement and no pedal edema OTHER: No cellulitis on LE. Neuro: COMMON NORMALS: moves all extremities Skin: COMMON NORMALS: no rashes or lesions noted GENERAL SKIN EXAM: no rashes or lesions noted Urinary Catheter Management^: Pete: Cath Placed During This Visit: yes Reason for Continuing Indwelling Catheter: Accurate Measurement of Urinary Output in Critically Ill Patients Urinary Catheter Date of Insertion: 11/27/19 Urinary Catheter Time of Insertion: 14:07 Data : 12/01/19 03:30 12/01/19 03:30 Micro: Microbiology 11/27/19 15:00 Sputum Culture - Final Sputum - Endotracheal Tube Aspirate A&P Assessment and plan (1) Acute hypercapnic respiratory failure: Really wants to go home, but discussed with her and current condition with 11 L high flow oxygen she is still at risk of again respiratory failure, syncope/fall/injury, cardiopulmonary arrest and , which she does understand. Wants to revisit discussion after trying to wean down on oxygen. We will try to taper down. Otherwise she has been working well with OT today. PT evaluation pending. Reportedly asked the nurse not to discuss or provide any further information to her son, and is asking to draft Paperwork for new power of assistant prosecuting attorney healthcare. May need to hold off just for now until we see that there is no further encephalopathy, But she appears to have pretty good insight at this time. She knows she is in the hospital due to respiratory difficulty. States that if she were to leave hospital prematurely she may be at risk of . Stated to RN she would not want her son to be involved in medical care. Prefers to create paperwork to name Saundra Cruz as her point of contact and medical power of assistant prosecuting attorney. COVID-19 PCR negative. MRSA PCR negative. Primaxin and vancomycin discontinued per pulmonology recommendations. Appreciate consultation. White count 20, low-grade fever 100 Fahrenheit 11/28. So far Afebrile. On Levaquin alone. Sputum culture. Acute respiratory failure with hypoxia and hypercapnia. Continue mechanical ventilator support. Continue daily sedation weaning to reassess mental status. Continue Lasix. In -ve balance. Overnight did have episodes of confusion, and so Primaxin was continued. This is stopped this morning. So far she is doing well, alert and oriented, calm, with good insight. Monitor telemetry for any further bradycardia. Secondary to elevated d-dimer, CTA chest was checked. No evidence of PE. Status: Acute (2) COPD exacerbation: IV steroids stopped. Inhaled steroid. Appreciate pulmonology assessment. Air entry is better. Levaquin. Sputum culture unrevealing. Pulmonary toilet Status: Acute (3) Pneumonia: Negative COVID-19 PCR Levaquin. Primaxin and vancomycin discontinued. Sputum culture, blood culture without growth. Status: Acute (4) Acute encephalopathy: Appears resolved. Noncontrast CT head with senescent changes no evidence of large acute infarction or acute injury Likely secondary to CO2 narcosis and/or methamphetamine use, hypothyroidism. Status: Acute (5) Hypomagnesemia: Supplemented Status: Acute (6) Elevated troponin: No chest pain. Continue aspirin 81 mg daily Echocardiogram with possibly normal LV size, EF, mild biatrial enlargement, no effusion, technically difficult study. No chest pain. For now continue Lasix 40 mg every 12 hours Would benefit from moderate to high intensity statin. Given possible methamphetamine use hold off for now given rhabdomyolysis. As EKG nonischemic, and history of elevated troponin in the past will await trend before any further action. This may be secondary to her methamphetamine use or history of heart failure. Would benefit from additional risk stratification, although she is adamant about returning home as soon as possible, so this will need to be done outpatient. Status: Acute (7) Hypothyroidism: May be noncompliant with her home medicine Continue levothyroxine Will need reassessment of thyroid studies at primary care appointment. Status: Acute (8) Methamphetamine abuse: Multiple occasions where she is methamphetamine positive. Admit she smokes cigarettes, on rare occasion smokes methamphetamine. Monitor for withdrawal Counseled her extensively on cessation of methamphetamine use. She verbalized understanding of different potential complications and risks. Status: Acute (9) Tobacco dependency: Has been counseled on smoking cessation, especially in setting of multiple intubations in the past, COPD, chronic hypoxia. She verbalized understanding. Continue to encourage cessation. Status: Acute Additional A&P Information Rhabdomyolysis: Mild, resolving Cellulitis: resolved. Past history of chronic kidney disease stage II History of GERD. Protonix will be administered. Full code Attestations Medical Necessity Statement*: Continue admission for assessment and management of respiratory failure with hypoxia, possible pneumonia, weaning down oxygen. Coding Level of Care Code Acute Volunteer Assistant for [facility] Diagnoses Acute hypercapnic respiratory failure J96.02 COPD exacerbation J44.1 Pneumonia J18.9 Acute encephalopathy G93.40 Hypomagnesemia E83.42 Elevated troponin R79.89 Hypothyroidism E03.9 Methamphetamine abuse F15.10 Tobacco dependency F17.200
[2019-12-01] MEDS: ipratropium-albuterol 3 mL Neb INHALATION ×2 (09:09→21:47)
[2019-12-01] MEDS: budesonide 0.5 mg/2 mL Neb INHALATION ×2 (09:09→21:47)
[2019-12-01] MEDS: potassium chloride ER 10 mEq Tablet 40 MEQ PO (11:00)
[2019-12-01] MEDS: levoFLOXacin 750 mg Tablet PO (11:00)
--- NOTE | 2019-12-01 19:34 | PC.NURSE ---
Pt really wanted to go home today, but agreed to stay one more night. Oxygen has been weaned to 4L/min, which is what she usually wears at home. Pete removed, and pt is ambulating to bathroom with standby assistance and walker. She is tolerating her regular diet and eating 100% of all meals. No s/s distress today. She is alert and oriented x3 (she is not always of sure of current date, but otherwise responds to questions appropriately). She signed a new DPOA and Advance Directive form today, which was notarized by the social service liaison. A copy was placed in the chart and pt was given the original plus extra copies.
[2019-12-02] VITALS (8 sets, daily range): BP systolic 118–134; BP diastolic 57–90; PULSE 70–83; RESP 16–38; TEMP 36.7–37.2; O2SAT 92–98
[2019-12-02 04:56] LABS: Hematocrit 38.2 % (37.0-47.0); Hemoglobin 11.7 g/dL (11.5-15.3); Mean Corpuscular HGB Conc 30.6 g/dL (30.0-36.0); Mean Corpuscular Hemoglobin 29.9 pg (28.0-34.0); Mean Corpuscular Volume 97.7 fL (81-99); Mean Platelet Volume 9.9 fL (7.4-10.4); Platelet Count 321 10^3/cmm (130-400); Red Blood Count 3.91 10^6/uL (4.1-5.3); Red Cell Distribution Width 17.2 % (12.1-15.1); White Blood Count 21.2 10^3/uL (4.0-10.0)
[2019-12-02 05:28] LABS: Alanine Aminotransferase 14 U/L (0-33); Albumin Level 4.2 g/dL (3.5-5.2); Alkaline Phosphatase 64 IU/L (35-105); Blood Urea Nitrogen 22 mg/dL (8-23); Calcium 8.1 mg/dL (8.5-10.5); Carbon Dioxide 40 mmol/L (22-29); Chloride 85 mmol/L (98-107); Globulin 2.6 g/dL (1.3-4.6); Glomerular Filtration Rate 54.8 mL/min (90-130); Glucose 125 mg/dL (65-115); Osmolality Calculated 287 mOsm/kg (285-295); Sodium 136 mmol/L (136-145); Total Bilirubin 0.2 mg/dL (0.15-1.2); Total Protein 6.8 g/dL (6.6-8.7)
[2019-12-02 05:31] LABS: Anion Gap 14.7 (5-19); Aspartate Amino Transferase 29 U/L (0-32); Potassium 3.7 mmol/L (3.5-5.1)
[2019-12-02 07:43] LABS: Slide Review Slide Review Perform
[2019-12-02 07:44] LABS: Band Neutrophils Absolute 2.1 10^3/cmm (0.0-1.2); Lymphocytes 22 %; Monocytes Absolute 1.9 10^3/cmm (0.1-0.6); Segmented Neutrophils 47 %; Total Cells Counted 100 (0-100)
[2019-12-02 07:45] LABS: Absolute Neutrophil 12.1 10^3/cmm (1.4-6.5); Anisocytosis 1+; Platelet Estimate Normal (Normal)
[2019-12-02] MEDS: budesonide 0.5 mg/2 mL Neb INHALATION (08:29)
[2019-12-02] MEDS: ipratropium-albuterol 3 mL Neb INHALATION (08:30)
[2019-12-02] MEDS: pantoprazole 40 mg SDV IVP ×2 (09:39→09:45)
[2019-12-02] MEDS: levothyroxine 100 mcg Tablet 200 MCG PO ×2 (09:40)
[2019-12-02] MEDS: FUROsemide 10 mg/mL SDV 4mL 40 MG IVP ×2 (09:40→09:45)
[2019-12-02] MEDS: aspirin 81 mg EC Tablet PO ×2 (09:40→09:47)
--- NOTE | 2019-12-02 09:55 | P.DS_ITS ---
Discharge Providers Date of Admission: 11/27/19 16:07 Date of Discharge: December 02, 2019 Attending Provider at Admission: Dm Lucero MD Attending Provider at Discharge: Steven Lee Primary Care Provider: Varinder Delgado Diagnoses at Discharge Discharge Diagnosis (1) Acute hypercapnic respiratory failure: Status: Acute Problem details: Hypoxic and hypercapnic respiratory failure in the hospital. Pulmonary edema, pneumonia, appears also may have sleep apnea, possibly OHS, referred for sleep study, follow-up with pulmonology. (2) COPD exacerbation: Status: Acute Problem details: Improving (3) Pneumonia: Status: Acute (4) Acute encephalopathy: Status: Acute (5) Hypomagnesemia: Status: Acute (6) Elevated troponin: Status: Acute Problem details: Type II (7) Hypothyroidism: Status: Acute Problem details: Issues with recurrent hypothyroidism - unclear if taking her medicines, or possibly not absorbing. (8) Methamphetamine abuse: Status: Acute Problem details: Smokes (9) Tobacco dependency: Status: Acute (10) Pulmonary edema: Status: Acute (11) Rash: Status: Acute (12) Morbid obesity: Status: Chronic Reason for Visit Reason for Visit: resp distress, lethargic Hospital Course Hospital Course: 69-year-old lady was admitted due to acute encephalopathy, respiratory failure with hypoxia and hypercapnia, requiring mechanical ventilatory support, was treated for pneumonia, treated with Primaxin, linezolid, pulmonary edema, diuresing with IV Lasix, COPD for which received IV steroids, breathing treatments. Toxicology panel tested positive for methamphetamine on presentation, which she has history of smoking. She was noted to have moderate rhabdomyolysis with CK up to 4195 which has been resolving. On presentation also noted moderate troponin elevation without increase, 120-115-90, suspected type II ischemia secondary to hypoxia, respiratory failure and other acute conditions. She subsequently has had no chest pain. Echocardiogram difficult to perform, but possibly normal LV size and ejection fraction. She is referred for additional assessment with stress test as discussed with her. Her mental status gradually improved. She had somewhat persistent hypoxia, however, ended up self extubating and did well subsequently with initial support with BiPAP. She is noted to have some nighttime hypoxia, and would benefit from noninvasive ventilation long-term. She is referred for sleep study. We have discussed extensively cessation of methamphetamine use, and smoking due to various adverse effects and her risk factors, and she verbalized that she will start by stopping to smoke methamphetamine. Please follow-up with her to reinforce. Rapid flu test, COV ID-19 testing and sputum cultures were negative in the hospital. Her steroid has been discontinued. Antibiotics switched to Levaquin alone. Possible cellulitis noted on right anterior naranjo resolved. She is insistent on returning home. Her oxygen need is decreased down to her baseline 4 L by nasal cannula. She did well with PT and OT. She has filled out paperwork for power of deputy county attorney for [place]und[place] Cruz as she had expressed she did not want her sons involved in medical decision making. While in the hospital she is also noted to have hypothyroidism, and this appears was also an issue during the hospitalization at [facility]. She did improve after resumption of oral levothyroxine, and so it is possible she may not be taking her medication at home. Lack of absorption may be an issue. Please follow-up thyroid studies. She is also referred to endocrinology to follow-up in office. Please follow-up for resolution of leukocytosis which has been persistent and appears to be similar to prior studies. If no resolution, may need additional evaluation. Physical Exam Const: COMMON NORMALS: no acute distress NUTRITIONAL APPEARANCE: obese OTHER: Awake, alert, sitting up in chair, working with OT. HENMT: COMMON NORMALS: oropharynx normal OTHER: high flow NC Eye: OTHER: Pupils symmetrical Neck/C-Spine: OTHER: Cannot see JVD, but may not be visible due to thick neck Resp: COMMON NORMALS: normal respiratory effort AUSCULTATION: diminished lung sounds OTHER: Air entry is improving. Cardio: COMMON NORMALS: regular rhythm, S1 normal heart sound present, S2 normal heart sound present and No murmurs present (Cardio) RHYTHM: regular rhythm HEART SOUNDS: S1 normal heart sound present and S2 normal heart sound present GI: COMMON NORMALS: Normal to inspection, nondistended, normoactive bowel sounds present, Soft to palpation and non-tender PALPATION: Yes Soft to palpation Extremity: COMMON NORMALS: no joint enlargement and no pedal edema OTHER: No cellulitis on LE. Neuro: COMMON NORMALS: moves all extremities Skin: COMMON NORMALS: no rashes or lesions noted GENERAL SKIN EXAM: no rashes or lesions noted Urinary Catheter Management^: Pete: Cath Placed During This Visit: yes, but has since been removed by the nurse Reason for Continuing Indwelling Catheter: Decision to DC Catheter Urinary Catheter Date of Insertion: 11/27/19 Urinary Catheter Time of Insertion: 14:07 Date Urinary Catheter Removed: 12/01/19 Time Urinary Catheter Discontinued: 20:21 Discharge Data Data Completed and Pending: Completed Studies During Hospitalization Category Date Time Status CT angio chest PE protcl 09184 Urge nt Cat Scan 11/27/19 15:[address] head wo con* 7 0450 Stat Cat Scan 11/27/19 13:47 Completed XR chest 1V [place] ble [id number] Routine Exams 11/28/19 19:00 Completed XR chest 1V [place] ble [id number] Routine Exams 11/29/19 06:00 Completed XR chest 1V garland ble [id number] Stat Exams 11/27/19 13:47 Completed XR chest 1V garland ble [id number] Stat Exams 11/27/19 14:52 Completed XR chest 1V [place] ble [id number] Stat Exams 11/27/19 15:28 Completed CV echo complete* [id number] Routine Ultrasound 11/28/19 07:00 Completed Pending at discharge Category Date Time Status Basic Metabolic P ernesto AM LABS Lab 12/03/19 04:00 Ordered Basic Metabolic P ernesto AM LABS Lab 12/04/19 04:00 Ordered Blood Culture Sta t Lab 11/27/19 19:15 Results Complete Blood Co unt w/Auto AM LABS Lab 12/03/19 04:00 Ordered Complete Blood Co unt w/Auto AM LABS Lab 12/03/19 04:00 Ordered Complete Blood Co unt w/Auto AM LABS Lab 12/04/19 04:00 Ordered Comprehensive Met abolic Panel AM LA BS Lab 12/03/19 04:00 Ordered Labs from last 24 hours 12/02/19 12/02/19 04:33 04:33 WBC 21.2 H RBC 3.91 L Hgb 11.7 Hct 38.2 MCV 97.7 MCH 29.9 MCHC 30.6 RDW 17.2 H Plt Count 321 MPV 9.9 Lymph % (Auto) Not Reportable Bay % (Auto) Not Reportable Lymph # (Auto) Not Reportable Bay # (Auto) Not Reportable Total Counted 100 Absolute Neutrophi ls 12.1 H Segmented Neutroph ils 47 Abs Segm Neuts (Ma n) 10.0 H Band Neutrophils 10.0 Abs Band Neuts (Ma n) 2.1 H Lymphocytes (Manua l) 22 Monocytes (Manual) 9.0 Absolute Monocytes 1.9 H Metamyelocytes 6.0 Myelocytes 6.0 Nucleated RBCs 1.0 Platelet Estimate Normal Anisocytosis 1+ H Sodium 136 Potassium 3.7 Chloride 85 L Carbon Dioxide 40 H Anion Gap 14.7 BUN 22 Creatinine 1.0 H GFR Calculation 54.8 L Glucose 125 H Calculated Osmolal ity 287 Calcium 8.1 L Total Bilirubin 0.2 AST 29 ALT 14 Alkaline Phosphata se 64 Total Protein 6.8 Albumin 4.2 Globulin 2.6 Vitals: Last Vital Signs Temp 98.1 F 12/02/19 06:01 Pulse 83 12/02/19 08:37 Resp 18 12/02/19 08:36 BP 134/90 12/02/19 04:00 Pulse Ox 98 12/02/19 08:36 Discharge Plan Discharge Patient Disposition: Home Condition: Stable Prescriptions: New aspirin 81 mg Tablet,Delayed Release (Dr/Ec) 81 mg PO DAILY Qty: 30 RF: 0 levofloxacin 750 mg Tablet 750 mg PO DAILY@1100 Qty: 5 RF: 0 furosemide 40 mg tablet 40 mg PO DAILY Qty: 30 RF: 0 Continued Spiriva with HandiHaler 18 mcg capsule, w/inhalation device 1 cap INHALATION DAILY RF: 0 potassium chloride 10 mEq Capsule, Extended Release 20 meq PO DAILY RF: 0 nitroglycerin [Nitrostat] 0.4 mg Tablet, Sublingual 0.4 mg SUBLINGUAL Q5M PRN (Reason: Chest Pain) RF: 0 levothyroxine 200 mcg Tablet 200 mcg PO DAILY RF: 0 pramipexole 1.5 mg Tablet 3 mg PO BID RF: 0 ipratropium-albuterol 0.5 mg-3 mg(2.5 mg base)/3 mL solution for nebulization 3 ml INHALATION QID PRN (Reason: shortness of breath or wheezing) Qty: 180 RF: 0 fluticasone propion-salmeterol [Advair Diskus] 250-50 mcg/dose blister with device 1 inh INHALATION BID Qty: 60 RF: 0 Discharge Orders: Discharge Order (Routine); Ordered 12/02/19 Ordered By: Steven Lee Other Ambulatory Orders: Sestamibi Stress Test Request (Routine) Timeframe: 1 Week Facility: [facility] - Location: Cardiac Diagnostic Laboratory Ordered By: Steven Lee Sleep Study/Titration (Routine) Timeframe: 1 Week Location: None Selected Ordered By: Steven Lee Referrals: sleep study [Other] ([facility] CENTRALIZED SCHEDULEING DEPARTMENT WILL CALL YOU WITH APPOINTMENT AND INSTRUCTIONS FOR SLEEP STUDY AND LEXISCAN MIBI TEST . ) Endo [Provider Group] - 2 weeks (Recurrent hypothyroidism [facility] WILL ADDRESS .AND RECOMMEND CLINIC . FOR APPOINTMENT . ) [facility] [Outside] Alba Pruett FNP [Referring] - 4-7 days ([facility] AT [facility] [phone] WITH PROVIDOR ALBA PRUETT SCHEDULED FOR DATE OF MONDAY DECEMBER 09, 2019 AT 11:00 AM ) Geovanny Yeager MD [Physician] - 2 weeks ([facility] [phone] SCHEDULED WITH FOR FOLLOWING DATE OF Thursday AT 10:00 AM ) Discharge Diet: Cardiac Discharge Activity: Increase activity as tolerated, As per PT/OT instructions and Oxygen as instructed Patient Instructions: COPD, Furosemide (By mouth), Aspirin (By mouth), Levofloxacin (By mouth), How to Stop Smoking (DC), Methamphetamine Abuse (DC), COPD Stoplight Activity Restrictions/Additional Instructions: Please attend the cardiac stress test and sleep study, and follow-up with your primary care doctor regarding results. Please follow-up with pulp press tender in office due to recurrent respiratory failure, intubation, sleep apnea. Please make sure you take your thyroid medicine as prescribed as you have hypothyroidism. You are referred to follow up with endocrinology. Please discuss with your primary care doctor to follow up for resolution of elevated white blood cell count. This needs to be followed up after you complete your treatment for pneumonia to make sure it goes back to normal. Please do not smoke any methamphetamine or cigarettes as they continue to damage your lungs, causing progression of lung disease, heart disease including heart attack, heart failure, bowel, and other severe adverse effects that may result in . Never smoked anywhere near oxygen due to severe fire hazard and risk of burn injury to her airways and . 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
--- NOTE | 2019-12-02 10:15 | PC.SOCIAL ---
IMM Updated Page 2 of IMM updated and given to patient. Initialed, dated, and timed and placed back in chart.
--- NOTE | 2019-12-02 11:30 | PC.NURSE ---
d/c home with instructions sleep lab to call her to set up appt.
== END 2019-12-02 11:30 | disposition home or self-care (01) | DRG 208 ==
LOC: ER 15:34 → ICU 16:28
PROVIDERS: Emergency Medicine; Admitting Provider Internal Medicine; Emergency Provider Nurse Practitioner Family; PCP Family Medicine; Visit Provider Internal Medicine
DX: J96.02 Acute respiratory failure with hypercapnia (principal); J18.9 Pneumonia, unspecified organism; J81.0 Acute pulmonary edema; I21.A1 Myocardial infarction type 2; J44.1 Chronic obstructive pulmonary disease with (acute) exacerbation; J44.0 Chronic obstructive pulmonary disease with (acute) lower respiratory infection; G93.40 Encephalopathy, unspecified; I13.0 Hypertensive heart and chronic kidney disease with heart failure and stage 1 through stage 4 chronic kidney disease, or unspecified chronic kidney disease; Z68.41 Body mass index [BMI] 40.0-44.9, adult; F17.210 Nicotine dependence, cigarettes, uncomplicated; F15.10 Other stimulant abuse, uncomplicated; E83.42 Hypomagnesemia; E03.9 Hypothyroidism, unspecified; E66.01 Morbid (severe) obesity due to excess calories; R21 Rash and other nonspecific skin eruption; J96.01 Acute respiratory failure with hypoxia; Z20.828 Contact with and (suspected) exposure to other viral communicable diseases; N18.2 Chronic kidney disease, stage 2 (mild); Z87.11 Personal history of peptic ulcer disease; K21.9 Gastro-esophageal reflux disease without esophagitis
CPT/HCPCS: 12345; 36415; 36600; 51702; 70450; 71045; 71275; 80051; 80053; 80061; 80202; 80306; 80307; 81001; 82009; 82140; 82550; 82803; 82810; 83605; 83615; 83690; 83735; 83880; 83986; 84443; 84484; 85007; 85025; 85378; 85384; 85610; 86140; 87040; 87070; 87426; 87635; 87641; 87804; 93005; 93306; 94002; 94003; 94640; 94660; 94799; 96372; 96375; 97161; 97165; 97535; 99285; C9113; J0330; J0743; J1650; J1940; J1956; J2060; J2250; J2405; J2704; J2930; J3010; J3370; J3475; J3480; J3490; J7030; J7050; J7626; Q9967